=== PATIENT | male | born 1950 | race Caucasian/White ===

== ENCOUNTER 2023-02-19 19:49 | Emergency (ER) | payer MEDICARE, SELFPAY ==
[2023-02-19 19:50] VITALS: BP 147/86; PULSE 87; RESP 14; TEMP 36.9; O2SAT 94; BMI 28.5
--- NOTE | 2023-02-19 20:40 | EX.ED.DYSGE1 ---
HPI History of Present Illness Chief Complaint: Palpitations Informant: patient Narrative Narrative: Patient states he recently moved here, they were moving boxes today, and about half hour prior to arrival here, he started feeling occasional skips in his chest. He got a one-time brief discomfort in his left chest that went away quickly and has not returned. Denies any dyspnea. 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 Has been compliant with his medications although he forgot to take his metoprolol this morning, 50 mg succinate daily, so he took it around 4 to 5 hours prior to evaluation here now. [facility] Medical History (Updated 02/19/23 @ 23:[address] Sami Lu MD) AAA (abdominal aortic aneurysm) Atrial fibrillation Leaky heart valve Stroke Allergy/AdvReac Type Severity Reaction Status Date / Time Iodinated Contrast Media Allergy Anaphylaxis Verified 02/19/23 19:53 Social History Smoking Status: Former smoker ROS ROS ED Constitutional Constitutional ED: Denies chills or fever(s) Eyes Eyes: Denies change in vision or diplopia ENT ENT ED: Denies rhinorrhea or sore throat Cardiovascular Cardiovascular: Reports chest pain and palpitations; Denies lightheadedness, racing heartbeat or syncope Respiratory/Chest Respiratory/Chest: Reports dyspnea on exertion; Denies cough Gastrointestinal Gastrointestinal: Denies abdominal pain, diarrhea, nausea or vomiting Genitourinary Genitourinary ED: Denies dysuria or hematuria Musculoskeletal Musculoskeletal: Denies back pain or neck pain Integumentary Denies abscess or rash Neurologic Neurologic: Denies headache(s), paresthesias or weakness Psychiatric Psychiatric: Denies anxiety or suicidal thoughts EXAM Physical Exam Const Vital Signs: 02/19/23 19:50 02/19/23 21:19 02/19/23 21:24 Temperature 98.5 F Temperature Source Temporal Pulse Rate 87 71 Respiratory Rate 14 19 H Blood Pressure 147/86 H 116/71 Blood Pressure Mean 106 86 Pulse Ox 94 92 93 Oxygen Delivery Method Room Air Room Air 02/19/23 22:18 Temperature Temperature Source Pulse Rate 72 Respiratory Rate 14 Blood Pressure 117/81 H Blood Pressure Mean 93 Pulse Ox 94 Oxygen Delivery Method Room Air Positive well nourished and well developed General Appearance ED: well developed and NAD HEENT Reports moist mucous membranes normocephalic and atraumatic Eyes PERRL and EOMs intact bilaterally Neck full ROM and supple Resp normal respiratory effort and clear to auscultation bilaterally Cardio regular rate and regular rhythm Rhythm: abnormal rhythm ectopic beats Heart Sounds: murmur systolic III/ soft left sternal border GI non-tender and non-distended Auscultation: normoactive bowel sounds Palpation: soft Back/Spine no CVA tenderness General Back: other FROM Extremity normal to inspection General Extremety ED: Yes edema; Negative for pulses abnormal or tenderness General Extremity: edema bilateral lower extremity Details: mild; Negative for pulses abnormal Neuro oriented x3, CN's II-XII intact bilaterally and no sensory deficits noted Sensorium / Orientation: awake and alert Motor Exam: strength 5/5 throughout Psych mental status grossly normal Skin no rashes or lesions noted and no wounds MDM MDM MDM Narrative Medical decision making narrative: Labs were obtained including troponin which was within normal limits, we performed a 2-hour repeat, it is also in the normal range. In that time, I gave the patient an additional metoprolol tartrate 12.5 mg orally, his blood pressure tolerated this well, as that his heart rate was simply went from the 80s in the 70s, he was still having some occasional ectopy but was completely asymptomatic with it. Given this some comfortable discharging him home right now. I would continue his home prescriptions without changing the dose going forward for now, and he is referred to local cardiology and primary care. History & Record Review Additional record(s) reviewed:: No prior records Lab Data Attestation: I reviewed the patient's lab results. Labs: Laboratory Results - last 24 hr 02/19/23 02/19/23 19:55 22:45 WBC 6.9 RBC 4.48 L Hgb 14.0 Hct 42.7 MCV 95.3 H MCH 31.3 MCHC 32.8 RDW Std Deviation 48.3 H RDW Coeff of Brandy 13.7 Plt Count 209 MPV 10.5 Immature Gran % (Auto) 0.300 Neut % (Auto) 71.3 H Lymph % (Auto) 14.0 L [place] % (Auto) 11.5 H Eos % (Auto) 2.5 Baso % (Auto) 0.4 Absolute Neuts (auto) 4.9 Absolute Lymphs (auto) 0.96 Nucleated RBC % 0 Sodium 144 Potassium 3.5 Chloride 112 H Carbon Dioxide 27.0 Anion Gap 5 BUN 29 H Creatinine 0.92 Estim Creat Clear Calc 72.74 Est GFR (MDRD) Af Amer 103 Est GFR (MDRD) Non-Af 85 BUN/Creatinine Ratio 31.5 H Glucose 118 H Calcium 8.9 Troponin I High Sens 19 18 Rhythm Strip Rhythm Strip: Sinus Rhythm Rate: 85 Ectopy: None EKG Initial EKG: Attestation: I personally reviewed and interpreted this EKG as follows: Interpretation: Sinus Rhythm, No Acute Injury Pattern and - (PVC) Prior: No Prior Discharge Plan Triage Chief Complaint: Palpitations ED Provider: Sami Lu Dx/Rx/DC Orders Clinical Impression: Symptomatic PVCs, Non-cardiac chest pain Instructions: PVCs, ED Chest Pain, Noncardiac Primary Care Provider: Care Physician,No Primary Referrals: Eyal Briceno MD [Med Staff - Active Staff] - (primary care) Allison Londono MD [Med Staff - Active Staff] - (cardiology) Activity Restrictions/Additional Instructions: Continue on your current prescriptions, take your next metoprolol in the morning as prescribed. Disposition Disposition: Home, Self Care
[2023-02-19 20:51] LABS: Absolute Lymphocyte Count 0.96 X10^3/uL (0.83-4.51); Absolute Neutrophil Count 4.9 X10^3/uL (2.0-7.7); Basophil# 0.03 X10^3/uL; Basophil% 0.4 % (0-1); Eosinophil# 0.17 X10^3/uL; Eosinophils% 2.5 % (0-5); Hematocrit 42.7 % (40-54); Lymphocyte # 0.96 X10^3/ul (0.83-4.51); Mean Corp Hgb Conc 32.8 g/dL (32-36); Mean Corpuscular Hgb 31.3 pg (27.0-32.0); Mean Corpuscular Volume 95.3 fL (80-94); Mean Platelet Vol. 10.5 fl (6.2-12.0); Monocyte# 0.79 X10^3/uL; Monocyte% 11.5 % (0-10); NRBC Flagged by Analyzer 0 % (0-5); Neutrophil # 4.91 X10^3/uL (2.7-7.7); Neutrophil % 71.3 % (47-70); Platelet Count 209 K/mm3 (150-450); RBC Distribution Width CV 13.7 % (11.6-14.6); RBC Distribution Width SD 48.3 fl (35.1-43.9); Red Blood Count 4.48 M/mm3 (4.6-6.2); White Blood Count 6.9 K/mm3 (4.4-11.0)
[2023-02-19 21:11] LABS: Anion Gap 5 (5-15); BUN 29 mg/dL (7-18); BUN/Creat Ratio 31.5 RATIO (10-20); Calcium,Total 8.9 mg/dL (8.5-10.1); Chloride 112 mmol/L (98-107); Creatinine, Serum 0.92 mg/dL (0.70-1.30); EST Glomerular Filtration Rate 85 mL/min (>60); Est Glom Filt Rate - Afr Amer 103 mL/min (>60); Estimated Creatinine Clearance 72.74 ml/min; Glucose 118 mg/dL (74-106); Potassium 3.5 mmol/L (3.5-5.1); Sodium Level 144 mmol/L (136-145); Troponin-I HS (w/2H Reflex) 19 pg/mL (3.0-78.0)
[2023-02-19 21:19] VITALS: O2SAT 92
[2023-02-19 21:24] VITALS: BP 116/71; PULSE 71; RESP 19; O2SAT 93
[2023-02-19] MEDS: Metoprolol Tartrate 25 MG Tablet 12.5 MG PO (21:24)
[2023-02-19 22:18] VITALS: BP 117/81; PULSE 72; RESP 14; O2SAT 94
[2023-02-19 22:49] LABS: Reflex Troponin-HS? (from REC) Y
[2023-02-19 23:40] LABS: Troponin-I HS 18 pg/mL (3.0-78.0)
[2023-02-19 23:51] VITALS: BP 117/67; PULSE 81; RESP 18; O2SAT 99
== END 2023-02-19 23:53 | disposition home or self-care (01) ==
PROVIDERS: Emergency Provider Emergency Medicine; Visit Provider Emergency Medicine
DX: R07.89 Other chest pain (principal); I50.9 Heart failure, unspecified; I49.3 Ventricular premature depolarization; Z87.891 Personal history of nicotine dependence; Z86.73 Personal history of transient ischemic attack (TIA), and cerebral infarction without residual deficits; Z79.899 Other long term (current) drug therapy
CPT/HCPCS: 80048; 84484; 85025; 93005; 99284; A4216

== ENCOUNTER → 2023-09-02 | Outpatient (CLI) | payer MEDICARE, SELFPAY ==
--- NOTE | 2023-09-02 08:54 | AAAS_ITS ---
Reason For Study: RE-EVAL AAA Aorta Measurements Aorta Doppler Measurements Proximal aorta measures2.67 X 2.32cm. in cross- Peak systolic flow velocities within the proximal sectional axis. aorta measure 95.4 cm/sec. Proximal aorta measures2.65cm. in longitudinal Peak systolic flow velocities within the mid aorta axis. measure 82.5 cm/sec. Mid aorta measures2.00 X 2.03cm. in cross- Peak systolic flow velocities within the distal sectional axis. aorta measure 93.5 cm/sec. Mid aorta measures2.1cm. in longitudinal axis. Distal aorta measures2.08 X 1.86cm. in cross- sectional axis. Distal aorta measures2.16cm. in longitudinal axis. Left Iliac Artery Left iliac artery measures 1.50 X 1.44 cm. in the cross-sectional axis. Left iliac artery measures 1.27 cm. in the longitudinal axis. Peak systolic velocity in the left iliac artery measures 89.8 cm/sec. Right Iliac Artery Right iliac artery measures 1.23 X 1.20 cm. in the cross-sectional axis. Right iliac artery measures 1.23 cm. in the longitudinal axis. Peak systolic velocity in the right iliac artery measures 88.0 cm/sec. VL/AAA Screening Interpretation Summary Aorta patent, 2.67 cm ectasia present Right iliac artery patent, 1.23 cm ectasia present Left iliac artery patent, 1.5 cm ectasia present Ordering Physician: Rene Bazan Referring Physician: OTD Performed By: Mali Melissa, MIGUEL, RVT
== END | disposition home or self-care (01) ==
LOC: CVS 08:47
PROVIDERS: Referring Provider Internal Medicine Cardiovascular Disease; Visit Provider Internal Medicine Cardiovascular Disease
DX: I71.40 Abdominal aortic aneurysm, without rupture, unspecified (principal)
CPT/HCPCS: 76706

== ENCOUNTER → 2023-09-21 | Outpatient (CLI) | payer MEDICARE, SELFPAY ==
--- NOTE | 2023-09-21 13:53 | ECHOD_ITS ---
Reason For Study: AFIB/FLUTTER, PALPS Procedure This was a 2D Doppler, Color Flow transthoracic echocardiogram. Exam performed in department. Left Ventricle Mildly dilated left ventricle. Mild concentric left ventricular hypertrophy. Mild LV generalized hypokinesis. Estimated ejection fraction 45 to 50%. Grade 2 diastolic dysfunction. Right Ventricle Mildly dilated right ventricle. Atria There is moderate biatrial dilatation. Mitral Valve Severe posteriorly directed eccentric mitral valve regurgitation. Tricuspid Valve Mild tricuspid valve insufficiency. Right ventricular systolic pressure estimated to be 44 mmHg. Aortic Valve Aortic sclerosis, no stenosis. Mild (1+) aortic valve insufficiency. Pulmonic Valve The pulmonic valve is not well visualized. Great Vessels Mildly dilated aortic root. Pericardium/Pleural No pericardial effusion. MMode/2D Measurements & Calculations LVIDd: 5.8 cm IVSd: 1.5 cm Ao root diam: 3.9 cm LVIDs: 4.4 cm LVPWd: 1.5 cm RVDd: 4.7 cm FS: 24.6 % LAV(MOD-bp): 94.8 ml LVAd ap4: 45.3 cm2 SV(MOD-sp4): 82.2 ml LAV(MOD-bp) Indexed: 46.1 ml/m2 LVLd ap4: 9.0 cm LAV(MOD-sp2): 112.5 ml EDV(MOD-sp4): 181.3 ml LAV(MOD-sp4): 73.9 ml EDV(sp4-el): 192.2 ml LVAs ap4: 31.3 cm2 LVLs ap4: 8.0 cm ESV(MOD-sp4): 99.2 ml ESV(sp4-el): 104.7 ml EF(MOD-sp4): 45.3 % EF(sp4-el): 45.5 % SV(sp4-el): 87.5 ml LA A4 area: 23.1 cm2 LA dimension(2D): 4.6 cm RA A4 area: 21.8 cm2 TAPSE: 3.5 cm Time Measurements MV dec time: 0.22 sec Doppler Measurements & Calculations MV E max jose carlos: 56.0 cm/sec Lat Peak E' Jose Carlos: 5.8 cm/sec Med Peak E' Jose Carlos: 8.7 cm/sec MV A max jose carlos: 63.8 cm/sec E/E' lat: 9.7 E/E' med: 6.4 MV E/A: 0.88 MV V2 max: 62.5 cm/sec MV P1/2t max jose carlos: 56.1 cm/sec Ao V2 max: 147.7 cm/sec MV max P.6 mmHg MV P1/2t: 65.1 msec Ao max P.9 mmHg MV V2 mean: 37.9 cm/sec Ao V2 mean: 105.0 cm/sec MV mean P.65 mmHg MV dec slope: 252.5 cm/sec2 Ao mean P.9 mmHg MV V2 VTI: 17.6 cm MVA(P1/2t): 3.4 cm2 Ao V2 VTI: 32.5 cm AV (velocity ratio): 0.72 AI max jose carlos: 406.9 cm/sec LV V1 max: 104.4 cm/sec PA V2 max: 108.2 cm/sec AI max P.3 mmHg LV V1 max P.4 mmHg PA V2 mean: 72.6 cm/sec LV V1 mean P.3 mmHg AI dec slope: 280.5 cm/sec2 LV V1 mean: 72.4 cm/sec AI P1/2t: 424.9 msec LV V1 VTI: 23.4 cm TR max jose carlos: 268.2 cm/sec TR max P.8 mmHg ECHO/Echo Complete Interpretation Summary Mildly dilated left ventricle. Mild LV generalized hypokinesis. Estimated ejection fraction 45 to 50%. Grade 2 diastolic dysfunction. Mildly dilated right ventricle. There is moderate biatrial dilatation. Severe posteriorly directed eccentric mitral valve regurgitation. Mild tricuspid valve insufficiency. Right ventricular systolic pressure estimated to be 44 mmHg. Mild (1+) aortic valve insufficiency. Mildly dilated aortic root. Ordering Physician: Rene Bazan Referring Physician: OTD Performed By: Mali Melissa, MIGUEL, RVT
== END | disposition home or self-care (01) ==
LOC: CVS 13:49
PROVIDERS: Referring Provider Internal Medicine Cardiovascular Disease; Visit Provider Internal Medicine Cardiovascular Disease
DX: I35.1 Nonrheumatic aortic (valve) insufficiency (principal); Z86.79 Personal history of other diseases of the circulatory system; I25.10 Atherosclerotic heart disease of native coronary artery without angina pectoris; R00.2 Palpitations
CPT/HCPCS: 93306

== ENCOUNTER → 2023-11-04 | Outpatient (CLI) | payer MEDICARE, SELFPAY ==
--- NOTE | 2023-11-04 10:37 | ECHOTEE_ITS ---
Reason For Study: MITRAL VALVE REGURGITATION Medication LIZA probe 6VT-D (SN [id number]) passed without difficulty. No complications were noted. Cetacaine Topical Cameron given X3 orally. Versed 2 mg given slow IVP. Fentanyl 50 mcg given slow IVP. Performed a rapid injection of agitated mix of 9 cc saline and 1cc air to assess for atrial septal defect. Left Ventricle Normal LV size. The estimated ejection fraction is 53 %. Left ventricular systolic function is lower limits of normal. There is mild global hypokinesis of the left ventricle. Right Ventricle Normal RV size. Normal systolic function. Atria Patent foramen ovale. The left atrium is mildly enlarged. No thrombus is detected in the left atrial appendage. Normal right atrium. Mitral Valve Bileaflet diffuse mitral valve thickening. Mild-Moderate (1-2+) posteriorly directed mitral valve insufficiency. Multiple jets noted. Tricuspid Valve Normal tricuspid valve. Mild tricuspid valve insufficiency. Aortic Valve Trisinus/trileaflet aortic valve. Mild-Moderate (1-2+) aortic valve insufficiency. Pulmonic Valve Normal pulmonic valve. Mild (1+) eccentric pulmonic valve insufficiency. Vessels Normal aortic root. Normal arch. The pulmonary artery is normal size. Pulmonary venous flow normal. Pericardium No pericardial effusion. Doppler Measurements & Calculations Ao V2 max: 167.0 cm/sec AI max javy: 491.0 cm/sec LV V1 max: 142.4 cm/sec Ao max P.2 mmHg AI max P.4 mmHg LV V1 max P.1 mmHg Ao V2 mean: 123.8 cm/sec LV V1 mean P.4 mmHg Ao mean P.7 mmHg AI dec slope: 297.5 cm/sec2 LV V1 mean: 95.3 cm/sec Ao V2 VTI: 37.4 cm AI P1/2t: 483.4 msec LV V1 VTI: 36.6 cm AV (velocity ratio): 0.98 ECHO/Echo Transesophageal (LIZA) Interpretation Summary Normal LV size. The estimated ejection fraction is 53 %. Left ventricular systolic function is lower limits of normal. There is mild global hypokinesis of the left ventricle. Mild-Moderate (1-2+) posteriorly directed mitral valve insufficiency. Multiple jets noted Mild-Moderate (1-2+) aortic valve insufficiency. Ordering Physician: Kerri Menjivar Referring Physician: Kerri Menjivar Performed By: Gracia Escoto RCS
== END | disposition home or self-care (01) ==
LOC: CVS 10:34
PROVIDERS: Referring Provider Nurse Practitioner Gerontology; Visit Provider Nurse Practitioner Gerontology
DX: I34.0 Nonrheumatic mitral (valve) insufficiency (principal)
CPT/HCPCS: 93312; 93320; 93325; J7040; A4216

== ENCOUNTER → 2023-12-30 | Outpatient (CLI) | payer MEDICARE, SELFPAY ==
[2023-12-30 09:46] LABS: Hematocrit 43.1 % (40-54); Mean Corp Hgb Conc 32.5 g/dL (32-36); Mean Corpuscular Hgb 30.4 pg (27.0-32.0); Mean Corpuscular Volume 93.7 fL (80-94); Mean Platelet Vol. 10.1 fl (6.2-12.0); Platelet Count 173 K/mm3 (150-450); RBC Distribution Width CV 13.4 % (11.6-14.6); RBC Distribution Width SD 45.9 fl (35.1-43.9); White Blood Count 5.8 K/mm3 (4.4-11.0)
[2023-12-30 10:23] LABS: ALB/GLOB Ratio 0.9 RATIO (0.9-2.4); AST(SGOT) 34 U/L (15-37); Alanine Aminotransfer ALT/SGPT 33 U/L (16-61); Albumin, Serum 3.6 g/dL (3.2-5.0); Alkaline Phosphatase 95 U/L (45-117); Anion Gap 4 (5-15); BUN 24 mg/dL (7-18); Calcium,Total 9.1 mg/dL (8.5-10.1); Chloride 111 mmol/L (98-107); Cholesterol 107 mg/dL (200); Creatinine, Serum 0.86 mg/dL (0.70-1.30); EST Glomerular Filtration Rate 93 mL/min (>60); Est Glom Filt Rate - Afr Amer 112 mL/min (>60); Glucose 92 mg/dL (74-106); High Density Lipoprotein 66 mg/dL; Protein, Total 7.6 g/dL (6.4-8.2); Sodium Level 142 mmol/L (136-145); Triglycerides 22 mg/dL; Very Low Density Lipoprotein 4 mg/dL (5-40)
[2023-12-30 10:40] LABS: Vitamin D,25 Hydroxy 63.1 ng/mL
== END | disposition home or self-care (01) ==
LOC: LAB 09:19
DX: K21.9 Gastro-esophageal reflux disease without esophagitis (principal); E78.2 Mixed hyperlipidemia; N40.0 Benign prostatic hyperplasia without lower urinary tract symptoms; E55.9 Vitamin D deficiency, unspecified
CPT/HCPCS: 36415; 80053; 80061; 82306; 85027

== ENCOUNTER 2024-02-06 11:25 | Emergency (ER) | payer MEDICARE, SELFPAY ==
[2024-02-06 11:26] VITALS: BP 116/79; PULSE 69; RESP 18; TEMP 36.2; O2SAT 97
[2024-02-06 12:33] VITALS: BMI 28.0
--- NOTE | 2024-02-06 12:36 | EDS_ITS ---
HPI History of Present Illness Chief Complaint: Lower Extremity Injury Detail of Chief Complaint: Injury anterior right and left leg due to fall 1 week ago Informant: patient Onset/Context/Timing Onset: Weeks Context: Sudden Onset Timing: Continuous Quality: Pain medial anterior right leg and proximal anterior left leg Location: Bruising is noted over the both areas. There is a subcutaneous hematoma on Current Severity: Mild Maximum Severity: Moderate Worsened by: Palpation Relieved by: Nothing Associated Symptoms Associated Symptoms: None other than pain Narrative Narrative: Patient is a 73-year-old male. He has history of congestive heart failure, atrial fibrillation, essential hypertension, coronary disease, abdominal aortic aneurysm and valvular heart disease who presents because of concern for clot. Patient [place] chest pain or shortness of breath. Patient has no other complaints other than the bruising and pain due to fall 1 week ago. He is on Plavix and aspirin. Is on no anticoagulant. Prior similar symptoms: No Recent Illness/Hospitalization: No [facility] Medical History History of atrial fibrillation Ventral hernia Abnormal stress test Glaucoma History of GI bleed Non-hemorrhagic cerebrovascular accident (CVA) Hemorrhagic cerebrovascular accident (CVA) (~1998) Palpitations Valvular heart disease Chest pain Essential hypertension Vertigo Sleep apnea Osteoporosis Arthritis Congestive heart failure (CHF) BPH (benign prostatic hyperplasia) Dyslipidemia GERD (gastroesophageal reflux disease) Atrial fibrillation AAA (abdominal aortic aneurysm) Leaky heart valve Home Medications ?Medication ?Instructions ?Recorded ?Last Taken ?Type alendronate 70 mg tablet 70 mg PO QWEEK 08/08/23 Unknown History aspirin 81 mg tablet,delayed 81 mg PO DAILY 08/08/23 Unknown History release atorvastatin 40 mg tablet 40 mg PO QHS 08/08/23 Unknown History brimonidine 0.1 % eye drops 1 drp ophthalmic (eye) BID 08/08/23 Unknown History coQ10 (ubiquinol) 100 mg capsule 200 mg PO DAILY 08/08/23 Unknown History (Qunol Josep CoQ10) finasteride 5 mg tablet 5 mg PO DAILY 08/08/23 Unknown History fluticasone propionate 50 2 spray intranasal DAILY 08/08/23 Unknown History mcg/actuation nasal spray,suspension latanoprost 0.005 % eye drops 1 drp ophthalmic (eye) QPM 08/08/23 Unknown History multivitamin with iron 1 tab PO DAILY 08/08/23 Unknown History pantoprazole 40 mg tablet,delayed 40 mg PO DAILY 08/08/23 Unknown History release tamsulosin 0.4 mg capsule 0.4 mg PO DAILY 08/08/23 Unknown History L.acidophilus,gasseri,rhamnosus-B.bifidum,long 1 cap PO DAILY 08/15/23 Unknown History 3 billion cell capsule (Digestive Probiotic) metoprolol succinate 50 mg 50 mg PO BID #180 tabs 10/11/23 Unknown Rx tablet,extended release 24 hr clopidogrel 75 mg tablet 75 mg PO DAILY #90 tabs 12/06/23 Unknown Rx Allergy/AdvReac Type Severity Reaction Status Date / Time Iodinated Contrast Media Allergy Anaphylaxis Verified 02/06/24 11:28 codeine AdvReac Intermediate Hives Verified 02/06/24 11:28 Family History Mother Hypertension Brother Sleep apnea Father Cancer stomach Surgical History Hx of cardiac catheterization (~06/23/20) Hx of hemorrhoidectomy Hx of nasal septoplasty History of right hip replacement Hx of tonsillectomy Hx of appendectomy History of total right knee replacement (TKR) (~2011) Hx of inguinal hernia repair (~05/13/15) Social History Smoking Status: Former smoker how long ago did patient quit smokin alcohol intake: former substance use type: does not use caffeine: Yes Type: coffee Number of servings: 1 ROS ROS ED Constitutional Constitutional ED: Denies chills, fever(s), subjective or sweats Cardiovascular Cardiovascular: Denies chest pain or palpitations Respiratory/Chest Respiratory/Chest: Denies cough, dyspnea or dyspnea on exertion Musculoskeletal Musculoskeletal: Reports other Details: Pain anterior right and left leg Integumentary Reports other Details: Bruising right [place]lee left leg Hematologic/Lymphatic Hematologic/Lymphatic: Reports easy bruising EXAM Physical Exam Const Vital Signs: 02/06/24 11:26 Temperature 97.2 F L Temperature Source Temporal Pulse Rate 69 Respiratory Rate 18 Blood Pressure 116/79 Blood Pressure Mean 91 Pulse Ox 97 Oxygen Delivery Method Room Air Positive well nourished and well developed General Appearance ED: well developed and NAD HEENT HEENT Narrative: There is atraumatic, cephalic. Ears normal. Nares patent. Resp normal respiratory effort Cardio regular rate and regular rhythm Extremity Extremity Narrative: Patient has bruising mid anterior right leg with a subcutaneous hematoma anterior medial aspect the leg. There is no asymmetry or edema. There is no leg vein distention, palpable cords since on the distribution deep venous system. The left leg has bruising proximal anterior left leg. There is no fluctuance. There is no joint line tenderness. There is no discoloration other than the bruise, leg vein distention, palp coarseness on the distribution deep venous system. DP pulses palpable bilaterally. the pulses symmetric. Neuro oriented x3 and CN's II-XII intact bilaterally Sensorium / Orientation: alert Psych mental status grossly normal Skin No no wounds Skin Narrative: Bruising as previously described MDM MDM MDM Narrative Medical decision making narrative: Patient was told he has a subcutaneous hematoma. This is not the type of blood clot that causes blood clots to your lung. Informed him these are bruises. Nothing more needs to be done. The one bruise may take 1 month if not longer to resolve. Since they relocated from [place] and have no physicians they referred to Dr. Patrice Tineo. Discharge Plan Triage Chief Complaint: Lower Extremity Injury ED Provider: Ivan Figueredo Dx/Rx/DC Orders Clinical Impression: Hematoma of right lower extremity, Congestive heart failure (CHF), Essential hypertension, Coronary artery disease, Contusion of left lower leg, initial encounter, Antiplatelet or antithrombotic long-term use Instructions: ED Contusion, Lower Extremity Prescriptions: No Action atorvastatin 40 mg tablet 40 mg PO QHS alendronate 70 mg tablet 70 mg PO QWEEK aspirin 81 mg tablet,delayed release (DR/EC) 81 mg PO DAILY finasteride 5 mg tablet 5 mg PO DAILY brimonidine 0.1 % drops 1 drp ophthalmic (eye) BID fluticasone propionate 50 mcg/actuation spray,suspension 2 spray intranasal DAILY latanoprost 0.005 % drops 1 drp ophthalmic (eye) QPM Patient Comments: Instill 1 drop into both eyes at bedtime pantoprazole 40 mg tablet,delayed release (DR/EC) 40 mg PO DAILY tamsulosin 0.4 mg capsule 0.4 mg PO DAILY multivitamin with iron Tablet 1 tab PO DAILY coQ10 (ubiquinol) [Qunol Josep CoQ10] 100 mg capsule 200 mg PO DAILY Digestive Probiotic 3 billion cell capsule 1 cap PO DAILY metoprolol succinate 50 mg tablet extended release 24 hr 50 mg PO BID Qty: 180 3RF clopidogrel 75 mg tablet 75 mg PO DAILY Qty: 90 3RF Primary Care Provider: Care Physician,No Primary Referrals: Patrice Tineo MD [Med Staff - [employer]] - 1-2 Weeks Care Physician,No Primary [Primary Care Provider] - Print Language: Tamazight Disposition Disposition: Home, Self Care
== END 2024-02-06 13:12 | disposition home or self-care (01) ==
LOC: ED 13:02
PROVIDERS: Emergency Provider Emergency Medicine; PCP Family Medicine; Visit Provider Emergency Medicine
DX: S80.11XA Contusion of right lower leg, initial encounter (principal); I11.0 Hypertensive heart disease with heart failure; I50.9 Heart failure, unspecified; I48.91 Unspecified atrial fibrillation; Z79.82 Long term (current) use of aspirin; E78.5 Hyperlipidemia, unspecified; I25.10 Atherosclerotic heart disease of native coronary artery without angina pectoris; Z79.02 Long term (current) use of antithrombotics/antiplatelets; Z87.891 Personal history of nicotine dependence; Z79.899 Other long term (current) drug therapy; N40.0 Benign prostatic hyperplasia without lower urinary tract symptoms; K21.9 Gastro-esophageal reflux disease without esophagitis; M81.0 Age-related osteoporosis without current pathological fracture; Z79.83 Long term (current) use of bisphosphonates; Z96.641 Presence of right artificial hip joint; Z90.49 Acquired absence of other specified parts of digestive tract; Z96.651 Presence of right artificial knee joint; S80.12XA Contusion of left lower leg, initial encounter; W19.XXXA Unspecified fall, initial encounter
CPT/HCPCS: 99282

== ENCOUNTER → 2024-03-22 | Outpatient (CLI) | payer MEDICARE, SELFPAY ==
--- NOTE | 2024-03-22 16:48 | RAD_ITS ---
STUDY: X-RAY - PELVIS AND LEFT HIP REASON FOR EXAM: Male, 73 years old. Left hip pain. TECHNIQUE: 3 views of the pelvis and left hip. COMPARISON: None. FINDINGS: There is a non-specific bowel gas pattern. There are multiple calcified phleboliths. Normal bilateral iliac wings, sacroiliac joints and visualized sacrum. Normal bilateral superior and inferior pubic rami. Normal pubic symphysis. Normal bilateral ischial tuberosities. There is severe degenerative arthrosis of the left hip joint with severe joint space narrowing, small marginal osteophyte formation, and subchondral sclerosis/cyst formation. There is no demonstrated acute fracture. There is a right hip arthroplasty in place, with no periprosthetic fracture. RAD/HIP, UNI W/ Pelvis 2-3 Views IMPRESSION: Severe degenerative arthrosis of the left hip joint. Right hip arthroplasty, with no periprosthetic fracture. Electronically Signed: Conor Farr MD at 15:38 EDT ,
--- NOTE | 2024-03-22 16:48 | RAD_ITS ---
STUDY: X-RAY - LEFT KNEE REASON FOR EXAM: Male, 73 years old. Left knee pain. TECHNIQUE: 3 views of the left knee. COMPARISON: None. FINDINGS: Normal visualized distal femur. Normal visualized proximal tibia and fibula. Normal proximal tibiofibular articulation. There is no demonstrated fracture. There is moderate degenerative arthrosis of the medial femorotibial compartment with moderate joint space narrowing. There is mild degenerative arthrosis of the lateral femorotibial compartment. There is moderate degenerative arthrosis of the patellofemoral articulation. There is a moderate joint effusion. The soft tissue structures are unremarkable. 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 Moderate joint effusion. Electronically Signed: Conor Farr MD at 15:26 EDT ,
== END | disposition home or self-care (01) ==
PROVIDERS: PCP Family Medicine; Referring Provider Family Medicine; Visit Provider Family Medicine
DX: M16.12 Unilateral primary osteoarthritis, left hip (principal); M17.12 Unilateral primary osteoarthritis, left knee
CPT/HCPCS: 73502; 73562

== ENCOUNTER → 2024-04-03 | Outpatient (CLI) | payer MEDICARE, SELFPAY ==
--- NOTE | 2024-04-03 12:56 | CT_ITS ---
STUDY: CT ABDOMEN AND PELVIS WITHOUT CONTRAST REASON FOR EXAM: Male, 73 years old. GROSS HEMATURIA RADIATION DOSAGE (If Supplied By Facility): CTDIvol = ( 16.15 ) mGy, DLP = ( 764.44 ) mGycm TECHNIQUE: Transaxial images were obtained from the dome of the diaphragm to the symphysis pubis without oral contrast, and without intravenous contrast. Sagittal and coronal images were reconstructed. Individualized dose optimization techniques were used for this CT. COMPARISON: None. FINDINGS: The visualized lung bases are unremarkable. The visualized portions of the heart are within normal limits. Up to 3.5 cm cysts in the liver. Normal gallbladder and extrahepatic biliary system. Normal spleen. Normal pancreas. Normal bilateral adrenal glands. Renal cysts bilaterally. Up to 3 mm calculi in the left kidney. Normal visualized stomach. Normal small intestine. Diverticulosis of the colon. The appendix is nonvisualized. Normal abdominal aorta. Normal inferior vena cava. Subcentimeter nodes in the retroperitoneum. Normal urinary bladder. The prostate is 5.9 x 7 cm. Small fatty umbilical hernia. There is a total right replacement. Levoscoliosis of the lumbar column. Degenerative vertebral changes. CT/Abdomen/Pelvis without Cont IMPRESSION: Up to 3.5 cm cysts in the liver. Renal cysts bilaterally. Up to 3 mm calculi in the left kidney. Diverticulosis of the colon. The appendix is visualized and appears normal. Subcentimeter nodes in the retroperitoneum. Electronically Signed: Juice Lawler DO at 10:44 EST ,
== END | disposition home or self-care (01) ==
LOC: CT 12:51
PROVIDERS: PCP Family Medicine; Referring Provider Urology; Visit Provider Urology
DX: R31.0 Gross hematuria (principal); N40.0 Benign prostatic hyperplasia without lower urinary tract symptoms
CPT/HCPCS: 74176

== ENCOUNTER → 2024-04-09 | Outpatient (CLI) | payer MEDICARE, SELFPAY ==
[2024-04-09 12:41] LABS: PSA,Total- Diagnostic 5.41 ng/mL (0.0-4.0)
== END | disposition home or self-care (01) ==
LOC: LAB 11:41
PROVIDERS: PCP Family Medicine; Referring Provider Urology; Visit Provider Urology
DX: N40.1 Benign prostatic hyperplasia with lower urinary tract symptoms (principal)
CPT/HCPCS: 36415; 84153

== ENCOUNTER 2024-07-11 14:00 | Outpatient (CLI) | payer MEDICARE, SELFPAY ==
[2024-07-16 12:35] LABS: Absolute Lymphocyte Count 0.78 X10^3/uL (0.83-4.51); Absolute Neutrophil Count 3.6 X10^3/uL (2.0-7.7); Basophil# 0.04 X10^3/uL; Basophil% 0.8 % (0-1); Eosinophil# 0.28 X10^3/uL; Eosinophils% 5.3 % (0-5); Hemoglobin 13.5 g/dL (13.0-16.5); Lymphocyte # 0.78 X10^3/ul (0.83-4.51); Lymphocyte % 14.7 % (19-41); Mean Corp Hgb Conc 32.1 g/dL (32-36); Mean Corpuscular Hgb 30.4 pg (27.0-32.0); Mean Corpuscular Volume 94.6 fL (80-94); Mean Platelet Vol. 9.9 fl (6.2-12.0); Monocyte# 0.56 X10^3/uL; Monocyte% 10.5 % (0-10); NRBC Flagged by Analyzer 0 % (0-5); Neutrophil # 3.64 X10^3/uL (2.7-7.7); Neutrophil % 68.5 % (47-70); Platelet Count 173 K/mm3 (150-450); RBC Distribution Width CV 13.4 % (11.6-14.6); RBC Distribution Width SD 46.8 fl (35.1-43.9); Red Blood Count 4.44 M/mm3 (4.6-6.2); White Blood Count 5.3 K/mm3 (4.4-11.0)
--- NOTE | 2024-07-16 18:33 | PAT.ANESEVAL ---
Pre-Assessment Diagnosis/Proposed Procedure Planned Operative Procedure(s): ROBOTIC ASSISTED LEFT TOTAL KNEE ARTHROPLASTY Anesthesia History Anesthesia History - physician assistant: Anesthesia History - physician assistant Hx Hospitalization No 07/11/24 14:07 Any Problems With Anesthesia No 07/11/24 14:07 Cholinesterase deficiency No 07/11/24 14:07 You/Your Family Experience No 07/11/24 14:07 fever (hyperthermia) with Relationship Recent Exposure to Contagious Disease Does patient have nerve No 07/11/24 14:07 stimulator Patient instructed to have device shut off --Does patient have Pacemaker or ICD? When Was Last Pacemaker Check QUESTION #4 FULL TEXT: You/Your Family Experience fever (hyperthermia) with Anesthesia Last Oral Intake Last Oral intake: Last Oral Intake NPO since Meds taken in AM with sips of water? Meds patient instructed to take am of surgery PONV PONV - physician assistant: PONV - physician assistant Female No 07/11/24 14:07 HX of Motion Sickness No 07/11/24 14:07 HX of N/V After Surgery No 07/11/24 14:07 Non-Smoker Yes 07/11/24 14:07 Duration of Surgery greater Yes 07/11/24 14:07 than 60 minutes Number of Risk Factors 2 07/11/24 14:07 PONV Score Moderate Risk 07/11/24 14:07 Height & Weight Height & Weight: Anesthesia: Height & Weight Height 5 ft 10 in 02/06/24 11:26 Respiratory Assessment Respiratory Assessment - physician assistant: Respiratory Tract Infection Hx - physician assistant Hx Respiratory Tract Infection No 07/11/24 14:07 STOP Sleep Apnea STOP Sleep Apnea - physician assistant: STOP Sleep Apnea - physician assistant Hx Hypertension Yes: CONTROLLED WITH MEDS 07/11/24 14:07 Hx Sleep Apnea No 07/11/24 14:07 CPAP BIPAP Do you snore loudly (louder No 07/11/24 14:07 than talking or can be heard Do you often feel tired/ Yes 07/11/24 14:07 fatigued/ sleepy during daytime? Has anyone observed you stop No 07/11/24 14:07 breathing during sleep? STOP Results Positive 07/11/24 14:07 QUESTION #5 FULL TEXT : Do you snore loudly (louder than talking or can be heard through closed doors)? Tobacco Use History Tobacco Use History - physician assistant: Tobacco Use History - physician assistant Tobacco Use Smoking Status Former smoker 07/11/24 14:07 Hx Tobacco Use No 07/11/24 14:07 Years Smoking Packs Smoked per Day Smoking Cessation Date was No - quit smoking greater 07/11/24 14:07 within the last 15 years than 15 years ago Hx Smoking Cessation Date Hx Smoking Cessation No 07/11/24 14:07 Counseling Hematologic Medial History Hematologic Hx - physician assistant: Hematologic Medical Hx - intelligence chief Hx of Blood Transfusion No 07/11/24 14:07 Hx of Transfusion in last 3 No 07/11/24 14:07 Months Date of Last Transfusion (if within last 3 months) Ever experience any problems No 07/11/24 14:07 with transfusion(s)? Specify any problems Hx of Preganancy in last 3 N/A 07/11/24 14:07 Months Nurse Filling Out Transfusion DSCHRIBER 07/11/24 14:07 & Questions: Date: 07/11/24 07/11/24 14:07 Time: 14:09 07/11/24 14:07 Patient unable to answer at this time (ie. confused, unrespo /Reproduction History /Reproductive History - physician assistant: /Reproductive Hx- physician assistant Hx Now No 07/11/24 14:07 Gestational Age (in weeks): EDC: Hx Hx Para Hx Section SAB No 07/11/24 14:07 PFSH Medical History (Updated 07/11/24 @ 14:22 by Sneha Alcaraz) Wears glasses High cholesterol Back pain Injury of back Gastric reflux Former smoker CPAP (continuous positive airway pressure) dependence History of pain when walking History of edema History of transesophageal echocardiography (LIZA) History of echocardiogram Cardiology follow-up encounter History of atrial fibrillation Ventral hernia Glaucoma History of GI bleed Non-hemorrhagic cerebrovascular accident (CVA) Palpitations Valvular heart disease Essential hypertension Vertigo Osteoporosis Arthritis BPH (benign prostatic hyperplasia) AAA (abdominal aortic aneurysm) Leaky heart valve Home Medications ?Medication ?Instructions ?Recorded ?Last Taken ?Type alendronate 70 mg tablet 70 mg PO QWEEK 08/08/23 Unknown History aspirin 81 mg tablet,delayed 81 mg PO DAILY 08/08/23 Unknown History release atorvastatin 40 mg tablet 40 mg PO QHS 08/08/23 Unknown History brimonidine 0.1 % eye drops 1 drp ophthalmic (eye) BID 08/08/23 Unknown History coQ10 (ubiquinol) 100 mg capsule 200 mg PO DAILY 08/08/23 Unknown History (Qunol Josep CoQ10) finasteride 5 mg tablet 5 mg PO DAILY 08/08/23 Unknown History fluticasone propionate 50 2 spray intranasal DAILY 08/08/23 Unknown History mcg/actuation nasal spray,suspension latanoprost 0.005 % eye drops 1 drp ophthalmic (eye) QPM 08/08/23 Unknown History multivitamin with iron 1 tab PO DAILY 08/08/23 Unknown History pantoprazole 40 mg tablet,delayed 40 mg PO DAILY 08/08/23 Unknown History release tamsulosin 0.4 mg capsule 0.4 mg PO QHS 08/08/23 Unknown History L.acidophilus,gasseri,rhamnosus-B.bifidum,long 1 cap PO DAILY 08/15/23 Unknown History 3 billion cell capsule (Digestive Probiotic) metoprolol succinate 50 mg 50 mg PO BID #180 tabs 10/11/23 Unknown Rx tablet,extended release 24 hr clopidogrel 75 mg tablet 75 mg PO DAILY #90 tabs 12/06/23 Unknown Rx Allergy/AdvReac Type Severity Reaction Status Date / Time Iodinated Contrast Media Allergy Anaphylaxis Verified 07/11/24 13:54 codeine AdvReac Intermediate Hives Verified 07/11/24 13:54 Family History Mother Hypertension Brother Sleep apnea Father Cancer stomach Surgical History (Updated 07/11/24 @ 14:22 by Sneha Alcaraz) Hx of colonoscopy Hx of total knee arthroplasty Hx of right inguinal hernia repair Hx of cardiac catheterization (~06/23/20) Hx of hemorrhoidectomy Hx of nasal septoplasty History of right hip replacement Hx of tonsillectomy Hx of appendectomy Hx of inguinal hernia repair Social History Smoking Status: Former smoker how long ago did patient quit smokin alcohol intake: former substance use type: does not use caffeine: Yes Type: coffee Number of servings: 1 Audit: Pertinent Findings HISTORY of Pertinent Findings History of Pertinent Findings: nonobstructive CAD, HTN, abdominal aortic aneurysm, moderate aortic valve regurgitation, CVA hx Pertinent Findings Echo (EF%) pertinent findings: LIZA 11/04/2023: Interpretation Summary Normal LV size. The estimated ejection fraction is 53 %. Left ventricular systolic function is lower limits of normal. There is mild global hypokinesis of the left ventricle. Mild-Moderate (1-2+) posteriorly directed mitral valve insufficiency. Multiple jets noted Mild-Moderate (1-2+) aortic valve insufficiency. Echocardiogram 09/21/2023: Interpretation Summary Mildly dilated left ventricle. Mild LV generalized hypokinesis. Estimated ejection fraction 45 to 50%. Grade 2 diastolic dysfunction. Mildly dilated right ventricle. There is moderate biatrial dilatation. Severe posteriorly directed eccentric mitral valve regurgitation. Mild tricuspid valve insufficiency. Right ventricular systolic pressure estimated to be 44 mmHg. Mild (1+) aortic valve insufficiency. Mildly dilated aortic root. ECHOCARDIOGRAM 10/20/22: CONCLUSIONS Low normal LV function with an ejection fraction of 50% and inferior wall hypokinesis Moderate AI Mild MR Negative bubble study Heart catheterization pertinent findings: CARDIAC CATHETERIZATION 06/23/20: CONCLUSION Normal LV ejection fraction of 55 to 60%. Normal LVEDP at 8 mmHg. Nonobstructive coronary artery disease. Left main aneurysmal dilatation with ostial left main less than 30% stenosis. Recommendation Anesthesia Recommendation Anesthesia recommendation: F/U recommended Follow up Details Cadiac/Pulmonary Imaging Recommendation: Yes Cadiac/Pulmonary Imaging Rec Details: patient last saw ball rolling machine operator on 02/11/2024 at which time they had recommended a cardiac MRI to follow up mitral valve findings from LIZA done on 11/04/2023. not sure if patient ever got this cardiac MRI done or saw the ball rolling machine operator again, but he will need cardiac clearance for upcoming surgery
[2024-07-16 20:27] LABS: Albumin, Serum 3.5 g/dL (3.2-5.0); Anion Gap 4 (5-15); BUN 19 mg/dL (7-18); BUN/Creat Ratio 22.1 RATIO (10-20); Chloride 109 mmol/L (98-107); Creatinine, Serum 0.86 mg/dL (0.70-1.30); EST Glomerular Filtration Rate 92 mL/min (>60); Est Glom Filt Rate - Afr Amer 111 mL/min (>60); Glucose 108 mg/dL (74-106); Sodium Level 140 mmol/L (136-145)
[2024-07-16 20:35] LABS: Magnesium 2.2 mg/dL (1.6-2.6)
--- NOTE | 2024-07-19 15:53 | PAT.ANESEVAL ---
Pre-Assessment Diagnosis/Proposed Procedure Planned Operative Procedure(s): ROBOTIC ASSISTED LEFT TOTAL KNEE ARTHROPLASTY Anesthesia History Anesthesia History - senior sales manager: Anesthesia History - senior sales manager Hx Hospitalization No 07/11/24 14:07 Any Problems With Anesthesia No 07/11/24 14:07 Cholinesterase deficiency No 07/11/24 14:07 You/Your Family Experience No 07/11/24 14:07 fever (hyperthermia) with Relationship Recent Exposure to Contagious Disease Does patient have nerve No 07/11/24 14:07 stimulator Patient instructed to have device shut off --Does patient have Pacemaker or ICD? When Was Last Pacemaker Check QUESTION #4 FULL TEXT: You/Your Family Experience fever (hyperthermia) with Anesthesia Last Oral Intake Last Oral intake: Last Oral Intake NPO since Meds taken in AM with sips of water? Meds patient instructed to take am of surgery PONV PONV - senior sales manager: PONV - senior sales manager Female No 07/11/24 14:07 HX of Motion Sickness No 07/11/24 14:07 HX of N/V After Surgery No 07/11/24 14:07 Non-Smoker Yes 07/11/24 14:07 Duration of Surgery greater Yes 07/11/24 14:07 than 60 minutes Number of Risk Factors 2 07/11/24 14:07 PONV Score Moderate Risk 07/11/24 14:07 Height & Weight Height & Weight: Anesthesia: Height & Weight Height 5 ft 10 in 02/06/24 11:26 Respiratory Assessment Respiratory Assessment - senior sales manager: Respiratory Tract Infection Hx - senior sales manager Hx Respiratory Tract Infection No 07/11/24 14:07 STOP Sleep Apnea STOP Sleep Apnea - senior sales manager: STOP Sleep Apnea - senior sales manager Hx Hypertension Yes: CONTROLLED WITH MEDS 07/11/24 14:07 Hx Sleep Apnea No 07/11/24 14:07 CPAP BIPAP Do you snore loudly (louder No 07/11/24 14:07 than talking or can be heard Do you often feel tired/ Yes 07/11/24 14:07 fatigued/ sleepy during daytime? Has anyone observed you stop No 07/11/24 14:07 breathing during sleep? STOP Results Positive 07/11/24 14:07 QUESTION #5 FULL TEXT : Do you snore loudly (louder than talking or can be heard through closed doors)? Tobacco Use History Tobacco Use History - senior sales manager: Tobacco Use History - senior sales manager Tobacco Use Smoking Status Former smoker 07/11/24 14:07 Hx Tobacco Use No 07/11/24 14:07 Years Smoking Packs Smoked per Day Smoking Cessation Date was No - quit smoking greater 07/11/24 14:07 within the last 15 years than 15 years ago Hx Smoking Cessation Date Hx Smoking Cessation No 07/11/24 14:07 Counseling Hematologic Medial History Hematologic Hx - senior sales manager: Hematologic Medical Hx - archives specialist Hx of Blood Transfusion No 07/11/24 14:07 Hx of Transfusion in last 3 No 07/11/24 14:07 Months Date of Last Transfusion (if within last 3 months) Ever experience any problems No 07/11/24 14:07 with transfusion(s)? Specify any problems Hx of Preganancy in last 3 N/A 07/11/24 14:07 Months Nurse Filling Out Transfusion DSCHRIBER 07/11/24 14:07 & Questions: Date: 07/11/24 07/11/24 14:07 Time: 14:09 07/11/24 14:07 Patient unable to answer at this time (ie. confused, unrespo /Reproduction History /Reproductive History - senior sales manager: /Reproductive Hx- senior sales manager Hx Now No 07/11/24 14:07 Gestational Age (in weeks): EDC: Hx Hx Para Hx Section SAB No 07/11/24 14:07 PFSH Medical History (Updated 07/11/24 @ 14:22 by Sneha Alcaraz) Wears glasses High cholesterol Back pain Injury of back Gastric reflux Former smoker CPAP (continuous positive airway pressure) dependence History of pain when walking History of edema History of transesophageal echocardiography (LIZA) History of echocardiogram Cardiology follow-up encounter History of atrial fibrillation Ventral hernia Glaucoma History of GI bleed Non-hemorrhagic cerebrovascular accident (CVA) Palpitations Valvular heart disease Essential hypertension Vertigo Osteoporosis Arthritis BPH (benign prostatic hyperplasia) AAA (abdominal aortic aneurysm) Leaky heart valve Home Medications ?Medication ?Instructions ?Recorded ?Last Taken ?Type alendronate 70 mg tablet 70 mg PO QWEEK 08/08/23 Unknown History aspirin 81 mg tablet,delayed 81 mg PO DAILY 08/08/23 Unknown History release atorvastatin 40 mg tablet 40 mg PO QHS 08/08/23 Unknown History brimonidine 0.1 % eye drops 1 drp ophthalmic (eye) BID 08/08/23 Unknown History coQ10 (ubiquinol) 100 mg capsule 200 mg PO DAILY 08/08/23 Unknown History (Qunol Josep CoQ10) finasteride 5 mg tablet 5 mg PO DAILY 08/08/23 Unknown History fluticasone propionate 50 2 spray intranasal DAILY 08/08/23 Unknown History mcg/actuation nasal spray,suspension latanoprost 0.005 % eye drops 1 drp ophthalmic (eye) QPM 08/08/23 Unknown History multivitamin with iron 1 tab PO DAILY 08/08/23 Unknown History pantoprazole 40 mg tablet,delayed 40 mg PO DAILY 08/08/23 Unknown History release tamsulosin 0.4 mg capsule 0.4 mg PO QHS 08/08/23 Unknown History L.acidophilus,gasseri,rhamnosus-B.bifidum,long 1 cap PO DAILY 08/15/23 Unknown History 3 billion cell capsule (Digestive Probiotic) metoprolol succinate 50 mg 50 mg PO BID #180 tabs 10/11/23 Unknown Rx tablet,extended release 24 hr clopidogrel 75 mg tablet 75 mg PO DAILY #90 tabs 12/06/23 Unknown Rx Allergy/AdvReac Type Severity Reaction Status Date / Time Iodinated Contrast Media Allergy Anaphylaxis Verified 07/11/24 13:54 codeine AdvReac Intermediate Hives Verified 07/11/24 13:54 Family History Mother Hypertension Brother Sleep apnea Father Cancer stomach Surgical History (Updated 07/11/24 @ 14:22 by Sneha Alcaraz) Hx of colonoscopy Hx of total knee arthroplasty Hx of right inguinal hernia repair Hx of cardiac catheterization (~06/23/20) Hx of hemorrhoidectomy Hx of nasal septoplasty History of right hip replacement Hx of tonsillectomy Hx of appendectomy Hx of inguinal hernia repair Social History Smoking Status: Former smoker how long ago did patient quit smokin alcohol intake: former substance use type: does not use caffeine: Yes Type: coffee Number of servings: 1 Audit: Pertinent Findings HISTORY of Pertinent Findings History of Pertinent Findings: Echo Pertinent Findings Echo (EF%) pertinent findings LIZA 11/04/2023: 07/16/24 18:36 Interpretation Summary Normal LV size. The estimated ejection fraction is 53 %. Left ventricular systolic function is lower limits of normal. There is mild global hypokinesis of the left ventricle. Mild-Moderate (1-2+) posteriorly directed mitral valve insufficiency. Multiple jets noted Mild-Moderate (1-2+) aortic valve insufficiency. Echocardiogram 09/21/2023: Interpretation Summary Mildly dilated left ventricle. Mild LV generalized hypokinesis. Estimated ejection fraction 45 to 50%. Grade 2 diastolic dysfunction. Mildly dilated right ventricle. There is moderate biatrial dilatation. Severe posteriorly directed eccentric mitral valve regurgitation. Mild tricuspid valve insufficiency. Right ventricular systolic pressure estimated to be 44 mmHg. Mild (1+) aortic valve insufficiency. Mildly dilated aortic root. ECHOCARDIOGRAM 10/20/22: CONCLUSIONS Low normal LV function with an ejection fraction of 50% and inferior wall hypokinesis Moderate AI Mild MR Negative bubble study Heart Catheterization Pertinent Findings Heart catheterization CARDIAC CATHETERIZATION / 18:36 pertinent findings 21: CONCLUSION Normal LV ejection fraction of 55 to 60%. Normal LVEDP at 8 mmHg. Nonobstructive coronary artery disease. Left main aneurysmal dilatation with ostial left main less than 30% stenosis. Pertinent Findings Additional pertinent findings: June 04, 2024. Cardiac MRI. Left ventricular ejection fraction is 45%. The right ventricular function is low normal at 49%. There is evidence of a transmural infarction involving the distal inferior and apical herrera of the left ventricle. There is also a partial thickness myocardial infarction involving the mid inferior wall of the left ventricle. Infarction occupies about 5% of the left ventricle. Aortic valve is trileaflet and aortic insufficiency is 23%. Mitral insufficiency is 20%. The ascending aorta is dilated to 4.1 cm. Mid ascending aorta measures 3.9 cm. No significant pericardial effusion seen. Constellation of findings could be suggestive ischemic cardiomyopathy. Recommendation Anesthesia Recommendation Anesthesia recommendation: F/U recommended (Cardiology needs to evaluate the cardiac MRI and give clearance.)
== END 2024-07-11 19:00 | disposition home or self-care (01) ==
LOC: SDC 04-03 15:31
PROVIDERS: Anesthesiology; PCP Family Medicine; Referring Provider Specialist; Visit Provider Specialist
DX: Z01.818 Encounter for other preprocedural examination (principal); Z79.899 Other long term (current) drug therapy
CPT/HCPCS: 36415; 80048; 82040; 83735; 85025; 87081

== ENCOUNTER → 2024-07-16 | Outpatient (CLI) | payer MEDICARE, SELFPAY ==
--- NOTE | 2024-07-16 12:14 | EKG12_ITS ---
Test Reason : PRE OP Blood Pressure : */* mmHG Vent. Rate : 68 BPM Atrial Rate : 68 BPM P-R Int : 200 ms QRS Dur : 102 ms QT Int : 388 ms P-R-T Axes : 40 46 1 degrees QTcB Int : 412 ms Normal sinus rhythm Possible Inferior infarct , age undetermined Abnormal ECG Confirmed by Jarrett Barnhart ([id number]), offline editor HECTOR SESAY ([id number]) on 07/17/2024 5:51:20 AM Referred By: Juaquin Head Confirmed By: Jarrett Barnhart
--- NOTE | 2024-07-16 12:23 | CT_ITS ---
PROCEDURE: EXTREMITY LOWER WITHOUT CONTRA REASON FOR EXAM: Right knee pain. Right knee replacement.WILLIE protocol. TECHNIQUE: Multiple axial tomographic images of the left hip, left knee and left ankle were obtained. Coronal and sagittal reconstruction was obtained as well. CT without contrast. COMPARISON: None. FINDINGS: Bones: No evidence of fracture. Joints: Imaging of the left hip joint was obtained. There is a [id number] degree of joint space narrowing with degenerative spur formation of the acetabulum. Imaging of the knee joint was obtained. There is a marked degree of joint space narrowing in the medial compartment knee joint with degenerative spur formation. Moderate degree of joint space narrowing of the patellofemoral joint. Imaging of the ankle joint was obtained. No abnormality is seen. Soft Tissues: Knee joint effusion. CT/Extremity Lower without Contra IMPRESSION: Marked degree of degenerative changes of the medial compartment of the knee mendoza nt as well as the patellofemoral joint with joint effusion. Degenerative changes of the left hip joint. One or more dose reduction techniques were used (e.g., Automated exposure contr ol, adjustment of the mA and/or kV according to patient size, use of iterative reconstruction technique). Reading Location: [facility]
== END | disposition home or self-care (01) ==
PROVIDERS: PCP Family Medicine; Referring Provider Specialist; Visit Provider Specialist
DX: M17.12 Unilateral primary osteoarthritis, left knee (principal); M21.162 Varus deformity, not elsewhere classified, left knee
CPT/HCPCS: 73700; 93005

== ENCOUNTER → 2024-08-23 | Outpatient (CLI) | payer MEDICARE, SELFPAY ==
--- NOTE | 2024-08-23 12:43 | STRESSREP_ITS ---
Stress Test Report Date: 08/23/2024 Procedure: Pharmacologic stress nuclear imaging study Indications: CHF Consent: Per the patient Procedure: The patient underwent pharmacologic (Regadenoson 0.4mg ) evaluation with a peak heart rate of 101 beats per minute (70%predicted maximal heart rate) and a peak blood pressure of 138/82 mmHg. The baseline ECG demonstrated sinus rhythm. Possible old inferior AK. The peak pharmacologic ECG did not show any diagnostic ischemic changes. Occasional PVCs noted during infusion and in recovery. There was no complaint of chest discomfort during pharmacologic infusion or recovery. The patient was injected with 14.1 millicuries of technetium 99m Cardiolite and subsequently rest SPECT Cardiolite nuclear imaging was obtained in the horizontal long, vertical long, and short axis views. The patient underwent pharmacologic (Regadenoson) evaluation. The patient was injected with 43.9 millicuries of technetium 99m Cardiolite and subsequently stress SPECT Cardiolite nuclear imaging was obtained in the horizontal long, vertical long, and short axis views. A gated Cardiolite study at peak stress was obtained. The examination was stopped secondary to completion of protocol. Rest and stress SPECT Cardiolite nuclear imaging status post realignment, normalization, and attenuation correction demonstrate a fixed perfusion defect of the inferior wall, suggestive of prior transmural infarct. Minimal pepper- infarct ischemia. Gated study showed generalized hypokinesis with marked hypokinesis of the inferior wall. The reported LVEF is 35%. Impression: 1. Pharmacologic (Regadenoson) evaluation 2. Peak pharmacologic ECG with no diagnostic ischemic changes. 3. Occasional PVCs during pharmacological infusion and in recovery. 5. Findings compatible with previous transmural inferior wall infarct with minimal pepper-infarct ischemia. 6. The gated Cardiolite study reports an LVEF of 35%. This note was generated with ConferenceEdge[employer] software. It may contain incorrect words, spelling, and punctuation that were not noted in checking the note before signing.
== END | disposition home or self-care (01) ==
LOC: CVS 06:53
PROVIDERS: PCP Family Medicine; Referring Provider Internal Medicine Cardiovascular Disease; Visit Provider Internal Medicine Cardiovascular Disease
DX: Z01.810 Encounter for preprocedural cardiovascular examination (principal); I50.9 Heart failure, unspecified; I35.1 Nonrheumatic aortic (valve) insufficiency; I34.0 Nonrheumatic mitral (valve) insufficiency
CPT/HCPCS: 78452; 93017; A9500; A4216; J2785

== ENCOUNTER → 2025-04-11 | Outpatient (CLI) | payer MEDICARE, SELFPAY ==
[2025-04-11 12:27] LABS: PSA,Total- Diagnostic 8.07 ng/mL (0.00-4.00)
== END | disposition home or self-care (01) ==
LOC: LAB 10:47
PROVIDERS: PCP Family Medicine; Referring Provider Urology; Visit Provider Urology
DX: R97.20 Elevated prostate specific antigen [PSA] (principal)
CPT/HCPCS: 36415; 84153

== ENCOUNTER → 2025-05-15 | Outpatient (CLI) | payer MEDICARE, SELFPAY ==
--- NOTE | 2025-05-15 10:48 | MRI_ITS ---
PROCEDURE: PELVIS W/WO CONTRAST, 05/15/2025 REASON FOR EXAM: ELEVATED PROSTATE. Additional history: PSA 8.07 on 04/16/2025 TECHNIQUE: Multisequence multiplanar MRI pelvis was performed with and without IV contrast. IV Contrast: 18 mL Clariscan COMPARISON: 04/03/2024 FINDINGS: Exam limited by artifact related to RIGHT hip arthroplasty hardware, variably obscuring portions of the RIGHT pelvis, including diffusion sequences which are notably toro sequences. Diffusion sequences also limited by suboptimal signal to noise ratio which may be related. Alternative PI-RADS algorithm employed where applicable. Variable overall mild motion limitation. Few sequences mild/moderately and moderately motion degraded. Prostate size: 6.9 x 5.9 x 6.7 cm, estimated volume 141.8 mL. Per the above provided PSA, PSA density is 0.057 ng/mL. Transition zone: PI-RADS 2 findings. Peripheral Zone: Thinned and difficult to evaluate due to above limitations. Minimal sequela of presumed prostatitis without high-risk lesion identified (PI-RADS 2). Neurovascular bundles: Unremarkable. Seminal vesicles: Asymmetrically atrophic on the LEFT without suspicious signal characteristics, possible infectious/inflammatory sequela. Bladder: Underdistended and suboptimally evaluated. Prostate mass-effect by the enlarged prostate. Lymph nodes: No obvious pelvic lymphadenopathy. LEFT external iliac nodes are increased in number but none clearly enlarged by PI-RADS criteria, grossly similar to CT of 04/03/2024 and better seen at that time due to limitations. Bones: Artifact related to RIGHT hip arthroplasty as above. No destructive or frankly suspicious bony lesions identified on nondedicated evaluation. Other: Diverticulosis. LEFT inguinal hernia repair with mesh.. Question RIGHT inguinal hernia repair. Bilateral varicoceles suspected. Near midline scrotal cystic structure measuring 4.3 cm seen only on a single sequence and incompletely evaluated, presumed epididymal cyst. MRI/Pelvis W/WO Contrast IMPRESSION: 1. Somewhat limited exam as above mostly due to artifact related to RIGHT hip a rthroplasty. 2. Marked prostatomegaly/BPH and sequela of minimal sequela of likely prostatit is without high risk lesion identified (PI-RADS 2). 3. Additional description as above. Reading Location: [id number]
--- OUTSIDE RECORDS SUMMARY | 2025-05-15 11:10 | XMS RPT_ITS | CCD ---
Author Organization [facility] Care Team Providers Care Forder Operator Name Role Phone Jarrett Crook Primary Care Provider Jarrett Crook Primary Care Provider Jaiden Fernando Attending Provider Grady Sanches Primary Care Provider [phone] Carlos Abad Emergency Provider Shai Huangunein Admitting Provider Unavailable Giuliano Huangin Attending Provider Unavailable Altagracia Jeff Emergency Provider On-Call Telemed Neur, Specialist Emergency Provi ingrid Unavailable Jarrett Haines Attending Unavailable Grady Sanches Primary Care Unavailab [place] Primary Care Unavailab evonne Huang Hounein Admitting Unavailable Loren Huang Attending Unavailable Altagracia Jeff Consulting Unavailable On-Call Telemed Neur, Specialist Consulting Unavailable Jarrett Haines Attending Unavailable Grady Sanches Primary Care Unavailab [place] Attending Unavailab Jarrett Torrez Attending Unavailable Jaiden Dillon V. Attending Unavailable Ezekiel Schulz Attending Unavailable Ezekiel Schulz Primary Care Unavailable Grady Sanches Attending Unavailab [place] Primary Care Unavailab Jarrett Torrez Attending Unavailable Grady Sanches Primary Care Unavailab le Mike Primary Care Provider Dr. Rene Melissa Attending Provider [facility] Doctor, Out of Primary Care Provider Wesley bond [facility] Doctor, Out of Referring Provider UnavailDr. Patrice Granda Attending Provider Otto TAG AND LABEL CUTTER, ARTEM Manning Attending Provider Unavailable Primary Care Provider Unavailabl CATHY Collier Referring Unavailable ALLIE DANIELS Referring Unavailable Iliana CHAIDEZ, Dr. Samy Dobbs Attending Provider Iliana CHAIDEZ, Dr. Samy Dobbs Referring Provider [phone] [facility] [phone] Sonido CHAIDEZ, Dr. Reza Attending Provider [phone] Sonido CHAIDEZ, Dr. Reza Referring Provider [phone] Obey CHAIDEZ, Dr. Farias Attending Provider Vicky CHAIDEZ, Chalon Primary Care Provider [phone] Sonido CHAIDEZ, Dr. Reza Attending Provider [phone] Sonido CHAIDEZ, Dr. Reza Referring Provider [phone] Obey CHAIDEZ, Dr. Farias Attending Provider Vicky CHAIDEZ, Chalchristal Referring Provider [phone] Beni CHAIDEZ, Dr. López Attending Provider Beni CHAIDEZ, Dr. López Referring Provider Beni CHAIDEZ, Dr. López Other Provider Vicky CHAIDEZ, [facility] Primary Care Physician Vicky CHAIDEZ, Lenny Referring Provider Beni CHAIDEZ, Dr. López Attending Physician Vicky, Chalon Referring Unavailable Vicky, Chalon Primary Care Unavailable Beni, Rene Attending Unavailable Juaquin Head Referring Unavailable Vicky, Chalon Primary Care Unavailable Jarrett Barnhart Attending Unavailable Beni, Rene Referring Unavailable Vicky, Chalon Primary Care Unavailable Beni, Rene Attending Unavailable Vicky, Chalon Referring Unavailable Vicky, Chalon Primary Care Unavailable Beni, Rene Attending Unavailable Vicky, Chalon Primary Care Unavailable Beni, Rene Consulting Unavailable Beni, Rene Attending Unavailable Beni, Rene Referring Unavailable Juaquin Head Attending Unavailable Juaquin Head Referring Unavailable Vicky, Chalon Primary Care Unavailable Vicky, Chalon Primary Care Unavailable Vicky, Chalon Attending Unavailable Vicky, Chalon Referring Unavailable Vicky, Chalon Primary Care Unavailable Samy Barrientos Attending Unavailable IlianaSamy Referring Unavailable Vicky, Chalon Primary Care Unavailable Samy Barrientos Attending Unavailable Samy Barrientos Referring Unavailable Juaquin Head Attending Unavailable Juaquin Head Referring Unavailable Vicky, Chalon Primary Care Unavailable Allergies Allergy Classification Reported Allergen(s) Allergy Type Date of Onset Reaction(s) Facility (18 sources) Codeine; Translations: [CODEINE] Drug Allergy 9 Intolerance [facility] (3 sources) Iodinated Contrast Media Allergy to Substance 0 Swelling [facility] (6 sources) Triiodobenzoic Acids Allergy to substance 3 Anaphylaxis [facility] (1 source) Codeine Drug Allergy 0 [facility] (1 source) Iodinated Contrast Media Drug allergy (disorder) 0 [facility] (10 sources) Iodides; Translations: [IODIDES] Drug Allergy 9 Anaphylaxis [facility] (1 source) Codeine Drug Allergy 5 [facility] (1 source) Iodinated Contrast Media Drug allergy (disorder) 5 [facility] Repository Medications Current Medications Medication Drug Class(es) Dates Sig (Normalized) Sig (Original) alendronic acid 70 mg oral tablet (19 sources) Bisphosphonate Start: 06-27-2023 take 1 tablet by mouth every week Alendronate 70 mg tablet Active 70 mg PO EVERY WEEK August 08, 2023 12:00am Complies with drug therapy Start: 12-09-2011 Alendronate So dium [Fosamax] 70 MG PO ZEPEDA December 09, 2011 Active aspirin 81 mg delayed release oral tablet (20 sources) Platelet Aggregation Inhibitor, Nonsteroidal Anti-inflammatory Drug Start: 08-08-2023 take 1 tablet by mouth once daily Aspirin 81 mg tablet,delayed release (DR/EC) Active 81 mg PO DAILY August 08, 2023 12:00am Complies with drug therapy Start: 10-19-2022 take 81 mg by mouth once daily Aspirin [Low Dose Aspirin *] 81 MG PO DAILY October 19, 2022 Active Start: 06-14-2020 End: 10-19-2022 take 81 mg by mouth once daily Aspirin [Aspir-81] 81 M G PO DAILY June 14, 2020 October 19, 2022 Discontinued Start: 01-22-2020 End: 06-14-2020 take 325 mg by mouth twice daily Aspirin [Aspirin 325 Mg *] 325 MG PO TWICE A DAY 40 January 22, 2020 June 14, 2020 Discontinued Start: 04-01-2019 End: 01-23-2020 take 81 mg by mouth at bedtime Aspirin [Aspirin 81] 81 MG PO AT BEDTIME April 01, 2019 January 23, 2020 Discontinued 7 days on hold Start: 12-09-2011 End: 05-13-2015 take 81 mg by mouth once daily Aspirin [Low Dose Aspir in *] 81 MG PO DAILY December 09, 2011 May 13, 2015 Discontinued Comment on above: Take 81 mg by mouth. atorvastatin 40 mg oral tablet (20 sources) HMG-CoA Reductase Inhibitor Start: take 1 tablet by mouth at bedtime Atorvastatin 40 mg tablet Active 40 mg PO AT BEDTIME August 08, 2023 12:00am Complies with drug therapy Start: 10-19-2022 take 40 mg by mouth once daily Atorvastatin Calcium [Lipitor] 40 MG PO DAILY October 19, 2022 Active Start: 10-07-2018 End: 10-19-2022 take 20 mg by mouth once daily Atorvastatin Calcium [L ipitor] 20 MG PO DAILY October 07, 2018 October 19, 2022 Discontinued cephalexin 500 mg oral capsule (2 sources) Cephalosporin Antibacterial Start: 03-07-2024 End: 03-14-2024 take 1 capsule by mouth twice daily cephALEXin (KEFLEX) 500 mg capsule Indications: Gross hematuria Take 1 capsule by mouth two times a day for 7 days. 14 capsule 03/07/2024 03/14/2024 Active clopidogrel 75 mg oral tablet (20 sources) [id number] Platelet Inhibitor Start: 08-08-2023 End: 12-19-2024 take 1 tablet by mouth once daily Clopidogrel 75 mg tablet Active 75 mg PO DAILY 90 December 19, 2024 12:04pm Complies with drug therapy Start: 06-14-2020 End: 10-19-2022 take 1 tablet by mouth once daily clopidogrel (PLAVIX) 75 mg tablet Take 1 tablet by mouth once daily. 09/12/2020 Active Start: 05-13-2015 End: 01-23-2020 take 75 mg by mouth once daily Clopidogrel Bisulfate [ Plavix] 75 MG PO DAILY May 13, 2015 January 23, 2020 Discontinued stopped 7 days Comment on above: Take 1 tablet by evelin once daily. finasteride 5 mg oral tablet (11 sources) 5-alpha Reductase Inhibitor Start: 08-08-2023 take 1 tablet by mouth once daily Finasteride 5 mg tablet Active 5 mg PO DAILY August 08, 2023 12:00am Complies with drug therapy Start: 10-08-2018 take 5 mg by mouth once daily Finasteride 5 MG PO DAILY October 08, 2018 Active fluticasone propionate 0.05 mg/actuat metered dose nasal spray (19 sources) Corticosteroid Start: 08-08-2023 Fluticasone Pr opionate 50 mcg/actuation spray,suspension Active 2 NMA INTRANASAL DAILY August 08, 2023 12:00am Complies with drug therapy Start: 08-08-2023 Fluticasone Pr opionate Active 2 SPRAY INTRANASAL DAILY August 08, 2023 12:00am Start: 08-05-2023 fluticasone (F LONASE) 50 mcg/actuation nasal spray 08/05/2023 Active Start: 12-09-2011 Fluticasone Pr opionate [Flonase Nasal [place] *] 2 SPRAYS EFRAIN DAILY December 09, 2011 Active Start: 12-09-2011 Fluticasone Pr opionate 2 SPRAYS EFRAIN DAILY December 09, 2011 Active Start: 12-09-2011 Fluticasone Pr opionate [Flonase Nasal [place] *] 1 SPRAYS EFRAIN DAILY December 09, 2011 Active Start: 12-09-2011 Fluticasone Pr opionate 1 SPRAYS EFRAIN DAILY December 09, 2011 Active furosemide 20 mg oral tablet (2 sources) Loop Diuretic Start: 08-20-2024 take 1 tablet by mouth once daily in the morning Furosemide (Lasix) 20 mg tablet Active 20 mg PO EVERY MORNING 21 04August 20, 2024 12:00am Complies with drug therapy L.Acid,Curt,Rham-B. Bifid,Long (Digestive Probiotic) 3 billion cell capsule (5 sources) Start: 08-15-2023 take 3 capsules by mouth once daily L.Acid,Curt,Rham-B .Bifid,Long (Digestive Probiotic) 3 billion cell capsule Active 1 NMA PO DAILY August 15, 2023 12:00am Complies with drug therapy Start: 08-15-2023 take 3 capsules by mouth once daily L.Acid,Curt,Rham-B.Bifid,Long (Digestive Probiotic) 3 billion cell capsule Active 1 NMA PO DAILY August 15, 2023 12:00am Start: 08-15-2023 take 3 capsules by mouth once daily L.Acid,Curt,Rham-B.Bifid,Long (Digestive Probiotic) 3 billion cell capsule Active 1 NMA PO DAILY August 14, 2023 11:00pm Start: 08-15-2023 take 3 capsules by mouth once daily L.Acid,Curt,Rham-B.Bifid,Long (Digestive Probiotic) 3 billion cell capsule Active 1 CAP PO DAILY August 15, 2023 12:00am latanoprost 0.05 mg/ml ophthalmic solution (15 sources) Prostaglandin Analog Start: 08-08-[address] 0.005 % drops Active 1 NMA OPHTHALMIC EVERY EVENING August 08, 2023 12:00am Complies with drug therapy Start: 10-19-2022 take 1 drop(s) into the eye(s) at bedtime Latanoprost [Xalatan 0.005% *] 1 DROP BOTH EYES AT BEDTIME October 19, 2022 Active Start: 10-08-2018 End: 10-19-2022 take 1 drop(s) into the eye(s) at bedtime Latanoprost 1 DROP BOTH EYES AT BEDTIME October 19, 2022 Active Start: 10-08-2018 take 1 drop(s) into the eye(s) once daily Latanoprost 1 DROP BOTH EYES DAILY October 08, 2018 Active lisinopril 5 mg oral tablet (2 sources) Angiotensin Converting Enzyme Inhibitor Start: 08-20-2024 take 1 tablet by mouth once daily Lisinopril 5 mg tablet Active 5 mg PO daily 21 04August 20, 2024 12:00am Complies with drug therapy 24 hr metoprolol succinate 50 mg extended release oral tablet (20 sources) beta-Adrenergic Abdoulaye Start: 08-20-2024 take 1 tablet by mouth once daily Metoprolol Succinate 50 mg tablet extended release 24 hr Active 50 mg PO daily 21 04August 20, 2024 2:36pm Complies with drug therapy Start: 09-07-2023 End: 08-20-2024 take 1 tablet by mouth twice daily Metoprolol Succinate 50 mg tablet extended release 24 hr Discontinued 50 mg PO TWICE A DAY 180 3 October 11, 2023 3:45pm August 20, 2024 2:47pm Start: 08-08-2023 End: 09-07-2023 take 1 tablet by mouth once daily Metoprolol Succinate 50 mg tablet extended release 24 hr Discontinued 50 mg PO DAILY August 08, 2023 12:00am September 07, 2023 3:38pm Start: 08-08-2023 End: 09-07-2023 take 50 mg by mouth once daily Metoprolol Succinate Di scontinued 50 MG PO DAILY August 08, 2023 12:00am September 07, 2023 3:38pm Start: 07-22-2023 metoprolol suc cinate ER (TOPROL XL) 50 mg 24 hr tablet 07/22/2023 Active Start: 04-06-2019 End: 10-19-2022 take 50 mg by mouth once daily Metoprolol Succinate Er 50 MG PO DAILY October 19, 2022 Active Multivitamin With Iron (2 sources) Start: 08-08-2023 take 1 tablet by mouth once daily Multivitamin With Iron Active 1 TABLET PO DAILY August 08, 2023 12:00am Multivitamin With Iron tablet (3 sources) Start: 08-08-2023 Multivitamin W ith Iron tablet Active 1 {tbl} PO DAILY August 08, 2023 12:00am Complies with drug therapy Start: 08-08-2023 Multivitamin W ith Iron tablet Active 1 {tbl} PO DAILY August 08, 2023 12:00am Start: 08-08-2023 Multivitamin W ith Iron tablet Active 1 {tbl} PO DAILY August 07, 2023 11:00pm pantoprazole 40 mg delayed release oral tablet (19 sources) Proton Pump Inhibitor Start: 06-27-2023 take 1 tablet by mouth once daily Pantoprazole 40 mg tablet,delayed release (DR/EC) Active 40 mg PO DAILY August 08, 2023 12:00am Complies with drug therapy Start: 12-09-2011 take 40 mg by mouth once daily Pantoprazole [Protonix *] 40 MG PO DAILY December 09, 2011 Active potassium chloride 10 meq extended release oral capsule (2 sources) Start: 08-20-2024 take 1 capsule by mouth once daily Potassium Chloride 10 mEq capsule, extended release Active 10 meq PO daily 21 04August 20, 2024 12:00am Complies with drug therapy tamsulosin hydrochloride 0.4 mg oral capsule (17 sources) alpha-Adrenergi c Abdoulaye Start: 07-22-2023 take 1 capsule by mouth at bedtime Tamsulosin 0.4 mg capsule Active 0.4 mg PO AT BEDTIME August 08, 2023 12:00am Complies with drug therapy Start: 10-19-2022 take 0.4 mg by mouth once cornell y Tamsulosin Hcl [Flomax *] 0.4 MG PO DAILY October 19, 2022 Active ubiquinol 100 mg oral capsul e (5 sources) Start: 08-08-2023 Coq10 (Ubiquin ol) (Qunol Josep Coq10) 100 mg capsule Active 200 mg PO DAILY August 08, 2023 12:00am Complies with drug therapy Completed/Discontinued Medications Medication Drug Class(es) Dates Sig (Normalized) Sig (Original) 8 hr acetaminophen 650 mg extended release oral tablet (12 sources) Start: 01-01-2020 End: 01-23-2020 take 2 tablets by mouth at bedtime Acetaminophen [Eq Arthritis Pain] 2 TAB PO AT BEDTIME January 01, 2020 January 23, 2020 Discontinued Start: 10-07-2018 End: 01-01-2020 take 500 mg by mouth at bedtime Acetaminophen [Tylenol *] 500 MG PO AT BEDTIME October 07, 2018 January 01, 2020 Discontinued stopped. acetaminophen 325 mg / HYDROcodone bitartrate 5 mg oral tablet (6 sources) Opioid Agonist Start: 01-22-2020 End: 01-29-2020 take 1 tablet by mouth every four to six hours as needed for pain Hydrocodone/Apap 5mg/325mg [Hydrocodone/Apap 5 Mg/325 Mg] 1 - 2 TAB PO EVERY 4 TO 6 HOURS NEEDED PRN For pain 40 7 January 22, 2020 January 29, 2020 Discontinued acetaminophen 325 mg / traMADol hydrochloride 37.5 mg oral tablet (6 sources) Opioid Agonist Start: 12-09-2011 End: 05-13-2015 take 1 tablet by mouth three times daily Tramadol-Acetaminophen [Ultracet] 1 TAB PO THREE TIMES A DAY December 09, 2011 May 13, 2015 Discontinued brimonidine tartrate 1 mg/ml ophthalmic solution (20 sources) alpha-Adrenerg ic Agonist Start: 08-08-2023 End: 02-21-2025 Brimonidine 0.1 % drops Discontinued 1 NMA OPHTHALMIC TWICE A DAY August 08, 2023 12:00am February 21, 2025 2:34pm Start: 06-25-2023 brimonidine (A LPHAGAN) 0.2 % ophthalmic solution 06/25/2023 Active Start: 10-19-2022 take 1 drop(s) into the eye(s) twice daily Brimonidine Tartrate 0.2% [Brimonidine Tartrate 0.2% *] 1 DROP BOTH EYES TWICE A DAY October 19, 2022 Active Start: 10-19-2022 take 1 drop(s) into the eye(s) twice daily Brimonidine Tartrate 0.2% 1 DROP BOTH EYES TWICE A DAY October 19, 2022 Active Start: 06-14-2020 End: 10-19-2022 take 1 drop(s) into the eye(s) twice daily Brimonidine Tartrate [Alphagan P] 1 DROP BOTH EYES TWICE A DAY June 14, 2020 October 19, 2022 Discontinued Start: 10-08-2018 End: 06-15-2020 take 1 drop(s) into the eye(s) twice daily Brimonidine Tartrate [[facility] 1 DROP OU TWICE A DAY January 20, 2019 April 01, 2019 Discontinued Start: 10-08-2018 End: 06-15-2020 Brimonidine Tartrate 1 DROP OU TWICE A DAY January 20, 2019 Discontinued lactobacillus acidophilus [id number] unt oral capsule (2 sources) Start: 10-19-2022 take 1 capsule by mouth once daily Lactobacillus [Probiotic] 1 CAP PO DAILY October 19, 2022 Active Latanoprost-Timolol Maleate (3 sources) Start: 10-07-2018 End: 10-08-2018 Latanoprost-Timolo l Maleate 1 DROP DAILY October 07, 2018 Discontinued Latanoprost-Timolol Maleate [Timolol/Latanopros t 0.005-0.5 %] (3 sources) Start: 10-07-2018 End: 10-08-2018 Latanoprost-Timolo l Maleate [Timolol/Latanopro st 0.005-0.5 %] 1 DROP DAILY October 07, 2018 October 08, 2018 Discontinued levoFLOXacin 750 mg oral tablet (6 sources) Quinolone Antimicrobial Start: 04-06-2019 End: 06-21-2019 take 750 mg by mouth once daily at mealtime Levofloxacin [Levaquin] 750 MG PO DAILY WITH A MEAL April 06, 2019 June 21, 2019 Discontinued meclizine hydrochloride 25 mg oral tablet (6 sources) Antiemetic Start: 02-21-2021 End: 10-19-2022 take 25 mg by mouth three times daily as needed Meclizine Hcl [Antivert] 25 MG PO THREE TIMES A DAY NEEDED PRN February 21, 2021 October 19, 2022 Discontinued meloxicam 7.5 mg oral tablet (6 sources) Nonsteroidal Anti-inflammatory Drug Start: 01-22-2020 End: 06-14-2020 take 7.5 mg by mouth twice daily Meloxicam 7.5 MG PO TWICE A DAY January 22, 2020 June 14, 2020 Discontinued metroNIDAZOLE 500 mg oral tablet (6 sources) Nitroimidazole Antimicrobial Start: 04-06-2019 End: 04-16-2019 take 500 mg by mouth three times daily Metronidazole [Flagyl] 500 MG PO THREE TIMES A DAY 21 03April 06, 2019 April 16, 2019 Discontinued Multiple Vitamins W/ Minerals (1 source) Start: 10-19-2022 Multiple Vitamins W/ Minerals 1 CHW PO DAILY October 19, 2022 Active Multiple Vitamins W/ Minerals [Centrum Adult Multigummie] (1 source) Start: 10-19-2022 Multiple Vitamins W/ Minerals [Centrum Adult Multigummie] 1 CHW PO DAILY October 19, 2022 Active Multivitamin W/Minerals (3 sources) Start: 12-09-2011 End: 10-19-2022 take 1 tablet by mouth once daily Multivitamin W/Minerals 1 TAB PO DAILY December 09, 2011 Discontinued Start: 12-09-2011 take 1 tablet by evelin once daily Multivitamin W/Minerals 1 TAB PO DAILY December 09, 2011 Active Multivitamin W/Minerals [Centrum] (3 sources) Start: 12-09-2011 End: 10-19-2022 take 1 tablet by mouth once daily Multivitamin W/Minerals [Centrum] 1 TAB PO DAILY December 09, 2011 October 19, 2022 Discontinued Start: 12-09-2011 take 1 tablet by evelin th once daily Multivitamin W/Minerals [Centrum] 1 TAB PO DAILY December 09, 2011 Active Omeprazole (6 sources) Proton Pump Inhibitor Start: 12-09-2011 End: 12-09-2011 Omeprazole Magnesium [Prilosec] 10 MG OR December 09, 2011 December 09, 2011 Discontinued Start: 12-09-2011 End: 12-09-2011 Omeprazole Magnesium 10 MG O R December 09, 2011 Discontinued penicillin v potassium 500 mg oral tablet (6 sources) Start: 02-21-2021 End: 10-19-2022 take 500 mg by mouth three times daily Penicillin,Phenoxymethyl [Pen-Vee K *] 500 MG PO THREE TIMES A DAY February 21, 2021 October 19, 2022 Discontinued ramipril 2.5 mg oral capsule (12 sources) Angiotensin Converting Enzyme Inhibitor Start: 06-14-2020 End: 10-19-2022 take 2.5 mg by mouth once daily Ramipril 2.5 MG PO DAILY June 14, 2020 October 19, 2022 Discontinued Start: 12-09-2011 End: 04-06-2019 take 1.25 mg by mouth once daily Ramipril [Altace *] 1.25 MG PO DAILY December 09, 2011 April 06, 2019 Discontinued tiZANidine 2 mg oral capsule (6 sources) Central alpha-2 Adrenergic Agonist Start: 06-22-2020 End: 10-19-2022 Tizanidine Hcl [Zanaflex] June 22, 2020 October 19, 2022 Discontinued ubidecarenone 100 mg oral capsule (10 sources) Start: 10-19-2022 Coenzyme Q10 (Ubidecarenone) [Co-Enzyme Q10] 100 MG PO DAILY October 19, 2022 Active ubidecarenone Q- 10 (CO Q-10) 10 mg cap Take by mouth two times a day. Active Comment on above: Take by mouth two ti mes a day. Problems Active Problems Problem Classification Problem Date Documented Da te Episodic/Chronic Acute cerebrovascular disease (9 sources) Cerebrovascular accident; Translations: [Cerebral infarction, unspecified] Chronic Comment on above: x3 Aortic; peripheral; and visceral artery aneurysms (14 sources) Abdominal aortic aneurysm; Translations: [Abdominal aortic aneurysm (AAA)] Onset: 08-20-2024 08-15-2023 Chronic Comment on above: YEARLY CT SCAN Cardiac dysrhythmias (11 sources) Multiple premature ventricular complexes; Translations: [Ventricular premature depolarization] 02-19-2023 Chronic Cardiac dysrhythmias (5 sources) Palpitations; Translations: [Palpitations] 08-08-2023 Episodic Conditions associated with dizziness or vertigo (3 sources) Vertigo; Translations: [Dizziness and giddiness] Episodic Congestive heart failure; nonhypertensive (7 sources) Congestive heart failure; Translations: [Heart failure, unspecified] Onset: 08-20-2024 08-08-2023 Chronic Coronary atherosclerosis and other heart disease (10 sources) Coronary arteriosclerosis; Translations: [Atherosclerotic heart disease of [place] coronary artery without angina pectoris] Onset: 08-20-2024 08-15-2023 Chronic Comment on above: Nonobstructive coron shakeel artery disease noted on coronary angiography in 2020 Deficiency and other anemia (1 source) Anemia, unspecified; Translations: [Anemia, unspecified] Onset: 01-28-2023 Episodic Disorders of lipid metabolism (10 sources) Dyslipidemia; Translations: [Hyperlipidemia, unspecified] Onset: 08-20-2024 08-15-2023 Chronic Essential hypertension (10 sources) Essential hypertension; Translations: [Essential (primary) hypertension] Onset: 08-20-2024 08-15-2023 Chronic Comment on above: CONTROLLED WITH MED Gastrointestinal hemorrhage (3 sources) Rectal hemorrhage; Translations: [Hemorrhage of anus and rectum] Episodic Heart valve disorders (19 sources) Aortic valve regurgitation; Translations: [Nonrheumatic aortic (valve) insufficiency] Onset: 08-20-2024 08-15-2023 Chronic Hyperplasia of prostate (1 source) Benign prostatic hyperplasia with lower urinary tract symptoms; Translations: [Benign prostatic hyperplasia with lower urinary tract symptoms] Onset: 2024 Chronic Noninfectious gastroenteritis (3 sources) Colitis; Translations: [Noninfective gastroenteritis and colitis, unspecified] Episodic Nonspecific chest pain (13 sources) Chest pain; Translations: [Chest pain, unspecified] Onset: 01-17-2023 02-19-2023 Episodic Osteoarthritis (2 sources) Unilateral primary osteoarthritis, left knee; Translations: [Unilateral primary osteoarthritis, left hip] Onset: 04-12-2024 Chronic Other aftercare (3 sources) Long-term current use of drug therapy; Translations: [lobsterman (current) use of antithrombotics/antip latelets] 02-14-2024 Episodic Other circulatory disease (3 sources) H/O: heart disorder; Translations: [Personal history of other diseases of the circulatory system] Episodic Other circulatory disease (3 sources) History of cerebrovascular accident; Translations: [Personal history of transient ischemic attack (TIA), and cerebral infarction without residual deficits] Episodic Other hematologic conditions (3 sources) Raised cardiac enzyme or marker; Translations: [Other specified abnormalities of plasma proteins] Episodic Other non-traumatic joint disorders (1 source) Pain in right knee; Translations: [Pain in right knee] Onset: 02-16-2023 Episodic Other screening for suspected conditions (not mental disorders or infectious disease) (5 sources) D-dimer above reference range; Translations: [Other specified abnormal findings of blood chemistry] Onset: 08-03-2022 Episodic Xiao-; endo-; and myocarditis; cardiomyopathy (except that caused by tuberculosis or sexually transmitted disease) (6 sources) Heart valve disorder; Translations: [Endocarditis, valve unspecified] Onset: 08-31-2024 08-08-2023 Chronic Superficial injury; contusion (4 sources) Contusion of right lower leg, initial encounter; Translations: [Hematoma of right lower extremity] 02-14-2024 Episodic Syncope (3 sources) Near syncope Episodic Transient cerebral ischemia (3 sources) Transient cerebral ischemia; Translations: [Transient cerebral ischemic attack, unspecified] Chronic Unclassified (1 source) Abdominal aortic aneurysm, without rupture, unspecified; Translations: [Abdominal aortic aneurysm, without rupture, unspecified] Onset: 08-20-2024 Past or Other Problems Problem Classification Problem Date Documented Da te Episodic/Chronic Genitourinary symptoms and ill-defined conditions (2 sources) Deandre hematuria; Translations: [Gross hematuria] Onset: 05-01-2024 03-07-2024 Episodic Other nervous system disorders (1 source) Dysarthria and anarthria; Translations: [Dysarthria and anarthria] Onset: 10-19-2022 Episodic Unclassified (2 sources) Contusion of left lower leg, initial encounter 02-14-2024 Results Test Name Value Interpretation Reference Range Facility Cardiology Visit Reporton Cardiology Visit Report [facility] [address] [place] [address] OFFICE VISIT Date of Service: 02/21/25 MR#: [id number] Acct: [id number] Name: HORACE JOE Rep #: [id number] : 1950 Provider: Dr. 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 Denies any complaints. No angina. Shortness of breath on strenuous exertion only. No orthopnea. No PND. He has chronic lower extremity edema and wears compression stockings for it. 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 Accompanied by: Is patient in pain?: No Allergies Iodinated Contrast Media Allergy (Verified 02/21/25 14:31) Anaphylaxis codeine Adverse Reaction (Intermediate, Verified 02/21/25 14:31) Hives Medications ???Medication ???Instructions ???Recorded ???Confirmed ???Type alendronate 70 mg tablet 70 mg PO QWEEK 08/08/23 02/21/25 H istory aspirin 81 mg tablet,delayed 81 mg PO DAILY 08/08/23 02/21/25 H istory release atorvastatin 40 mg tablet 40 mg PO QHS 08/08/23 02/21/25 His tory coQ10 (ubiquinol) 100 mg capsule 200 mg PO DAILY 08/08/23 02/21/25 History (Qunol Josep CoQ10) finasteride 5 mg tablet 5 mg PO DAILY 08/08/23 02/21/25 Hi story fluticasone propionate 50 2 spray intranasal DAILY 08/08/23 02/21/25 History mcg/actuation nasal spray,suspension latanoprost 0.005 % eye drops 1 drp ophthalmic (eye) QPM 08/07/2 4 02/21/25 History multivitamin with iron 1 tab PO DAILY 08/08/23 02/21/25 H istory pantoprazole 40 mg tablet,delayed 40 mg PO DAILY 08/08/23 02/21/25 History release tamsulosin 0.4 mg capsule 0.4 mg PO QHS 08/08/23 02/21/25 Hi story L.acidophilus,gasseri,r hamnosus-B.bifidum,long 1 cap PO DAILY 08/1402/21/25 History 3 billion cell capsule (Digestive Probiotic) furosemide 20 mg tablet (Lasix) 20 mg PO QAM #30 tabs 08/20/2407/17 Rx lisinopril 5 mg tablet 5 mg PO QDAY #30 tabs 08/20/2407/17 Rx metoprolol succinate 50 mg 50 mg PO QDAY #30 tabs 08/20/24 Rx tablet,extended release 24 hr potassium chloride 10 mEq 10 meq PO QDAY #30 caps 08/20/24 1 Rx capsule,extended release clopidogrel 75 mg tablet 75 mg PO DAILY #90 tabs 12/19/24 1 Rx Ejection fraction %: 53 Have you fallen in the past year?: No PFSH Medical History Wears glasses High cholesterol Back pain Injury of back Gastric reflux Former smoker CPAP (continuous positive airway pressure) dependence History of pain when walking History of edema History of transesophageal echocardiography (LIZA) History of echocardiogram Cardiology follow-up encounter History of atrial fibrillation Ventral hernia Glaucoma History of GI bleed Non-hemorrhagic cerebrovascular accident (CVA) Palpitations Valvular heart disease Essential hypertension Vertigo Osteoporosis Arthritis BPH (benign prostatic hyperplasia) AAA (abdominal aortic aneurysm) Leaky heart valve Surgical History Hx of colonoscopy Hx of total knee arthroplasty Hx of right inguinal hernia repair Hx of cardiac catheterization ( 06/23/20) Hx of hemorrhoidectomy Hx of nasal septoplasty History of right hip replacement Hx of tonsillectomy Hx of appendectomy Hx of inguinal hernia repair Family History Mother Hypertension Brother Sleep apnea Father Cancer stomach Social History Smoking Status: Former smoker how long ago did patient quit smokin alcohol intake: former substance use type: does not use caffeine: Yes Type: coffee Number of servings: 1 ROS Const Const: Negative for fatigue or weakness Eyes Eyes: Negative for change in vision ENT ENT: Negative for dizziness or balance problems Cardio Chest Pain: No Palpitations: No Edema: Bilateral Resp Respiratory: Positive for SOB with activity; Negative for SOB at rest or SOB orthopnea SOB lying down GI GI: Negative nausea or heartburn Musc Musc: Negative for balance problem (more content not included)... Normal [facility] Cardiovascular stress test r eportOrdered By: Rene Denis on 08-23-2024 Study report [facility] [address] [place] [address] MR#: [id number] Acct: [id number] Name: HORACE JOE Rep #: [id number] : 1950 74 From: Rene Denis MD Primary Care: Dr. Lenny Perry MD Status: REG [facility] Referring Dr: Rene Denis MD Sex: M C Stress Test Report Date: 08/23/2024 Procedure: Pharmacologic stress nuclear imaging study Indications: CHF Consent: Per the patient Procedure: The patient underwent pharmacologic (Regadenoson 0.4mg ) evaluation with a peak heart rate of 101 beats per minute (70%predicted maximal heart rate) and a peak blood pressure of 138/82 mmHg. The baseline ECG demonstrated sinus rhythm. Possible old inferior RI. The peakpharmacologic ECG did not show any diagnostic ischemic changes. Occasional PVCs noted during infusion and in recovery. There was no complaint of chest discomfort during pharmacologic infusion or recovery. The patient was injected with 14.1 millicuries of technetium 99m Cardiolite and subsequently rest SPECT Cardiolite nuclear imaging was obtained in the horizontal long, vertical long, and short axis views. The patient underwent pharmacologic (Regadenoson) evaluation. The patient was injected with 43.9 millicuries of technetium 99m Cardiolite and subsequently stress SPECT Cardiolite nuclear imaging was obtained in the horizontal long, vertical long, and short axis views. A gated Cardiolite study at peak stress was obtained. The examination was stopped secondary to completion of protocol. Rest and stress SPECT Cardiolite nuclear imaging status post realignment, normalization, and attenuation correction demonstrate a fixed perfusion defect of the inferior wall, suggestive of prior transmural infarct. Minimal xiao-infarct ischemia. Gated study showed generalized hypokinesis with marked hypokinesis of the inferior wall. The reported LVEF is 35%. Impression: 1. Pharmacologic (Regadenoson) evaluation 2. Peak pharmacologic ECG with no diagnostic ischemic changes. 3. Occasional PVCs during pharmacological infusion and in recovery. 5. Findings compatible with previous transmural inferior wall infarct with minimal xiao-infarct ischemia. 6. The gated Cardiolite study reports an LVEF of 35%. This note was generated with CHEQROOMation software. It may contain incorrectwords, spelling, and punctuation that were not noted in checking the note beforesigning. 08/23/24 1248 Date _ Rene Denis MD CC: Dr. Rene Denis MD; Dr. Lenny Perry MD ~ Date Dictated: 08/23/24 1243 Date Transcribed: 08/23/241242 Chief Writer: RADHA Rodarte [facility] Work Phone: Stress Reporton 08-23-2024 Stress Report [facility] [address] [place], [place] [id number] MR#: [id number] Acct: [id number] Name: HORACE JOE Rep #: [id number] : 1950 74 From: Rene Denis MD Primary Care: Dr. Lenny Perry MD Status: REG CLI Referring Dr: Rene Denis MD Sex: M C Stress Test Report Date: 08/23/2024 Procedure: Pharmacologic stress nuclear imaging study Indications: CHF Consent: Per the patient Procedure: The patient underwent pharmacologic (Regadenoson 0.4mg ) evaluation with a peak heart rate of 101 beats per minute (70%predicted maximal heart rate) and a peak blood pressure of 138/82 mmHg. The baseline ECG demonstrated sinus rhythm. Possible old inferior RI. The peak pharmacologic ECG did not show any diagnostic ischemic changes. Occasional PVCs noted during infusion and in recovery. There was no complaint of chest discomfort during pharmacologic infusion or recovery. The patient was injected with 14.1 millicuries of technetium 99m Cardiolite and subsequently rest SPECT Cardiolite nuclear imaging was obtained in the horizontal long, vertical long, and short axis views. The patient underwent pharmacologic (Regadenoson) evaluation. The patient was injected with 43.9 millicuries of technetium 99m Cardiolite and subsequently stress SPECT Cardiolite nuclear imaging was obtained in the horizontal long, vertical long, and short axis views. A gated Cardiolite study at peak stress was obtained. The examination was stopped secondary to completion of protocol. Rest and stress SPECT Cardiolite nuclear imaging status post realignment, normalization, and attenuation correction demonstrate a fixed perfusion defect of the inferior wall, suggestive of prior transmural infarct. Minimal xiao-infarct ischemia. Gated study showed generalized hypokinesis with marked hypokinesis of the inferior wall. The reported LVEF is 35%. Impression: 1. Pharmacologic (Regadenoson) evaluation 2. Peak pharmacologic ECG with no diagnostic ischemic changes. 3. Occasional PVCs during pharmacological infusion and in recovery. 5. Findings compatible with previous transmural inferior wall infarct with minimal xiao-infarct ischemia. 6. The gated Cardiolite study reports an LVEF of 35%. This note was generated with CHEQROOMation software. It may contain incorrect words, spelling, and punctuation that were not noted in checking the note before signing. 08/23/24 1248 Date Rene Denis MD CC: Dr. Rene Denis MD; Dr. Lenny Perry MD Date Dictated: 08/23/24 124 Date Transcribed: 08/23/241242 Chief Writer: RADHA Signed Normal [facility] Cardiology Visit Reporton Cardiology Visit Report [facility] [address] [place] [address]. [address] [place] [address] OFFICE VISIT Date of Service: 08/20/24 MR#: [id number] Acct: [id number] Name: HORACE JOE Rep #: [id number] : 1950 Provider: Dr. Rene Denis MD Age/Sex: 74/M Location: [facility] Status: Signed HPI HPI History of Present Illness Details: This gentleman with history of mitral valve regurgitation, aortic regurgitation, mild coronary artery disease, dyslipidemia and hypertension is here for follow-up visit. Patient is scheduled to undergo knee replacement surgery. We are also asked to evaluate his cardiovascular risk for the proposed procedure. Patient has had a cardiac MRI done. It showed borderline LV systolic function with EF of 49%. Findings in the inferior wall were considered compatible with previous transmural infarct affecting approximately 5% of the myocardium. Moderate aortic valve regurgitation with mild to moderate mitral valve regurgitation was reported. Patient denies any chest pains or shortness of breath. No orthopnea. No PND. No ankle edema. No palpitations. 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 Required: No Accompanied by: Is patient in pain?: No Allergies Iodinated Contrast Media Allergy (Verified 08/20/24 13:48) Anaphylaxis codeine Adverse Reaction (Intermediate, Verified 08/20/24 13:48) Hives Medications ???Medication ???Instructions ???Recorded ???Confirmed ???Type alendronate 70 mg tablet 70 mg PO QWEEK 08/08/23 08/20/24 H istory aspirin 81 mg tablet,delayed 81 mg PO DAILY 08/08/23 08/20/24 H istory release atorvastatin 40 mg tablet 40 mg PO QHS 08/08/23 08/20/24 His tory brimonidine 0.1 % eye drops 1 drp ophthalmic (eye) BID 08/07/2 4 08/20/24 History coQ10 (ubiquinol) 100 mg capsule 200 mg PO DAILY 08/08/23 08/20/24 History (Qunol Josep CoQ10) finasteride 5 mg tablet 5 mg PO DAILY 08/08/23 08/20/24 Hi story fluticasone propionate 50 2 spray intranasal DAILY 08/08/23 08/20/24 History mcg/actuation nasal spray,suspension latanoprost 0.005 % eye drops 1 drp ophthalmic (eye) QPM 4 08/20/24 History multivitamin with iron 1 tab PO DAILY 08/08/23 08/20/24 H istory pantoprazole 40 mg tablet,delayed 40 mg PO DAILY 08/08/23 08/20/24 History release tamsulosin 0.4 mg capsule 0.4 mg PO QHS 08/08/23 08/20/24 Hi story L.acidophilus,gasseri,r hamnosus-B.bifidum,long 1 cap PO DAILY 08/1408/20/24 History 3 billion cell capsule (Digestive Probiotic) metoprolol succinate 50 mg 50 mg PO BID #180 tabs 10/11/23 Rx tablet,extended release 24 hr clopidogrel 75 mg tablet 75 mg PO DAILY #90 tabs 12/06/23 0 08/20/24 Rx Have you fallen in the past year?: Yes PFSH Medical History Wears glasses High cholesterol Back pain Injury of back Gastric reflux Former smoker CPAP (continuous positive airway pressure) dependence History of pain when walking History of edema History of transesophageal echocardiography (LIZA) History of echocardiogram Cardiology follow-up encounter History of atrial fibrillation Ventral hernia Glaucoma History of GI bleed Non-hemorrhagic cerebrovascular accident (CVA) Palpitations Valvular heart disease Essential hypertension Vertigo Osteoporosis Arthritis BPH (benign prostatic hyperplasia) AAA (abdominal aortic aneurysm) Leaky heart valve Surgical History Hx of colonoscopy Hx of total knee arthroplasty Hx of right inguinal hernia repair Hx of cardiac catheterization ( 06/23/20) Hx of hemorrhoidectomy Hx of nasal septoplasty History of right hip replacement Hx of tonsillectomy Hx of appendectomy Hx of inguinal hernia repair Family History Mother Hypertension Brother Sleep apnea Father Cancer stomach Social History Smoking Status: Former smoker how long ago did patient quit smokin alcohol intake: former substance use type: does not use caffeine: Yes Type: coffee Number of servings: 1 ROS Const Const: Negative for fatigue or weakness ENT ENT: Negative for dizziness or balance problems Cardio Chest Pain: Yes Palpitations: No Edema: Bilateral Muscle aches with walking: None Resp Respiratory: Positive for SOB with activity and other (SOB whe (more content not included)... Normal [facility] MR/PAT.ANEon 07-19-2024 MR/PAT.[facility] Medical Records Department [address] [place] [address] PAT - Anesthesia 07/19/24 1553 MR#: [id number] Acct: [id number] Name: HORACE JOE Rep #: [id number] : 1950 74 From: Cedric Castillo MD PCP: Dr. 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 When Was Last Pacemaker Check QUESTION #4 FULL TEXT: You/Your Family Experience fever (hyperthermia) with Anesthesia Last Oral Intake Last Oral intake: Last Oral Intake NPO since Meds taken in AM with sips of water? Meds patient instructed to take am of surgery PONV PONV - custodial worker: PONV - custodial worker Female No 07/11/24 14:07 HX of Motion Sickness No 07/11/24 14:07 HX of N/V After Surgery No 07/11/24 14:07 Non-Smoker Yes 07/11/24 14:07 Duration of Surgery greater Yes 07/11/24 14:07 than 60 minutes Number of Risk Factors 2 07/11/24 14:07 PONV Score Moderate Risk 07/11/24 14:07 Height Weight Height Weight: Anesthesia: Height Weight Height 5 ft 10 in 02/06/24 11:26 Respiratory Assessment Respiratory Assessment - custodial worker: Respiratory Tract Infection Hx - custodial worker Hx Respiratory Tract Infection No 07/11/24 14:07 STOP Sleep Apnea STOP Sleep Apnea - custodial worker: STOP Sleep Apnea - custodial worker Hx Hypertension Yes: CONTROLLED WITH MEDS 07/11/24 14:07 Hx Sleep Apnea No 07/11/24 14:07 CPAP BIPAP Do you snore loudly (louder No 07/11/24 14:07 than talking or can be heard Do you often feel tired/ Yes 07/11/24 14:07 fatigued/ sleepy during daytime? Has anyone observed you stop No 07/11/24 14:07 breathing during sleep? STOP Results Positive 07/11/24 14:07 QUESTION #5 FULL TEXT : Do you snore loudly (louder than talking or can be heard through closed doors)? 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 Specify any problems Hx of Preganancy in last 3 N/A 07/11/24 14:07 Months Nurse Filling Out Transfusion DSCHRIBER 07/11/24 14:07 Questions: Date: 07/11/24 07/11/24 14:07 Time: 14:09 07/11/24 14:07 Patient unable to answer at this time (ie. confused, unrespo /Reproduction History /Reproductive History - custodial worker: /Reproductive Hx- custodial worker Hx Now No 07/11/24 14:07 Gestational Age (in weeks): EDC: Hx Hx Para Hx Section SAB No 07/11/24 14:07 [facility] Medical History (Updated 07/11/24 @ 14:22 by Sneha Alcaraz) Wears glasses High cholesterol Back pain Injury of back Gastric reflux Former smoker CPAP (continuous positive airway pressure) dependence History of pain when walking History of edema History of transesophageal echocardiography (LIZA) History of echocardiogram Cardiology follow-up encounter History of atrial fibrillation Ventral hernia Glaucoma History of GI bleed Non-hemorrhagic cerebrovascular accident (CVA) Palpitations Valvular heart disease Essential hypertension Vertigo Osteoporosis Arthritis BPH (benign prostatic hyperplasia) AAA (abdominal aortic aneurysm) Leaky heart valve Home Medications ???Medication ???Instructions ???Recorded ???Last Taken ???Type alendronate 70 mg tablet 70 mg PO QWEEK 08/08/23 Unknown Hi story aspirin 81 mg tablet,del (more content not included)... Normal [facility] Electrocardiogram reportOrde red By: Jarrett Barnhart on 07-17-2024 EKG study [facility] [address] [place] [address] 12 Lead EKG 07/16/24 1226 MR#: [id number] Acct: [id number] Name: HORACE JOE Rep #:[id number] : 1950 74 From: Jarrett waggoner MD Attending Dr: Dr. Juaquin Head MD Status: REG CLI Ordering Dr: Juaquin Head MD Date: 07/16/24 Location: CT Sex: M C Admitted: Test Reason : PRE OP Blood Pressure : */* mmHG Vent. Rate : 68 BPM Atrial Rate : 68 BPM P-R Int : 200 ms QRS Dur : 102 ms QT Int : 388 ms P-R-T Axes : 40 46 1 degrees QTcB Int : 412 ms Normal sinus rhythm Possible Inferior infarct , age undetermined Abnormal ECG Confirmed by Jarrett Barnhart ([id number]), assignment desk editor HECTOR SESAY ([id number]) on :51:20 AM Referred By: Juaquin Head Confirmed By: Jarrett Barnhart 07/17/24 0551 Date _ Jarrett Barnhart MD CC: Dr. Lenny Perry MD; Dr. Juaquin Head MD ~ Signed [facility] Work Phone: MRSA/SAID NASAL SCREENon MRSA+SAID SCRN Reason for Exam: PRE OP MRSA MRSA Negative S. AUREUS S. aureus Negative Normal [facility] Comment on above: Performed By: #### L 500.2500, M100.651, L501.1800, L100.0100 #### [facility] Laboratory [address] [place], [place], [address] 12 Lead EKGon 07-16-2024 12 Lead EKG [facility] [address] [place] [address] 12 Lead EKG 07/16/24 1226 MR#: [id number] Acct: [id number] Name: HORACE JOE Rep #: [id number] : 1950 74 From: Jarrett Barnhart MD Attending Dr: Dr. Juaquin Head MD Status: REG CLI Ordering Dr: Juaquin Head MD Date: 07/16/24 Location: [place] Sex: M C Admitted: Test Reason : PRE OP Blood Pressure : */* mmHG Vent. Rate : 68 BPM Atrial Rate : 68 BPM P-R Int : 200 ms QRS Dur : 102 ms QT Int : 388 ms P-R-T Axes : 40 46 1 degrees QTcB Int : 412 ms Normal sinus rhythm Possible Inferior infarct , age undetermined Abnormal ECG Confirmed by Jarrett Barnhart ([id number]), assignment desk editor HECTOR SESAY ([id number]) on 07/17/2024 5:51:20 AM Referred By: Juaquin Head Confirmed By: Jarrett Barnhart 07/17/24 0551 Date Jarrett Barnhart MD CC: Dr. Lenny Perry MD; Dr. Juaquin Head MD Signed Normal [facility] Albumin, Serumon 07-16-2024 Albumin [Mass/Vol] 3.5 g/dL Normal 3.2-5.0 [facility] Comment on above: Performed By: #### L 500.2500, M100.651, L501.1800, L100.0100 #### [facility] Laboratory [address] [place], [address] Basic Metabolic Profile (BMP )on 07-16-2024 BUN/CRE 22.1 RATIO High 10-20 [facility] Comment on above: Performed By: #### L 500.2500, M100.651, L501.1800, L100.0100 #### [facility] Laboratory [address] [place], [address] CA,Total 9.0 mg/dL Normal 8.5-10.1 [facility] Comment on above: Performed By: #### L 500.2500, M100.651, L501.1800, L100.0100 #### [facility] Laboratory [address] [place], [address] Chloride [Moles/Vol] 109 mmol/L High 98-107 [facility] Comment on above: Performed By: #### L 500.2500, M100.651, L501.1800, L100.0100 #### [facility] Laboratory [address] [place], [address] CO2 [Moles/Vol] 27.0 mmol/L Normal 21.0-32.0 [facility] Comment on above: Performed By: #### L 500.2500, M100.651, L501.1800, L100.0100 #### [facility] Laboratory [address] [place], [address] Creatinine [Mass/Vol] 0.86 mg/dL Normal 0.70-1.30 [facility] Comment on above: Result Comment: The validity of the calculated GFR GFRAA in patients over 70 years has not been determined. Clinical correlation is essential. Performed By: #### L 500.2500, M100.651, L501.1800, L100.0100 #### [facility] Laboratory [address] [place], [address] EST GFR - AA 111 mL/min Normal >60 [facility] Comment on above: Result Comment: Afri can [place] GFR Calc Performed By: #### L 500.2500, M100.651, L501.1800, L100.0100 #### [facility] Laboratory [address] [place], [place], [address] GAP 4 Low 5-15 [facility] [place] Comment on above: Performed By: #### L 500.2500, M100.651, L501.1800, L100.0100 #### [facility] [place] Laboratory [address] [place], [address] GFR/1.73 sq M.predicted among non-blacks MDRD (S/P/Bld) [Vol rate/Area] 92 mL/min/{1.73_m2} Normal >60 [facility] [place] Comment on above: Result Comment: Non- GFR Calc Performed By: #### L 500.2500, M100.651, L501.1800, L100.0100 #### [facility] [place] Laboratory [address] [place], [address] Glucose [Mass/Vol] 108 mg/dL High 74-106 [facility] Comment on above: Result Comment: Fast ing Glucose result from 100 to 125 mg/dL suggests IMPAIRED HOMEOSTASIS per A.D.A. criteria. Performed By: #### L 500.2500, M100.651, L501.1800, L100.0100 #### [facility] [place] Laboratory [address] [place], [address] Potassium [Moles/Vol] 4.0 mmol/L Normal 3.5-5.1 [facility] Comment on above: Performed By: #### L 500.2500, M100.651, L501.1800, L100.0100 #### [facility] [place] Laboratory [address] [place], [address] Sodium [Moles/Vol] 140 mmol/L Normal 136-145 [facility] Comment on above: Performed By: #### L 500.2500, M100.651, L501.1800, L100.0100 #### [facility] [place] Laboratory [address] [place], [address] Urea nitrogen [Mass/Vol] 19 mg/dL High 7-18 [facility] [place] Comment on above: Performed By: #### L 500.2500, M100.651, L501.1800, L100.0100 #### [facility] [place] Laboratory [address] [place], [address] CBC W/Diff, Automatedon 06-24 Absolute Lymph 0.78 X10 3/uL Low 0.83-4.51 [facility] [place] Comment on above: Performed By: #### L 500.2500, M100.651, L501.1800, L100.0100 #### [facility] [place] Laboratory [address] [place], [address] Absolute Neut 3.6 X10 3/uL Normal 2.0-7.7 [facility] [place] Comment on above: Performed By: #### L 500.2500, M100.651, L501.1800, L100.0100 #### [facility] [place] Laboratory [address] [place], [address] Basophils/100 WBC (Bld) 0.8 % Normal 0-1 [facility] [place] Comment on above: Performed By: #### L 500.2500, M100.651, L501.1800, L100.0100 #### [facility] [place] Laboratory [address] [place], [address] Eosinophils/100 WBC (Bld) 5.3 % High 0-5 [facility] [place] Comment on above: Performed By: #### L 500.2500, M100.651, L501.1800, L100.0100 #### [facility] [place] Laboratory [address] [place], [address] Erythrocyte distribution width (RBC) [Ratio] 13.4 % Normal 11.6-14.6 [facility] [place] Comment on above: Performed By: #### L 500.2500, M100.651, L501.1800, L100.0100 #### [facility] [place] Laboratory [address] [place], [address] Hematocrit (Bld) [Volume fraction] 42.0 % Normal 40-54 [facility] [place] Comment on above: Performed By: #### L 500.2500, M100.651, L501.1800, L100.0100 #### [facility] [place] Laboratory [address] [place], [address] Hemoglobin (Bld) [Mass/Vol] 13.5 g/dL Normal 13.0-16.5 [facility] [place] Comment on above: Performed By: #### L 500.2500, M100.651, L501.1800, L100.0100 #### [facility] [place] Laboratory [address] [place], [address] IG% 0.200 Normal 0.0-0.9 [facility] [place] Comment on above: Result Comment: IG% - Immature Granulocytes (promyelocytes, myelocytes and metamyelocytes) > 1% indicates that a LEFT SHIFT is Present. Performed By: #### L 500.2500, M100.651, L501.1800, L100.0100 #### [facility] [place] Laboratory [address] [place], [address] Lymphocytes/100 WBC (Bld) 14.7 % Low 19-41 [facility] [place] Comment on above: Performed By: #### L 500.2500, M100.651, L501.1800, L100.0100 #### [facility] [place] Laboratory [address] [place], [address] MCH (RBC) [Entitic mass] 30.4 pg Normal 27.0-32.0 [facility] [place] Comment on above: Performed By: #### L 500.2500, M100.651, L501.1800, L100.0100 #### [facility] [place] Laboratory [address] [place], [address] MCHC (RBC) [Mass/Vol] 32.1 g/dL Normal 32-36 [facility] Comment on above: Performed By: #### L 500.2500, M100.651, L501.1800, L100.0100 #### [facility] [place] Laboratory [address] [place], [address] MCV (RBC) [Entitic vol] 94.6 fL High 80-94 [facility] [place] Comment on above: Performed By: #### L 500.2500, M100.651, L501.1800, L100.0100 #### [facility] [place] Laboratory [address] [place], [address] Monocytes/100 WBC (Bld) 10.5 % High 0-10 [facility] [place] Comment on above: Performed By: #### L 500.2500, M100.651, L501.1800, L100.0100 #### [facility] [place] Laboratory [address] [place], [address] Neutrophils/100 WBC (Bld) 68.5 % Normal 47-70 [facility] [place] Comment on above: Performed By: #### L 500.2500, M100.651, L501.1800, L100.0100 #### [facility] [place] Laboratory [address] [place], [address] Nucleated RBC (Bld) [#/Vol] 0 10*3/uL Normal 0-5 [facility] [place] Comment on above: Performed By: #### L 500.2500, M100.651, L501.1800, L100.0100 #### [facility] [place] Laboratory [address] [place], [address] Platelet mean volume (Bld) [Entitic vol] 9.9 fL Normal 6.2-12.0 [facility] [place] Comment on above: Performed By: #### L 500.2500, M100.651, L501.1800, L100.0100 #### [facility] [place] Laboratory [address] [place], [address] Platelets (Bld) [#/Vol] 173 10*3/uL Normal 150-450 [facility] [place] Comment on above: Performed By: #### L 500.2500, M100.651, L501.1800, L100.0100 #### [facility] [place] Laboratory [address] [place], [address] RBC (Bld) [#/Vol] 4.44 10*6/uL Low 4.6-6.2 [facility] Comment on above: Performed By: #### L 500.2500, M100.651, L501.1800, L100.0100 #### [facility] [place] Laboratory [address] [place], [address] RDW SD 46.8 fl High 35.1-43.9 [facility] [place] Comment on above: Performed By: #### L 500.2500, M100.651, L501.1800, L100.0100 #### [facility] [place] Laboratory [address] [place], [address] WBC (Bld) [#/Vol] 5.3 10*3/uL Normal 4.4-11.0 [facility] Comment on above: Performed By: #### L 500.2500, M100.651, L501.1800, L100.0100 #### [facility] [place] Laboratory [address] [place], [address] Extremity Lower without Cont raon 07-16-2024 Extremity Lower without Contra [facility] Imaging Services [address] [place] [address] Extremity Lower without Contra MR#: [id number] Acct: [id number] Name: HORACE JOE Rep #: [id number] : 1950 M 74 From: Darrius pardo MD PCP: Dr. Lenny Perry MD Status: REG CLI Study: Extremity Lower without Contra Date of Exam: 0 07/16/24 Exam# [id number] Ordering Dr: Juaquin Head MD PROCEDURE: EXTREMITY LOWER WITHOUT CONTRA REASON FOR EXAM: Right knee pain. Right knee replacement.[facility] protocol. TECHNIQUE: Multiple axial tomographic images of the left hip, left knee and left ankle were obtained. Coronal and sagittal reconstruction was obtained as well. CT without contrast. COMPARISON: None. FINDINGS: Bones: No evidence of fracture. Joints: Imaging of the left hip joint was obtained. There is a aibudbnz-ze-fqjspw degree of joint space narrowing with degenerative spur formation of the acetabulum. Imaging of the knee joint was obtained. There is a marked degree of joint space narrowing in the medial compartment knee joint with degenerative spur formation. Moderate degree of joint space narrowing of the patellofemoral joint. Imaging of the ankle joint was obtained. No abnormality is seen. Soft Tissues: Knee joint effusion. CT/Extremity Lower without Contra IMPRESSION: Marked degree of degenerative changes of the medial compartment of the knee joint as well as the patellofemoral joint with joint effusion. Degenerative changes of the left hip joint. One or more dose reduction techniques were used (e.g., Automated exposure control, adjustment of the mA and/or kV according to patient size, use of iterative reconstruction technique). Reading Location: [id number] CC: Dr. Lenny Perry MD; Dr. Juaquin Heda MD Chief Writer: Signed Normal [facility] [place] MR/PAT.VERONICAon 07-16-2024 MR/PAT.[facility] Medical Records Department [address] [place] [address] PAT - Anesthesia 07/16/24 1833 MR#: [id number] Acct: [id number] Name: HORACE JOE Rep #: [id number] : 1950 74 From: Hiram Gutierrez MD PCP: Dr. 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 When Was Last Pacemaker Check QUESTION #4 FULL TEXT: You/Your Family Experience fever (hyperthermia) with Anesthesia Last Oral Intake Last Oral intake: Last Oral Intake NPO since Meds taken in AM with sips of water? Meds patient instructed to take am of surgery PONV PONV - custodial worker: PONV - custodial worker Female No 07/11/24 14:07 HX of Motion Sickness No 07/11/24 14:07 HX of N/V After Surgery No 07/11/24 14:07 Non-Smoker Yes 07/11/24 14:07 Duration of Surgery greater Yes 07/11/24 14:07 than 60 minutes Number of Risk Factors 2 07/11/24 14:07 PONV Score Moderate Risk 07/11/24 14:07 Height Weight Height Weight: Anesthesia: Height Weight Height 5 ft 10 in 02/06/24 11:26 Respiratory Assessment Respiratory Assessment - custodial worker: Respiratory Tract Infection Hx - custodial worker Hx Respiratory Tract Infection No 07/11/24 14:07 STOP Sleep Apnea STOP Sleep Apnea - custodial worker: STOP Sleep Apnea - custodial worker Hx Hypertension Yes: CONTROLLED WITH MEDS 07/11/24 14:07 Hx Sleep Apnea No 07/11/24 14:07 CPAP BIPAP Do you snore loudly (louder No 07/11/24 14:07 than talking or can be heard Do you often feel tired/ Yes 07/11/24 14:07 fatigued/ sleepy during daytime? Has anyone observed you stop No 07/11/24 14:07 breathing during sleep? STOP Results Positive 07/11/24 14:07 QUESTION #5 FULL TEXT : Do you snore loudly (louder than talking or can be heard through closed doors)? 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 Specify any problems Hx of Preganancy in last 3 N/A 07/11/24 14:07 Months Nurse Filling Out Transfusion DSCHRIBER 07/11/24 14:07 Questions: Date: 07/11/24 07/11/24 14:07 Time: 14:09 07/11/24 14:07 Patient unable to answer at this time (ie. confused, unrespo /Reproduction History /Reproductive History - custodial worker: /Reproductive Hx- custodial worker Hx Now No 07/11/24 14:07 Gestational Age (in weeks): EDC: Hx Hx Para Hx Section SAB No 07/11/24 14:07 PFSH Medical History (Updated 07/11/24 @ 14:22 by Sneha Alcaraz) Wears glasses High cholesterol Back pain Injury of back Gastric reflux Former smoker CPAP (continuous positive airway pressure) dependence History of pain when walking History of edema History of transesophageal echocardiography (LIZA) History of echocardiogram Cardiology follow-up encounter History of atrial fibrillation Ventral hernia Glaucoma History of GI bleed Non-hemorrhagic cerebrovascular accident (CVA) Palpitations Valvular heart disease Essential hypertension Vertigo Osteoporosis Arthritis BPH (benign prostatic hyperplasia) AAA (abdominal aortic aneurysm) Leaky heart valve Home Medications ???Medication ???Instructions ???Recorded ???Last Taken ???Type alendronate 70 mg tablet 70 mg PO QWEEK 08/08/23 Unknown Hi story aspirin 81 mg tablet,delayed (more content not included)... Normal [facility] Magnesiumon 07-16-2024 Magnesium [Mass/Vol] 2.2 mg/dL Normal 1.6-2.6 [facility] Comment on above: Performed By: #### L 501.5200 ####[facility] [id number] [place], [address] MR Heart cine for blood flow velocity mappingon 06-04-2024 Addendum by Provider , [facility] [place] on 06/04/2024 10:47 PM EST * * *Final Report* * * DATE OF EXAM: Jun 04 2024 2:08PM [facility] 0704 - MRI CARDIAC VELOCITY FLOW MAP / PROCEDURE REASON: I71.40, I10, I35.1 * * * * Physician Interpretation * * * * Cardiac MRI Report: [facility] Date of service: 06/04/2024 12:51:27 PM Linked orders:[id number] CARD MORPH FUNC WO/W IVCON;[id number] CARDIAC VELOCITY FLOW MAP. Ordering physician: RENE DENIS Technologist: HUE BRIGHT Interpreting physician: Walt Solis MD PATIENT: Name: HORACE JOE Age: 74 years Gender: M MRI Scanner: Siemens Altea 1.5T 74 year old male with suspected cardiomyopathy. Aortic regurgitation, Mitral insufficiency, Cardiomyopathy This study is performed to quantify left/right ventricular size and function, valvular function, and to perform tissue characterization for the assessment of myocardial fibrosis/viability. MRI Techniques: * Turbo spin echo and gradient echo imaging for anatomic definition. * Dynamic cine imaging (SSFP and GRE) for cardiac chamber and wall-motion analysis, and valvular analysis. * Flow quantification sequences for hemodynamics in 2 locations: aortic root and mid-ascending aorta. * Delayed gadolinium enhancement analysis after injection of gadolinium-chelate. * T2STIR/ T2 Fat Saturated Imaging. * T1 mapping. Gadolinium Agent: 14 cc of Gadavist was administered. Baseline vital signs: 80 bpm Height: 177.80 cm BSA: 2.13 m Weight: 91.60 kg BMI: 29.0 kg/m FINDINGS: Extracardiac findings: The chest wall appears normal. No significant adenopathy is identified. Limited imaging of the lungs reveals no gross abnormalities. Aorta: The thoracic aorta is abnormal in course, caliber and contour. Sinus: 4.1 cm Sinotubular junction: 3.4 cm Mid ascendin.9 cm Descending mid thoracic: 3.3 cm Pulmonary Arteries: Pulmonary Arteries: Dilated Measurements: - Main pulmonary artery diameter: 2.9 cm - Right pulmonary artery diameter: 2.6 cm - Left pulmonary artery diameter: 2.9 cm Left Atrium: The left atrium is mildly dilated. LA volume: 183 ml (normal range: 31-112 ml) LA volume index: 86 ml/m (normal range: 14-55 ml/m ) LA area (4ch): 47 cm LA area (2ch): 36 cm Right Atrium: The right atrium is mildly dilated. RA volume: 168 ml (normal range: 24-105 ml) RA volume index: 79 ml/m (normal range: 17-70 ml/m ) RA area (4ch): 37 cm Left Ventricle: The left ventricle is moderately dilated. Left ventricular systolic function is mildly decreased. value (normal range) indexed (normal range) EDV: 316 ml (83-207 ml) EDVi: 149 ml/m (47-107 ml/m ) ESV: 175 ml (19-88 ml) ESVi: 82 ml/m (11-47 ml/m ) SV: 142 ml (55-127 ml) SVi: 67 ml/m (30-66 ml/m ) JEF: 6.9 cm (4.2-6.2 cm) Colin: 3.3 cm/m (2.4-3.5 cm/m ) ESD: 6.4 cm (2.6-3.8 cm) ESDi: 3.1 cm/m (1.5-2.2 cm/m ) EF: 45 % (51-76 %) CO: 11.4 l/min (3.9-8.3 l/min) CI: 5.3 l/min/m (2.1-4.3 ml/min/m ) mass: 139 g (57-152 g) LVMi: 66 g/m (36-75 g/m ) LV segment wall thickness: basal anteroseptum: 1.0 cm basal inferolateral: 0.6 cm Wall Motion: The apical inferior segment is dyskinetic. The mid inferior segment and apex are akinetic. All remaining scored segments are normal. Delayed Enhancement: There is 75-100% delayed gadolinium enhancement of the apical inferior segment and apex.There is 50-74% delayed gadolinium enhancement of the mid inferior segment. All remaining scored segments are normal. Constellation of findings could be suggestive of ischemic cardiomyopathy. Right Ventricle: The right ventricle is normal in size. Right ventricular systolic function is low normal. value (normal range) indexed (normal range) EDV: 218 ml (87-244 ml) EDVi: 103 ml/m (53-123 ml/m ) ESV: 112 ml (29-117 ml) ESVi: 52 ml/m (17-59 ml/m ) SV: 107 ml (43-146 ml) SVi: 50 ml/m (28-75 ml/m ) EF: 49 % (42-72 %) CO: 8.6 l/min (2.8-8.3 l/min) CI: 4.0 l/min/m (1.5-4.5 l/min/m ) T1 / T2 / ECV T2 * : +------+ +--- ---+ +-----+ T1 pre (ms) +/- T1 post (ms) +/- +------+ +--- ---+ +-----+ Base 1069.18 86.44 417.78 43.25 +------+ +--- ---+ +-----+ Mid 1077.94 108.30 417.28 45.85 +------+ +--- ---+ +-----+ [place] 1021.59 88.65 353.96 66.31 +------+ +--- ---+ +-----+ Global 1060.66 97.81 402.53 57.24 +------+ +--- ---+ +-----+ Normal values based on healthy individuals: T1: 950 +/- 21 ms; ECV: 26 +/- 4% Aortic Valve: AV Flow Quantification: ST Junct (more content not included)... [facility] MRI CARD MORPH FUNC WO/W IVC ONon 06-04-2024 MRI CARD MORPH FUNC WO/W IVCON * * *Final Report* * * DATE OF EXAM: Jun 04 2024 2:08PM [facility] 0703 - MRI CARD MORPH FUNC WO/W IVCON / PROCEDURE REASON: I71.40, I10, I35.1 * * * * Physician Interpretation * * * * Cardiac MRI Report: [facility] Date of service: 06/04/2024 12:51:27 PM Linked orders:[id number] CARD MORPH FUNC WO/W IVCON;[id number] CARDIAC VELOCITY FLOW MAP. Ordering physician: RENE DENIS Technologist: HUE BRIGHT Interpreting physician: Walt Solis MD PATIENT: Name: HORACE JOE Age: 74 years Gender: M MRI Scanner: Siemens Altea 1.5T 74 year old male with suspected cardiomyopathy. Aortic regurgitation, Mitral insufficiency, Cardiomyopathy This study is performed to quantify left/right ventricular size and function, valvular function, and to perform tissue characterization for the assessment of myocardial fibrosis/viability. MRI Techniques: * Turbo spin echo and gradient echo imaging for anatomic definition. * Dynamic cine imaging (SSFP and GRE) for cardiac chamber and wall-motion analysis, and valvular analysis. * Flow quantification sequences for hemodynamics in 2 locations: aortic root and mid-ascending aorta. * Delayed gadolinium enhancement analysis after injection of gadolinium-chelate. * T2STIR/ T2 Fat Saturated Imaging. * T1 mapping. Gadolinium Agent: 14 cc of Gadavist was administered. Baseline vital signs: 80 bpm Height: 177.80 cm BSA: 2.13 m? Weight: 91.60 kg BMI: 29.0 kg/m? FINDINGS: Extracardiac findings: The chest wall appears normal. No significant adenopathy is identified. Limited imaging of the lungs reveals no gross abnormalities. Aorta: The thoracic aorta is abnormal in course, caliber and contour. Sinus: 4.1 cm Sinotubular junction: 3.4 cm Mid ascendin.9 cm Descending mid thoracic: 3.3 cm Pulmonary Arteries: Pulmonary Arteries: Dilated Measurements: - Main pulmonary artery diameter: 2.9 cm - Right pulmonary artery diameter: 2.6 cm - Left pulmonary artery diameter: 2.9 cm Left Atrium: The left atrium is mildly dilated. LA volume: 183 ml (normal range: 31-112 ml) LA volume index: 86 ml/m? (normal range: 14-55 ml/m?) LA area (4ch): 47 cm? LA area (2ch): 36 cm? Right Atrium: The right atrium is mildly dilated. RA volume: 168 ml (normal range: 24-105 ml) RA volume index: 79 ml/m? (normal range: 17-70 ml/m?) RA area (4ch): 37 cm? Left Ventricle: The left ventricle is moderately dilated. Left ventricular systolic function is mildly decreased. value (normal range) indexed (normal range) EDV: 316 ml (83-207 ml) EDVi: 149 ml/m? (47-107 ml/m?) ESV: 175 ml (19-88 ml) ESVi: 82 ml/m? (11-47 ml/m?) SV: 142 ml (55-127 ml) SVi: 67 ml/m? (30-66 ml/m?) JEF: 6.9 cm (4.2-6.2 cm) Colin: 3.3 cm/m? (2.4-3.5 cm/m?) ESD: 6.4 cm (2.6-3.8 cm) ESDi: 3.1 cm/m? (1.5-2.2 cm/m?) EF: 45 % (51-76 %) CO: 11.4 l/min (3.9-8.3 l/min) CI: 5.3 l/min/m? (2.1-4.3 ml/min/m?) mass: 139 g (57-152 g) LVMi: 66 g/m? (36-75 g/m?) LV segment wall thickness: basal anteroseptum: 1.0 cm basal inferolateral: 0.6 cm Wall Motion: The apical inferior segment is dyskinetic. The mid inferior segment and apex are akinetic. All remaining scored segments are normal. Delayed Enhancement: There is 75-100% delayed gadolinium enhancement of the apical inferior segment and apex.There is 50-74% delayed gadolinium enhancement of the mid inferior segment. All remaining scored segments are normal. Constellation of findings could be suggestive of ischemic cardiomyopathy. Right Ventricle: The right ventricle is normal in size. Right ventricular systolic function is low normal. value (normal range) indexed (normal range) EDV: 218 ml (87-244 ml) EDVi: 103 ml/m? (53-123 ml/m?) ESV: 112 ml (29-117 ml) ESVi: 52 ml/m? (17-59 ml/m?) SV: 107 ml (43-146 ml) SVi: 50 ml/m? (28-75 ml/m?) EF: 49 % (42-72 %) CO: 8.6 l/min (2.8-8.3 l/min) CI: 4.0 l/min/m? (1.5-4.5 l/min/m?) T1 / T2 / ECV T2 * : +------+ +--- ---+ +-----+ T1 pre (ms) +/- T1 post (ms) +/- +------+ +--- ---+ +-----+ Base 1069.18 86.44 417.78 43.25 +------+ +--- ---+ +-----+ Mid 1077.94 108.30 417.28 45.85 +------+ +--- ---+ +-----+ [place] 1021.59 88.65 353.96 66.31 +------+ +--- ---+ +-----+ Global 1060.66 97.81 402.53 57.24 +------+ +--- ---+ +-----+ Normal values based on healthy individuals: T1: 950 +/- 21 ms; ECV: 26 +/- 4% Aortic Valve: AV Flow Quantification: ST Junction Forward Volume: 113 ml Reverse Volume: -26 ml Net Forward Volume: 139 ml Regurgitant Fraction: 23 % Mitral Valve: Mitral Flow Quantification: Integrating LV volumetric and aortic flow quantification data (ST junction level) reveals: Regurgitant Volume: 28 ml Regurgitant Fraction: 20 % Li (more content not included)... Normal [facility] MRI CARDIAC MORPH Mil[employer]ra WO/W IVCONon 06-04-2024 Addendum by Provider , [facility] [place] on 06/04/2024 10:47 PM EST * * *Final Report* * * DATE OF EXAM: Jun 04 2024 2:08PM [facility] 0703 - MRI CARD MORPH [employer] WO/W IVCON / PROCEDURE REASON: I71.40, I10, I35.1 * * * * Physician Interpretation * * * * Cardiac MRI Report: [facility] Date of service: 06/04/2024 12:51:27 PM Linked orders:[id number] CARD MORPH [employer] WO/W IVCON;[id number] CARDIAC VELOCITY FLOW MAP. Ordering physician: RENE DENIS Technologist: HUE BRIGHT Interpreting physician: Walt Solis MD PATIENT: Name: HORACE JOE Age: 74 years Gender: M MRI Scanner: Siemens Altea 1.5T 74 year old male with suspected cardiomyopathy. Aortic regurgitation, Mitral insufficiency, Cardiomyopathy This study is performed to quantify left/right ventricular size and function, valvular function, and to perform tissue characterization for the assessment of myocardial fibrosis/viability. MRI Techniques: * Turbo spin echo and gradient echo imaging for anatomic definition. * Dynamic cine imaging (SSFP and GRE) for cardiac chamber and wall-motion analysis, and valvular analysis. * Flow quantification sequences for hemodynamics in 2 locations: aortic root and mid-ascending aorta. * Delayed gadolinium enhancement analysis after injection of gadolinium-chelate. * T2STIR/ T2 Fat Saturated Imaging. * T1 mapping. Gadolinium Agent: 14 cc of Gadavist was administered. Baseline vital signs: 80 bpm Height: 177.80 cm BSA: 2.13 m Weight: 91.60 kg BMI: 29.0 kg/m FINDINGS: Extracardiac findings: The chest wall appears normal. No significant adenopathy is identified. Limited imaging of the lungs reveals no gross abnormalities. Aorta: The thoracic aorta is abnormal in course, caliber and contour. Sinus: 4.1 cm Sinotubular junction: 3.4 cm Mid ascendin.9 cm Descending mid thoracic: 3.3 cm Pulmonary Arteries: Pulmonary Arteries: Dilated Measurements: - Main pulmonary artery diameter: 2.9 cm - Right pulmonary artery diameter: 2.6 cm - Left pulmonary artery diameter: 2.9 cm Left Atrium: The left atrium is mildly dilated. LA volume: 183 ml (normal range: 31-112 ml) LA volume index: 86 ml/m (normal range: 14-55 ml/m ) LA area (4ch): 47 cm LA area (2ch): 36 cm Right Atrium: The right atrium is mildly dilated. RA volume: 168 ml (normal range: 24-105 ml) RA volume index: 79 ml/m (normal range: 17-70 ml/m ) RA area (4ch): 37 cm Left Ventricle: The left ventricle is moderately dilated. Left ventricular systolic function is mildly decreased. value (normal range) indexed (normal range) EDV: 316 ml (83-207 ml) EDVi: 149 ml/m (47-107 ml/m ) ESV: 175 ml (19-88 ml) ESVi: 82 ml/m (11-47 ml/m ) SV: 142 ml (55-127 ml) SVi: 67 ml/m (30-66 ml/m ) JEF: 6.9 cm (4.2-6.2 cm) Colin: 3.3 cm/m (2.4-3.5 cm/m ) ESD: 6.4 cm (2.6-3.8 cm) ESDi: 3.1 cm/m (1.5-2.2 cm/m ) EF: 45 % (51-76 %) CO: 11.4 l/min (3.9-8.3 l/min) CI: 5.3 l/min/m (2.1-4.3 ml/min/m ) mass: 139 g (57-152 g) LVMi: 66 g/m (36-75 g/m ) LV segment wall thickness: basal anteroseptum: 1.0 cm basal inferolateral: 0.6 cm Wall Motion: The apical inferior segment is dyskinetic. The mid inferior segment and apex are akinetic. All remaining scored segments are normal. Delayed Enhancement: There is 75-100% delayed gadolinium enhancement of the apical inferior segment and apex.There is 50-74% delayed gadolinium enhancement of the mid inferior segment. All remaining scored segments are normal. Constellation of findings could be suggestive of ischemic cardiomyopathy. Right Ventricle: The right ventricle is normal in size. Right ventricular systolic function is low normal. value (normal range) indexed (normal range) EDV: 218 ml (87-244 ml) EDVi: 103 ml/m (53-123 ml/m ) ESV: 112 ml (29-117 ml) ESVi: 52 ml/m (17-59 ml/m ) SV: 107 ml (43-146 ml) SVi: 50 ml/m (28-75 ml/m ) EF: 49 % (42-72 %) CO: 8.6 l/min (2.8-8.3 l/min) CI: 4.0 l/min/m (1.5-4.5 l/min/m ) T1 / T2 / ECV T2 * : +------+ +--- ---+ +-----+ T1 pre (ms) +/- T1 post (ms) +/- +------+ +--- ---+ +-----+ Base 1069.18 86.44 417.78 43.25 +------+ +--- ---+ +-----+ Mid 1077.94 108.30 417.28 45.85 +------+ +--- ---+ +-----+ [place] 1021.59 88.65 353.96 66.31 +------+ +--- ---+ +-----+ Global 1060.66 97.81 402.53 57.24 +------+ +--- ---+ +-----+ Normal values based on healthy individuals: T1: 950 +/- 21 ms; ECV: 26 +/- 4% Aortic Valve: AV Flow Quantification: ST Jun (more content not included)... [facility] MRI CARDIAC VELOCITY FLOW [facility] 06-04-2024 MRI CARDIAC VELOCITY FLOW MAP * * *Final Report* * * DATE OF EXAM: Jun 04 2024 2:08PM [facility] 0704 - MRI CARDIAC VELOCITY FLOW MAP / PROCEDURE REASON: I71.40, I10, I35.1 * * * * Physician Interpretation * * * * Cardiac MRI Report: [facility] Date of service: 06/04/2024 12:51:27 PM Linked orders:[id number] CARD MORPH FUNC WO/W IVCON;[id number] CARDIAC VELOCITY FLOW MAP. Ordering physician: RENE DENIS Technologist: HUE BRIGHT Interpreting physician: Walt Solis MD PATIENT: Name: HORACE JOE Age: 74 years Gender: M MRI Scanner: Siemens Altea 1.5T 74 year old male with suspected cardiomyopathy. Aortic regurgitation, Mitral insufficiency, Cardiomyopathy This study is performed to quantify left/right ventricular size and function, valvular function, and to perform tissue characterization for the assessment of myocardial fibrosis/viability. MRI Techniques: * Turbo spin echo and gradient echo imaging for anatomic definition. * Dynamic cine imaging (SSFP and GRE) for cardiac chamber and wall-motion analysis, and valvular analysis. * Flow quantification sequences for hemodynamics in 2 locations: aortic root and mid-ascending aorta. * Delayed gadolinium enhancement analysis after injection of gadolinium-chelate. * T2STIR/ T2 Fat Saturated Imaging. * T1 mapping. Gadolinium Agent: 14 cc of Gadavist was administered. Baseline vital signs: 80 bpm Height: 177.80 cm BSA: 2.13 m? Weight: 91.60 kg BMI: 29.0 kg/m? FINDINGS: Extracardiac findings: The chest wall appears normal. No significant adenopathy is identified. Limited imaging of the lungs reveals no gross abnormalities. Aorta: The thoracic aorta is abnormal in course, caliber and contour. Sinus: 4.1 cm Sinotubular junction: 3.4 cm Mid ascendin.9 cm Descending mid thoracic: 3.3 cm Pulmonary Arteries: Pulmonary Arteries: Dilated Measurements: - Main pulmonary artery diameter: 2.9 cm - Right pulmonary artery diameter: 2.6 cm - Left pulmonary artery diameter: 2.9 cm Left Atrium: The left atrium is mildly dilated. LA volume: 183 ml (normal range: 31-112 ml) LA volume index: 86 ml/m? (normal range: 14-55 ml/m?) LA area (4ch): 47 cm? LA area (2ch): 36 cm? Right Atrium: The right atrium is mildly dilated. RA volume: 168 ml (normal range: 24-105 ml) RA volume index: 79 ml/m? (normal range: 17-70 ml/m?) RA area (4ch): 37 cm? Left Ventricle: The left ventricle is moderately dilated. Left ventricular systolic function is mildly decreased. value (normal range) indexed (normal range) EDV: 316 ml (83-207 ml) EDVi: 149 ml/m? (47-107 ml/m?) ESV: 175 ml (19-88 ml) ESVi: 82 ml/m? (11-47 ml/m?) SV: 142 ml (55-127 ml) SVi: 67 ml/m? (30-66 ml/m?) JEF: 6.9 cm (4.2-6.2 cm) Colin: 3.3 cm/m? (2.4-3.5 cm/m?) ESD: 6.4 cm (2.6-3.8 cm) ESDi: 3.1 cm/m? (1.5-2.2 cm/m?) EF: 45 % (51-76 %) CO: 11.4 l/min (3.9-8.3 l/min) CI: 5.3 l/min/m? (2.1-4.3 ml/min/m?) mass: 139 g (57-152 g) LVMi: 66 g/m? (36-75 g/m?) LV segment wall thickness: basal anteroseptum: 1.0 cm basal inferolateral: 0.6 cm Wall Motion: The apical inferior segment is dyskinetic. The mid inferior segment and apex are akinetic. All remaining scored segments are normal. Delayed Enhancement: There is 75-100% delayed gadolinium enhancement of the apical inferior segment and apex.There is 50-74% delayed gadolinium enhancement of the mid inferior segment. All remaining scored segments are normal. Constellation of findings could be suggestive of ischemic cardiomyopathy. Right Ventricle: The right ventricle is normal in size. Right ventricular systolic function is low normal. value (normal range) indexed (normal range) EDV: 218 ml (87-244 ml) EDVi: 103 ml/m? (53-123 ml/m?) ESV: 112 ml (29-117 ml) ESVi: 52 ml/m? (17-59 ml/m?) SV: 107 ml (43-146 ml) SVi: 50 ml/m? (28-75 ml/m?) EF: 49 % (42-72 %) CO: 8.6 l/min (2.8-8.3 l/min) CI: 4.0 l/min/m? (1.5-4.5 l/min/m?) T1 / T2 / ECV T2 * : +------+ +--- ---+ +-----+ T1 pre (ms) +/- T1 post (ms) +/- +------+ +--- ---+ +-----+ Base 1069.18 86.44 417.78 43.25 +------+ +--- ---+ +-----+ Mid 1077.94 108.30 417.28 45.85 +------+ +--- ---+ +-----+ [place] 1021.59 88.65 353.96 66.31 +------+ +--- ---+ +-----+ Global 1060.66 97.81 402.53 57.24 +------+ +--- ---+ +-----+ Normal values based on healthy individuals: T1: 950 +/- 21 ms; ECV: 26 +/- 4% Aortic Valve: AV Flow Quantification: ST Junction Forward Volume: 113 ml Reverse Volume: -26 ml Net Forward Volume: 139 ml Regurgitant Fraction: 23 % Mitral Valve: Mitral Flow Quantification: Integrating LV volumetric and aortic flow quantification data (ST junction level) reveals: Regurgitant Volume: 28 ml Regurgitant Fraction: 20 % Agustin (more content not included)... Normal [facility] No Panel InformationOrdered By: [facility] Provider on 06-04-2024 [facility] No Panel Informationon 06-04 Radiology Study observation (narrative) [facility] CNPTammie 05-28-2024 CNPN Telephone (AKXRMRG) HORACE JOE ([id number]) 1950 M Date Time Provider Department 05/28/24 EVELYN NATE AKXRMRG During your visit today, we recorded the following information about you: Hue Bright, (R) 05/28/2024 10:16 AM Signed Please provide a protocol for this patient scheduled 06/04/2024. The order is in scanned documents. Thank you Walt Solis MD 05/28/2024 10:32 AM Signed Aortic regurgitation protocol Hello, Get the dark, and bright bloods, regular cines, We will need quality 3 chamber, LVOT long cine. Stack of LVOT short axis. T1, T2 mapping optional. , inject contrast, get first pass, and get delayed images at 8 min. Qp, Qs is required. Pls get quality Qs (Make sure that you are perpendicular to the ascending aorta using the 3C, LVOT long); One at the level of the main PA, one at sinotubular junction and another under the valve. Also get a QS with a good pic of the SVC, and descending aorta, so we can use the SVC+desc Ao flow as a back up for QS. I would get QS at venc 150, 200, 250 until the aliasing disappears completely. . Thanks, Dr Solis Allergies As of Date: 05/28/2024 Noted Allergy Reaction CODEINE 11/29/2018 5 - Intolerance IODIDES 11/29/2018 10 - Anaphylaxis Date Reviewed: 03/07/2024 Reviewed by: Martha Valentine LPN - Fully Assessed Prescriptions as of 05/28/2024 - alendronate (FOSAMAX) 70 mg tablet - atorvastatin (LIPITOR) 40 mg tablet - brimonidine (ALPHAGAN) 0.2 % ophthalmic solution - fluticasone (FLONASE) 50 mcg/actuation nasal spray - metoprolol succinate ER (TOPROL XL) 50 mg 24 hr tablet - pantoprazole DR (PROTONIX) 40 mg tablet - tamsulosin (FLOMAX) 0.4 mg - aspirin, enteric coated (ASPIRIN, ENTERIC COATED) 81 mg EC tablet Take 81 mg by mouth. - ubidecarenone Q-10 (CO Q-10) 10 mg cap Take by mouth two times a day. - clopidogrel (PLAVIX) 75 mg tablet Take 1 tablet by mouth once daily. Problem List As Of Date: 05/28/2024 (None) Encounter Status:Closed by HUE BRIGHT on 05/28/24 [facility] Diagnostic total prostate sp ecific antigen (PSA) measurementOrdered By: Samy Barrientos on 04-09-2024 Prostate Specific Antigen Total 5.41 ng/mL High 0.0-4.0 [facility] Comment on above: This test was perfor med using the TPSA assay method for the[employer] chemistry system. Values obtained with differentassay methods cannot be used interchangably.When changing PSA assays in the course of monitoring apatient, additional sequential testing should be carriedout to confirm baseline values. PSA,Total- Diagnosticon 03-23 PSA, DIAGNOSTIC 5.41 ng/mL High 0.0-4.0 [facility] Comment on above: Result Comment: This test was performed using the TPSA assay method for the [employer] chemistry system. Values obtained with different assay methods cannot be used interchangably. When changing PSA assays in the course of monitoring a patient, additional sequential testing should be carried out to confirm baseline values. Performed By: #### L [phone] #### [facility] Laboratory [address] [place], [address] Abdomen/Pelvis without Conto n 04-03-2024 Abdomen/Pelvis without Cont [facility] Services [address] [place], [place] [id number] (462) Abdomen/Pelvis without Cont MR#: [id number] Acct: [id number] Name: HORACE JOE Rep #: [id number] : 1950 M 73 From: Juice Lawler DO PCP: Dr. Lenny Perry MD Status: REG CLI Study: Abdomen/Pelvis without Cont Date of Exam: 03/23 07/16 Exam# [id number] Ordering Dr: [place] [id number] STUDY: CT ABDOMEN AND PELVIS WITHOUT CONTRAST REASON FOR EXAM: Male, 73 years old. GROSS HEMATURIA RADIATION DOSAGE (If Supplied By Facility): CTDIvol = ( 16.15 ) mGy, DLP = ( 764.44 ) mGycm TECHNIQUE: Transaxial images were obtained from the dome of the diaphragm to the symphysis pubis without oral contrast, and without intravenous contrast. Sagittal and coronal images were reconstructed. Individualized dose optimization techniques were used for this CT. COMPARISON: None. FINDINGS: The visualized lung bases are unremarkable. The visualized portions of the heart are within normal limits. Up to 3.5 cm cysts in the liver. Normal gallbladder and extrahepatic biliary system. Normal spleen. Normal pancreas. Normal bilateral adrenal glands. Renal cysts bilaterally. Up to 3 mm calculi in the left kidney. Normal visualized stomach. Normal small intestine. Diverticulosis of the colon. The appendix is nonvisualized. Normal abdominal aorta. Normal inferior vena cava. Subcentimeter nodes in the retroperitoneum. Normal urinary bladder. The prostate is 5.9 x 7 cm. Small fatty umbilical hernia. There is a total right replacement. Levoscoliosis of the lumbar column. Degenerative vertebral changes. CT/Abdomen/Pelvis without Cont IMPRESSION: Up to 3.5 cm cysts in the liver. Renal cysts bilaterally. Up to 3 mm calculi in the left kidney. Diverticulosis of the colon. The appendix is visualized and appears normal. Subcentimeter nodes in the retroperitoneum. Electronically Signed: Juice Lawler DO at 10:44 EST Reading Location ID and State: [facility] / [place] Tel [phone], Service support , CC: Dr. Lenny Perry MD; Dr. Samy Barrientos MD Chief Writer: Signed Normal [facility] HIP, UNI W/ Pelvis 2-3 Views on 03-22-2024 HIP, UNI W/ Pelvis 2-3 Views [facility] Imaging Services [address] [place], [place] [address] HIP, UNI W/ Pelvis 2-3 Views MR#: [id number] Acct: [id number] Name: HORACE JOE Rep #: [id number] : 1950 73 From: Conor Farr MD PCP: Dr. Lenny Perry MD Status: REG CL Study: HIP, UNI W/ Pelvis 2-3 Views Date of Exam: Exam# [id number] Ordering Dr: [place] [id number] STUDY: X-RAY - PELVIS AND LEFT HIP REASON FOR EXAM: Male, 73 years old. Left hip pain. TECHNIQUE: 3 views of the pelvis and left hip. COMPARISON: None. FINDINGS: There is a non-specific bowel gas pattern. There are multiple calcified phleboliths. Normal bilateral iliac wings, sacroiliac joints and visualized sacrum. Normal bilateral superior and inferior pubic rami. Normal pubic symphysis. Normal bilateral ischial tuberosities. There is severe degenerative arthrosis of the left hip joint with severe joint space narrowing, small marginal osteophyte formation, and subchondral sclerosis/cyst formation. There is no demonstrated acute fracture. There is a right hip arthroplasty in place, with no periprosthetic fracture. RAD/HIP, UNI W/ Pelvis 2-3 Views IMPRESSION: Severe degenerative arthrosis of the left hip joint. Right hip arthroplasty, with no periprosthetic fracture. Electronically Signed: Conor Farr MD at 15:38 EDT , CC: Dr. Lenny Perry MD Chief Writer: Signed Normal [facility] Knee 3 Viewson 03-22-2024 Knee 3 Views [facility] Imaging Services [address] [place] [address] Knee 3 Views MR#: [id number] Acct: [id number] Name: HORACE JOE Rep #: [id number] : 1950 73 From: Conor Farr MD PCP: Dr. Lenny Perry MD Status: REG CLI Study: Knee 3 Views Date of Exam: 03/22/24 Exam# [id number] Ordering Dr: [place] [id number] STUDY: X-RAY - LEFT KNEE REASON FOR EXAM: Male, 73 years old. Left knee pain. TECHNIQUE: 3 views of the left knee. COMPARISON: None. FINDINGS: Normal visualized distal femur. Normal visualized proximal tibia and fibula. Normal proximal tibiofibular articulation. There is no demonstrated fracture. There is moderate degenerative arthrosis of the medial femorotibial compartment with moderate joint space narrowing. There is mild degenerative arthrosis of the lateral femorotibial compartment. There is moderate degenerative arthrosis of the patellofemoral articulation. There is a moderate joint effusion. The soft tissue structures are unremarkable. 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 Moderate joint effusion. Electronically Signed: Conor Farr MD at 15:26 EDT , CC: Dr. Lenny Perry MD Chief Writer: Signed [facility] 03-09-2024 [facility] Telephone ([facility]) HORACE JOE ([id number]) 1950 M Date Time Provider Department 03/09/24 ONEAL FULTON [facility] During your visit today, we recorded the following information about you: Oneal Fulton MD 03/09/2024 7:04 AM Signed Urine culture grew some bacteria, but not a significant amount. Finish taking Keflex. Follow-up with his urologist for blood in the urine. Justus Davis LPN 03/09/2024 8:19 AM Signed Patient given results and verbalized understanding of instructions given. States he has an appt for urologist next we. Justus Davis LPN Allergies As of Date: 03/09/2024 Noted Allergy Reaction CODEINE 11/29/2018 5 - Intolerance IODIDES 11/29/2018 10 - Anaphylaxis Date Reviewed: 03/07/2024 Reviewed by: Martha Valentine LPN - Fully Assessed Reason for Visit: Results [95] Cmt: Urine Cx Prescriptions as of 03/09/2024 - cephALEXin (KEFLEX) 500 mg capsule Take 1 capsule by mouth two times a day for 7 days. - alendronate (FOSAMAX) 70 mg tablet - atorvastatin (LIPITOR) 40 mg tablet - brimonidine (ALPHAGAN) 0.2 % ophthalmic solution - fluticasone (FLONASE) 50 mcg/actuation nasal spray - metoprolol succinate ER (TOPROL XL) 50 mg 24 hr tablet - pantoprazole DR (PROTONIX) 40 mg tablet - tamsulosin (FLOMAX) 0.4 mg - aspirin, enteric coated (ASPIRIN, ENTERIC COATED) 81 mg EC tablet Take 81 mg by mouth. - ubidecarenone Q-10 (CO Q-10) 10 mg cap Take by mouth two times a day. - clopidogrel (PLAVIX) 75 mg tablet Take 1 tablet by mouth once daily. Problem List As Of Date: 03/09/2024 (None) Encounter Status:Closed by JUSTUS DAVIS on 03/09/24 Normal [facility] Bacteria Ur Culton 4 Bacteria identified Cx Nom (U) CULTURE, URINE: Mixed microbiota: ORGANISM ID: 1 10,000 -<50,000 CFU/ml Lactose positive gram negative bacilli Insignificant colony count. No further workup. ORGANISM ID: 2 10,000 -<50,000 CFU/ml Enterococcus faecalis Insignificant colony count. No further workup. Cephalosporins, clindamycin, and TMP-SMX are not effective for the treatment of enterococcal infections. Normal [facility] Comment on above: Performed By: #### 6 30-4 #### [facility] CLIA [id number] [address] [place] [address] CNOVon 03-07-2024 CNOV Office Visit (UCWSTR ) HORACE JOE ([id number]) 1950 M Date Time Provider Department 03/07/24 5:15 PM JOCELYNE BARBOZA [facility] During your visit today, we recorded the following information about you: Temperature Pulse Respiration Blood pressure 97.3 degrees 76/minute 16/minute 128/76 Weight 92 kg Jocelyne Barboza APRN.CNP 03/07/2024 5:54 PM Signed Subjective HPI HPI Horace Torres Heath is a 73 year old male who presents today for CC of blood in urine. This started today. Has tried nothing for relief. Symptoms are worsened by nothing. Risk factors hx of urology problems, sees outside urologist. Denies renal/hepatic disease. .Patient presents with: gross hematuria: X 20 min History reviewed. No pertinent past medical history. No past surgical history on file. ALLERGIES Codeine and Iodides MEDICATIONS alendronate (FOSAMAX) 70 mg tablet atorvastatin (LIPITOR) 40 mg tablet brimonidine (ALPHAGAN) 0.2 % ophthalmic solution fluticasone (FLONASE) 50 mcg/actuation nasal spray metoprolol succinate ER (TOPROL XL) 50 mg [address] (PROTONIX) 40 mg tablet tamsulosin (FLOMAX) 0.4 mg aspirin, enteric coated (ASPIRIN, ENTERIC COATED) 81 mg EC tablet Take 81 mg by mouth. ubidecarenone Q-10 (CO Q-10) 10 mg cap Take by mouth two times a day. clopidogrel (PLAVIX) 75 mg tablet Take 1 tablet by mouth once daily. No family history on file. Social History Tobacco Use Smoking status: Never Smokeless tobacco: Never Review of Systems Constitutional: Negative for chills, fever and weight loss. Respiratory: Negative for cough, shortness of breath and wheezing. Cardiovascular: Negative for chest pain and palpitations. Gastrointestinal: Negative for abdominal pain, blood in stool, constipation, diarrhea, heartburn, melena, nausea and vomiting. Genitourinary: Positive for hematuria. Negative for dysuria, flank pain, frequency and urgency. Objective Blood pressure 128/76, pulse 76, temperature 36.3 ?C (97.3 ?F), temperature source Tympanic, resp. rate 16, weight 92 kg (202 lb 13.2 oz), SpO2 96%. Physical Exam Constitutional: General: He is not in acute distress. Appearance: Normal appearance. He is not toxic-appearing. Cardiovascular: Rate and Rhythm: Normal rate and regular rhythm. Heart sounds: Normal heart sounds. Pulmonary: Effort: Pulmonary effort is normal. Breath sounds: Normal breath sounds. Abdominal: General: Bowel sounds are normal. Palpations: Abdomen is soft. Tenderness: There is no abdominal tenderness. Skin: General: Skin is warm and dry. ASSESSMENT/PLAN: 1. Gross hematuria - ICD9: 599.71, ICD10: R31.0 Ua likely obscured by dark blood Cover with cephalexin Call if no uti or if needs atb changed Make appointment with outside urologist. - UA DIP, URINE (POC) - URINE CULTURE - CEPHALEXIN 500 MG CAPSULE ELVIS Vidal Jonathan, APRN.CNP 03/07/2024 5:48 PM Signed URINARY TRACT INFECTION GENERAL INFORMATION: A urinary tract infection (UTI) is an infection of the bladder or kidneys. A bladder infection, called cystitis, is the more common type. If the infection travels up to the kidneys, it is called pyelonephritis. This can be more serious. UTIs are a common problem in women. Having sexual relations can leave a woman more susceptible to developing a UTI, but it is not sexually transmitted like gonorrhea. Some women have a problem with recurrent UTIs. INSTRUCTIONS: 1. Your doctor prescribed an antibiotic to treat the UTI. Take exactly as directed. Be sure to take all the medication prescribed, even if your symptoms disappear. If you stop treatment early, the infection may not be fully treated and the symptoms could come back again. 2. Get plenty of rest. You may take acetaminophen for fever and aches. 3. Drink 6 to 8 glasses of fluids, especially water, every day. This helps wash out germs from your urinary tract. Cranberry juice or other sources of vitamin C are also good for you. 4. Urinate often, as soon as you feel the urge. Empty your bladder completely. Urinate before and after you have sex. 5. Always wipe from front to back after going to the bathroom. This pushes germs away from your bladder, rather than towards it. 6. Showers are better than baths, and you should wash the genital area daily. Avoid bubble bath or bath oils if you do take a bath. 7. Wear underwear and pantyhose with a cotton crotch. CONTACT YOUR DOCTOR: 1. You have a temperature over 102F (38.8C) after 48 hours on medication. 2. You notice blood in your urine. 3. Your symptoms don't improve in 2 days. 4. You develop nausea, vomiting, diarrhea, or a rash. 5. You develop new or unexplained symptoms. These may be related to the medication you are taking. 6. Your symptoms return after you finish treatment. RETURN TO THE EMERGENCY DEP (more content not included)... Normal [facility] UA DIP, URINE (POC)on 2023 BILIRUBIN UA (POCT) Small Abnormal Negative [facility] CLARITY UA (POCT) Clear [facility] COLOR UA (POCT) Red [facility] GLUCOSE UA (POCT) Negative Negative mg/dL [facility] Hemoglobin Ql (U) Large Abnormal Negative [facility] Interpretation and review of laboratory results Abnormal [facility] KETONE UA (POCT) Negative Negative mg/dL [facility] LEUKOCYTES UA (POCT) Negative Negative [facility] NITRITE UA (POCT) Negative Negative [facility] PH UA (POCT) 7.0 4.5 - 8.0 [facility] Protein Ql (U) 100 mg/dL Abnormal Negative [facility] SPECIFIC GRAVITY UA (POCT) 1.025 1.005 - 1.030 [facility] UROBILINOGEN UA (POCT) 1.0 Klarissa l E.U./dL [facility] Location:[address], [place], [place], [id number] [place] [address] POINT OF CARE [facility] CNOVon 08-30-2023 CNOV Office Visit (UCWSTR ) HORACE JOE ([id number]) 1950 M Date Time Provider Department 08/30/23 12:45 PM CATHY RAE [facility] During your visit today, we recorded the following information about you: Temperature Pulse Respiration Blood pressure 97.6 degrees 76/minute 16/minute 124/78 Weight 88.6 kg Cathy Rae APRN.CNP 08/30/2023 4:23 PM Signed This note was created using NoteWriter. Subjective Horace Melissa Heath is a 73 year old male. 73 year old male with PMH CHF, x 4 CVA, leaky valve of heart presents for right chest pain. Acute onset 3 days ago Right chest region +SOB and difficulty breathing at times he endorses Denies CP Denies cough Denies fever or chills Denies accompanying URI sx such as ear, nose or throat Denies feelings of dizziness and or near syncope. Denies trauma or injury Denies tobacco usage (quit 40 years ago ) Denies taking homeopathic or OTC medicines Denies pain is reproducible Denies pain is exacerbated with movement. 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 They think I have afib Endorses that they recently moved here. Utilizes Plavix and an ASA daily The history is provided by the patient. No assistant speech language pathologist was used. URI He complains of difficulty breathing and shortness of breath. There is no chest tightness, cough, frequent throat clearing, hemoptysis, hoarse voice, sputum production or wheezing. This is a new problem. The current episode started in the past 7 days. The problem occurs constantly. The problem has been unchanged. Pertinent negatives include no appetite change, chest pain, dyspnea on exertion, ear congestion, ear pain, fever, headaches, heartburn, malaise/fatigue, myalgias, nasal congestion, orthopnea, PND, postnasal drip, rhinorrhea, sneezing, sore throat, sweats, trouble swallowing or weight loss. His symptoms are aggravated by nothing. His symptoms are alleviated by nothing. He reports no improvement on treatment. There are no known risk factors for lung disease. There is no history of asthma, bronchiectasis, bronchitis, COPD, emphysema or pneumonia. History reviewed. No pertinent past medical history. No past surgical history on file. ALLERGIES Codeine and Iodides MEDICATIONS alendronate (FOSAMAX) 70 mg tablet atorvastatin (LIPITOR) 40 mg tablet brimonidine (ALPHAGAN) 0.2 % ophthalmic solution fluticasone (FLONASE) 50 mcg/actuation nasal spray metoprolol succinate ER (TOPROL XL) 50 mg [address] (PROTONIX) 40 mg tablet tamsulosin (FLOMAX) 0.4 mg aspirin, enteric coated (ASPIRIN, ENTERIC COATED) 81 mg EC tablet Take 81 mg by mouth. ubidecarenone Q-10 (CO Q-10) 10 mg cap Take by mouth two times a day. clopidogrel (PLAVIX) 75 mg tablet Take 1 tablet by mouth once daily. No family history on file. Social History Tobacco Use Smoking status: Never Smokeless tobacco: Never Review of Systems Constitutional: Negative for appetite change, fever, malaise/fatigue and weight loss. HENT: Negative for ear pain, hoarse voice, postnasal drip, rhinorrhea, sneezing, sore throat and trouble swallowing. Respiratory: Positive for shortness of breath. Negative for cough, hemoptysis, sputum production and wheezing. Cardiovascular: Negative for chest pain, dyspnea on exertion and PND. Gastrointestinal: Negative for heartburn. Musculoskeletal: Negative for myalgias. Allergic/Immunologic: Negative for environmental allergies, food allergies and immunocompromised state. Neurological: Negative for dizziness, facial asymmetry and headaches. Hematological: Negative for adenopathy. Does not bruise/bleed easily. Objective BP 124/78 Pulse 76 Temp 36.4 ?C (97.6 ?F) (Tympanic) Resp 16 Wt 88.6 kg (195 lb 5.2 oz) SpO2 98% Physical Exam Vitals and nursing note reviewed. Constitutional: General: He is not in acute distress. Appearance: Normal appearance. He is not ill-appearing, toxic-appearing or diaphoretic. Comments: Elderly but non toxic HENT: Head: Normocephalic and atraumatic. Right Ear: External ear normal. Left Ear: External ear normal. Nose: Nose normal. No congestion or rhinorrhea. Mouth/Throat: Mouth: Mucous membranes are moist. Pharynx: Oropharynx is clear. No oropharyngeal exudate or posterior oropharyngeal erythema. Eyes: General: Right eye: No discharge. Left eye: No discharge. Extraocular Movements: Extraocular movements intact. Conjunctiva/sclera: Conjunctivae normal. Pupils: Pupils are equal, round, and reactive to light. Cardiovascular: Rate and Rhythm: Normal rate and regular rhythm. Pulses: Normal pulses. Heart sounds: Normal heart sounds. No murmur heard. No friction rub. No gallop. Pulmonary: Effort: Pulmonary effort is normal. No respiratory distress. Breath sounds: Normal breath sounds. No stridor. No wheezing, rho (more content not included)... Normal [facility] XR CHEST 2V FRONTAL/LATon XR CHEST 2V FRONTAL/LAT * * *Final Report* * * DATE OF EXAM: Aug 30 2023 1:25PM WOX 5291 - XR CHEST 2V FRONTAL/LAT / PROCEDURE REASON: Right-sided chest pain * * * * Physician Interpretation * * * * EXAMINATION: CHEST RADIOGRAPH (2 VIEW FRONTAL and LATERAL) CLINICAL HISTORY: Right-sided chest pain MQ: XC2_6 EXAM DATE/TIME: 08/30/2023 1:25 PM COMPARISON: No relevant prior studies available. RESULT: Lines, tubes, and devices: External rn cardiac cath. Lungs and pleura: Mild reticulation of the bibasilar interstitial markings. No confluent consolidation. No lung mass. No pleural effusion. No pneumothorax. Cardiomediastinal silhouette: Normal cardiomediastinal silhouette. Bones and soft tissues: Dextroscoliosis with multilevel degenerative changes. IMPRESSION: Mild reticulation of the bibasilar interstitial markings may be related to atelectasis or mild fibrosis though underlying bronchopneumonia is not excluded in the appropriate clinical setting. Chief Writer: [facility] Transcribe Date/Time: Aug 30 2023 2:05P Dictated by : CARLOS PAULINO MD This examination was interpreted and the report reviewed and electronically signed by: CARLOS PAULINO MD on Aug 30 2023 2:06PM EST [id number] Normal [facility] XR Chest PA and Lateralon IMPRESSION: Mild reticulation of the bibasilar interstitial markings may be related to atelectasis or mild fibrosis though underlying bronchopneumonia is not excluded in the appropriate clinical setting. Chief Writer: [facility] Transcribe Date/Time: Aug 30 2023 2:05P Dictated by : CARLOS PAULINO MD This examination was interpreted and the report reviewed and electronically signed by: CARLOS PAULINO MD on Aug 30 2023 2:06PM EST DIVISION OF RADIOLOGY * * *Final Report* * * DATE OF EXAM: Aug 30 2023 1:25PM WOX [id number] - XR CHEST 2V FRONTAL/LAT / PROCEDURE REASON: Right-sided chest pain * * * * Physician Interpretation * * * * EXAMINATION: CHEST RADIOGRAPH (2 VIEW FRONTAL & LATERAL) CLINICAL HISTORY: Right-sided chest pain MQ: XC2_6 EXAM DATE/TIME: 08/30/2023 1:25 PM COMPARISON: No relevant prior studies available. RESULT: Lines, tubes, and devices: External rn cardiac cath. Lungs and pleura: Mild reticulation of the bibasilar interstitial markings. No confluent consolidation. No lung mass. No pleural effusion. No pneumothorax. Cardiomediastinal silhouette: Normal cardiomediastinal silhouette. Bones and soft tissues: Dextroscoliosis with multilevel degenerative changes. DIVISION OF RADIOLOGY Provider, Messi Tello - 08/30/2023 * * *Final Report* * * DATE OF EXAM: Aug 30 2023 1:25PM WOX 5291 - XR CHEST 2V FRONTAL/LAT / PROCEDURE REASON: Right-sided chest pain * * * * Physician Interpretation * * * * EXAMINATION: CHEST RADIOGRAPH (2 VIEW FRONTAL & LATERAL) CLINICAL HISTORY: Right-sided chest pain MQ: XC2_6 EXAM DATE/TIME: 08/30/2023 1:25 PM COMPARISON: No relevant prior studies available. RESULT: Lines, tubes, and devices: External rn cardiac cath. Lungs and pleura: Mild reticulation of the bibasilar interstitial markings. No confluent consolidation. No lung mass. No pleural effusion. No pneumothorax. Cardiomediastinal silhouette: Normal cardiomediastinal silhouette. Bones and soft tissues: Dextroscoliosis with multilevel degenerative changes. IMPRESSION IMPRESSION: Mild reticulation of the bibasilar interstitial markings may be related to atelectasis or mild fibrosis though underlying bronchopneumonia is not excluded in the appropriate clinical setting. Chief Writer: STEPHEN Transcribe Date/Time: Aug 30 2023 2:05P Dictated by : CARLOS PAULINO MD This examination was interpreted and the report reviewed and electronically signed by: CARLOS PAULINO MD on Aug 30 2023 2:06PM EST [facility] Radiology Study observation (narrative) [facility] XR Chest PA and LateralOrder ed By: [facility] Provider on 08-30-2023 [facility] Absolute lymphocyte countOrd ered By: Sami Lu on 02-19-2023 Lymphocytes Auto (Unsp spec) [#/Vol] 0.96 10*3/uL 0.83-4.51 [facility] Basophil percentageOrdered B y: Sami Lu on 02-19-2023 Basophils/100 WBC (Bld) 0.4 % 0-1 [facility] Chloride [Moles/Vol] 112 mmol/L 98-107 [facility] Eosinophils/100 WBC (Bld) 2.5 % 0-5 [facility] Glucose [Mass/Vol] 118 mg/dL 74-106 [facility] Comment on above: Fasting Glucose resu lt from 100 to 125 mg/dL suggests IMPAIRED HOMEOSTASIS per A.D.A. criteria. Neutrophils (Bld) [#/Vol] 4.9 10*3/uL 2.0-7.7 [facility] Neutrophils/100 WBC (Bld) 71.3 % 47-70 [facility] Potassium [Moles/Vol] 3.5 mmol/L 3.5-5.1 [facility] Sodium [Moles/Vol] 144 mmol/L 136-145 [facility] WBC (Bld) [#/Vol] 6.9 10*3/uL 4.4-11.0 [facility] Blood erythrocytes count (nu mber/volume)Ordered By: Sami Lu on 02-19-2023 RBC (Bld) [#/Vol] 4.48 10*6/uL 4.6-6.2 [facility] Blood hemoglobin measurement (mass/volume)Ordered By: Sami Lu on 02-19-2023 Hemoglobin (Bld) [Mass/Vol] 14.0 g/dL 13.0-16.5 [facility] Blood lymphocytes/100 leukoc ytesOrdered By: Sami Lu on 02-19-2023 Lymphocytes/100 WBC (Bld) 14.0 % 19-41 [facility] Blood monocytes/100 leukocyt esOrdered By: Sami Lu on 02-19-2023 Monocytes/100 WBC (Bld) 11.5 % 0-10 [facility] Blood platelet mean volumeOr dered By: Sami Lu on 02-19-2023 Platelet mean volume (Bld) [Entitic vol] 10.5 fL 6.2-12.0 [facility] Determination of erythrocyte mean corpuscular volume (MCV)Ordered By: Sami Lu on 02-19-2023 MCV (RBC) [Entitic vol] 95.3 fL 80-94 [facility] Hematocrit Auto (Bld) [Volum e fraction]Ordered By: Sami Lu on 02-19-2023 Hematocrit (Bld) [Volume fraction] 42.7 % 40-54 [facility] Laboratory - Chemistry and C hemistry - challengeOrdered By: Sami Lu on 02-19-2023 CO2 [Moles/Vol] 27.0 mmol/L 21.0-32.0 [facility] Urea nitrogen/Creatinine [Mass ratio] 31.5 mg/mg 10-20 [facility] Laboratory - Hematology and Cell countsOrdered By: Sami Lu on 02-19-2023 Erythrocyte distribution width (RBC) [Entitic vol] 48.3 fL 35.1-43.9 [facility] Erythrocyte distribution width (RBC) [Ratio] 13.7 % 11.6-14.6 [facility] Immature granulocytes/100 WBC (Bld) 0.300 % 0.0-0.9 [facility] Comment on above: IG% - Immature Granu locytes (promyelocytes, myelocytes and metamyelocytes) > 1% indicates that a LEFT SHIFT is Present. MCH (RBC) [Entitic mass] 31.3 pg 27.0-32.0 [facility] Nucleated RBC/100 WBC (Bld) [Ratio] 0 % 0-5 [facility] MCHC Auto (RBC) [Mass/Vol]Or dered By: Sami Lu on 02-19-2023 MCHC (RBC) [Mass/Vol] 32.8 g/dL 32-36 [facility] No Panel InformationOrdered By: Sami Lu on 02-19-2023 Troponin I High Sensitivity 18 pg/mL 3.0-78.0 [facility] Comment on above: Please Note: New Dyan t Units and Gender Specific Reference Ranges. For more information see Policy Stat Procedure Oscar High Sensitivity Troponin (TNIH) and attachments. Estimated Creatinine Clearance Calc 72.74 ml/min [facility] Estimated GFR (MDRD) Amer 103 mL/min >60 [facility] Comment on above: GFR Calc Estimated GFR (MDRD) Non-Af Amer 85 mL/min >60 [facility] Comment on above: Non- GFR Calc Platelets bldOrdered By: Destiny Lu on 02-19-2023 Platelets (Bld) [#/Vol] 209 10*3/uL 150-450 [facility] Serum or plasma calcium eddie urement (mass/volume)Ordered By: Sami Lu on 02-19-2023 Calcium [Mass/Vol] 8.9 mg/dL 8.5-10.1 [facility] Serum or plasma creatinine m easurement (mass/volume)Ordered By: Sami Lu on 02-19-2023 Creatinine [Mass/Vol] 0.92 mg/dL 0.70-1.30 [facility] Comment on above: The validity of the calculated GFR & GFRAA in patients over 70 years has not been determined. Clinical correlation is essential. Serum or plasma urea nitroge n measurement (mass/volume)Ordered By: Sami Lu on 02-19-2023 Urea nitrogen [Mass/Vol] 29 mg/dL 7-18 [facility] Thin prep Papanicolaou smear with manual screeningOrdered By: Sami Lu on 02-19-2023 Thin prep Papanicolaou smear with manual screening 5 5-15 [facility] SYN FLUID CRYSTALSon 023 SYN FLUID CRYSTALS Normal [facility] Comment on above: Result Comment: No c rystals identified. Electronically signed by:Mich Cruz 02.17.2023 15:56 EDT Performing Lab: [facility],[address] [place] [address] Pathology phone [phone] Performed By: #### T IBC, MK #### [facility] [address] [place] [address] SYN CC/DIFFon 02-16-2023 FLD LYMPH 64 % [facility] Comment on above: Performed By: #### P SA #### [facility] [address] [place] [address] FLD MONO 26 % [facility] Comment on above: Performed By: #### P SA #### [facility] [address] [place] [address] FLD POLY 10 % [facility] Comment on above: Performed By: #### P SA #### [facility] [address] [place] [address] FLD TOTAL CELLS COUNTED 100 [facility] Comment on above: Performed By: #### P SA #### [facility] [address] [place] [address] FLD RBC EVIDENT MICROSCOP Normal [facility] Comment on above: Performed By: #### P SA #### [facility] [address] [facility] [place] [address] FLUID REFERENCE RANGE COMMENT SYNOVIAL FLUID [facility] Comment on above: Result Comment: 0-20 0 NUCLEATED CELLS/uL Performed By: #### P SA #### [facility] [address] [facility] [place] [address] SYN FLD SOURCE RIGHT KNEE [facility] Comment on above: Performed By: #### P SA #### [facility] [address] [facility] [place] [address] SYNOVIAL FLD APPEARANCE BLOODY, CLOTTED [facility] Comment on above: Performed By: #### P SA #### [facility] [address] [facility] [place] [address] SYNOVIAL FLD VOLUME 60 ML Normal [facility] Comment on above: Performed By: #### P SA #### [facility] [address] [facility] [place] [address] WBC (Bld) [#/Vol] 0.734 10*3/uL High 0-200 [facility] Comment on above: Performed By: #### P SA #### [facility] [address] [place] [address] FERRITINon 01-28-2023 Ferritin [Mass/Vol] 26.0 ng/mL Normal 26-388 [facility] Comment on above: Performed By: #### T IBC, MK #### [facility] [address] [facility] [place] [address] TIBCon 01-28-2023 % IRON SATURATION 34.6 % Normal 20-55 [facility] Comment on above: Performed By: #### T IBC, MK #### [facility] [address] [facility] [place] [address] Iron [Mass/Vol] 102 ug/dL Normal 65-175 [facility] Comment on above: Performed By: #### T IBC, MK #### [facility] [address] [place] [address] TOTAL IRON BINDING CAPACITY 295 ug/dL Normal 250-450 [facility] Comment on above: Performed By: #### T IBC, MK #### [facility] [address] [facility] [place] [address] CBC with AUTO DIFFon 023 BAS0 % 0.80 % Normal 0-2 [facility] Comment on above: Performed By: #### P SA #### [facility] [address] [facility] [place] [address] Basophils (Bld) [#/Vol] 0.0 10*3/uL Normal 0-0.1 [facility] Comment on above: Performed By: #### P SA #### [facility] [address] [facility] [place] [address] Eosinophils (Bld) [#/Vol] 0.3 10*3/uL Normal 0.0-1.80 [facility] Comment on above: Performed By: #### P SA #### [facility] [address] [facility] [place] [address] Eosinophils/100 WBC (Bld) 6.9 % Normal 0-8 [facility] Comment on above: Performed By: #### P SA #### [address] [place] [address] GRAN # 3.0 K/uL Normal 2.2-9.1 [facility] Comment on above: Performed By: #### P SA #### [address] [place] [address] GRAN % 62.5 % Normal 42-80 [facility] Comment on above: Performed By: #### P SA #### [address] [place] [address] Hematocrit (Bld) [Volume fraction] 40.1 % Low 41.0-53.0 [facility] Comment on above: Performed By: #### P SA #### [address] [place] [address] Hemoglobin (Bld) [Mass/Vol] 13.7 g/dL Low 14.0-18.0 [facility] Comment on above: Performed By: #### P SA #### [address] [place] [address] Lymphocytes (Bld) [#/Vol] 0.8 10*3/uL Low 1.0-4.0 [facility] Comment on above: Performed By: #### P SA #### [facility] [address] [facility] [place] [address] Lymphocytes/100 WBC (Bld) 17.6 % Normal 16-48 [facility] Comment on above: Performed By: #### P SA #### [address] [place] [address] MCV (RBC) [Entitic vol] 91.4 fL Normal 80-97 [facility] Comment on above: Performed By: #### P SA #### [facility] [address] [facility] [place] [address] MEAN CORPUSCULAR HGB 31.3 pg Normal 26.0-32.0 [facility] Comment on above: Performed By: #### P SA #### [facility] [address] [facility] [place] [address] MEAN CORPUSCULAR HGB CONC 34.2 g/dL Normal 31.0-36.0 [facility] Comment on above: Performed By: #### P SA #### [facility] [address] [facility] [place] [address] MONO DISTRIB WIDTH Not performed Normal 0-20 [facility] Comment on above: Performed By: #### P SA #### [facility] [address] [facility] [place] [address] Monocytes (Bld) [#/Vol] 0.6 10*3/uL Normal 0.1-1.7 [facility] Comment on above: Performed By: #### P SA #### [facility] [address] [facility] [place] [address] Monocytes/100 WBC (Bld) 12.2 % High 3-9 [facility] Comment on above: Performed By: #### P SA #### [facility] [address] [facility] [place] [address] Platelet mean volume (Bld) [Entitic vol] 8.2 fL Normal 6.4-10.5 [facility] Comment on above: Performed By: #### P SA #### [facility] [address] [facility] [place] [address] Platelets (Bld) [#/Vol] 187 10*3/uL Normal 140-450 [facility] Comment on above: Performed By: #### P SA #### [facility] [address] [facility] [place] [address] RBC (Bld) [#/Vol] 4.39 10*6/uL Low 4.40-6.30 [facility] Comment on above: Performed By: #### P SA #### [facility] [address] [facility] [place] [address] RED CELL DISTRI WIDTH 14.5 % Normal 11.0-15.5 [facility] Comment on above: Performed By: #### P SA #### [facility] [facility] [address] [facility] [place] [address] WBC (Bld) [#/Vol] 4.8 10*3/uL Normal 4.0-11.0 [facility] Comment on above: Performed By: #### P SA #### [facility] [address] [facility] [place] [address] COMPREHENSIVE METABOLIC PANE Louis 01-17-2023 Albumin [Mass/Vol] 3.7 g/dL Normal 3.4-5.0 [facility] Comment on above: Performed By: #### M N, TSH, LIPID #### [facility] [address] [facility] [place] [address] Albumin/Globulin [Mass ratio] 1.0 {ratio} Low 1.1-1.8 [facility] Comment on above: Performed By: #### M N, TSH, LIPID #### [facility] [address] [facility] [place] [address] ALP [Catalytic activity/Vol] 82 U/L Normal 45-117 [facility] Comment on above: Performed By: #### M N, TSH, LIPID #### [facility] [address] [facility] [place] [address] ALT [Catalytic activity/Vol] 35 U/L Normal 12-78 [facility] Comment on above: Performed By: #### M N, TSH, LIPID #### [facility] [address] [facility] [place] [address] Anion gap [Moles/Vol] 7.2 mmol/L Low 11-23 [facility] Comment on above: Performed By: #### M N, TSH, LIPID #### [facility] [address] [facility] [place] [address] AST [Catalytic activity/Vol] 23 U/L Normal 15-37 [facility] Comment on above: Performed By: #### M N, TSH, LIPID #### [facility] [address] [facility] [place] [address] Bilirubin [Mass/Vol] 0.6 mg/dL Normal 0.2-1.0 [facility] Comment on above: Performed By: #### M N, TSH, LIPID #### [facility] [address] [facility] [place] [address] Calcium [Mass/Vol] 9.2 mg/dL Normal 8.5-10.1 [facility] Comment on above: Performed By: #### M N, TSH, LIPID #### [facility] [address] [facility] [place] [address] Chloride [Moles/Vol] 110 mmol/L High 98-107 [facility] Comment on above: Performed By: #### M N, TSH, LIPID #### [facility] [address] [facility] [place] [address] CO2 [Moles/Vol] 29.0 mmol/L Normal 21-32 [facility] Comment on above: Performed By: #### M N, TSH, LIPID #### [facility] [address] [facility] [place] [address] Creatinine [Mass/Vol] 1.00 mg/dL Normal 0.7-1.3 [facility] Comment on above: Performed By: #### M N, TSH, LIPID #### [facility] [address] [facility] [place] [address] GFR > 60.0 [facility] Comment on above: Performed By: #### M N, TSH, LIPID #### [address] [place] [address] GFR AM > 60.0 [facility] Comment on above: Result Comment: THE NORMAL LEVEL OF GFR VARIES ACCORDING TO AGE, SEX, AND BODY SIZE. A GFR LEVEL OF LESS THAN 60 ML/MIN REPRESENTS LOSS OF THE ADULT LEVEL OF NORMAL KIDNEY FUNCTION. Performed By: #### M N, TSH, LIPID #### [facility] [address] [facility] [place] [address] Globulin (S) [Mass/Vol] 3.8 g/dL Normal 2.5-4.6 [facility] Comment on above: Performed By: #### M N, TSH, LIPID #### [address] [place] [address] Glucose [Mass/Vol] 88 mg/dL Normal 70-100 [facility] Comment on above: Performed By: #### M N, TSH, LIPID #### [facility] [address] [facility] [place] [address] Potassium [Moles/Vol] 4.0 mmol/L Normal 3.5-5.1 [facility] Comment on above: Performed By: #### M N, TSH, LIPID #### [address] [place] [address] Protein [Mass/Vol] 7.5 g/dL Normal 6.0-8.3 [facility] Comment on above: Performed By: #### M N, TSH, LIPID #### [facility] [address] [facility] [place] [address] Sodium [Moles/Vol] 142 mmol/L Normal 136-145 [facility] Comment on above: Performed By: #### M N, TSH, LIPID #### [facility] [address] [facility] [place] [address] Urea nitrogen [Mass/Vol] 19.0 mg/dL High 7-18 [facility] Comment on above: Performed By: #### M N, TSH, LIPID #### [facility] [address] [facility] [place] [address] HEPATITIS C ABon 01-17-2023 HEPATITIS C AB Non-Reactive Normal [facility] Comment on above: Result Comment: NONR EACTIVE - <0.80 INDEX IS CONSIDERED NEGATIVE FOR IGG ANTIBODIES TO HCV. Performed By: #### T IBC, MK #### [facility] [address] [facility] [place] [address] LIPID PROFILE (FASTING)on CHOL/HDL RATIO 2.1 mg/dl Normal 4.0-6.7 [facility] Comment on above: Performed By: #### M N, TSH, LIPID #### [facility] [address] [facility] [place] [address] Cholesterol [Mass/Vol] 107 mg/dL Normal 0-200 [facility] Comment on above: Performed By: #### M N, TSH, LIPID #### [facility] [address] [facility] [place] [address] Cholesterol in HDL [Mass/Vol] 51 mg/dL Normal 40-60 [facility] Comment on above: Performed By: #### M N, TSH, LIPID #### [facility] [address] [facility] [place] [address] Cholesterol in LDL [Mass/Vol] 50 mg/dL Normal 0-130 [facility] Comment on above: Performed By: #### M N, TSH, LIPID #### [facility] [address] [facility] [place] [address] Triglyceride [Mass/Vol] 33 mg/dL Normal 0-150 [facility] Comment on above: Performed By: #### M N, TSH, LIPID #### [facility] [address] [facility] [place] [address] VLDL CALCULATION 7 mg/dl Normal 5-40 [facility] Comment on above: Performed By: #### M N, TSH, LIPID #### [facility] [address] [place] [address] THYROID STIM HORMONEon 01-17 THYROID STIM HORMONE 1.020 uIU/mL Normal 0.358-3.74 [facility] Comment on above: Performed By: #### M N, TSH, LIPID #### [facility] [address] [place] [address] PROSTATE SPECIFIC AG, FREEon 01-14-2023 PROSTATE SPECIFIC AG, FREE 0.911 ng/mL Normal [facility] Comment on above: Result Comment: TEST MANUFACTURED BY [facility] USING CHEMILUMINESCENT IMMUNOASSAY METHODOLOGY. PATIENT RESULTS DETERMINED BY [employer]YS USING DIFFERENT MANUFACTURERS FOR METHODS MAY NOT BE COMPARABLE. Performed By: #### P SAF #### [facility] [address] [place] [address] PSA PERCENT FREE 22 % [facility] Comment on above: Result Comment: The following table lists the probability of prostate cancer for men with nonsuspicius MONICA results and total PSA between 4 and 10 ng/mL by patient age. % Free PSA 50-64 years 65-75 years 0.00-10.0 56% 55% 10.01-15.0 24% 35% 15.01-20.00 17% 23% 20.01-25.00 10% 20% >25 5% 9% Performed By: #### P SAF #### [address] [address] 2D M MODE ECHO COMPLETEon 2D M MODE ECHO COMPLETE JOEHORACE Torres Male [id number] Ordering physician: Loren Huang LOC:PCUA [id number] Attending physician: Loren Huang 1950 72 DOS: 10/20/22 [facility]#: [id number] Exam/Proc: 2D M MODE ECHO COMPLETE Dept: ECHOCARDIOGRAM HORACE JOE Exam Date: 10/20/2022 07:52 Ordering Physician: Loren Huang : 1950 Age: 72 Gender: M Referring Physician: Loren Huang Ht (cm): 177 Wt (kg): 87 Technologist: Rema Lora RT, RDMS, RDCS Exam #: [id number] Indications: CVA BP: / HR: BSA: 2.09 Rhythm: Contrast: Agitated [place] Technical Quality: MEASUREMENTS (Male / Female) Normal Values 2D ECHO LV Diastolic Diameter PLAX 5.6 cm 4.2 - 5.9 / 3.9 - 5.3 cm LV Systolic Diameter PLAX 4.3 cm LV Fractional Shortening PLAX 0.23 % IVS Diastolic Thickness 1.8 cm 0.6 - 1.0 / 0.6 - 0.9 cm IVS Systolic Thickness 2 cm LVPW Diastolic Thickness 1.5 cm 0.6 - 1.0 / 0.6 - 0.9 cm LVPW Systolic Thickness 0.66 cm LV Relative Wall Thickness 0.59 LVOT Diameter 2.1 cm LA Systolic Diameter LX 3.3 cm 3.0 - 4.0 / 2.7 - 3.8 cm LA Ao Ratio 1.2 LV Diastolic Volume MOD BP 195 ml 67 - 155 / 56 - 104 ml LV Systolic Volume MOD BP 76.2 ml 22 - 58 / 19 - 49 ml LV Ejection Fraction MOD BP 0.61 % >= 55 % LV Stroke Volume MOD BP 119 ml LV Diastolic Volume MOD 4C 205 ml LV Systolic Volume MOD 4C 86.3 ml LV Ejection Fraction MOD 4C 0.58 % LV Stroke Volume MOD 4C 119 ml LV Cardiac Output MOD 4C 9252 ml/min LV Diastolic Volume MOD 2C 178 ml LV Systolic Volume MOD 2C 65.9 ml LV Ejection Fraction MOD 2C 0.63 % LV Stroke Volume MOD 2C 112 ml LV Cardiac Output MOD 2C 8529 ml/min LV Diastolic Length 4C 8.9 cm LV Systolic Length 4C 7.6 cm LV Diastolic Area 4C 47.5 cm? LV Diastolic Volume 4C AL 217 ml LV Systolic Area 4C 28.6 cm? LV Systolic Volume 4C AL 91.3 ml LV Ejection Fraction 4C AL 0.58 % LV Stroke Volume 4C AL 126 ml LV Diastolic Area 2C 45.2 cm? LV Diastolic Length 2C 9.3 cm LV Diastolic Volume 2C AL 186 ml LV Systolic Area 2C 24.9 cm? LV Systolic Length 2C 7.8 cm LV Systolic Volume 2C AL 67.9 ml LV Ejection Fraction 2C AL 0.64 % LV Stroke Volume 2C AL 118 ml M-MODE Body Surface Area 2.1 m? DOPPLER AV Peak Velocity 164 cm/s AV Peak Gradient 10.7 mmHg AV Mean Velocity 110 cm/s AV Mean Gradient 5.7 mmHg AV Ejection Time 257 ms AI Deceleration [place] 309 cm/s? AI Pressure Half Time 396 ms LVOT Peak Velocity 115 cm/s LVOT Peak Gradient 5.3 mmHg LVOT Mean Velocity 82.9 cm/s LVOT Mean Gradient 3.1 mmHg LVOT Area 3.6 cm? LVOT Stroke Volume 87.4 ml LVOT Cardiac Output 6862 ml/min AV Area Cont Eq vti 3.1 cm? AV Area Cont Eq pk 2.5 cm? Mitral E Point Velocity 37.6 cm/s Mitral A Point Velocity 80.7 cm/s Mitral E to A Ratio 0.47 MV Deceleration [place] 95.6 cm/s? MV Pressure Half Time 114 ms MV Area PHT 1.9 cm? MV Deceleration Time 394 ms MR Peak Velocity 552 cm/s MR Peak Gradient 122 mmHg MR Mean Gradient 78.3 mmHg TR Peak Velocity 267 cm/s TR Peak Gradient 28.6 mmHg LV E' Lateral Velocity 7.7 cm/s Mitral E to LV E' Lateral Ratio 4.9 LV E' Septal Velocity 6.3 cm/s Mitral E to LV E' Septal Ratio 6 FINDINGS Left Ventricle Normal left ventricular size, wall thickness, low normal systolic function with hypokinesis of the inferior wall. Normal left ventricular diastolic filling pattern for age. The ejection fraction is visually estimated at 50%. Right Ventricle The right ventricle is normal in size and function. Right Atrium The right atrium is normal in size. Left Atrium The left atrium is normal in size. No shunt noted from right to left via bubble contrast Mitral Valve Structurally normal mitral valve without significant stenosis or prolapse. There is mild mitral regurgitation. Aortic Valve Structurally normal aortic valve without significant sclerosis or stenosis. There is moderate aortic regurgitation. Tricuspid Valve Structurally normal tricuspid valve without significant stenosis or regurgitation. There is trace tricuspid regurgitation. Pulmonary artery systolic pressure is normal. Pulmonic Valve Structurally normal pulmonic valve without significant stenosis. There is no pulmonic regurgitation. Pericardium Normal pericardium without effusion. Aorta Normal aortic root dimension. CONCLUSIONS Low normal LV function with an ejection fraction of 50% and inferior wall hypokinesis Moderate AI Mild MR Negative bubble study [place] Control: Do not remove! Santino Carvalho MD (Electronically Signed) Final Date: 20 Oct 2022 10:27 PLEASE SEE PROSOLV FOR REPORT HISTORY REPORT SIGNATURE ON FILE Electronically Signed Date/Time: 10/20/22 1027 Dictated Date/time: 10/20/22 0752 CC: [facility] [place] 10-20-2022 HORACE CANAS Ma [id number] Attending provider: KEY CHRISTINA [id number] Loren Huang 1950 72 Discharge - DISCHARGE Condition: Stable Disposition: HOME/SELF CARE Instructions: DI for Transient Ischemic Attack Activity Restrictions: Activity As Tolerated Diet Restrictions: Regular Diet Referrals: Grady Sanches [Primary Care Provider] - Home Referral: Visiting Nurse Assoc. 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 - Previous Diagnoses Previous Diagnosis: history for strokes the first 1 was in 1998 and it was hemorrhagic with the rest of the strokes were not hemorrhagic. History of benign prostate hypertrophy Hypertension Hyperlipidemia Patient denies any history of coronary artery disease - Discharge Medications Discharge Medications: Home Orders Alendronate Sodium [Fosamax] 70 mg PO ZEPEDA 12/09/11 [History] Fluticasone Propionate [Flonase Nasal [place] *] 2 sprays EFRAIN DAILY 12/09/11 [History] Pantoprazole [Protonix *] 40 mg PO DAILY 12/09/11 [History] Finasteride 5 mg PO DAILY 10/08/18 [History] ATORVASTATIN Calcium [Lipitor] 40 mg PO DAILY 10/19/22 [History] Aspirin [Low Dose Aspirin *] 81 mg PO DAILY 10/19/22 [History] Brimonidine Tartrate 0.2% [Brimonidine Tartrate 0.2% *] 1 drop BOTH EYES BID 10/19/22 [History] Clopidogrel Bisulfate [Plavix] 75 mg PO DAILY 10/19/22 [History] Coenzyme Q10 (Ubidecarenone) [Co-Enzyme Q10] 100 mg PO DAILY 10/19/22 [History] Lactobacillus [Probiotic] 1 cap PO DAILY 10/19/22 [History] Latanoprost [Xalatan 0.005% *] 1 drop BOTH EYES HS 10/19/22 [History] Metoprolol Succinate ER [Toprol Xl] 50 mg PO DAILY 10/19/22 [History] Multiple Vitamins W/ Minerals [Centrum Adult Multigummie] 1 chw PO DAILY 10/19/22 [History] Tamsulosin HCl [Flomax *] 0.4 mg PO DAILY 10/19/22 [History] - Laboratory Data Laboratory Results: CBC BMP 10/19/22 12:05 10/19/22 12:05 - Physical Examination Vital Signs: Vital Signs (Last Documented) Temperature (celsius) 36.4 C Temperature Source Oral Pulse Rate [Apical] 77 Pulse Rate 86 Respiratory Rate 18 O2 Sat by Pulse Oximetry 94 Oxygen Flow Rate RA Blood Pressure [Right] 160/91 Blood Pressure [Left Arm] 128/73 Blood Pressure 139/80 General Appearance: awake, alert, no apparent distress Eyes: PERRL, EOMI, conjunctivae clear, no discharge, no foreign body, no scleral icterus Neck: supple Respiratory: no wheezes, rhonchi, or rales, no respiratory distress, no accessory muscle use, decreased breath sounds Cardiovascular: regular rate, regular rhythm, S1/S2 Abdomen/GI: non tender, soft, nondistended, normal bowel sounds Pulses: Dorsalis Pedis: 2+ Extremities: normal range of motion, non-tender, no pedal edema Neurologic: slurred speech Skin: warm/dry, normal color - Hospital Course Hospital Course: 72 years old male came in with dysarthria. Brain MRI showed small acute nontender nonhemorrhagic infarct in the right precentral gyrus. The patient had a brain MRA and neck MRA that was insignificant. Echocardiogram with bubble study was also insignificant. Case was discussed with neurology. The patient is already on aspirin and Plavix and statin. Per neurology there is no further medication recommendation at this time. Patient is recommended to follow-up with his primary care physician physician and to get speech therapy as an outpatient if needed. Right before discharge he started complaining of right foot pain. In fact he did have foot pain but he forgot to reported to us. I did obtain an x-ray which came back negative for any acute issues and patient is discharged home Dictated By: Loren Huang MD Dictated Date/Time:10/20/221826 Electronically Signed Date/Time: 10/20/22 183 [facility] FOOT-RIGHT MIN 3 VIEWSon FOOT-RIGHT MIN 3 VIEWS HORACE JOE Male [id number] Ordering physician: Loren Huang LOC:PCUA [id number] Attending physician: Loren Huang 1950 72 DOS: 10/20/22 Acc#: [id number] Exam/Proc: FOOT-RIGHT MIN 3 VIEWS Dept: RADIOLOGY EXAMINATION: THREE XRAY VIEWS OF THE RIGHT FOOT 10/20/2022 2:53 pm COMPARISON: Radiograph right foot April 03, 2019 HISTORY: ORDERING SYSTEM PROVIDED HISTORY: TECHNOLOGIST PROVIDED HISTORY: Reason for Exam: pain FINDINGS: No acute fracture or dislocation. There are scattered remote changes. Additional scattered degenerative changes greatest at the 1st MTP joint space, progressed from 2019. There is calcaneal enthesopathy. No acute osseous abnormality. IMPRESSION: No acute fracture or dislocation. Calcaneal enthesopathy. Electronically signed By Susanna Serna MD 10/20/2022 5:33:26 PM EST Workstation ID : [id number] REPORT SIGNATURE ON FILE Electronically Signed Date/Time: 10/20/22 173 Dictated Date/time: 10/20/22 1725 CC: [facility] MRA BRAIN W/O CONTRASTon MRA BRAIN W/O CONTRAST HORACE JOE Male [id number] Ordering physician: Loren Huang LOC:PCUA [id number] Attending physician: Loren Huang 1950 72 DOS: 10/19/22 Acc#: [id number] Exam/Proc: MRA BRAIN W/O CONTRAST Dept: [facility] EXAMINATION: MRA OF THE HEAD WITHOUT CONTRAST 10/19/2022 8:53 pm TECHNIQUE: MRA of the head was performed utilizing [id number] imaging with MIP images. No intravenous contrast was administered. COMPARISON: MRI brain on 10/19/2022. MR angiography of the brain on 10/07/2018 HISTORY: ORDERING SYSTEM PROVIDED HISTORY: TECHNOLOGIST PROVIDED HISTORY: Reason for Exam: CVA FINDINGS: ANTERIOR CIRCULATION: No significant stenosis of the intracranial internal carotid, anterior cerebral, or middle cerebral arteries. POSTERIOR CIRCULATION: No significant stenosis of the vertebral, basilar, or posterior cerebral arteries. IMPRESSION: No evidence of intracranial large vessel occlusion. Electronically signed By Cesar Ya MD 10/20/2022 2:51:55 AM EST Workstation ID : [id number] REPORT SIGNATURE ON FILE Electronically Signed Date/Time: 10/20/22250 Dictated Date/time: 10/20/22247 CC: [facility] MRA NECK W/O CONTRASTon 09-22 MRA NECK W/O CONTRAST HORACE JOE Male [id number] Ordering physician: Loren Huang LOC:PCUA [id number] Attending physician: Loren Huang 1950 72 DOS: 10/19/22 Acc#: [id number] Exam/Proc: MRA NECK W/O CONTRAST Dept: [facility] EXAMINATION: MRA OF THE NECK WITHOUT CONTRAST 10/19/2022 8:53 pm TECHNIQUE: Multiplanar multisequence MRA of the neck was performed without the administration of intravenous contrast. Stenosis of the internal carotid arteries measured using NASCET criteria. COMPARISON: MR angiography of the neck on 10/07/2018 HISTORY: ORDERING SYSTEM PROVIDED HISTORY: TECHNOLOGIST PROVIDED HISTORY: Reason for Exam: CVA FINDINGS: CAROTID ARTERIES: No dissection, arterial injury, or hemodynamically significant stenosis by NASCET criteria. VERTEBRAL ARTERIES: No dissection, arterial injury, or significant stenosis. IMPRESSION: No evidence of carotid or vertebral artery stenosis or occlusion in the neck. Electronically signed By Cesar Ya MD 10/20/2022 2:42:31 AM EST Workstation ID : [id number] REPORT SIGNATURE ON FILE Electronically Signed Date/Time: 10/20/22241 Dictated Date/time: 10/20/22239 CC: [facility] MRI BRAIN W/O CONTRASTon MRI BRAIN W/O CONTRAST JOE,HORACE Melissa Male [id number] Ordering physician: Loren Huang LOC:PCUA [id number] Attending physician: Loren Huang 1950 72 DOS: 10/19/22 Acc#: [id number] Exam/Proc: MRI BRAIN W/O CONTRAST Dept: [facility] EXAMINATION: MRI OF THE BRAIN WITHOUT CONTRAST 10/19/2022 8:53 pm TECHNIQUE: Multiplanar multisequence MRI of the brain was performed without the administration of intravenous contrast. COMPARISON: CT head on 10/19/2022. MRI of the brain on 10/07/2018 HISTORY: ORDERING SYSTEM PROVIDED HISTORY: TECHNOLOGIST PROVIDED HISTORY: Reason for Exam: CVA FINDINGS: INTRACRANIAL STRUCTURES/VENTRICLES: Small focal site of restricted diffusion consistent with an acute infarct is seen in the right frontal lobe in precentral gyrus. Chronic infarcts are seen in the inferior cerebellum, larger on the left than on the right. These are unchanged since 2019. Mild scattered areas of increased signal on FLAIR sequence in the white matter consistent with mild chronic microvascular angiopathy. No mass effect or midline shift. No evidence of an acute intracranial hemorrhage. The ventricles and sulci are normal in size and configuration. The sellar/suprasellar regions appear unremarkable. The normal signal voids within the major intracranial vessels appear maintained. ORBITS: The visualized portion of the orbits demonstrate no acute abnormality. SINUSES: Patient has had bilateral maxillary antrostomy. There is partial opacification of ethmoid air cells and a small amount of fluid in right frontal sinus. BONES/SOFT TISSUES: The bone marrow signal intensity appears normal. The soft tissues demonstrate no acute abnormality. IMPRESSION: Small acute nonhemorrhagic infarct in right precentral gyrus. Chronic bilateral inferior cerebellar infarcts. Mild chronic microvascular angiopathy. Paranasal sinusitis. Electronically signed By Cesar Ya MD 10/20/2022 2:36:11 AM EST Workstation ID : [id number] REPORT SIGNATURE ON FILE Electronically Signed Date/Time: 10/20/22235 Dictated Date/time: 10/20/22227 CC: [facility] PLTV CNSLTon 10-20-2022 PLTV CNSLT HORACE JOE Ma [id number] Attending provider: KEY CHRISTINA [id number] Loren Huang 1950 72 DOS: 10/19/22 Palliative Care Consultation - Date of Service Date of Service: 10/20/22 - History of Present Illness Reason for Visit: Goals of care Consult Requested by: Dr. Huang History of Present Illness: Horace is a 72 year old male with a PMH of hemorrhagic stroke (1) (1998), and (2) other non hemorrhagic strokes, TIAs HTN, HLD,CAD, BPH CHF, GERD. He presented to the ED with slurred speech. He is already on Plavix, and aspirin. He did not have any receptive or cognitie deicit and was able to answer all questions appropriately. He did not have any extremity weakness. A stroke alert was called he did have CT Head, and EKG. A consult with teleneurology suggest MRI. He is unable to have CTA due to allergy to contrast. He was admitted for further work up for stroke. Today Horace is alert and oriented he does have periods of some slurred speech, and is slow to answer some questions. He tells me he is feeling much better today. Denies any headache, or blurred vision. He denies any weakness in extremities. Palliative care was consulted goals of care. - Review of Systems Neurological: Change in Speech Other Review of Systems: All systems are negative and except listed above. - Palliative Performance Scale Palliative Performance Scale Score: 70 - Past Medical/Surgical History General History: Yes: Congestive Heart Failure, CVA (4 total-STM loss) Denies: Hypertension, Diabetes, CAD, Myocardial Infarction, Asthma, COPD, Seies, Anxiety, D epression Cardiovascular: Yes: CHF, Angina ('09), Hypercholesterolemia No: CAD, Hypertension, RI, Coronary Stent, Deep Vein Thrombosis Central Nervous System: Yes: CVA (4 total-STM loss) No: Peripheral Neuropathy, Seizures, TIA, Vertigo, Headaches Gastrointestinal: Yes: GERD No: Constipation, GI Bleed, Gastritis, Irritable bowel syndrome, Crohn's disease Hematology/Oncology: No: Anemia, Iron deficiency anemia, Leukemia Hepatobiliary: No: Cirrhosis, Hepatitis B, Hepatitis C Psychological: No: Anxiety, Depression, Dementia Pulmonary: No: Asthma, COPD, Pulmonary Embolism, Pneumonia, Tuberculosis, Exposure to Reratory Irritants, Hemoptysis, Home Oxygen Use Rheumatologic: No: Fibromyalgia, Gout, Rheumatoid Arthritis Renal/Genitourinary: No: Chronic renal insufficiency, Benign prostatic enlargement, Hematuria, Frent/Recurring UTI, Dialysis Endocrine: Yes: Osteoporosis No: Diabetes (N), Hyperthyroidism, Hypothyroidism Dermatology: No: MRSA Surgical History: Yes: Appendectomy, Hernia Repair (bilat), Total Hip Replacement (RIGHT), Total Knee Replacement (partial rt) - Family History Family History: Non contributory to present HPI - Psychosocial History Smoking Status: Former Smoker 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 Hx Alcohol Use: No Living Conditions: Family - Advance Directives Resuscitation Status: CPR, Palliative Care - Medications Home Medications: Home Orders Alendronate Sodium [Fosamax] 70 mg PO ZEPEDA 12/09/11 [History] Fluticasone Propionate [Flonase Nasal [place] *] 2 sprays EFRAIN DAILY 12/09/11 [History] Pantoprazole [Protonix *] 40 mg PO DAILY 12/09/11 [History] Finasteride 5 mg PO DAILY 10/08/18 [History] ATORVASTATIN Calcium [Lipitor] 40 mg PO DAILY 10/19/22 [History] Aspirin [Low Dose Aspirin *] 81 mg PO DAILY 10/19/22 [History] Brimonidine Tartrate 0.2% [Brimonidine Tartrate 0.2% *] 1 drop BOTH EYES BID 10/19/22 [History] Clopidogrel Bisulfate [Plavix] 75 mg PO DAILY 10/19/22 [History] Coenzyme Q10 (Ubidecarenone) [Co-Enzyme Q10] 100 mg PO DAILY 10/19/22 [History] Lactobacillus [Probiotic] 1 cap PO DAILY 10/19/22 [History] Latanoprost [Xalatan 0.005% *] 1 drop BOTH EYES HS 10/19/22 [History] Metoprolol Succinate ER [Toprol Xl] 50 mg PO DAILY 10/19/22 [History] Multiple Vitamins W/ Minerals [Centrum Adult Multigummie] 1 chw PO DAILY 10/19/22 [History] Tamsulosin HCl [Flomax *] 0.4 mg PO DAILY 10/19/22 [History] - Allergies Allergies/Adverse Reactions: Allergy/AdvReac Type Severity Reaction Status Date / Time Iodinated Contrast Media Allergy Severe Swelling Verified 01/01/20 15:40 Codeine Allergy Intermediate Other Verified 01/01/20 15:40 - Physical Exam Vital Signs: Vital Signs (Last Documented) Temperature (celsius) 36.7 C Temperature Source Oral Pulse Rate [Apical] 66 Pulse Rate 69 Respiratory Rate 17 O2 Sat by Pulse Oximetry 94 Oxygen Flow Rate 2 Blood Pressure [Right] 160/91 Blood Pressure [Left Arm] 122/77 Blood Pressure 139/80 General Appearance: awake, alert, no apparent distress Eyes: PERRL, no scleral icterus Head, Ears, Nose, and Throat: mucous membranes moist Neck: supple, non-tender Respiratory: lungs clear, no wheezes, rhonchi, or rales Cardiovascular: regular rate, regular rhythm, S1/S2 Abdomen/GI: non tender, soft, no (more content not included)... Normal [facility] APTTon 10-19-2022 aPTT Coag (Bld) [Time] 33.8 s High 22.8-30.9 [facility] Comment on above: Result Comment: NEW APTT THERAPEUTIC RANGE 44.3-62.4 SECONDS. EFFECTIVE 08/23/22 Performed By: #### T IBC, MK #### [facility] [address] [facility] [place] [address] CBC with AUTO DIFFon 05-30-2 023 BAS0 % 0.80 % Normal 0-2 [facility] Comment on above: Performed By: #### C BC #### [facility] [address] [facility] [place] [address] Basophils (Bld) [#/Vol] 0.0 10*3/uL Normal 0-0.1 [facility] Comment on above: Performed By: #### C BC #### [address] [place] [address] Eosinophils (Bld) [#/Vol] 0.3 10*3/uL Normal 0.0-1.80 [facility] Comment on above: Performed By: #### C BC #### [address] [place] [address] Eosinophils/100 WBC (Bld) 6.6 % Normal 0-8 [facility] Comment on above: Performed By: #### C BC #### [address] [place] [address] GRAN # 3.3 K/uL Normal 2.2-9.1 [facility] Comment on above: Performed By: #### C BC #### [address] [place] [address] GRAN % 63.4 % Normal 42-80 [facility] Comment on above: Performed By: #### C BC #### [address] [place] [address] Hematocrit (Bld) [Volume fraction] 43.9 % Normal 41.0-53.0 [facility] Comment on above: Performed By: #### C BC #### [facility] [address] [facility] [place] [address] Hemoglobin (Bld) [Mass/Vol] 14.8 g/dL Normal 14.0-18.0 [facility] Comment on above: Performed By: #### C BC #### [address] [place] [address] Lymphocytes (Bld) [#/Vol] 1.0 10*3/uL Normal 1.0-4.0 [facility] Comment on above: Performed By: #### C BC #### [facility] [address] [facility] [place] [address] Lymphocytes/100 WBC (Bld) 18.6 % Normal 16-48 [facility] Comment on above: Performed By: #### C BC #### [facility] [address] [facility] [place] [address] MCV (RBC) [Entitic vol] 90.5 fL Normal 80-97 [facility] Comment on above: Performed By: #### C BC #### [facility] [address] [facility] [place] [address] MEAN CORPUSCULAR HGB 30.6 pg Normal 26.0-32.0 [facility] Comment on above: Performed By: #### C BC #### [facility] [address] [facility] [place] [address] MEAN CORPUSCULAR HGB CONC 33.8 g/dL Normal 31.0-36.0 [facility] Comment on above: Performed By: #### C BC #### [address] [place] [address] MONO DISTRIB WIDTH 15.92 Normal 0-20 [facility] Comment on above: Result Comment: For ED adult patients suspected of sepsis, MDW<=20.0 does not rule out sepsis or risk of sepsis Performed By: #### C BC #### [facility] [address] [facility] [place] [address] Monocytes (Bld) [#/Vol] 0.5 10*3/uL Normal 0.1-1.7 [facility] Comment on above: Performed By: #### C BC #### [facility] [address] [facility] [place] [address] Monocytes/100 WBC (Bld) 10.6 % High 3-9 [facility] Comment on above: Performed By: #### C BC #### [facility] [address] [facility] [place] [address] Platelet mean volume (Bld) [Entitic vol] 8.1 fL Normal 6.4-10.5 [facility] Comment on above: Performed By: #### C BC #### [facility] [address] [facility] [place] [address] Platelets (Bld) [#/Vol] 186 10*3/uL Normal 140-450 [facility] Comment on above: Performed By: #### C BC #### [facility] [address] [facility] [place] [address] RBC (Bld) [#/Vol] 4.85 10*6/uL Normal 4.40-6.30 [facility] Comment on above: Performed By: #### C BC #### [facility] [address] [place] [address] RED CELL DISTRI WIDTH 14.8 % Normal 11.0-15.5 [facility] Comment on above: Performed By: #### C BC #### [facility] [address] [place] [address] WBC (Bld) [#/Vol] 5.2 10*3/uL Normal 4.0-11.0 [facility] Comment on above: Performed By: #### C BC #### [facility] [address] [place] [address] CKMBon 10-19-2022 CK.MB [Mass/Vol] 2.8 ng/mL Normal 0.5-3.6 [facility] Comment on above: Performed By: #### T IBC, MK #### [facility] [address] [place] [address] COMPREHENSIVE METABOLIC PANE [place] 10-19-2022 Albumin [Mass/Vol] 4.0 g/dL Normal 3.4-5.0 [facility] Comment on above: Performed By: #### T IBC, MK #### [facility] [address] [place] [address] Albumin/Globulin [Mass ratio] 0.9 {ratio} Low 1.1-1.8 [facility] Comment on above: Performed By: #### T IBC, MK #### [facility] [address] [place] [address] ALP [Catalytic activity/Vol] 93 U/L Normal 45-117 [facility] Comment on above: Performed By: #### T IBC, MK #### [facility] [address] [place] [address] ALT [Catalytic activity/Vol] 35 U/L Normal 12-78 [facility] Comment on above: Performed By: #### T IBC, MK #### [facility] [address] [place] [address] Anion gap [Moles/Vol] 6.3 mmol/L Low 11-23 [facility] Comment on above: Performed By: #### T IBC, MK #### [facility] [address] [facility] [place] [address] AST [Catalytic activity/Vol] 29 U/L Normal 15-37 [facility] Comment on above: Performed By: #### T IBC, MK #### [facility] [address] [facility] [place] [address] Bilirubin [Mass/Vol] 0.6 mg/dL Normal 0.2-1.0 [facility] Comment on above: Performed By: #### T IBC, MK #### [facility] [address] [facility] [place] [address] Calcium [Mass/Vol] 9.6 mg/dL Normal 8.5-10.1 [facility] Comment on above: Performed By: #### T IBC, MK #### [facility] [address] [facility] [place] [address] Chloride [Moles/Vol] 110 mmol/L High 98-107 [facility] Comment on above: Performed By: #### T IBC, MK #### [address] [place] [address] CO2 [Moles/Vol] 28.0 mmol/L Normal 21-32 [facility] Comment on above: Performed By: #### T IBC, MK #### [facility] [address] [facility] [place] [address] Creatinine [Mass/Vol] 1.00 mg/dL Normal 0.7-1.3 [facility] Comment on above: Performed By: #### T IBC, MK #### [address] [place] [address] GFR > 60.0 [facility] Comment on above: Performed By: #### T IBC, MK #### [facility] [address] [facility] [place] [address] GFR AM > 60.0 [facility] Comment on above: Result Comment: THE NORMAL LEVEL OF GFR VARIES ACCORDING TO AGE, SEX, AND BODY SIZE. A GFR LEVEL OF LESS THAN 60 ML/MIN REPRESENTS LOSS OF THE ADULT LEVEL OF NORMAL KIDNEY FUNCTION. Performed By: #### T IBC, MK #### [facility] [address] [facility] [place] [address] Globulin (S) [Mass/Vol] 4.4 g/dL Normal 2.5-4.6 [facility] Comment on above: Performed By: #### T IBC, MK #### [facility] [address] [facility] [place] [address] Glucose [Mass/Vol] 97 mg/dL Normal 70-100 [facility] Comment on above: Performed By: #### T IBC, MK #### [facility] [address] [facility] [place] [address] Potassium [Moles/Vol] 3.9 mmol/L Normal 3.5-5.1 [facility] Comment on above: Performed By: #### T IBC, MK #### [facility] [address] [facility] [place] [address] Protein [Mass/Vol] 8.4 g/dL High 6.0-8.3 [facility] Comment on above: Performed By: #### T IBC, MK #### [facility] [address] [facility] [place] [address] Sodium [Moles/Vol] 141 mmol/L Normal 136-145 [facility] Comment on above: Performed By: #### T IBC, MK #### [facility] [address] [facility] [place] [address] Urea nitrogen [Mass/Vol] 27.0 mg/dL High 7-18 [facility] Comment on above: Performed By: #### T IBC, MK #### [facility] [address] [facility] [place] [address] CPKon 10-19-2022 CPK 158 U/L Normal 39-308 [facility] Comment on above: Performed By: #### T IBC, MK #### [facility] [address] [facility] [place] [address] ED.PDOCon 10-19-2022 ED.PDOC HORACE JOE Ma [id number] Attending provider: [facility] [id number] Carlos Abad 1950 72 DOS: 10/19/22 Hx/Exam - History of Present Illness Chief Complaint: SLURRED SPEECH Symptom Duration: 30 minutes prior to arrival Intensity: moderate Episode Frequency: constant Symptoms Worse with: Patient developed sudden dysarthria or speech issues 30 minutes prior to ar Assoc Sxs/Pertinent Hx: Patient drove himself here no peripheral weakness or ataxia no injury Patient/Family Denies: No headache no chest pain shortness of breath no new medication - Review of Systems All Other Systems: Pertinent Positives in HPI, All Other Systems Negative Constitutional: Denies: Fever Respiratory: Denies: Cough, Shortness of Breath Cardiovascular: Denies: Chest Pain - Past Medical History ED PMH: No Anemia, Yes Angina ('09), No Anxiety, Yes Arthritis (OSTEOPOROSIS), No Asthma, No CAD, No Cancer, Yes CHF, No COPD, Yes CVA (x 4), No TIA, No Depression, No Diabetes, No Dialysis, Yes GERD, Yes GI Bleed, No HTN, No Hypothyroidism, No AMI, No PE, No Seizures, No Vertigo - Past Surgical History Surgical History: Yes Appendectomy, No Hx Coronary Stent, Yes Hernia Repair (bilat), Yes Tonsillectomy (adnoids), Yes Total Hip Replacement (RIGHT), Yes Total Knee Replacement (partial rt), Comment Only Other (heart cath) - Social History Smoking Status: Never Smoker Hx Alcohol Use: No - Physical Exam General Appearance: awake, alert, no apparent distress Eyes: conjunctivae clear Head, Ears, Nose, and Throat: mucous membranes moist Neck: full ROM Respiratory: no accessory muscle use Cardiovascular: regular rate, rhythm Abdomen/GI: non tender, soft Back: normal ROM Extremity: normal range of motion, normal inspection Neurologic: normal strength, normal sensation, expressive aphasia Psychiatric: oriented x3, calm, not clinically intoxicated Skin Exam: warm/dry - Source of History Source of History: Nursing Notes/Vital Signs/Triage Reviewed and Agree Note(s) - Physician Notes Additional Notes, See Orders for Details: 10/19/22 15:24 22-year-old male 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 He subsequently had TIAs. He is currently on Plavix and aspirin. He developed a sudden speech dysarthria while driving to an appointment for his . They avoided that appointment and came here instead. So he arrived less than 30 minutes from onset of symptoms. He has expressive aphasia although he has no receptive or cognitive deficit he is able to answer my questions but has slow deliberate speech. He has no peripheral weakness no incoordination and drove himself here. He denies headache. He denies any new medication or injury. Stroke alert was triggered and he went for immediate CAT scan. Reports the CAT scan showed no evidence of intracranial hemorrhage and no obvious stroke. The recommendation from neurology consult is that the patient be admitted for MRI/MRA. He he has normal blood pressure did not take his aspirin which we will give him here and has no other significant electrolyte abnormalities normal CBC and normal sinus rhythm EKG. Patient has persistent dysarthria and after discussion with Dr. Vazquez and alcohol neurologist will admit him for MRI MRI. He is unable to get CT angiography due to severe reactions to IV contrast dye in the past. EKG - EKG EKG Interpretation: Preliminary ED Interpretation (nsr) Discharge Screen - Discharge Discharge Problem: CVA (cerebral vascular accident) Disposition: ADMIT TO HOSPITAL Condition: Fair Referrals: Grady Sanches [Primary Care Provider] - Dictated By: Carlos Abad DO Dictated Date/Time:10/19/22 1159 Electronically Signed Date/Time: 10/19/22 1528 [facility] GLYCOHEMOGLOBIN (A1C)on 09-22 EST AVG GLUCOSE 111 [facility] Comment on above: Performed By: #### T IB, MK #### [facility] [address] [place] [address] HbA1c (Bld) [Mass fraction] 5.5 % [facility] Comment on above: Result Comment: Inte rpretation of Hgb A1C results: <5.7% Normal 5.7% - 6.4% Prediabetes >6.4% Diabetes SAMPLES FROM PATIENTS WITH HEMOLYTIC ANEMIAS OR THE PRESENCE OF UNSTABLE HEMOGLOBINS LIKE HbSS OR HbSC WILL EXHIBIT DECREASED GLYCATED HGB DUE TO THE SHORTENED LIFE SPAN OF THE RED CELLS.RESULTS ARE NOT RELIABLE IN PATIENTS WITH CHRONIC BLOOD LOSS. Performed By: #### T IBC, MK #### [facility] [address] [place] [address] HEAD W/O CONTRASTon 10-20-19 23 HEAD W/O CONTRAST HORACE JOE Ma [id number] Ordering physician: Carlos Abad LOC:ER [id number] Attending physician: 1950 72 DO S: 10/19/22 [facility]#: [id number] Exam/Proc: HEAD W/O CONTRAST Dept: COMPUTED TOMOGRAPHY EXAMINATION: CT OF THE HEAD WITHOUT CONTRAST 10/19/2022 12:08 pm TECHNIQUE: CT of the head was performed without the administration of intravenous contrast. Automated exposure control, iterative reconstruction, and/or weight based adjustment of the mA/kV was utilized to reduce the radiation dose to as low as reasonably achievable. COMPARISON: 02/21/2021, earlier HISTORY: ORDERING SYSTEM PROVIDED HISTORY: TECHNOLOGIST PROVIDED HISTORY: Reason for Exam: R/O BLEED FINDINGS: BRAIN/VENTRICLES: No evidence of acute intracranial hemorrhage, mass effect, midline shift, hydrocephalus, or acute large territorial infarction is identified. Chronic encephalomalacia foci of the left cerebellar hemisphere, right postcentral gyrus, and right superior parietal lobule. Stable ventricles. ORBITS: The visualized portion of the orbits demonstrate no acute abnormality. SINUSES: Prior sinus surgery. Moderate ethmoid and mild right frontal sinus mucosal thickening. Clear imaged mastoid air cells. Soft tissue in left greater than right external auditory canals could relate to cerumen; however consider otoscopic evaluation. SOFT TISSUES/SKULL: No acute abnormality of the visualized skull or soft tissues. IMPRESSION: No acute intracranial hemorrhage. Findings were discussed with Dr. Carlos Abad at 12:21 pm on 10/19/2022. RECOMMENDATIONS: Unavailable Electronically signed By Law Ruby DO 10/19/2022 12:22:56 PM EST Workstation ID : [id number] REPORT SIGNATURE ON FILE Electronically Signed Date/Time: 10/19/22 1222 Dictated Date/time: 10/19/22 1215 CC: [facility] Ethan 10-19-2022 HORACE HERNANDEZ Ma [id number] Attending provider: KEY CHRISTINA [id number] Loren Huang 1950 72 DOS: 10/19/22 Dr Huang History and Physical - Date of Service Date of Service: 10/19/22 - History of Present Illness History of Present Illness: 72 years old male presented with the chief complaint of slurred speech. Stroke alert was called in the emergency department. CT head was negative. Patient was evaluated by teleneurology and admitted for further evaluation. By the time I saw the patient his symptoms significantly improved but has not completely resolved. He continues to have dysarthria. He is admitted for stroke work- up. He denies any chest pain, no nausea vomiting or diarrhea. Past medical history for strokes the first 1 was in 1998 and it was hemorrhagic with the rest of the strokes were not hemorrhagic. History of benign prostate hypertrophy Hypertension Hyperlipidemia Patient denies any history of coronary artery disease Social history no smoking no alcohol no drugs Family history noncontributory - Review of Systems Review of Systems: A twelve point review of systems was performed, is negative, except as stated above. - Past Medical/Surgical History General History: Congestive Heart Failure, CVA (4 total-STM loss) Denies: Hypertension, Diabetes (N), CAD, Myocardial Infarction, Asthma, COPD,izures, Anxiety, Depression Cardiovascular: Yes: CHF, Angina ('09), Hypercholesterolemia No: CAD, Hypertension, RI, Coronary Stent, Deep Vein Thrombosis Central Nervous System: Yes: CVA (4 total-STM loss) No: Peripheral Neuropathy, Seizures, TIA, Vertigo, Headaches Gastrointestinal: Yes: GERD No: Constipation, GI Bleed, Gastritis, Irritable bowel syndrome, Crohn's disease Hematology/Oncology: No: Anemia, Iron deficiency anemia, Leukemia Hepatobiliary: No: Cirrhosis, Hepatitis B, Hepatitis C Psychological: No: Anxiety, Depression, Dementia Pulmonary: No: Asthma, COPD, Pulmonary Embolism, Pneumonia, Tuberculosis, Exposure to Reratory Irritants, Hemoptysis, Home Oxygen Use Rheumatologic: No: Fibromyalgia, Gout, Rheumatoid Arthritis Renal/Genitourinary: No: Chronic renal insufficiency, Benign prostatic enlargement, Hematuria, Frent/Recurring UTI, Dialysis Endocrine: Yes: Osteoporosis No: Diabetes (N), Hyperthyroidism, Hypothyroidism Dermatology: No: MRSA Surgical History: Yes: Appendectomy, Hernia Repair (bilat), Total Hip Replacement (RIGHT), Total Knee Replacement (partial rt) - Psychosocial History Smoking Status: Former Smoker Hx Alcohol Use: No Living Conditions: Family - Medications Home Medications: Home Orders Alendronate Sodium [Fosamax] 70 mg PO Q7D 12/09/11 [History] Fluticasone Propionate [Flonase Nasal [place] *] 2 sprays EFRAIN DAILY 12/09/11 [History] Pantoprazole [Protonix *] 40 mg PO DAILY 12/09/11 [History] Finasteride 5 mg PO DAILY 10/08/18 [History] ATORVASTATIN Calcium [Lipitor] 40 mg PO DAILY 10/19/22 [History] Aspirin [Low Dose Aspirin] 81 mg PO DAILY 10/19/22 [History] Brimonidine Tartrate 0.2% [Brimonidine Tartrate 0.2% *] 1 drop BOTH EYES BID 10/19/22 [History] Clopidogrel Bisulfate [Plavix] 75 mg PO DAILY 10/19/22 [History] Coenzyme Q10 (Ubidecarenone) [Co-Enzyme Q10] 100 mg PO DAILY 10/19/22 [History] Lactobacillus [Probiotic] 1 cap PO DAILY 10/19/22 [History] Latanoprost [Xalatan] 1 drop BOTH EYES HS 10/19/22 [History] Metoprolol Succinate ER [Toprol Xl] 50 mg PO DAILY 10/19/22 [History] Multiple Vitamins W/ Minerals [Centrum Adult Multigummie] 1 chw PO DAILY 10/19/22 [History] Tamsulosin HCl [Flomax *] 0.4 mg PO DAILY 10/19/22 [History] - Allergies Allergies/Adverse Reactions: Allergy/AdvReac Type Severity Reaction Status Date / Time Iodinated Contrast Media Allergy Severe Swelling Verified 01/01/20 15:40 Codeine Allergy Intermediate Other Verified 01/01/20 15:40 - Physical Exam Vital Signs: Vital Signs (Last Documented) Temperature (celsius) 36.5 C Pulse Rate [Apical] 79 Pulse Rate 71 Respiratory Rate 18 O2 Sat by Pulse Oximetry 97 Oxygen Flow Rate 2 Blood Pressure [Right] 160/91 Blood Pressure [Left Arm] 130/84 Blood Pressure 139/80 General Appearance: awake, alert, no apparent distress Eyes: PERRL, EOMI, conjunctivae clear, no discharge, no foreign body, no scleral icterus Neck: supple Respiratory: no wheezes, rhonchi, or rales, no respiratory distress, no accessory muscle use, decreased breath sounds Cardiovascular: regular rate, regular rhythm, S1/S2 Abdomen/GI: non tender, soft, nondistended, normal bowel sounds Extremities: normal range of motion, non-tender, no pedal edema Neurologic: slurred speech Skin: warm/dry, normal color - Laboratories Diagnostics Laboratory Results: CBC BMP 10/19/22 12:05 10/19/22 12:05 - Assessment Plan Patient Problems: Problem Status Onset Code CVA (cerebral vascular accident) Acute I63.9 Assessment P (more content not included)... Normal [facility] Laboratory studies (set)on 0 10-19-2022 Albumin [Mass/Vol] 4.0 g/dL 3.4-5.0 [facility] Work Phone: Albumin/Globulin [Mass ratio] 0.9 {ratio} Low 1.1-1.8 [facility] Work Phone: ALP [Catalytic activity/Vol] 93 U/L 45-117 [facility] Work Phone: ALT [Catalytic activity/Vol] 35 U/L 12- [facility] Work Phone: Anion gap [Moles/Vol] 6.3 mmol/L Low 11-23 [facility] Work Phone: aPTT Coag (Bld) [Time] 33.8 s High 22.8-30.9 [facility] Work Phone: Comment on above: NEW APTT THERAPEUTIC RANGE 44.3-62.4 SECONDS. EFFECTIVE 08/23/22 AST [Catalytic activity/Vol] 29 U/L 15-37 [facility] Work Phone: Basophils (Bld) [#/Vol] 0.0 10*3/uL 0-0.1 [facility] Work Phone: Basophils/100 WBC (Bld) 0.80 % 0-2 [facility] Work Phone: Bilirubin [Mass/Vol] 0.6 mg/dL 0.2-1.0 [facility] Work Phone: Calcium [Mass/Vol] 9.6 mg/dL 8.5-10.1 [facility] Work Phone: Chloride [Moles/Vol] 110 mmol/L High 98-107 [facility] Work Phone: CK [Catalytic activity/Vol] 158 U/L 39-308 [facility] Work Phone: CK.MB [Mass/Vol] 2.8 ng/mL 0.5-3.6 [facility] Work Phone: CO2 [Moles/Vol] 28.0 mmol/L 21-32 [facility] Work Phone: Creatinine [Mass/Vol] 1.00 mg/dL 0.7-1.3 [facility] [facility] Work Phone: Eosinophils (Bld) [#/Vol] 0.3 10*3/uL 0.0-1.80 [facility] Work Phone: Eosinophils/100 WBC (Bld) 6.6 % 0-8 [facility] Work Phone: Erythrocyte distribution width (RBC) [Ratio] 14.8 % 11.0-15.5 [facility] Work Phone: Estimated Average Glucose 111 [facility] Work Phone: Estimated GFR () [facility] Work Phone: Comment on above: THE NORMAL LEVEL OF GFR VARIES ACCORDING TO AGE, SEX, AND BODY SIZE. A GFR LEVEL OF LESS THAN 60 ML/MIN REPRESENTS LOSS OF THE ADULT LEVEL OF NORMAL KIDNEY FUNCTION. GFR/1.73 sq M.predicted among non-blacks MDRD (S/P/Bld) [Vol rate/Area] [facility] Work Phone: Globulin (S) [Mass/Vol] 4.4 g/dL 2.5-4.6 [facility] Work Phone: Glucose [Mass/Vol] 97 mg/dL 70-100 [facility] Work Phone: Granulocytes (Bld) [#/Vol] 3.3 10*3/uL 2.2-9.1 [facility] Work Phone: Granulocytes/100 WBC (Bld) 63.4 % 42-80 [facility] Work Phone: HbA1c (Bld) [Mass fraction] 5.5 % [facility] Work Phone: Comment on above: Interpretation of Hg b A1C results: <5.7% Normal 5.7% - 6.4% Prediabetes >6.4% Diabetes SAMPLES FROM PATIENTS WITH HEMOLYTIC ANEMIAS OR THE PRESENCE OF UNSTABLE HEMOGLOBINS LIKE HbSS OR HbSC WILL EXHIBIT DECREASED GLYCATED HGB DUE TO THE SHORTENED LIFE SPAN OF THE RED CELLS.RESULTS ARE NOT RELIABLE IN PATIENTS WITH CHRONIC BLOOD LOSS. Hematocrit (Bld) [Volume fraction] 43.9 % 41.0-53.0 [facility] Work Phone: Hemoglobin (Bld) [Mass/Vol] 14.8 g/dL 14.0-18.0 [facility] Work Phone: Comment on above: Delta: 13.8 on 02/21-045 INR International Normalized Ratio 1.1 0.8-1.1 [facility] Work Phone: Comment on above: RECOMMENDED THERAPEU TIC INR RANGE THROMBOEMBOLIC DISORDERS 2.0-3.0 MECHANICAL PROSTHETIC VALVES 2.5-3.5 Lymphocytes (Bld) [#/Vol] 1.0 10*3/uL 1.0-4.0 [facility] Work Phone: Lymphocytes/100 WBC (Bld) 18.6 % 16-48 [facility] Work Phone: MCH (RBC) [Entitic mass] 30.6 pg 26.0-32.0 [facility] Work Phone: MCHC (RBC) [Mass/Vol] 33.8 g/dL 31.0-36.0 [facility] Work Phone: MCV (RBC) [Entitic vol] 90.5 fL 80-97 [facility] Work Phone: Monocyte distribution width Auto (Bld) [Entitic vol] 15.92 0-20 [facility] Work Phone: Comment on above: For ED adult patient s suspected of sepsis, MDW<=20.0 does not rule out sepsis or risk of sepsis Monocytes (Bld) [#/Vol] 0.5 10*3/uL 0.1-1.7 [facility] Work Phone: [phone] Monocytes/100 WBC (Bld) 10.6 % High 3-9 [facility] Work Phone: [phone] Myoglobin [Mass/Vol] 110.2 ng/mL 16-116 [facility] Work Phone: [phone] Platelet mean volume (Bld) [Entitic vol] 8.1 fL 6.4-10.5 [facility] Work Phone: Platelets (Bld) [#/Vol] 186 10*3/uL 140-450 [facility] Work Phone: [phone] Potassium [Moles/Vol] 3.9 mmol/L 3.5-5.1 [facility] Work Phone: [phone] Protein [Mass/Vol] 8.4 g/dL High 6.0-8.3 [facility] Work Phone: [phone] PT Coag (PPP) [Time] 11.3 s High 9.2-11.2 [facility] Work Phone: [phone] RBC (Bld) [#/Vol] 4.85 10*6/uL 4.40-6.30 [facility] Work Phone: [phone] Sodium [Moles/Vol] 141 mmol/L 136-145 [facility] Work Phone: [phone] Troponin 13.1 pg/mL 0-78.5 [facility] Work Phone: [phone] Comment on above: Troponin Reference R scott: Male: 0-78.5 pg/mL (ng/L) Female: 0-53.7 pg/mL (ng/L) Note: The new high sensitivity Troponin units are in pg/mL (ng/L) Urea nitrogen [Mass/Vol] 27.0 mg/dL High 7-18 [facility] Work Phone: WBC (Bld) [#/Vol] 5.2 10*3/uL 4.0-11.0 [facility] Work Phone: [phone] MYOGLOBINon 05-30-2023 Myoglobin [Mass/Vol] 110.2 ng/mL Normal 16-116 [facility] Comment on above: Performed By: #### P SA #### [facility] [address] [place] [address] PROTIME/INRon 10-19-2022 INR Coag (Bld) [Relative time] 1.1 {INR} Normal 0.8-1.1 [facility] Comment on above: Result Comment: SUBHA MMENDED THERAPEUTIC INR RANGE THROMBOEMBOLIC DISORDERS 2.0-3.0 MECHANICAL PROSTHETIC VALVES 2.5-3.5 Performed By: #### P T, APTT #### [facility] [address] [place] [address] PT Coag (PPP) [Time] 11.3 s High 9.2-11.2 [facility] Comment on above: Performed By: #### P T, APTT #### [address] [address] TROPONINon 10-19-2022 TROPONIN 13.1 pg/mL Normal 0-78.5 [facility] Comment on above: Result Comment: Trop onin Reference Range: Male: 0-78.5 pg/mL (ng/L) Female: 0-53.7 pg/mL (ng/L) Note: The new high sensitivity Troponin units are in pg/mL (ng/L) Performed By: #### P SA #### [address] [address] Laboratory studies (set)on 0 08-09-2022 Prostate Specific Antigen 4.19 ng/mL High 0-4.0 [facility] Work Phone: SCREENING FOR AAAon 08-07-19 SCREENING FOR AAA HORACE JOE Ma [id number] Ordering physician: Grady Sanches LOC:ULTR [id number] Attending physician: Grady Sanches [id number] DOS: 08/03/22 [facility]#: [id number] Exam/Proc: SCREENING FOR AAA Dept: ULTRASOUND EXAMINATION: RETROPERITONEAL ULTRASOUND OF THE AORTA 08/03/2022 TECHNIQUE: Duplex ultrasound using B-mode/do scaled imaging, Doppler spectral analysis and color flow Doppler was obtained of the aorta. COMPARISON: None HISTORY: ORDERING SYSTEM PROVIDED HISTORY: TECHNOLOGIST PROVIDED HISTORY: Reason for Exam: aaa screening FINDINGS: Aorta: Maximum dimension of the aorta is 3.1 cm diameter. Iliacs: Iliac arteries are patent and normal in caliber. IMPRESSION: 3.1 cm abdominal aortic aneurysm. Recommend follow-up every 3 years. Reference: J Am Sarah Beth Radiol 2013;10:789-794. Electronically signed By Jaiden Joiner MD 08/05/2022 11:45:16 PM EST Workstation ID : [id number] REPORT SIGNATURE ON FILE Electronically Signed Date/Time: 08/05/222344 Dictated Date/time: 08/05/222342 CC: Normal [facility] Laboratory studies (set)on 0 01-11-2022 25-Hydroxy Vitamin D Total 56.4 ng/mL 30-100 [facility] Work Phone: Comment on above: Interpretation of Vi tD results: Adult: <20 ng/mL Deficient 20 - <30 ng/mL Insufficiency 30 - 100 ng/mL Sufficiency Pediatric: <15 ng/mL Deficient 15 - <20 ng/mL Insufficiency 20 - 100 ng/mL Sufficiency C-Reactive Protein 0.37 mg/dL High 0.0-0.3 [facility] Work Phone: Cholesterol [Mass/Vol] 107 mg/dL 0-200 [facility] Work Phone: Cholesterol in HDL [Mass/Vol] 52 mg/dL 40-60 [facility] Work Phone: Cholesterol in LDL [Mass/Vol] 48 mg/dL 0-130 [facility] Work Phone: Cholesterol in VLDL [Mass/Vol] 7 mg/dL 5-40 [facility] Work Phone: Cholesterol/HDL Ratio 2.1 mg/dl 4.0-6.7 [facility] Work Phone: Estimated Average Glucose 111 [facility] Work Phone: HbA1c (Bld) [Mass fraction] 5.5 % [facility] Work Phone: Comment on above: Interpretation of Hg b A1C results: <5.7% Normal 5.7% - 6.4% Prediabetes >6.4% Diabetes SAMPLES FROM PATIENTS WITH HEMOLYTIC ANEMIAS OR THE PRESENCE OF UNSTABLE HEMOGLOBINS LIKE HbSS OR HbSC WILL EXHIBIT DECREASED GLYCATED HGB DUE TO THE SHORTENED LIFE SPAN OF THE RED CELLS.RESULTS ARE NOT RELIABLE IN PATIENTS WITH CHRONIC BLOOD LOSS. Triglyceride [Mass/Vol] 36 mg/dL 0-150 [facility] Work Phone: Laboratory studies (set)on 0 4--2021 Prostate Specific Antigen 3.17 ng/mL 0-4.0 [facility] Work Phone: Laboratory studies (set)on 0 3- Albumin [Mass/Vol] 3.7 g/dL 3.4-5.0 [facility] Work Phone: Albumin/Globulin [Mass ratio] 1.0 {ratio} Low 1.1-1.8 [facility] Work Phone: ALP [Catalytic activity/Vol] 74 U/L 45-117 [facility] Work Phone: ALT [Catalytic activity/Vol] 35 U/L 12-78 [facility] Work Phone: Anion gap [Moles/Vol] 6.9 mmol/L Low 11-23 [facility] Work Phone: AST [Catalytic activity/Vol] 31 U/L 15-37 [facility] Work Phone: Bilirubin [Mass/Vol] 0.5 mg/dL 0.2-1.0 [facility] Work Phone: C-Reactive Protein 0.0-0.3 [facility] Work Phone: Calcium [Mass/Vol] 8.9 mg/dL 8.5-10.1 [facility] Work Phone: Chloride [Moles/Vol] 110 mmol/L High 98-107 [facility] Work Phone: Cholesterol [Mass/Vol] 119 mg/dL 0-200 [facility] Work Phone: Cholesterol in HDL [Mass/Vol] 57 mg/dL 40-60 [facility] Work Phone: Cholesterol in VLDL [Mass/Vol] 9 mg/dL 5-40 [facility] Work Phone: Cholesterol/HDL Ratio 2.1 mg/dl 4.0-6.7 [facility] Work Phone: CO2 [Moles/Vol] 28.0 mmol/L 21-32 [facility] Work Phone: Creatinine [Mass/Vol] 0.90 mg/dL 0.7-1.3 [facility] Work Phone: Estimated GFR () [facility] Work Phone: Comment on above: THE NORMAL LEVEL OF GFR VARIES ACCORDING TO AGE, SEX, AND BODY SIZE. A GFR LEVEL OF LESS THAN 60 ML/MIN REPRESENTS LOSS OF THE ADULT LEVEL OF NORMAL KIDNEY FUNCTION. GFR/1.73 sq M.predicted among non-blacks MDRD (S/P/Bld) [Vol rate/Area] [facility] Work Phone: Globulin (S) [Mass/Vol] 3.6 g/dL 2.5-4.6 [facility] Work Phone: Glucose [Mass/Vol] 92 mg/dL 70-100 [facility] Work Phone: LDL Cholesterol, Calculated 53 mg/dL 0-130 [facility] Work Phone: Potassium [Moles/Vol] 4.2 mmol/L 3.5-5.1 [facility] Work Phone: Protein [Mass/Vol] 7.3 g/dL 6.0-8.3 [facility] Work Phone: Sodium [Moles/Vol] 141 mmol/L 136-145 [facility] Work Phone: [phone] Triglyceride [Mass/Vol] 44 mg/dL 0-150 [facility] Work Phone: [phone] Urea nitrogen [Mass/Vol] 23.0 mg/dL High 7-18 [facility] Work Phone: [phone] Laboratory studies (set)on Basophils (Bld) [#/Vol] 0.0 10*3/uL 0-0.1 [facility] Work Phone: [phone] Basophils/100 WBC (Unsp spec) 0.80 % 0-2 [facility] Work Phone: [phone] Eosinophils (Bld) [#/Vol] 0.4 10*3/uL 0.0-1.80 [facility] Work Phone: [phone] Eosinophils/100 WBC (Bld) 6.7 % 0-8 [facility] Work Phone: Erythrocyte distribution width (RBC) [Ratio] 15.5 % 11.0-15.5 [facility] Work Phone: [phone] Granulocytes (Bld) [#/Vol] 2.8 10*3/uL 2.2-9.1 [facility] Work Phone: [phone] Granulocytes/100 WBC (Bld) 50.6 % 42-80 [facility] Work Phone: [phone] Hematocrit (Bld) [Volume fraction] 41.6 % 41.0-53.0 [facility] Work Phone: Comment on above: Delta: 38.6 on 06/22 Hemoglobin (Bld) [Mass/Vol] 13.8 g/dL Low 14.0-18.0 [facility] Work Phone: [phone] Comment on above: Delta: 12.6 on 06/22 Lymphocytes Auto (Unsp spec) [#/Vol] 1.7 10*3/uL 1.0-4.0 [facility] Work Phone: [phone] Lymphocytes/100 WBC (Bld) 30.6 % 16-48 [facility] Work Phone: MCH (RBC) [Entitic mass] 29.2 pg 26.0-32.0 [facility] Work Phone: MCHC (RBC) [Mass/Vol] 33.2 g/dL 31.0-36.0 [facility] Work Phone: MCV (RBC) [Entitic vol] 88.0 fL 80-97 [facility] Work Phone: Monocytes (Bld) [#/Vol] 0.6 10*3/uL 0.1-1.7 [facility] Work Phone: Monocytes/100 WBC (Bld) 11.3 % High 3-9 [facility] Work Phone: Platelet mean volume (Bld) [Entitic vol] 8.2 fL 6.4-10.5 [facility] Work Phone: Platelets (Bld) [#/Vol] 214 10*3/uL 140-450 [facility] Work Phone: RBC (Bld) [#/Vol] 4.73 10*6/uL 4.40-6.30 [facility] Work Phone: Troponin 20.3 pg/mL 0-78.5 [facility] Work Phone: Comment on above: Troponin Reference R scott: Male: 0-78.5 pg/mL (ng/L) Female: 0-53.7 pg/mL (ng/L) Note: The new high sensitivity Troponin units are in pg/mL (ng/L) WBC (Bld) [#/Vol] 5.5 10*3/uL 4.0-11.0 [facility] Work Phone: Laboratory studies (set)on 0 02-04-2021 25-Hydroxy Vitamin D Total 46.1 ng/mL 30-100 [facility] Work Phone: Comment on above: Interpretation of Vi tD results: Adult: <20 ng/mL Deficient 20 - <30 ng/mL Insufficiency 30 - 100 ng/mL Sufficiency Pediatric: <15 ng/mL Deficient 15 - <20 ng/mL Insufficiency 20 - 100 ng/mL Sufficiency C-Reactive Protein High Sensitivity 6.9 mg/L High 0-3 [facility] Work Phone: Comment on above: The relative cardiov ascular disease risk categories for average hsCRP levels are: Low risk prediction less than 1mg/L Average risk prediction 1-3 mg/L High risk prediction greater than 3mg/L Estimated Average Glucose 117 [facility] Work Phone: HbA1c (Bld) [Mass/Vol] 5.7 % [facility] Work Phone: Comment on above: Interpretation of Hg b A1C results: <5.7% Normal 5.7% - 6.4% Prediabetes >6.4% Diabetes SAMPLES FROM PATIENTS WITH HEMOLYTIC ANEMIAS OR THE PRESENCE OF UNSTABLE HEMOGLOBINS LIKE HbSS OR HbSC WILL EXHIBIT DECREASED GLYCATED HGB DUE TO THE SHORTENED LIFE SPAN OF THE RED CELLS.RESULTS ARE NOT RELIABLE IN PATIENTS WITH CHRONIC BLOOD LOSS. BMPon 06-24-2020 Anion gap [Moles/Vol] 7 mmol/L Normal 5-16 [facility] Comment on above: Order Comment: Ivan s: M Minimal Draw: Y Performed By: #### L [id number] #### [facility] [place] [address] Calcium [Mass/Vol] 9.5 mg/dL Normal 8.5-10.5 [facility] Comment on above: Order Comment: Ivan frost: Micah Minimal Draw: Y Result Comment: NOTE NEW NORMAL RANGE DUE TO REAGENT CHANGE Performed By: #### L [id number] #### [facility] [address] [place] [address] Chloride [Moles/Vol] 109 mmol/L High 98-107 [facility] Comment on above: Order Comment: Ivan frost: Micah Minimal Draw: Y Performed By: #### L [id number] #### [facility] [place] [address] CO2 [Moles/Vol] 25.0 mmol/L Normal 21-32 [facility] Comment on above: Order Comment: Wilfredou s: M Minimal Draw: Y Performed By: #### L [id number] #### [facility] [address] [place] [address] Creatinine [Mass/Vol] 0.81 mg/dL Normal 0.5-1.4 [facility] Comment on above: Order Comment: Wilfredou s: M Minimal Draw: Y Result Comment: NOTE NEW NORMAL RANGE DUE TO REAGENT CHANGE Patients receiving either N-Acetylcysteine (NAC) or Metamizole prior to venipuncture, may have falsely depressed results. Performed By: #### L [id number] #### [facility] [address] [place] [address] Glucose [Mass/Vol] 104 mg/dL High 70-100 [facility] Comment on above: Order Comment: Wilfredou s: M Minimal Draw: Y Result Comment: 70-1 00- Normal Fasting; 100-125 Impaired Fasting; greater than 126 on more than one result- Diabetes. ADA guidelines. Results may be falsely elevated after the administration of Sulfapyridine. Results may be falsely depressed after the administration of Sulfasalazine. Performed By: #### L [id number] #### [facility] [address] [place] [address] Potassium [Moles/Vol] 3.6 mmol/L Normal 3.5-5.1 [facility] Comment on above: Order Comment: Wilfredou s: M Minimal Draw: Y Performed By: #### L [id number] #### [facility] [place] [address] Sodium [Moles/Vol] 141 mmol/L Normal 136-145 [facility] Comment on above: Order Comment: Wilfredou s: M Minimal Draw: Y Performed By: #### L [id number] #### [facility] [place] [address] Urea nitrogen [Mass/Vol] 25 mg/dL Normal 7-26 [facility] Comment on above: Order Comment: Campu s: M Minimal Draw: Y Performed By: #### L [id number] #### [facility] [address] [place] [address] Urea nitrogen/Creatinine [Mass ratio] 31 mg/mg High 15-24 [facility] Comment on above: Order Comment: Campu s: M Minimal Draw: Y Performed By: #### L [id number] #### [facility] [address] [place] [address] CBC W/DIFFon 06-24-2020 BASO ABS 0.00 K/CU MM Normal 0-0.2 [facility] Comment on above: Order Comment: Campu s: M Minimal Draw: Y Performed By: #### L [id number] #### [facility] [address] [place] [address] Basophils/100 WBC (Bld) 0.4 % Normal 0-2 [facility] Comment on above: Order Comment: Campu s: M Minimal Draw: Y Performed By: #### L [id number] #### [facility] [address] [place] [address] EOS ABS 0.10 K/CU MM Normal 0-0.5 [facility] Comment on above: Order Comment: Campu s: M Minimal Draw: Y Performed By: #### L [id number] #### [facility] [address] [place] [address] Eosinophils/100 WBC (Bld) 1.3 % Normal 0-5 [facility] Comment on above: Order Comment: Campu s: M Minimal Draw: Y Performed By: #### L [id number] #### [facility] [address] [place] [address] Erythrocyte distribution width (RBC) [Ratio] 15.6 % High 11-14.5 [facility] Comment on above: Order Comment: Campu s: M Minimal Draw: Y Performed By: #### L [id number] #### [facility] [address] [place] [address] Hematocrit (Bld) [Volume fraction] 37.5 % Low 41.0-53.0 [facility] Comment on above: Order Comment: Campu s: M Minimal Draw: Y Performed By: #### L [id number] #### [facility] [address] [place] [address] Hemoglobin (Bld) [Mass/Vol] 12.1 g/dL Low 13.5-17.5 [facility] Comment on above: Order Comment: Campu s: M Minimal Draw: Y Performed By: #### L [id number] #### [facility] [address] [place] [address] IMMATR GRAN ABS 0.00 K/CU MM Normal Less than 2 [facility] Comment on above: Order Comment: Campu s: M Minimal Draw: Y Performed By: #### L [id number] #### [facility] [address] [place] [address] IMMATURE GRAN % 0.3 % Normal Less than 2 [facility] Comment on above: Order Comment: Campu s: M Minimal Draw: Y Performed By: #### L [id number] #### [facility] [address] [place] [address] Lymphocytes (Bld) [#/Vol] 1.00 K/CU MM Normal 0.9-4.4 [facility] Comment on above: Order Comment: Campu s: M Minimal Draw: Y Performed By: #### L [id number] #### [facility] [address] [place] [address] Lymphocytes/100 WBC (Bld) 15.2 % Low 20-40 [facility] Comment on above: Order Comment: Campu s: M Minimal Draw: Y Performed By: #### L [id number] #### [facility] [address] [place] [address] MCHC (RBC) [Mass/Vol] 32.3 g/dL Normal 32.0-36.0 [facility] Comment on above: Order Comment: Wilfredou s: M Minimal Draw: Y Performed By: #### L [id number] #### [facility] [address] [place] [address] MCV (RBC) [Entitic vol] 85.4 fL Normal 80.0-99.0 [facility] Comment on above: Order Comment: Wilfredou s: M Minimal Draw: Y Performed By: #### L [id number] #### [facility] [address] [place] [address] MONO ABS 0.90 K/CU MM Normal 0.1-1.1 [facility] Comment on above: Order Comment: Campu s: M Minimal Draw: Y Performed By: #### L [id number] #### [facility] [address] [place] [address] Monocytes/100 WBC (Bld) 12.7 % High 2-10 [facility] Comment on above: Order Comment: Campu s: M Minimal Draw: Y Performed By: #### L [id number] #### [facility] [address] [place] [address] NEUTROPHIL ABS 4.70 K/CU MM Normal 2.0-8.3 [facility] Comment on above: Order Comment: Campu s: M Minimal Draw: Y Performed By: #### L [id number] #### [facility] [address] [place] [address] Neutrophils/100 WBC (Bld) 70.1 % Normal 45-75 [facility] Comment on above: Order Comment: Campu s: M Minimal Draw: Y Performed By: #### L [id number] #### [facility] [address] [place], [place] [address] Nucleated RBC/100 WBC (Bld) [Ratio] 0.0 % Normal Less than 1 [facility] Comment on above: Order Comment: Campu s: M Minimal Draw: Y Performed By: #### L [id number] #### [facility] [address] [place], [place] [address] Platelet mean volume (Bld) [Entitic vol] 10.1 fL Normal 9.4-12.4 [facility] Comment on above: Order Comment: Campu s: M Minimal Draw: Y Performed By: #### L [id number] #### [facility] [address] [place] [address] Platelets (Bld) [#/Vol] 199 K/CU MM Normal 150-450 [facility] Comment on above: Order Comment: Campu s: M Minimal Draw: Y Performed By: #### L [id number] #### [facility] [address] [place] [address] RBC (Bld) [#/Vol] 4.39 M/CU MM Low 4.50-6.00 [facility] Comment on above: Order Comment: Campu s: M Minimal Draw: Y Performed By: #### L [id number] #### [facility] [address] [place], [place] [address] WBC (Bld) [#/Vol] 6.8 K/CUMM Normal 4.5-11.0 [facility] Comment on above: Order Comment: Campu s: M Minimal Draw: Y Performed By: #### L [id number] #### [facility] [address] [place] [address] GFR ESTon 06-24-2020 IF AMER Greater than 60 Normal [facility] Comment on above: Order Comment: Campu s: M Minimal Draw: Y Performed By: #### L [id number] #### [facility] [address] [place] [address] IF non-AFR AMER Greater than 60 Normal [facility] Comment on above: Order Comment: Wilfredou s: M Minimal Draw: Y Performed By: #### L [id number] #### [facility] [address] [place] [address] MAGNESIUMon 06-24-2020 Magnesium [Mass/Vol] 2.1 MG/CL Normal 1.6-2.6 [facility] Comment on above: Order Comment: Wilfredou s: M Minimal Draw: Y Performed By: #### L [id number] #### [facility] [address] [place] [address] PROG.Kisha 06-24-2020 PROG.[facility] Patient Name: HORACE JOE [address] [place] [address] Date of : [address] [address] Unit Number: [id number] Progress Note-Cardiology Patient Status: DIS IN Attending Doctor: Missy Hussein DO Service Date: 06/24/20 0857 Subjective S: (2 ROS minimum) Doing well this AM. Denies any chest pain, lightheadedness, dizziness or flushing sensations today. He is ambulated up and down the hallway without any issues. Objective (ROS) Nursing Vitals Vital Signs (Last) Result Date Time Pulse Ox 98 / 0805 B/P 114/67 02 0802 B/P Mean 63 06/24 0802 Temp 98.3 06/24 0802 Pulse 77 06/24 0802 Resp 16 06/24 0802 O2 Flow Rate N 06/24 0000 Vital Signs (24hr) Date Temp Pulse Resp B/P B/P Mean Pulse Ox FiO2 02/01-06/24 97.3-98.3 60-81 14-20 98-132/53-84 63-103 64-98 Physical Exam Physical Examination Notes Gen: Pleasant, slightly overweight, no distress on room air HEENT: Neck supple. OP moist. No JVD CV: Regular rate. Systolic murmur Pulm: Normal effort. CTA Vasc: Normal pedal pulses. Right groin has dry dressing intact. No hematoma. Soft. Neuro: Alert and oriented x3 with normal speech MSK: No leg edema. Skin: Warm and dry Telemetry: Sinus rhythm 50-60's EC06/23/20 0557 Vent. Rate : 073 BPM Atrial Rate : 073 BPM P-R Int : 198 ms QRS Dur : 104 ms QT Int : 412 ms P-R-T Axes : 040 -04 -32 degrees QTc Int : 453 ms Sinus rhythm with occasional Premature ventricular complexes Inferior infarct , age undetermined Abnormal ECG No previous ECGs available Confirmed by ELTON PATEL MD ([id number]) on 06/23/2020 10:07:09 AM Referred By: Missy Hussein Confirmed By:ELTON PATEL MD Echocardiogram: 06/23/20 Interpretation Summary LVEF 55 to 60% with mild LV diastolic dysfunction. The left atrium is moderately dilated. The right ventricle is normal in size and function. No hemodynamically significant valvular aortic stenosis. Moderate aortic regurgitation. There is an eccentric jet of aortic insufficiency directed against the anterior mitral leaflet. There is moderate mitral regurgitation. There is mild tricuspid regurgitation. Mild to moderate pulmonic valvular regurgitation. There is no pericardial effusion. Left Heart Catheterization 06/23/20 Conclusion: Normal LV ejection fraction of 55 to 60%. Normal LVEDP at 8 mmHg. Nonobstructive coronary artery disease. Left main aneurysmal dilatation with ostial left main less than 30% stenosis. Recommendation: -Continue aggressive medical management and cardiac risk factors modification. Current Inpatient Medications: Medications Current Sig/Chely Start time Last Medication Dose Route Stop Time Status Admin Acetaminophen 650 MG Q4HPRN PRN 06/23 1230 AC (TYLENOL TAB) PO Alendronate Sodium 70 MG Mo@0700 06/23 0700 AC 06/23 (FOSAMAX TAB) PO 0613 Aspirin 81 MG QDAYWM 06/23 0800 AC 06/23 (ASPIRIN TAB.CHEW) PO 0945 Atorvastatin Calcium 40 MG QHS 06/23 2200 AC 06/23 (LIPITOR TAB) PO 221 Brimonidine Tartrate 1 GTT BID 06/22 2232 AC 06/23 (ALPHAGAN-P 0.2% OU 2041 OPTH DROP) Clopidogrel Bisulfate 75 MG QDAY 06/23 0900 AC 06/23 (PLAVIX TAB) PO 0945 Diphenhydramine HCl 50 MG ONCALL 06/23 0030 AC 06/23 (BENADRYL VIAL) IV 1024 Finasteride 5 MG QDAY 06/23 0900 AC 06/23 (PROSCAR TAB) PO 0946 Fluticasone 1 SPRAY BID 06/22 2232 AC 06/23 Propionate NS 2042 (FLONASE NASAL SPRAY) Hydrocortisone 200 MG ONCALL 06/23 0030 AC 06/23 Sodium Succinate IV 1043 (SOLU-CORTEF VIAL) Latanoprost 1 GTT QHS 06/22 223 AC 06/23 (XALATAN 0.005% OPTH OU 2210 DROP) Metoprolol Succinate 50 MG QDAY 06/23 0900 AC 06/23 (TOPROL TAB.SA) PO 0945 Multivitamins 1 UDTAB QDAY 06/23 0900 AC 06/23 (MULTIVITAMIN TAB) PO 0945 Nitroglycerin 0.4 MG Q5MPRN PRN 06/22 2230 AC (NITROSTAT 0.4MG SL TAB.SL) Pantoprazole Sodium 40 MG QDAYAC 06/23 0700 AC 06/24 (PROTONIX TAB) PO 0618 Ramipril 2.5 MG QDAY 06/23 0900 AC (ALTACE CAP) PO Sodium Chloride 3 ML Q8H 06/23 1400 AC 06/24 (Sodium Chloride IV 0619 0.9% FLUSH D.SYR) Sodium Chloride 1,000 ML CONT 06/23 1230 AC (Sodium Chloride IV 0.9%) Sodium Chloride 3 ML PRN PRN 06/23 1230 AC (Sodium Chloride IV 0.9% FLUSH D.SYR) Tizanidine HCl 4 MG TIDPRN PRN 06/22 2300 AC (ZANAFLEX TAB) PO Diagnostic Data: Laboratory Tests 06/24 06/23 0356 1100 Chemistry Sodium (136 - 145 MMOL/L) 141 Potassium (3.5 - 5.1 MMOL/L) 3.6 Chloride (98 - 107 MMOL/L) 109 H Carbon Dioxide (21 - 32 MMOL/L) 25.0 Anion Gap (5 - 16 MMOL/L) 7 BUN (7 - 26 MG/DL) 25 Creatinine (0.5 - 1.4 MG/DL) 0.81 Est GFR ( Amer) Greater than 60 Est GFR (Non-Af Amer) Greater than 60 BUN/Creatinine Ratio (15 - 24) 31 H Glucose (70 - 100 MG/DL) 104 H Total Calcium (8.5 - 10.5 MG/DL) 9.5 Magnesium (1.6 - 2.6 MG/CL) 2.1 Troponin I Cancelled Hematology WBC (4.5 - 11.0 K/CUMM) 6.8 RBC (4.50 - 6.00 M/CU MM) 4.39 L Hgb (13.5 - 17.5 G/DL) 12.1 L Hct (41.0 - 53.0 %) 37.5 L MCV (80.0 - 99.0 fl) 85.4 MCHC (32.0 - 36.0 GM/DL) 32.3 RDW (11 - 14.5) 15.6 H Plt Count (150 - 450 K/CU MM) 199 MPV (9.4 - 12.4) 10.1 Immature Gran % (Auto) (Less than 2 %) 0.3 Abs Immat Gran (auto) (Less than 2 K/CU MM) 0.00 Seg Neutrophils % (45 - 75 %) 70.1 Lymphocytes % (20 - 40 %) 15.2 L Monocytes % (2 - 10 %) 12.7 H Eosinophils % (0 - 5 %) 1.3 Basophils % (0 - 2 %) 0.4 Neutrophils # (2.0 - 8.3 K/CU MM) 4.70 Lymphocytes # (0.9 - 4.4 K/CU MM) 1.00 Monocytes # (0.1 - 1.1 K/CU MM) 0.90 Eosinophils # (0 - 0.5 K/CU MM) 0.10 Basophils # (0 - 0.2 K/CU MM) 0.00 Nucleated RBCs (Less than 1 %) 0.0 06/23 06/23 06/23 06/23 1100 0529 0529 0529 Chemistry Hemoglobin A1c (4.3 - 6.0 %) 6.0 Magnesium (1.6 - 2.6 MG/CL) 2.0 Creatine Kinase Cancelled CK-MB (CK-2) Cancelled CK-MB (CK-2) Rel Index Cancelled Troponin I (0 - 54 pg/mL) 80.7 *H TSH, Ultra Sensitive (0.358 - 3.740 UIU/ML) 1.278 02 0206/23 0529 0009 0009 0009 Chemistry Creatine Kinase (26 - 192 U/L) 179 201 H CK-MB (CK-2) (0.5 - 3.6 NG/ML) 1.96 2.34 CK-MB (CK-2) Rel Index (0 - 2.5) 1.0 1.1 Troponin I (0 - 54 pg/mL) 86.2 *H Triglycerides (30 - 149 MG/DL) 41 Cholesterol (0 - 199 MG/dL) 108 LDL Cholesterol (MG/DL) 55 HDL Direct (GREATER THAN 40 MG/DL) 45 Coagulation INR (0.9 - 1.1) 1.04 PT Normal Mean Secs (9.5 - 12.0 SECONDS) 11.1 APTT (22.0 - 31.5 SECONDS) 43.7 H 28.5 Hematology WBC (4.5 - 11.0 K/CUMM) 5.1 5.1 RBC (4.50 - 6.00 M/CU MM) 4.34 L 4.22 L Hgb (13.5 - 17.5 G/DL) 12.0 L 11.8 L Hct (41.0 - 53.0 %) 38.0 L 36.5 L MCV (80.0 - 99.0 fl) 87.6 86.5 MCHC (32.0 - 36.0 GM/DL) 31.6 L 32.3 RDW (11 - 14.5) 15.5 H 15.6 H Plt Count (150 - 450 K/CU MM) 194 186 MPV (9.4 - 12.4) 9.9 10.1 Nucleated RBCs (Less than 1 %) 0.0 0.0 Assessment and Plan Conclusion/Plan 1. Unstable angina On Mon 10:30a Jun 23, 2020 ELTON PATEL wrote Physician attestation I confirmed that I, Dr. Elton Patel, have personally interviewed, examined/ evaluate the patient. I have reviewed medical charts, my TAG AND LABEL CUTTER's/PAs assessment notes and diagnostic investigations including laboratory, radiological and cardiac studies, current medications , and discussed with the patient his cardiac condition and treatment plan. Elton Patel MD The patient is a 70-year-old male known to Dr. Schmid of cardiology with a past medical history of CVA x4, CHF, osteoporosis, GERD, history of GI bleed, BPH, and glaucoma who presented to the special care unit via direct admission for evaluation of chest pain and an abnormal outpatient stress test. Unstable angina: Patient presented via direct admission to [facility] after transfer from [facility] emergency department. At [place], initial troponin was mildly elevated on their scale at 0.081. EKG demonstrated normal sinus rhythm with PVCs but no ischemic changes and chest x-ray demonstrated no acute cardiopulmonary process. The patient states that he had abnormal stress testing completed June 20, [address] Schmid's office. At that time, planning was for outpatient cardiac catheterization however, the patient developed increased chest pain today. He has a history of previous cardiac catheterization and was noted at that time to have an iodine allergy. At that time, he did not require any intervention or stenting. He is currently on a heparin drip. He is maintained on a n.p.o. diet after midnight and nursing is instructed to obtain patient's consent for left heart catheterization with possible percutaneous coronary intervention. Patient has been continued on home medications including low-dose aspirin, Plavix, beta-blockers, VILMA inhibitor, and statin per hospitalist. A lipid profile, magnesium, TSH, and A1c are pending. 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 Initially, planning was for outpatient catheterization however, patient developed increased chest tightness on Tuesday. Planning as per above for cardiac catheterization this admission. Patient is currently in special care unit on a heparin drip. Repeat labs including troponin, magnesium, lipid profile, TSH, and A1c are pending. Twelve-lead EKG prior to transfer does not demonstrate any acute ischemic changes. Repeat twelve-lead EKG and echocardiogram are also pending. Patient is noted to have iodine/contrast media allergy. He has been ordered IV Benadryl 50 mg and IV Solu-Cortef 200 mg rehabilitation services aide for cardiac catheterization. History of CAD: Reported history of CAD and previous catheterization however, previous catheterization did not require intervention or stenting per patient. We will obtain records of patient's previous cardiac procedures. History of CVA x4: Patient has history of CVA x4 without residual deficits. As per patient he has some cognitive deficit before but almost resolved. Patient still has some mild facial asymmetry with right-sided weakness. He is on aspirin 81 mg daily, Plavix 75 mg daily, and atorvastatin 20 mg nightly. Echocardiogram done on 06/23/2020 reviewed: LVEF 55 to 60% with mild LV diastolic dysfunction. The left atrium is moderately dilated. The right ventricle is normal in size and function. No hemodynamically significant valvular aortic stenosis. Moderate aortic regurgitation. There is an eccentric jet of aortic insufficiency directed against the anterior mitral leaflet. There is moderate mitral regurgitation. There is mild tricuspid regurgitation. Mild to moderate pulmonic valvular regurgitation. There is no pericardial effusion. Informed consent was obtained from the patient regarding cardiac catheterization and possible revascularization. Alternatives, risks, benefits, manner of procedure, were discussed in detail. Risks of procedure includes but not limited to sudden cardiac , stroke, heart attack, damage to the femoral artery, femoral nerve, femoral vein, unknown drug allergy or anaphylactic reaction, damage to the kidney, or worsening of existing chronic kidney disease leading to kidney failure requiring temporary or permanent dialysis etc. Patient agrees to proceed further with the full understanding. All questions were answered to patient's satisfaction. 2. Abnormal stress test 3. CAD (coronary artery disease) 4. History of CVA (cerebrovascular accident) Conclusion/Plan Summary 06/24/20 - Postive outpatient stress test - [facility] (06/24/20) nonobstructive CAD - Left main aneurysmal dilation with ostial left main less than 30%. - Continue aggressive medical management and cardiac risk factor modification. - EF 55-60%, Moderate mitral regurgitation, moderate pulmonic valvular regurgitation. - Continue Plavix 75 mg, Aspirin 81 mg, Toprol 50 mg, Ramipril 2.5 mg, Atorvastatin 40 mg. - Caution using Zanaflex as this may contribute to bradycardia and hypotension - BP diary at home - Compression stockings - OK for DC to FU Dr. Schmid in 2-4 weeks Collaborating Physician Elton Patel MD Case discussed with supervising physician: Yes Disclaimer This dictation was created using voice recognition software. Phonetic and/or minor grammatical errors may exist. eSign Date and Time Shania Daniels AIRCRAFT NAVIGATOR Verified/Reviewed by 06/24/20 1521 Keny Vizcaino [facility] Progress Note-Cardiology Normal [facility] CARD.CATHon 06-23-2020 CARD.CATH [Embedded Image Not Available] [facility] Patient Name: HORACE JOE [address] Date of : [address] [place] [id number] Unit Number: [id number] Cardiac Catheterization Patient Status: ADM IN Attending Doctor: Missy Hussein DO Dictated Date: 06/23/20 1200 Cardiac Catheterization Study Date: 06/23/20 Referring Physician: Alek Schmid MD Allergies: Coded Allergies: IODINATED CONTRAST MEDIA (Severe, swelling 06/22/20) CODEINE (Intermediate, 06/22/20) Summary: Cardiac catheterization report: Reason for study: The patient is a 70-year-old male with past medical history of CVA x4, CHF, osteoporosis, GERD, history of GI bleed, BPH, and glaucoma who presented chest pain episode x2 in the last 1 week with abnormal nuclear stress test with reversible ischemia inferior wall. Troponins are borderline elevated. Cardiac catheterization is recommended. Laboratory Tests 06/23 06/23 0529 0009 Chemistry Troponin I (0 - 54 pg/mL) 80.7 86.2 Procedure done: - Left heart catheterization - Selective coronary artery angiography - Left ventricle angiography - Right Femoral artery angiography - Starclose vascular closure device application to the femoral artery puncture site. Procedure technique: Informed consent was obtained prior to any sedation regarding cardiac catheterization and possible coronary revascularization. Alternatives, risks, benefits, and manner of procedure, were discussed in detail. Risks of procedure includes but not limited to sudden cardiac , heart attack, stroke, damage to the femoral artery, vein, nerve, kidney, medication side effects or allergic reaction etc. Patient agreed to proceed further with full understanding. Patient was brought in fasting state to the cardiac catheterization lab. Both groins were prepped with ChloroPrep solution and patient was draped in sterile fashion. Moderate sedation was administered using the small dose of Versed and fentanyl in small aliquots as necessary. 2% Lidocaine without epinephrine was used for local anesthetic purposes. Right Femoral artery access was obtained by modified Selidgner's technique with anterior wall puncture only. 6 Gabonese hemostatic sheath was inserted over wire in femoral artery . Arterial sheath was aspirated and flushed repeatedly as necessary during procedure. For left heart catheterization, 6 Gabonese catheters system was used. 6 Gabonese angle pigtail catheter was advanced over wire to the ascending aorta. Aortic valve was crossed without any difficulty. Proper left heart hemodynamics was measured. Left ventriculography was performed in WOLFF view . JL4 and JR4 catheters were selectively engaged in the left main and right coronary artery, respectively without any arterial dampening. Selective coronary artery angiography was performed in various views. Cardiac catheterization cine angiographic images were reviewed at the end of the diagnostic study. At the end of case, selective right Femoral artery angiography was performed. Right Common femoral artery is large-caliber vessel without any significant disease. The arterial stick site was above the bifurcation. Vascular Closure device was used with the standard precaution and adequate hemostasis was achieved at femoral artery puncture site and proper dressings applied. Patient tolerated the procedure well in cardiac catheterization laboratory without any immediate complication. Analysis of data: Left heart hemodynamics: Left ventricular systolic pressure 107 mm of Hg and left ventricular end-diastolic pressure 8 mm of Hg. There is no any significant gradient across the aortic valve on aortic pullback. Left ventriculography: Left ventricle is normal in size with normal segmental wall motion and normal LV ejection fraction of 55 to 60%. Selective coronary artery angiography: Left main coronary artery: Large-caliber trunk with aneurysmal dilatation. Ostial left main stenosis of less than 30 %. Left and descending artery: Proximal LAD large caliber vessel, mid LAD medium caliber vessel, and distal LAD small caliber vessel without significant disease. First major septal mental health assistant: Very small caliber medium in length vessel without significant disease. Diagonal 1 and diagonal 2: Very small caliber short vessel without significant disease. Diagonal 3: Small caliber medium to long in length vessel without significant disease. Left circumflex artery: Nondominant vessel. Large-caliber vessel in proximal to mid segment and small-caliber vessel distally without significant disease. OM1: Small to medium caliber elongated vessel without significant disease. OM 2: Tiny caliber medium in length vessel without significant disease. OM 3: Small caliber medium to long in length vessel without significant disease. OM 4: Principal OM branch. Medium caliber elongated tortuous vessel without significant disease. Distal OM: Small caliber long in length vessel without significant disease. Right coronary artery: Large caliber vessel in proximal mid and distal segment without significant disease. Right PDA: Small-caliber elongated vessel without significant disease. RPL 1: Small to medium caliber long in length vessel without significant disease. RPL 2 1 very small caliber short vessel without significant disease. Conclusion: Normal LV ejection fraction of 55 to 60%. Normal LVEDP at 8 mmHg. Nonobstructive coronary artery disease. Left main aneurysmal dilatation with ostial left main less than 30% stenosis. Recommendation: -Continue aggressive medical management and cardiac risk factors modification. Disclaimer This dictation was created using voice recognition software. Phonetic and/or minor grammatical errors may exist. eSign Date and Time Elton Patel MD Verified/Reviewed by 06/23/20 1212 Normal [facility] CBCon 06-23-2020 Erythrocyte distribution width (RBC) [Ratio] 15.5 % High 11-14.5 [facility] Comment on above: Order Comment: Ivan s: M Minimal Draw: Y Performed By: #### L 550.33872, L200.54022 #### [facility] [address] [place] [address] Hematocrit (Bld) [Volume fraction] 38.0 % Low 41.0-53.0 [facility] Comment on above: Order Comment: Ivan s: M Minimal Draw: Y Performed By: #### L 550.44818, L200.60335 #### [facility] [address] [place] [address] Hemoglobin (Bld) [Mass/Vol] 12.0 g/dL Low 13.5-17.5 [facility] Comment on above: Order Comment: Ivan s: M Minimal Draw: Y Performed By: #### L 550.89386, L200.43595 #### [facility] [address] [place], [place] [address] MCHC (RBC) [Mass/Vol] 31.6 g/dL Low 32.0-36.0 [facility] Comment on above: Order Comment: Ivan s: M Minimal Draw: Y Performed By: #### L 550.60746, L200.74909 #### [facility] [address] [place] [address] MCV (RBC) [Entitic vol] 87.6 fL Normal 80.0-99.0 [facility] Comment on above: Order Comment: Campu s: M Minimal Draw: Y Performed By: #### L 550.72454, L200.96571 #### [facility] [address] [place], [place] [address] Nucleated RBC/100 WBC (Bld) [Ratio] 0.0 % Normal Less than 1 [facility] Comment on above: Order Comment: Campu s: M Minimal Draw: Y Performed By: #### L 550.91220, L200.05197 #### [facility] [address] [place] [address] Platelet mean volume (Bld) [Entitic vol] 9.9 fL Normal 9.4-12.4 [facility] Comment on above: Order Comment: Campu s: M Minimal Draw: Y Performed By: #### L 550.90791, L200.11210 #### [facility] [address] [place] [address] Platelets (Bld) [#/Vol] 194 K/CU MM Normal 150-450 [facility] Comment on above: Order Comment: Campu s: M Minimal Draw: Y Performed By: #### L 550.34727, L200.12048 #### [facility] [address] [place] [address] RBC (Bld) [#/Vol] 4.34 M/CU MM Low 4.50-6.00 [facility] Comment on above: Order Comment: Campu s: M Minimal Draw: Y Performed By: #### L 550.84962, L200.31769 #### [facility] [address] [place], [place] [address] WBC (Bld) [#/Vol] 5.1 K/CUMM Normal 4.5-11.0 [facility] Comment on above: Order Comment: Campu s: M Minimal Draw: Y Performed By: #### L 550.83139, L200.98544 #### [facility] [address] [place] [address] Erythrocyte distribution width (RBC) [Ratio] 15.6 % High 11-14.5 [facility] Comment on above: Order Comment: Wilfredou s: M Minimal Draw: Y Performed By: #### L 200.04520 #### [facility] [address] [place] [address] Hematocrit (Bld) [Volume fraction] 36.5 % Low 41.0-53.0 [facility] Comment on above: Order Comment: Wilfredou s: M Minimal Draw: Y Performed By: #### L 200.31408 #### [facility] [address] [place] [address] Hemoglobin (Bld) [Mass/Vol] 11.8 g/dL Low 13.5-17.5 [facility] Comment on above: Order Comment: Wilfredou s: M Minimal Draw: Y Performed By: #### L 200.17713 #### [facility] [address] [place] [address] MCHC (RBC) [Mass/Vol] 32.3 g/dL Normal 32.0-36.0 [facility] Comment on above: Order Comment: Wilfredou s: M Minimal Draw: Y Performed By: #### L 200.87276 #### [facility] [address] [place] [address] MCV (RBC) [Entitic vol] 86.5 fL Normal 80.0-99.0 [facility] Comment on above: Order Comment: Wilfredou s: M Minimal Draw: Y Performed By: #### L 200.45217 #### [facility] [address] [place], [place] [address] Nucleated RBC/100 WBC (Bld) [Ratio] 0.0 % Normal Less than 1 [facility] Comment on above: Order Comment: Campu s: M Minimal Draw: Y Performed By: #### L 200.26366 #### [facility] [address] [place] [address] Platelet mean volume (Bld) [Entitic vol] 10.1 fL Normal 9.4-12.4 [facility] Comment on above: Order Comment: Campu s: M Minimal Draw: Y Performed By: #### L 200.98382 #### [facility] [address] [place], [place] [address] Platelets (Bld) [#/Vol] 186 K/CU MM Normal 150-450 [facility] Comment on above: Order Comment: Campu s: M Minimal Draw: Y Performed By: #### L 200.84829 #### [facility] [address] [place], [place] [address] RBC (Bld) [#/Vol] 4.22 M/CU MM Low 4.50-6.00 [facility] Comment on above: Order Comment: Campu s: M Minimal Draw: Y Performed By: #### L 200.94785 #### [facility] [address] [place], [place] [address] WBC (Bld) [#/Vol] 5.1 K/CUMM Normal 4.5-11.0 [facility] Comment on above: Order Comment: Campu s: M Minimal Draw: Y Performed By: #### L 200.44243 #### [facility] [address] [place], [place] [address] CKMB PROFILEon 06-23-2020 CK [Catalytic activity/Vol] 179 U/L Normal 26-192 [facility] Comment on above: Order Comment: Campu s: M Result Comment: NOTE NEW NORMAL RANGE DUE TO REAGENT CHANGE Performed By: #### L 500.87621 #### [facility] [address] [place] [address] CK.MB [Mass/Vol] 1.96 ng/mL Normal 0.5-3.6 [facility] Comment on above: Order Comment: Campu s: M Performed By: #### L 500.76418 #### [facility] [address] [place] [address] RI 1.0 Normal 0-2.5 [facility] Comment on above: Order Comment: Campu s: M Performed By: #### L 500.46892 #### [facility] [address] [place] [address] CK [Catalytic activity/Vol] 201 U/L High 26-192 [facility] Comment on above: Order Comment: Campu s: M Result Comment: NOTE NEW NORMAL RANGE DUE TO REAGENT CHANGE Performed By: #### L 500.63152 #### [facility] [address] [place] [address] CK.MB [Mass/Vol] 2.34 ng/mL Normal 0.5-3.6 [facility] Comment on above: Order Comment: Campu s: M Performed By: #### L 500.83611 #### [facility] [address] [place] [address] RI 1.1 Normal 0-2.5 [facility] Comment on above: Order Comment: Campu s: M Performed By: #### L 500.23277 #### [facility] [address] [place] [address] CONS.Kisha 06-23-2020 CONS.CARD [facility] Patient Name: HORACE JOE [address] [place] [address] Date of : [address] [place] [address] Unit Number: [id number] Consultation-Cardiology Patient Status: ADM IN Attending Doctor: Missy Hussein DO Service Date: 06/22/20 2300 History of Present Illness Referring Physician Missy Hussein DO Consulted Provider Elton Patel MD Source of Information Patient/ medical record Reason for Consult Unstable angina. Positive outpatient stress testing. Living Situation Home - Independent History of Present Illness The patient is a 70-year-old male known to Dr. Schmid of cardiology with a past medical history of CVA x4, CHF, osteoporosis, GERD, history of GI bleed, BPH, and glaucoma who presented to the special care unit via direct admission for evaluation of chest pain and an abnormal outpatient stress test. The patient states that he had chest tightness which, resolved after sitting down for 1 to 2 minutes. 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 The patient was going to schedule for a outpatient catheterization however , due to his recurrent chest pain, he was transferred to [facility]. In the emergency department at [facility] [place], laboratory data demonstrated an elevated troponin on their scale of 0.081, BUN 25, creatinine 1.0. EKG demonstrated normal sinus rhythm with PVCs. Chest x-ray demonstrated no acute cardiopulmonary process. The patient was initiated on a low-dose heparin drip. Cardiology has been consulted for recommendations related to the patient's unstable angina. Upon my evaluation, the patient denies any chest pain currently, shortness of breath, dizziness, or palpitations. Past Medical/Surgical Hx Medical Records Reviewed Yes Past Medical History Summary Coronary artery disease Osteoporosis CHF History of 4 strokes, no residual deficits GERD History of GI bleed a few years ago, no malignancy BPH Glaucoma Past Surgical History Summary Appendectomy Bilateral hernia repair TandA Right total hip arthroplasty Partial right knee replacement Cardiac catheterization Family/Social History Family History FATHER, . FH: stomach cancer MOTHER, . Hypertension BROTHER CVA SISTER Social Hx Patient is and lives with his Admits to distant history of smoking- Quit 40 yrs ago Denies any alcohol or illicit drug use Advance Directives Advance Directives Full Code Allergies/Home Medications Allergies Coded Allergies: IODINATED CONTRAST MEDIA (Severe, swelling 06/22/20) CODEINE (Intermediate, 06/22/20) Home Medications Alendronate Sodium* (Fosamax 70MG Tab*) 70 MG TABLET 70 MG PO Q7DAY, Ref 0 (Reported) GIVE AT LEAST 30 MINUTES BEFORE MEALS. DO NOT GIVE WITH MINERAL WATER, COFFEE, OJ, MILK OR OTHER DAIRY PRODUCTS. IF POSSIBLE, HAVE PATIENT SET UP FOR 30 MINUTES AFTER TAKING TO AVOID HEARTBURN. Entered as Reported by RAGHAV ABAD on 06/22/202218 Last Action: Continued on 06/22/202233 by MISSY HUSSEIN Aspirin* (Aspirin 81MG Tablet Chew*) 81 MG TAB.CHEW 81 MG PO QDAYWM, Ref 0 (Reported) Entered as Reported by RAGHAV ABAD on 06/22/202222 Last Action: Continued on 06/22/202233 by MISSY HUSSEIN Atorvastatin Calcium* (Lipitor 20MG Tab*) 20 MG TABLET 20 MG PO QHS, Ref 0 (Reported) Entered as Reported by RAGHAV ABAD on 06/22/202219 Last Action: Continued on 06/22/202233 by MISSY HUSSEIN Brimonidine Tartrate (Alphagan P 0.1% Opth Drop) 10 ML DROPS 1 GTT OU BID, Ref 0 ( Reported) Entered as Reported by RAGHAV ABAD on 06/22/202221 Last Action: Continued on 06/22/202233 by MISSY HUSSEIN Clopidogrel Bisulfate* (Plavix 75MG Tab*) 75 MG TABLET 75 MG PO QDAY, Ref 0 (Reported) Entered as Reported by RAGHAV ABAD on 06/22/202222 Last Action: Continued on 06/22/202233 by MISSY HUSSEIN Finasteride* (Proscar 5MG Tab*) 5 MG TABLET 5 MG PO QDAY, Ref 0 (Reported) Entered as Reported by RAGHAV ABAD on 06/22/202220 Last Action: Continued on 06/22/202233 by MISSY HUSSEIN Fluticasone Propionate* (Flonase Nasal [place]*) 16 GM SPRAY.SUSP 1 SPRAY NS BID, Ref 0 ( Reported) Entered as Reported by RAGHAV ABAD on 06/22/202219 Last Action: Continued on 06/22/202233 by MISSY HUSSEIN Latanoprost* (Xalatan 0.005% Eye Drop*) 2.5 ML DROPS 1 GTT OU QHS, Ref 0 (Reported) Entered as Reported by RAGHAV ABAD on 06/22/202220 Last Action: Continued on 06/22/202233 by MISSY HUSSEIN metoprolol SUCCINATE* (Toprol XL 50MG Tab SA*) 50 MG TAB.ER.24H 50 MG PO QDAY, Ref 0 ( Reported) Entered as Reported by RAGHAV ABAD on 06/22/202221 Last Action: Continued on 06/22/202233 by MISSY HUSSEIN Multivitamin* (Multiple Vitamins Daily Tab*) 1 EACH TABLET 1 UDTAB PO QDAY, Ref 0 ( Reported) Entered as Reported by RAGHAV ABAD on 06/22/202219 Last Action: Continued on 06/22/202233 by MISSY HUSSEIN Pantoprazole* (Protonix 40MG Tab*) 40 MG TABLET.DR 40 MG PO QDAYAC, Ref 0 (Reported) Entered as Reported by RAGHAV ABAD on 06/22/202219 Last Action: Continued on 06/22/202233 by MISSY HUSSEIN Ramipril* (Altace 2.5MG Cap*) 2.5 MG CAPSULE 2.5 MG PO QDAY, Ref 0 (Reported) Entered as Reported by RAGHAV ABAD on 06/22/202222 Last Action: Continued on 06/22/202233 by MISSY HUSSEIN TiZANidine HCL* (Zanaflex 4MG Tab*) 4 MG TABLET 4 MG PO TIDPRN PRN BACK PAIN, Ref 0 ( Reported) Entered as Reported by RAGHAV ABAD on 06/22/202223 Last Action: Continued on 06/22/202233 by MISSY HUSSEIN Inpatient Medications Medications Current Sig/Chely Start time Last Medication Dose Route Stop Time Status Admin Alendronate Sodium 70 MG Mo@0700 06/23 0700 AC (FOSAMAX TAB) PO Aspirin 81 MG QDAYWM 06/23 0800 AC (ASPIRIN TAB.CHEW) PO Atorvastatin Calcium 20 MG QHS 06/22 2231 AC (LIPITOR TAB) PO Brimonidine Tartrate 1 GTT BID 06/22 2232 AC (ALPHAGAN-P 0.2% OU OPTH DROP) Clopidogrel Bisulfate 75 MG QDAY 06/23 0900 AC (PLAVIX TAB) PO Finasteride 5 MG QDAY 06/23 899 AC (PROSCAR TAB) PO Fluticasone 1 SPRAY BID 06/22 2231 AC Propionate NS (FLONASE NASAL SPRAY) Heparin Sodium 4,000 UNIT PRN PRN 06/22 2299 AC (Porcine) IV (HEPARIN D.SYR) Heparin Sodium/ 250 ML TITRATE(SEE FLAQUITA VFS) 06/22 2299 AC Dextrose IV (HEPARIN 57032 UNITS/ D5W 250 ML BAG) Latanoprost 1 GTT QHS 06/22 2231 AC (XALATAN 0.005% OPTH OU DROP) Metoprolol Succinate 50 MG QDAY 06/23 09 AC (TOPROL TAB.SA) PO Multivitamins 1 UDTAB QDAY 06/23 09 AC (MULTIVITAMIN TAB) PO Nitroglycerin 0.4 MG Q5MPRN PRN 06/22 2229 AC (NITROSTAT 0.4MG SL TAB.SL) Pantoprazole Sodium 40 MG QDAYAC 06/23 07 AC (PROTONIX TAB) PO Ramipril 2.5 MG QDAY 06/23 899 AC (ALTACE CAP) PO Tizanidine HCl 4 MG TIDPRN PRN 06/22 2299 AC (ZANAFLEX TAB) PO Review of Systems ROS: Other A 10 point review of systems is completed and negative unless stated above in the HPI. Physical Exam Vital Signs Vital Signs (Last) Result Date Time Pulse Ox 97 06/22 2145 B/P 139/77 06/22 2145 B/P Mean 103 06/22 2145 Temp 98.5 06/22 214 Pulse 72 06/22 2145 Resp 17 06/22 2144 Vital Signs (24hr) Date Temp Pulse Resp B/P B/P Mean Pulse Ox FiO2 06/22 98.5 72 17 139/77 103 97 Physical Examination Summary Physical Examination: General: awake, alert, oriented x 3 and cooperative, seated upright in bed in no apparent distress. Skin: normal color, turgor, no icterus, cyanosis. HEENT: AT/NC, EOMI, PERRL, MMM, no carotid bruits or JVD noted. Lungs: CTA bilaterally, moderate effort, mild decrease BL bases, no rales, ronchi or wheezing. Heart: regular rate and rhythm; no gallop, rub audible. Abdomen: soft, NTTP, ND, normal BS, no HSM. Extremities: no cyanosis, clubbing, or edema. Neurological: patient awake, alert, oriented x 3; cognitive function intact; pupils equally reactive to light; cranial nerves II-XII grossly normal, moving all 4 extremities, no focal deficits, strength preserved. Psychiatric: affect appears normal, cooperative. No acute evidence of depressive or anxiety feelings. Telemetry EKG: SR with rate of 72. Conclusion / Plan Conclusion/Plan 1. Unstable angina Physician attestation I confirmed that I, Dr. Elton Patel, have personally interviewed, examined/ evaluate the patient. I have reviewed medical charts, my TAG AND LABEL CUTTER's/PAs assessment notes and diagnostic investigations including laboratory, radiological and cardiac studies, current medications , and discussed with the patient his cardiac condition and treatment plan. Elton Patel MD The patient is a 70-year-old male known to Dr. Schmid of cardiology with a past medical history of CVA x4, CHF, osteoporosis, GERD, history of GI bleed, BPH, and glaucoma who presented to the special care unit via direct admission for evaluation of chest pain and an abnormal outpatient stress test. Unstable angina: Patient presented via direct admission to SCU after transfer from [facility] emergency department. At [place], initial troponin was mildly elevated on their scale at 0.081. EKG demonstrated normal sinus rhythm with PVCs but no ischemic changes and chest x-ray demonstrated no acute cardiopulmonary process. The patient states that he had abnormal stress testing completed June 20, [address] Schmid's office. At that time, planning was for outpatient cardiac catheterization however, the patient developed increased chest pain today. He has a history of previous cardiac catheterization and was noted at that time to have an iodine allergy. At that time, he did not require any intervention or stenting. He is currently on a heparin drip. He is maintained on a n.p.o. diet after midnight and nursing is instructed to obtain patient's consent for left heart catheterization with possible percutaneous coronary intervention. Patient has been continued on home medications including low-dose aspirin, Plavix, beta-blockers, VILMA inhibitor, and statin per hospitalist. A lipid profile, magnesium, TSH, and A1c are pending. 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 Initially, planning was for outpatient catheterization however, patient developed increased chest tightness on Teddy. Planning as per above for cardiac catheterization this admission. Patient is currently in special care unit on a heparin drip. Repeat labs including troponin, magnesium, lipid profile, TSH, and A1c are pending. Twelve-lead EKG prior to transfer does not demonstrate any acute ischemic changes. Repeat twelve-lead EKG and echocardiogram are also pending. Patient is noted to have iodine/contrast media allergy. He has been ordered IV Benadryl 50 mg and IV Solu-Cortef 200 mg rehabilitation services aide for cardiac catheterization. History of CAD: Reported history of CAD and previous catheterization however, previous catheterization did not require intervention or stenting per patient. We will obtain records of patient's previous cardiac procedures. History of CVA x4: Patient has history of CVA x4 without residual deficits. As per patient he has some cognitive deficit before but almost resolved. Patient still has some mild facial asymmetry with right-sided weakness. He is on aspirin 81 mg daily, Plavix 75 mg daily, and atorvastatin 20 mg nightly. Echocardiogram done on 06/23/2020 reviewed: LVEF 55 to 60% with mild LV diastolic dysfunction. The left atrium is moderately dilated. The right ventricle is normal in size and function. No hemodynamically significant valvular aortic stenosis. Moderate aortic regurgitation. There is an eccentric jet of aortic insufficiency directed against the anterior mitral leaflet. There is moderate mitral regurgitation. There is mild tricuspid regurgitation. Mild to moderate pulmonic valvular regurgitation. There is no pericardial effusion. Informed consent was obtained from the patient regarding cardiac catheterization and possible revascularization. Alternatives, risks, benefits, manner of procedure, were discussed in detail. Risks of procedure includes but not limited to sudden cardiac , stroke, heart attack, damage to the femoral artery, femoral nerve, femoral vein, unknown drug allergy or anaphylactic reaction, damage to the kidney, or worsening of existing chronic kidney disease leading to kidney failure requiring temporary or permanent dialysis etc. Patient agrees to proceed further with the full understanding. All questions were answered to patient's satisfaction. 2. Abnormal stress test 3. CAD (coronary artery disease) 4. History of CVA (cerebrovascular accident) Stable Problems Problems not specifically addressed in the above plan are stable and do not warrant adjustment of the current method of therapy. Disclaimer This dictation was created using voice recognition software. Phonetic and/or minor grammatical errors may exist. eSign Date and Time Elton Patel MD Verified/Reviewed by 06/23/20 1030 Santino Cordova CNP Normal [facility] Consultation-Cardiolog y Normal [facility] HGB A1C GLYCOHBon 06-23-2020 HbA1c (Bld) [Mass fraction] 6.0 % Normal 4.3-6.0 [facility] Comment on above: Order Comment: Ivan s: M Minimal Draw: Y Performed By: #### L [id number], [id number] #### [facility] [address] [place] [id number] HP.[email or web address] 06-23-2020 HP.IMS.ADM [facility] Patient Name: HORACE JOE [address] [facility] Date of : [address] [place], [place] [address] Unit Number: [id number] Admission-HandP Patient Status: ADM IN Attending Doctor: Missy Hussein DO Service Date: 06/22/202235 History of Present Illness Chief Complaint/Present Illness: Chest pain History of Present Illness 70-year-old male, 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 Rosario, past medical history of coronary artery disease, history of 4 CVAs, history of CHF presented to [facility] emergency department with chest pain. He was ambulating in his house when he had this chest pain, a sensation that the wind was knocked out of him. His chest was tight, he sat down and after 1 to 2 minutes chest pain resolved at rest. Patient of Dr. Schmid who did a stress test on the patient in his office on June 20 and this demonstrated inferior wall abnormalities. The ED physician spoke to Dr. Schmid who was going to schedule him for a cath however because of this incident tonight he recommends transfer here to [facility] for cath. Stable vitals at the [facility] emergency department, labs demonstrate troponin 0.081 which is elevated per their lab values, BUN 25, creatinine 1.0, labs otherwise unremarkable. EKG which I reviewed shows normal sinus rhythm with PVC. Chest x-ray had been without acute disease per report. He was started on a heparin drip and transferred. I saw the patient in SCU 9, he sitting comfortably in bed and has not had recurrence of chest pain. Past Medical/Surgical Hx Past Medical History Coronary artery disease Osteoporosis CHF History of 4 strokes, no residual deficits GERD History of GI bleed a few years ago, no malignancy BPH Glaucoma Past Surgical History Appendectomy Bilateral hernia repair TandA Right total hip arthroplasty Partial right knee replacement Cardiac catheterization Family/Social History Family History FATHER, . FH: stomach cancer MOTHER, . Hypertension BROTHER CVA SISTER Substances Denies use of: Alcohol, Tobacco (Quit 40 years ago), Recreational Drugs. Social Hx Lives with his Advance Directives Advance Directives Full Code Allergies/Home Medications Allergies Coded Allergies: IODINATED CONTRAST MEDIA (Severe, swelling 06/22/20) CODEINE (Intermediate, 06/22/20) Home Medications Alendronate Sodium* (Fosamax 70MG Tab*) 70 MG TABLET 70 MG PO Q7DAY, Ref 0 (Reported) GIVE AT LEAST 30 MINUTES BEFORE MEALS. DO NOT GIVE WITH MINERAL WATER, COFFEE, OJ, MILK OR OTHER DAIRY PRODUCTS. IF POSSIBLE, HAVE PATIENT SET UP FOR 30 MINUTES AFTER TAKING TO AVOID HEARTBURN. Entered as Reported by RAGHAV ABAD on 06/22/202218 Last Action: Continued on 06/22/202233 by MISSY HUSSEIN Aspirin* (Aspirin 81MG Tablet Chew*) 81 MG TAB.CHEW 81 MG PO QDAYWM, Ref 0 (Reported) Entered as Reported by RAGHAV ABAD on 06/22/202222 Last Action: Continued on 06/22/202233 by MISSY HUSSEIN Atorvastatin Calcium* (Lipitor 20MG Tab*) 20 MG TABLET 20 MG PO QHS, Ref 0 (Reported) Entered as Reported by RAGHAV ABAD on 06/22/202219 Last Action: Continued on 06/22/202233 by MISSY HUSSEIN Brimonidine Tartrate (Alphagan P 0.1% Opth Drop) 10 ML DROPS 1 GTT OU BID, Ref 0 ( Reported) Entered as Reported by RAGHAV ABAD on 06/22/202221 Last Action: Continued on 06/22/202233 by MISSY HUSSEIN Clopidogrel Bisulfate* (Plavix 75MG Tab*) 75 MG TABLET 75 MG PO QDAY, Ref 0 (Reported) Entered as Reported by RAGHAV ABAD on 06/22/202222 Last Action: Continued on 06/22/202233 by MISSY HUSSEIN Finasteride* (Proscar 5MG Tab*) 5 MG TABLET 5 MG PO QDAY, Ref 0 (Reported) Entered as Reported by RAGHAV ABAD on 06/22/202220 Last Action: Continued on 06/22/202233 by MISSY HUSSEIN Fluticasone Propionate* (Flonase Nasal [place]*) 16 GM SPRAY.SUSP 1 SPRAY NS BID, Ref 0 ( Reported) Entered as Reported by RAGHAV ABAD on 06/22/202219 Last Action: Continued on 06/22/202233 by MISSY HUSSEIN Latanoprost* (Xalatan 0.005% Eye Drop*) 2.5 ML DROPS 1 GTT OU QHS, Ref 0 (Reported) Entered as Reported by RAGHAV ABAD on 06/22/202220 Last Action: Continued on 06/22/202233 by MISSY HUSSEIN metoprolol SUCCINATE* (Toprol XL 50MG Tab SA*) 50 MG TAB.ER.24H 50 MG PO QDAY, Ref 0 ( Reported) Entered as Reported by RAGHAV ABAD on 06/22/202221 Last Action: Continued on 06/22/202233 by MISSY HUSSEIN Multivitamin* (Multiple Vitamins Daily Tab*) 1 EACH TABLET 1 UDTAB PO QDAY, Ref 0 ( Reported) Entered as Reported by RAGHAV ABAD on 06/22/202219 Last Action: Continued on 06/22/202233 by MISSY HUSSEIN Pantoprazole* (Protonix 40MG Tab*) 40 MG TABLET.DR 40 MG PO QDAYAC, Ref 0 (Reported) Entered as Reported by RAGHAV ABAD on 06/22/202219 Last Action: Continued on 06/22/202233 by MISSY HUSSEIN Ramipril* (Altace 2.5MG Cap*) 2.5 MG CAPSULE 2.5 MG PO QDAY, Ref 0 (Reported) Entered as Reported by RAGHAV ABAD on 06/22/202222 Last Action: Continued on 06/22/202233 by MISSY HUSSEIN TiZANidine HCL* (Zanaflex 4MG Tab*) 4 MG TABLET 4 MG PO TIDPRN PRN BACK PAIN, Ref 0 ( Reported) Entered as Reported by RAGHAV ABAD on 06/22/202223 Last Action: Continued on 06/22/202233 by MISSY HUSSEIN Review of Systems Constitutional Denies: Fever, Chills. EENT Denies: Vision Change, Nasal Congestion. Cardiovascular Reports: Chest Pain. Denies: Palpitations, Syncope, Leg Swelling. Pulmonary Denies: Dyspnea, Cough. Gastrointestinal Denies: Abdominal Pain, Nausea, Vomiting. Musculoskeletal Denies: Joint Pain, Back Pain. Skin Denies: Rash. Lymphatic Denies: Enlarged Lymph Nodes. Neuro Denies: Headache, Dizziness, Numbness, Tingling. Psychiatric Denies: Depression, Anxiety. Physical Exam Vital Signs Vital Signs (Last) Result Date Time Pulse Ox 97 06/22 2144 B/P 139/77 06/22 2144 B/P Mean 103 06/22 2144 Temp 98.5 06/22 2144 Pulse 72 06/22 2144 Resp 17 06/22 2144 Appearance - PE Awake, Alert, No distress Neck - PE Normal inspection, Supple, Full range of motion HEENT - PE Head atraumatic, Eyes normal inspection, PERRLA, Hearing grossly normal, No signs of dehydration, Mucosa moist Respiratory - PE Lungs sound clear, Respirations non-labored, Symmetrical expansion Cardiovascular - PE Rate WNL, Rhythm regular, Normal heart sounds Neurological - PE Alert, Oriented x 3, No motor deficit, No sensory deficit Abdomen - PE Bowel sounds present, Abdomen soft, Non-tender, No distension Extremity - PE Normal appearance, No pedal edema, Symmetrical Skin - PE Color normal, Skin warm, dry Conclusion / Plan Conclusion 1. Unstable angina 2. Abnormal stress test 3. CAD (coronary artery disease) 4. Osteoporosis 5. History of CVA (cerebrovascular accident) 70-year-old male with a past history of coronary artery disease follows with Dr. Schmid and had an abnormal stress test this past June 20, demonstrating inferior wall abnormalities. This is per report, I do not have the report. He developed some chest pain with exertion earlier this evening and presented to the outlying emergency department his troponin was elevated at 0.081., EKG demonstrating normal sinus rhythm with PVC chest x-ray negative. Start heparin ip and transferred here. Admitted to CCU per Dr. Schmid's recommendation. Unstable angina, with a history of coronary artery disease and a recent abnormal stress test. At outlying emergency department troponin was slightly elevated, repeat troponin was ordered and pending, continued on heparin drip with labs ordered as well. Cardiology consultation. Possible cath. Echocardiogram ordered. We will continue aspirin, Plavix, beta-abdoulaye, VILMA inhibitor, statin. Will get lipid profile now as well. Osteoporosis, will continue Fosamax which she does take on Mondays. History of CVA x4. BPH, continue Proscar Disclaimer This dictation was created using voice recognition software. Phonetic and/or minor grammatical errors may exist. eSign Date and Time Missy Hussein DO Verified/Reviewed by 06/22/20 9958 Normal [facility] LIPIDon 06-23-2020 Cholesterol [Mass/Vol] 108 MG/dL Normal 0-199 [facility] Comment on above: Order Comment: Ivan Obrien Performed By: #### L [id number] #### [facility] [place] [address] Cholesterol in HDL [Mass/Vol] 45 mg/dL Normal GREATER THAN 40 [facility] Comment on above: Order Comment: Ivan Obrien Result Comment: Nunu ents receiving Metamizole prior to venipuncture, may have falsely depressed results. Performed By: #### L [id number] #### [facility] [place] [address] Cholesterol in LDL [Mass/Vol] 55 mg/dL Normal [facility] Comment on above: Order Comment: Ivan Obrien Result Comment: ___C HOLESTEROL/HDL RATIO RISK___ CHD RISK = Total CHOL LDL HDL (CHOL/HDL) Recommended <200 <130 >40 <3.4 Borderline 200-239 130-159 3.4-4.99 High >240 >160 >5.0 Performed By: #### L [id number] #### [facility] [address] [place] [address] Triglyceride [Mass/Vol] 41 mg/dL Normal 30-149 [facility] Comment on above: Order Comment: Ivan s: Micah Result Comment: Nunu ents receiving either N-Acetylcysteine (NAC) or Metamizole prior to venipuncture, may have falsely depressed results. Performed By: #### L [id number] #### [facility] [address] [place] [id number] MAGNESIUMon 06-23-2020 Magnesium [Mass/Vol] 2.0 MG/CL Normal 1.6-2.6 [facility] Comment on above: Order Comment: Ivan Obrien Performed By: #### L [id number], [id number] #### [facility] [address] [place], [place] [id number] PROG IMS 06-23-2020 PROG [facility] Patient Name: HORACE JOE [address] [place] [address] Date of : [address] [place] [address] Unit Number: [id number] Progress Note-Hospitalist Patient Status: ADM IN Attending Doctor: Missy Hussein DO Service Date: 06/23/20 1411 Chief Complaint Chief Complaint CAD Subjective S: (2 ROS minimum) Patient was seen examined before heart cath, patient denied having chest pain shortness breath fever chills nausea vomiting. Post heart cath, results recommended aggressive medical management. Post heart cath patient is drowsy due to medication due to iodine allergy. Objective (ROS) Nursing Vitals Vital Signs (Last) Result Date Time Pulse Ox 97 06/23 1400 B/P 109/67 06/23 1400 Pulse 65 06/23 1400 Resp 15 06/23 1400 B/P Mean 97 06/23 1230 Temp 98.3 06/23 0920 Physical Exam: General: Patient is alert and oriented x3 and is in no acute respiratory distress. HEENT no eye congestion no ear discharge. Neck is supple no JVD. Lungs: Clear to auscultation, no wheezing, rales, or rhonchi. Cardiac: S1-S2 within normal limits Abdomen: Soft, nontender, nondistended. Extremities: No cyanosis Skin: No rashes or breakdown. Neurologic: Cranial nerves from II-XII intact grossly. Psych normal affect. Lymphatic system, no submandibular or anterior cervical lymphadenopathy. Diagnostic Data: Lab 24hr (CBC/BMP [facility]) 06/23/20 1100: Troponin I Cancelled 06/23/20 1100: Creatine Kinase Cancelled, CK-MB (CK-2) Cancelled, CK-MB (CK-2) Rel Index Cancelled 06/23/20 0529: Troponin I 80.7 *H 06/23/20 0529: Magnesium 2.0, TSH, Ultra Sensitive 1.278 06/23/20 0529: Hemoglobin A1c 6.0 06/23/20 0529: [Embedded Image Not Available] Creatine Kinase 179, CK-MB (CK-2) 1.96, CK-MB (CK-2) Rel Index 1.0, APTT 43.7 H, RBC 4.34 L, MCV 87.6, MCHC 31.6 L, RDW 15.5 H, MPV 9.9, Nucleated RBCs 0.0 06/23/20 0009: Troponin I 86.2 *H 06/23/20 0009: Creatine Kinase 201 H, CK-MB (CK-2) 2.34, CK-MB (CK-2) Rel Index 1.1 06/23/20 0009: [Embedded Image Not Available] Triglycerides 41, Cholesterol 108, LDL Cholesterol 55, HDL Direct 45, INR 1.04, PT Normal Mean Secs 11.1, APTT 28.5, RBC 4.22 L, MCV 86.5, MCHC 32.3, RDW 15.6 H, MPV 10.1, Nucleated RBCs 0.0 Assessment and Plan Conclusion 1. Unstable angina 2. Abnormal stress test 3. CAD (coronary artery disease) 4. Osteoporosis 5. History of CVA (cerebrovascular accident) 6. HTN (hypertension) 7. Hyperlipidemia *Continue antiplatelets, continue VILMA inhibitor, increase Lipitor to 40 mg, cardiology is on the case, patient will continue recovery from heart cath. *Continue clinical medications monitor vital signs Disclaimer This dictation was created using voice recognition software. Phonetic and/or minor grammatical errors may exist. eSign Date and Time Merlin Negron MD Verified/Reviewed by 06/23/20 1413 [facility] Progress Note-Hospitalist [facility] PTon 06-23-2020 INR Coag (PPP) [Relative time] 1.04 {INR} Normal 0.9-1.1 [facility] Comment on above: Order Comment: Ivan Obrien Minimal Draw: Y Result Comment: Subha mmended PT INR therapeutic range for assistant terminal manager and prophylactic therapy is 2.0 - 3.0. For heart valve and shunt patients the range is 2.5 - 3.5. Performed By: #### L [id number] #### [facility] [address] [place] [id number] PT Coag (PPP) [Time] 11.1 s Normal 9.5-12.0 [facility] Comment on above: Order Comment: Ivan Obrien Minimal Draw: Y Performed By: #### L [id number] #### [facility] [address] [place] [id number] PTTon 06-23-2020 aPTT Coag (Bld) [Time] 43.7 s High 22.0-31.5 [facility] Comment on above: Order Comment: Ivan Obrien Minimal Draw: Y Result Comment: Ther apeutic Heparin Reference Range: High Dose: 46-75 seconds (DVT/PE) Low Dose: 39-60 seconds (Acute Coronary Syndrome) For low molecular weight heparin or danaparoid, monitoring is often NOT necessary, but the heparin assay, Xa inhibition assay (send-out) may be used in certain circumstances, as the PTT is generally insensitive to the effect of these agents. Direct thrombin inhibitors are becoming more widely utilized and these drugs are often monitored using the PTT. Performed By: #### L [id number] #### [facility] [address] [place] [address] aPTT Coag (Bld) [Time] 28.5 s Normal 22.0-31.5 [facility] Comment on above: Order Comment: Ivan Obrien Minimal Draw: Y Result Comment: Ther apeutic Heparin Reference Range: High Dose: 46-75 seconds (DVT/PE) Low Dose: 39-60 seconds (Acute Coronary Syndrome) For low molecular weight heparin or danaparoid, monitoring is often NOT necessary, but the heparin assay, Xa inhibition assay (send-out) may be used in certain circumstances, as the PTT is generally insensitive to the effect of these agents. Direct thrombin inhibitors are becoming more widely utilized and these drugs are often monitored using the PTT. Performed By: #### L [id number] #### [facility] [address] [place] [address] TROPONIN Ion 06-23-2020 Troponin I.cardiac [Mass/Vol] 80.7 pg/mL Critically high 0-54 [facility] Comment on above: Order Comment: Ivan Obrien Minimal Draw: Y Result Comment: Prev ious Critical within one week. Critical Result(s) verified at: 06:05:36 on 06/23/2020 by: Geetha Fulton NOTE NEW NORMAL RANGE DUE TO REAGENT CHANGE This assay uses different antibodies than our current assay, and assays, even by the same marketing planner may recognize different regions of the antibody and cannot be used interchangeably. Expect results of this assay to run higher than the previous assay. Performed By: #### L [id number] #### [facility] [address] [place] [id number] Troponin I.cardiac [Mass/Vol] 86.2 pg/mL Critically high 0-54 [facility] Comment on above: Order Comment: Ivan s: M Minimal Draw: Y Result Comment: Crit ical Result(s) Called at: 00:44:39 on 06/23/2020 by MGM. Called to and read back by: SHA ABAD NOTE NEW NORMAL RANGE DUE TO REAGENT CHANGE This assay uses different antibodies than our current assay, and assays, even by the same marketing planner may recognize different regions of the antibody and cannot be used interchangeably. Expect results of this assay to run higher than the previous assay. Performed By: #### L [id number] #### [facility] [address] [place], [place] [id number] TSHon 06-23-2020 TSH Qn 1.278 UIU/ML Normal 0.358-3.740 [facility] Comment on above: Order Comment: Ivan s: Micah Result Comment: 3rd generation ultra sensitive TSH Performed By: #### L 500.40658, L500.23265 #### [facility] [address] [place], [place] [id number] CDLECHOon 06-22-2020 [facility] [id number] IN ECHOCARD ECHOCARDIOGRAM [place] [id number] Noninvasive Cardiac Diagnostics Adult Echocardiogram Report Name: HORACE JOE Study Date: 06/23/2020 08:00 AM BP: 120/73 mmHg Patient Location: [place] [id number]: 70 : 1950 Gender: Male Height: 70 in Age: 70 yrs Ethnicity: K Weight: 208 lb Accession No. [id number] No. [id number] Reason For Study: CHEST PAIN, PRESS/TIGHTNESS BSA: 2.1 m2 History: CHF,Chest Pain,CVA or TIA,Heart Cath,CAD Interpretation Summary LVEF 55 to 60% with mild LV diastolic dysfunction. The left atrium is moderately dilated. The right ventricle is normal in size and function. No hemodynamically significant valvular aortic stenosis. Moderate aortic regurgitation. There is an eccentric jet of aortic insufficiency directed against the anterior mitral leaflet. There is moderate mitral regurgitation. There is mild tricuspid regurgitation. Mild to moderate pulmonic valvular regurgitation. There is no pericardial effusion. Left Ventricle: The left ventricle is normal in size. There is normal left ventricular wall thickness. LVEF 55 to 60% with mild LV diastolic dysfunction. Left ventricular systolic function is normal. The left ventricular wall motion is normal. [facility] PATIENT NAME: HORACE JOE [address] [place] MEDICAL REC #: [id number] [place] [address] ADMIT DATE: 06/22/20 DISCHARGE DATE: ATTENDING PHY: Missy Hussein DO ECHOCARDIOGRAM REPORT Left Atrium/Atrial Septum: The left atrium is moderately dilated. Right Atrium: Right atrial size is normal. Right Ventricle: The right ventricle is normal in size and function. Aortic Valve: There is mild aortic sclerosis.;. The aortic valve is trileaflet. No hemodynamically significant valvular aortic stenosis. Moderate aortic regurgitation. There is an eccentric jet of aortic insufficiency directed against the anterior mitral leaflet. Mitral Valve: The mitral valve is grossly normal. There is no mitral valve stenosis. There is moderate mitral regurgitation. Tricuspid Valve: The tricuspid valve is not well visualized, but is grossly normal. There is mild tricuspid regurgitation. Right ventricular systolic pressure is elevated at 30- 35mmHg. Pulmonic Valve: Grossly normal pulmonic valve. Mild to moderate pulmonic valvular regurgitation. Arteries: The aortic root is normal size. The pulmonary artery is not well visualized, but is probably normal size. Venous: The inferior vena cava is normal in size, with a normal collapsibility index. Pericardium/Pleura: There is no pericardial effusion. MMode/2D Measurements and Calculations IVSd: 0.77 cm LVIDd: IVS/LVPW: EDV(cubed): IVSs: 0.82 cm 6.5 cm 1.1 269.5 ml LVIDs: FS: 24.2 % ESV(cubed): 4.9 cm EF(Teich): 117.2 ml LVPWd: 47.2 % EF(cubed): 0.69 cm 56.5 % LVPWs: % IVS thick: [facility] PATIENT NAME: HORACE JOE [address] [place] MEDICAL REC #: [id number] [place] [address] ADMIT DATE: 06/22/20 DISCHARGE DATE: ATTENDING PHY: Missy Hussein DO ECHOCARDIOGRAM REPORT 0.73 cm 6.9 % % LVPW thick: 7.1 % LV mass(C)d: SV(Teich): MV excursion:Ao root diam: 188.4 grams 100.5 ml 1.9 cm 3.1 cm LV mass(C)dI: SI(Teich): MV E-F slope:Ao root area: 88.8 grams/m2 47.3 ml/m2 21.0 cm/sec 7.7 cm2 LV mass(C)s: SV(cubed): ACS: 2.1 cm 126.1 grams 152.3 ml LA dimension: LV mass(C)sI: SI(cubed): 5.1 cm 59.4 grams/m2 71.8 ml/m2 LA/Ao: 1.6 EF(MOD-sp4):SI(MOD-sp4) : LA ESV Index LVOT diam: 49.5 % (A4C): 2.2 cm 49.9 ml/m2 36.8 ml/m2 Time Measurements Aortic R-R: 0.88 sec Aortic HR: 68.0 BPM Doppler Measurements and Calculations MV E max javy:MV max PG: MV P1/2t: Ao V2 max: 55.3 cm/sec 2.6 mmHg 82.4 msec 134.7 cm/sec MV A max javy:MV mean PG: MVA(P1/2t): Ao max P.0 cm/sec 1.2 mmHg 2.7 cm2 7.3 mmHg MV E/A: 0.75 MVA(VTI): MV dec time: Ao max PG 3.4 cm2 0.19 sec (full): 4.9 mmHg Ao mean P.8 mmHg Ao mean PG (full): 3.4 mmHg Ao V2 VTI: 27.4 cm HAWA(I,A): 2.2 cm2 HAWA(I,D): 2.2 cm2 HAWA(V,A): 2.3 cm2 HAWA(V,D): 2.3 cm2 [facility] PATIENT NAME: HORACE JOE [address] [place] MEDICAL REC #: [id number] [place] [address] ADMIT DATE: 06/22/20 DISCHARGE DATE: ATTENDING PHY: Missy Hussein DO ECHOCARDIOGRAM REPORT LV V1 max: MR max javy: MR PISA: CO(Ao): 77.5 cm/sec 558.2 cm/sec 2.0 cm2 14.4 l/min LV V1 mean: MR max PG: MR flow rate: CI(Ao): 57.1 cm/sec 124.6 mmHg 75.4 cm3/sec 6.8 l/min/m2 LV V1 VTI: MR mean javy: MR ERO: SV(Ao): 14.9 cm 444.6 cm/sec 211.9 ml MR mean P.14 cm2 SI(Ao): 85.2 mmHg MR volume: 99.8 ml/m2 MR VTI: 26.0 ml CO(LVOT): 192.5 cm MR PISA 4.0 l/min radius: CI(LVOT): 0.56 cm MR alias javy: 1.9 l/min/m2 38.5 cm/sec SI(LVOT): 27.9 ml/m2 PA max PG: PI end-d javy: TR max javy: RAP systole: 6.4 mmHg 77.4 cm/sec 246.4 cm/sec 10.0 mmHg TR max P.3 mmHg RVSP(TR): 34.3 mmHg MV P1/2t- Lateral E/E': Medial E/E': pr_phl: 10.1 7.1 82.4 msec Pediatric Measurements and Calculations Lat Peak E' Javy: 5.5 cm/sec Med Peak E' Javy: 7.8 cm/sec Reviewed/Verified By: Elton Patel MD 06/23/2020 09:39 AM Ordering Physician: Missy Hussein Referring Physician: NAVID ROSARIO Performed By: 18 CC: Missy Hussein [facility] [address] [facility] MEDICAL REC #: [id number] [place] [address] ADMIT DATE: 06/22/20 DISCHARGE DATE: ATTENDING PHY: Missy Hussein DO ECHOCARDIOGRAM REPORT Normal [facility] ECHOCARDIOGRAM REPORT Normal [facility] Vital Signs Date Time Vital Sign Value Performing Clinician Facility 02-21-2025 14:30-0400 Body height 177.8 cm Lenny Perry MD Work Phone: [facility] 02-21-2025 14:30-0400 Body mass index (BMI) [Ratio] 28.4 kg/m2 Lenny Perry MD Work Phone: [facility] 02-21-2025 14:30-0400 Body weight 89.81 kg Lenny Perry MD Work Phone: [facility] 02-21-2025 14:30-0400 Diastolic blood pressure 69 mm[Hg] Lenny Perry MD Work Phone: [facility] 02-21-2025 14:30-0400 Heart rate 65 /min Lenny Perry MD Work Phone: [facility] 02-21-2025 14:30-0400 Respiratory rate 18 /min Lenny Perry MD Work Phone: [facility] 02-21-2025 14:30-0400 Systolic blood pressure 112 mm[Hg] Lenny Perry MD Work Phone: [facility] 08-20-2024 13:47-0400 Body height 177.8 cm Lenny Perry MD Work Phone: [facility] 08-20-2024 13:47-0400 Body mass index (BMI) [Ratio] 28.5 kg/m2 Lenny Perry MD Work Phone: [facility] 08-20-2024 13:47-0400 Body weight 90.26 kg Lenny Perry MD Work Phone: [facility] 08-20-2024 13:47-0400 Diastolic blood pressure 65 mm[Hg] Lenny Prery MD Work Phone: [facility] 08-20-2024 13:47-0400 Heart rate 64 /min Lenny Perry MD Work Phone: [facility] 08-20-2024 13:47-0400 Respiratory rate 18 /min Lenny Perry MD Work Phone: [facility] 08-20-2024 13:47-0400 SaO2% (BldA) [Mass fraction] 94 % Lenny Perry MD Work Phone: [facility] 08-20-2024 13:47-0400 Systolic blood pressure 111 mm[Hg] Lenny Perry MD Work Phone: [facility] 03-07-2024 17:26-0400 Body temperature 97.3 [degF] Jocelyne Jabari [employer]OSPITALITY WORKERS.AIRCRAFT NAVIGATOR Work Phone: [facility] 03-07-2024 17:26-0400 Body weight 92 kg Jocelyne Jabari [employer]PITALITY WORKERS.AIRCRAFT NAVIGATOR Work Phone: [facility] 03-07-2024 17:26-0400 Diastolic blood pressure 76 mm[Hg] Jocelyne Jabari [employer]PITALITY WORKERS.AIRCRAFT NAVIGATOR Work Phone: [facility] 03-07-2024 17:26-0400 Heart rate 76 /min Jocelyne Jabari [employer]OSPITALITY WORKERS.AIRCRAFT NAVIGATOR Work Phone: [facility] 03-07-2024 17:26-0400 Respiratory rate 16 /min Jocelyne Jabari HOSPITALITY WORKERS.AIRCRAFT NAVIGATOR Work Phone: [facility] 03-07-2024 17:26-0400 SaO2% (BldA) [Mass fraction] 96 % Jocelyne Jabari [employer]PITALITY WORKERS.AIRCRAFT NAVIGATOR Work Phone: [facility] 03-07-2024 17:26-0400 Systolic blood pressure 128 mm[Hg] Jocelyne Jabari [employer]OSPITALITY WORKERS.AIRCRAFT NAVIGATOR Work Phone: [facility] 08-30-2023 12:51-0400 Body temperature 97.59 [degF] Cathy Rae HOSPITALITY WORKERS.AIRCRAFT NAVIGATOR Work Phone: [facility] 08-30-2023 12:51-0400 Body weight 88.6 kg Cathy Rae [employer]PITALITY WORKERS.AIRCRAFT NAVIGATOR Work Phone: [facility] 08-30-2023 12:51-0400 Diastolic blood pressure 78 mm[Hg] Cathy Rae H[employer]PITALITY WORKERS.AIRCRAFT NAVIGATOR Work Phone: [facility] 08-30-2023 12:51-0400 Heart rate 76 /min Cathy Rae HOSPITALITY WORKERS.AIRCRAFT NAVIGATOR Work Phone: [facility] 08-30-2023 12:51-0400 Respiratory rate 16 /min Cathy Rae [employer]PITALITY WORKERS.AIRCRAFT NAVIGATOR Work Phone: [facility] 08-30-2023 12:51-0400 SaO2% (BldA) [Mass fraction] 98 % Cathy Rae [employer]PITALITY WORKERS.AIRCRAFT NAVIGATOR Work Phone: [facility] 08-30-2023 12:51-0400 Systolic blood pressure 124 mm[Hg] Cathy Rae HOSPITALITY WORKERS.AIRCRAFT NAVIGATOR Work Phone: [facility] 08-15-2023 11:07-0400 Body height 177.8 cm Out [facility] 08-15-2023 11:07-0400 Body mass index (BMI) [Ratio] 27.6 kg/m2 [facility] 08-15-2023 11:07-0400 Body weight 87.54 kg [facility] 08-15-2023 11:07-0400 Diastolic blood pressure 79 mm[Hg] Out [facility] 08-15-2023 11:07-0400 Heart rate 73 /min Out [facility] 08-15-2023 11:07-0400 Respiratory rate 16 /min Out [facility] 08-15-2023 11:07-0400 Systolic blood pressure 117 mm[Hg] [facility] 02-19-2023 23:51-0400 Diastolic blood pressure 67 mm[Hg] [facility] 02-19-2023 23:51-0400 Heart rate 81 /min [facility] 02-19-2023 23:51-0400 Respiratory rate 18 /min [facility] 02-19-2023 23:51-0400 SaO2% (BldA) [Mass fraction] 99 % [facility] 02-19-2023 23:51-0400 Systolic blood pressure 117 mm[Hg] [facility] 02-19-2023 19:50-0400 Body height 177.8 cm [facility] 02-19-2023 19:50-0400 Body mass index (BMI) [Ratio] 28.5 kg/m2 [facility] 02-19-2023 19:50-0400 Body temperature 98.5 [degF] [facility] 02-19-2023 19:50-0400 Body weight 90.4 kg [facility] 10-20-2022 17:24-0400 Heart rate 86 /min Grady Maldonadollier [facility] 10-20-2022 13:10-0400 Body temperature 97.5 [degF] Grady Maldonadollier [facility] 10-20-2022 13:10-0400 Diastolic blood pressure 73 mm[Hg] Grady Maldonadollier [facility] 10-20-2022 13:10-0400 Respiratory rate 18 /min Grady Maldonadolljairo [facility] 10-20-2022 13:10-0400 SaO2% (BldA) [Mass fraction] 94 % Grady Maldonadollier [facility] 10-20-2022 13:10-0400 Systolic blood pressure 128 mm[Hg] Grady Maldonadollier [facility] 10-20-2022 07:33-0400 Body weight 87.8 kg Grady Maldonadollier [facility] 10-19-2022 18:48-0400 Body height 177.8 cm Grady Maldonadollier [facility] 10-19-2022 17:44-0400 Diastolic blood pressure 84 mm[Hg] Grady Maldonadollier [facility] 10-19-2022 17:44-0400 Heart rate 79 /min Grady Maldonadollier [facility] 10-19-2022 17:44-0400 Respiratory rate 16 /min Grady Sanches [facility] 10-19-2022 17:44-0400 SaO2% (BldA) [Mass fraction] 94 % [facility] 10-19-2022 17:44-0400 Systolic blood pressure 130 mm[Hg] [facility] 10-19-2022 13:58-0400 Body temperature 97.7 [degF] Grady Sanches [facility] 10-19-2022 13:53-0400 Body weight 89.35 kg Grady Sanches [facility] 02-21-2021 08:56-0400 Diastolic blood pressure 96 mm[Hg] Jarrett Crook [facility] 02-21-2021 08:56-0400 Heart rate 73 /min Jarrett Armaan [facility] 02-21-2021 08:56-0400 Systolic blood pressure 139 mm[Hg] Jarrett Payans [facility] 02-21-2021 06:44-0400 Body temperature 97.5 [degF] Jarrett Crook [facility] 02-21-2021 06:44-0400 Body weight 95.25 kg Jarrett Crook [facility] 02-21-2021 06:44-0400 Respiratory rate 14 /min Jarrett Crook [facility] 02-21-2021 06:44-0400 SaO2% (BldA) [Mass fraction] 96 % Jarrett Crook [facility] Encounters Encounter Date Encounter Type Care Provider Facility Start: 02-21-2025 End: 02-21-[address] Rene Denis MD -[facility] Work Phone: Start: 02-21-2025 End: 02-21-2025 ambulatory Lenny Perry MD Work Phone: -[facility] Start: 09-17-2024 Encounter for other preprocedural examination Juaquin Sonido [facility] Start: 08-31-2024 Encounter for preprocedural cardiovascular examination Rene Denis [facility] Start: 08-23-2024 [facility] Start: 08-23-2024 Non-patient / Non-visit [facility]. Rene nuñez MD -[facility] Start: 08-23-2024 End: 08-23-2024 ambulatory Lenny Perry MD Work Phone: [facility] Work Phone: Start: 08-23-2024 End: 08-23-[address] Rene Denis MD -Cardi[facility] Services Work Phone: Start: 08-23-2024 End: 08-23-2024 ambulatory Rene Denis Facility:[facility] Start: 08-20-2024 End: 08-20-[address] Rene Denis MD -[facility] Work Phone: Start: 08-20-2024 End: 08-20-[address] Rene Denis MD [facility] Start: 08-20-2024 End: 08-20-2024 ambulatory Lenny Perry Facility:[facility] Start: 07-16-2024 End: 07-16-2024 Non-patient / Non-visit Dr. Jarrett Barnhart MD -[facility] Work Phone: Start: 07-16-2024 End: 07-16-[address] Samy Barrientos MD Work Phone: [facility] Work Phone: Start: 07-16-2024 End: 07-16-[address] Juaquin Head MD -Cat Scan, [facility] Work Phone: Start: 07-16-2024 End: 07-16-2024 ambulatory Juaquin Head Facility:[facility] Start: 07-11-2024 ambulatory Juaquin Head Facility: [facility] Start: 06-04-2024 ambulatory ALLIE DANIELS [facility] Start: 06-04-2024 End: 06-04-2024 Subsequent hospital visit by physician Yifan Caicedo (1.5t) [facility] Comment on above: aaa mitral valve ins f. Start: 05-28-2024 End: 05-28-2024 Telephone encounter Nate Evelyn assistant press operator offset [facility] Start: 04-26-2024 End: 04-26-2024 ambulatory Estephania Phan [facility] Start: 04-26-2024 End: 04-26-2024 Patient encounter procedure Estephania Phan [facility] Comment on above: Population Health Na vigation Outreach ([place] No PCP ) Start: 04-09-2024 End: 04-09-[address] Samy Barrientos MD -Laboratory Work Phone: Start: 04-09-2024 End: 04-09-2024 ambulatory Chalon Vicky Facility:[facility] Start: 04-03-2024 End: 04-03-[address] Samy Barrientos MD -Cat Scan, [facility] Work Phone: Start: 04-03-2024 End: 04-03-2024 ambulatory Chalon Vicky Facility:[facility] Start: 03-22-2024 End: 03-22-2024 ambulatory Chalon Vicky Facility:[facility] Start: 03-09-2024 End: 03-09-2024 Telephone encounter Oneal Fulton MD Work Phone: [facility] Comment on above: Results (Urine Cx ) Start: 03-07-2024 End: 03-07-2024 ambulatory CATHY RAE Facility:[facility] Start: 03-07-2024 End: 03-07-2024 Patient encounter procedure Jocelyne Barboza APRN.AIRCRAFT NAVIGATOR Work Phone: [facility] Comment on above: Gross hematuria (Wilma ravin Dx) Start: 02-09-2024 End: 02-09-2024 ambulatory Barbara Peterson RN Work Phone: [employer] Comment on above: MARYSE COTA RN ( ER outreach) Start: 09-22-2023 Non-patient / Non-visit [facility] Work Phone: Start: 09-21-2023 Non-patient / Non-visit [facility] Start: 09-21-2023 End: 09-21-2023 ambulatory [facility] Work Phone: Start: 09-21-2023 End: 09-21-2023 Patient encounter procedure [facility] Work Phone: Start: 09-05-2023 Non-patient / Non-visit [facility] Work Phone: Start: 09-02-2023 Non-patient / Non-visit [facility] Start: 09-02-2023 End: 09-02-2023 ambulatory [facility] Work Phone: Start: 09-02-2023 End: 09-02-2023 Patient encounter procedure [facility] Work Phone: Start: 08-30-2023 End: 08-30-2023 Subsequent hospital visit by physician Xr [facility] Work Phone: Radiology Comment on above: Right-sided chest pa in [R07.9] Start: 08-30-2023 End: 08-30-2023 ambulatory CATHY RAE Facility:[facility] Start: 08-30-2023 End: 08-30-2023 Patient encounter procedure Cathy Rae HOSPITALITY WORKERS.AIRCRAFT NAVIGATOR Work Phone: [facility] Comment on above: Right-sided chest pa in (Primary Dx) Start: 08-19-2023 Registered Referred Out [facility] Work Phone: Start: 08-15-2023 End: 08-15-2023 Patient encounter procedure Out [facility] Work Phone: Start: 02-19-2023 End: 02-19-2023 Emergency department patient visit [facility]gency Department Work Phone: Start: 02-16-2023 ambulatory Jaiden Dillon Facility :[facility] Start: 01-28-2023 ambulatory Ezekiel Schulz Facilit y:[facility] Start: 01-17-2023 ambulatory Grady Robles Ericakarolina Facility:[facility] Start: 01-14-2023 ambulatory Jarrett Epps ility:[facility] Start: 12-08-2022 ambulatory Jarrett Epps ility:[facility] Start: 10-19-2022 End: 10-20-2022 ambulatory Grady Travis Ericakarolina Facility:[facility] Start: 10-19-2022 End: 10-20-2022 Evaluation and management of inpatient Grady Sanches [facility] Start: 08-09-2022 ambulatory Jarrett Epps ility:[facility] Start: 08-09-2022 Patient encounter procedure Grady Sanches [facility] Start: 08-03-2022 ambulatory Grady Sanches Facility:[facility] Start: 08-03-2022 Patient encounter procedure Grady Sanches [facility] Start: 03-09-2022 ambulatory Jarrett Haines Fac ility:[facility] Start: 03-09-2022 Patient encounter procedure Grady Sanches [facility] Start: 01-11-2022 Patient encounter procedure Grady Sanches [facility] Start: 09-23-2021 End: 09-24-2021 Discharged Recurring Jarrett Crook [facility] Start: 09-07-2021 Patient encounter procedure Jarrett Crook [facility] Start: 07-24-2021 Patient encounter procedure Jarrett Crook [facility] Start: 03-06-2021 Patient encounter procedure Jarrett Crook [facility] Start: 02-21-2021 End: 02-21-2021 Emergency department patient visit Jarrett Crook [facility] Start: 02-11-2021 Patient encounter procedure Jarrett Crook [facility] Start: 02-04-2021 Patient encounter procedure Jarrett Crook [facility] Start: 01-07-2021 Patient encounter procedure Jarrett Crook [facility] Procedures Date Procedure Procedure Detail Performing Clinician Start: 08-23-2024 Cardiovascular stres s test using pharmacologic stress agent Lenny Perry MD Work Phone: Start: 07-16-2024 MRI of lower extremity Dr. Samy Barrientos MD Work Phone: Start: 06-04-2024 Cardiac mri w/wo con trast & further seq Rene Denis MD Work Phone: Start: 04-03-2024 CT of abdomen and pe lvis without contrast Dr. Samy Barrientos MD Work Phone: Start: 03-07-2024 Urnls dip stick/tabl et rgnt auto w/o microscopy Jocelyne Barboza [employer] Work Phone: Start: 08-30-2023 Radiologic exam chest 2 views Cathy Rae [employer] Work Phone: Start: 01-14-2023 PSA screening Jarrett ryan Comment on above: Result Comment: TEST MANUFACTURED BY SIEMENS USING CHEMILUMINESCENT IMMUNOASSAY METHODOLOGY. PATIENT RESULTS DETERMINED BY ASSAYS USING DIFFERENT MANUFACTURERS FOR METHODS MAY NOT BE COMPARABLE. Performed By: #### P SAF #### [place] [address] Start: 12-08-2022 PSA screening Jarrett ryan Comment on above: Performed By: #### P SA #### [place] [address] Start: 10-20-2022 Echocardiography Grady Sanches Start: 10-19-2022 CT of head without contrast Grady Sanches Start: 10-19-2022 Magnetic resonance angiography of head without contrast Grady Sanches Start: 10-19-2022 Magnetic resonance angiography of neck without contrast Grady Maldonadolljairo Start: 10-19-2022 MRI of brain without contrast Grady Sanches Start: 08-09-2022 PSA screening Jarrett S shelby Comment on above: Performed By: #### P SA #### [place] [address] Start: 08-03-2022 SCREENING FOR AAA Martín aleksandr Sanches Start: 03-09-2022 PSA screening Jarrett Frost shelby Comment on above: Performed By: #### T IB, MK #### [place] [address] [address] Start: 02-21-2021 CT of head without contrast Jarrett Crook Start: 02-11-2021 Bone density scan Keith Crook Start: 01-07-2021 Pelvic echography Keith Crook Start: 06-23-2020 Cardiac catheterization Start: 06-23-2020 Lipid 1996 panel - S stephon or Plasma Cathy Rae [employer] Work Phone: Start: 06-22-2020 Electrocardiogram Plan of Treatment Date Care Activity Detail Author Start: 06-23-2025 Lipid panel Lipid Screening [facility] Start: 06-04-2024 End: 06-04-2024 Patient encounter procedure 06/04/2024 12:45 PM EST Appointment [facility] [address] [place] [address] aaa w/o rupture hypertension arotic valve insf. order in scanned doc [facility] Comment on above: aaa w/o rupture hype rtension arotic valve insf. order in scanned doc Start: 05-23-2024 Advance Directive Discussion Advance Directive Discussion [facility] Start: 04-12-2024 End: 04-12-2024 Patient encounter procedure 04/12/2024 8:15 AM EST Appointment [facility] [address] [place] [address] MRI W/WO IVCON W VELOCITY FLOW MAP [facility] Comment on above: MRI W/WO IVCON W JAVY OCITY FLOW MAP Start: 01-22-2024 Covid-19 Vaccine () Covid-19 Vaccine () [facility] Start: 01-22-2024 Influenza vaccination C [facility] Start: 06-24-2023 Diabetes Screening Diabetes Screenin g [facility] Start: 05-23-2023 Advance Directive Discussion Advance Directive Discussion [facility] Start: 05-23-2023 Behavioral Health Screening Behavioral Health Screening [facility] Start: 2023 RSV Vaccine (1 - 1-d ose 75+ series) RSV Vaccine (1 - 1-dose 75+ series) [facility] Start: 02-19-2023 [facility] Start: 01-21-2023 Covid-19 Vaccine ( season) Covid-19 Vaccine ( season) [facility] Start: 10-20-2022 X-ray of right foot FOOT-RIGHT MIN 3 VIEWS [facility] Start: 09-27-2013 Shingrix Vaccine (2 of 3) Shingrix Vaccine (2 of 3) [facility] Start: 2008 RSV Vaccine (1 - 1-d ose 60+ series) RSV Vaccine (1 - 1-dose 60+ series) [facility] Start: 1993 Screening for malign ant neoplasm of colon [facility] Start: 1967 Urine microalbumin profile DTaP,Tdap,Td Vaccine (1 - Tdap) [facility] Start: 1966 Anxiety Screening Anxiety Screening [facility] Start: 1966 Depression Screening Depression Scre ening [facility] Start: 1966 Hepatitis C screening Hepatitis C [facility] Bacteria identified in Urine by Culture URINE CULTURE Microbiology Routine Gross hematuria Ordered: 03/07/2024 [facility] Work Phone: Comment on above: Ordered: 03/07/2024 Basic metabolic 2008 panel with ionized calcium - Serum or Plasma [facility] Patient Education [facility] Patient referral [facility] Work Phone: [facility] Immunizations Immunization Date Immunization Notes Care Provider Karla jasso 03-12-2020 influenza virus vaccine, unspecified formulation Cathy Rae APRN.PRISCILLA Work Phone: [facility] 04-02-2019 influenza, seasonal, injectable, preservative free Jarrett Crook [facility] Payers Date Payer Category Payer Private Health Insurance [id number] 2023 Unknown ANTHEM BLUE [facility] AND BLUE [facility] ANTH MEDICARE ADVANTAGE HMO [id number] 2023-Present [phone] [address] [place] [address] HMO [id number] 2022 Medicare [id number] 2022 Self-pay Unknown [id number] [id number]. 2.630 Unknown [id number] 2.16.840.1.639283.3.579. 2.630 Unknown [id number] 2.16.840.1.611041.3.579. 2.630 Unknown [id number] 2.16.840.1.612338.3.579. 2.630 Unknown [id number] 2.16.840.1.376004.3.579. 2.630 Unknown [id number] 2.16.840.1.766463.3.579. 2.630 Unknown [id number] 2.16.840.1.076594.3.579. 2.630 Unknown [id number] 2.16.840.1.212965.3.579. 2.630 Unknown [id number] 2.16.840.1.417356.3.579. 2.630 Unknown [id number] 2.16.840.1.464683.3.579. 2.462 Unknown [id number] 2.16.840.1.159061.3.579. 2.462 Unknown [id number] 2.16.840.1.731240.3.579. 2.462 Unknown [id number] 2.16.840.1.595278.3.579. 2.462 Unknown [id number] 2.16.840.1.521597.3.579. 2.462 Unknown [id number] 2.16.840.1.445168.3.579. 2.462 Unknown [id number] 2.16.840.1.883285.3.579. 2.462 Unknown [id number] 2.16.840.1.439014.3.579. 2.462 Unknown [id number] 2.16.840.1.586852.3.579. 2.462 Unknown [id number] 2.16.840.1.755442.3.579. 2.462 Social History Date Type Detail Facility Unknown if ever smoked [facility] Start: 02-19-2023 End: 08-15-2023 Tobacco smoking status VTIS Unknown if ever smoked [facility] Start: 1950 Sex Assigned At Male [facility] Start: 08-30-2023 Tobacco smoking stat NHIS Never smoked tobacco [facility] Start: 08-30-2023 Tobacco use and exposure Smokeless tobacco non-user [facility] Start: 08-30-2023 History of Social function [facility] Start: 08-30-2023 Tobacco use panel [facility] Start: 1950 Sex Assigned At Not on file C [facility] Start: 07-11-2024 End: 07-11-2024 Tobacco smoking status VTIS Ex-smoker (finding) [facility] Start: 07-26-2024 End: 08-28-2024 Sex Male (finding) [facility] Mental Status Date Assessment Result Facility 02-19-2023 Cognitive function Level Of Cons ciousness Awake;Alert;Appropriate [facility] Work Phone: Clinical Notes 02-19-2023 to 02-21-2025 Note Date & Type Note Facility 02-21-2025 Progress note [facility] 02-21-2025 Progress note Note Date/Time February 21, 2025 2:52pm [facility] [address] [place], [place] [address] OFFICE VISIT Date of Service: 02/21/25 MR#: [id number] Acct: [id number] Name: HORACE JOE Rep #: [id number] : 1950 Provider: Dr. Freddy Denis MD Age/Sex: 74/M Location: [facility] Status: Signed HPI HPI History of Present Illness Details: This gentleman with history of mild CAD diagnosed on coronary angiography, inferior RI reported on cardiac MRI, aortic and mitral valve regurgitations and hypertension is here for follow-up visit. Denies any complaints. No angina. Shortness of breath on strenuous exertion only. No orthopnea. No PND. He has chronic lower extremity edema and wears compression stockings for it. 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: No Accompanied by: Is patient in pain?: No Allergies Iodinated Contrast Media Allergy (Verified 02/21/25 14:31) Anaphylaxis codeine Adverse Reaction (Intermediate, Verified 02/21/25 14:31) Hives Medications ?Medication ?Instructions ?Recorded ?Confirmed ?Type alendronate 70 mg tablet 70 mg PO QWEEK 08/08/23 1007/17 History aspirin 81 mg tablet,delayed 81 mg PO DAILY 08/08/23 1 History release atorvastatin 40 mg tablet 40 mg PO QHS 08/08/23 History coQ10 (ubiquinol) 100 mg capsule 200 mg PO DAILY 08/0702/21/25 History (Qunol Josep CoQ10) finasteride 5 mg tablet 5 mg PO DAILY 08/08/2302/21 History fluticasone propionate 50 2 spray intranasal DAILY 02/21/25 History mcg/actuation nasal spray,suspension latanoprost 0.005 % eye drops 1 drp ophthalmic (eye) Q PM 08/08/23 02/21/25 History multivitamin with iron 1 tab PO DAILY 08/08/2307/17 History pantoprazole 40 mg tablet,delayed 40 mg PO DAILY 08/0702/21/25 History release tamsulosin 0.4 mg capsule 0.4 mg PO QHS 08/08/2302/21 History L.acidophilus,gasseri,rhamnosus-B.bifidum,l candy 1 cap P O DAILY 08/15/23 02/21/25 History 3 billion cell capsule (Digestive Probiotic) furosemide 20 mg tablet (Lasix) 20 mg PO QAM #30 tabs 08/20/24 02/21/25 Rx lisinopril 5 mg tablet 5 mg PO QDAY #30 tabs 02/21/25 Rx metoprolol succinate 50 mg 50 mg PO QDAY #30 tabs 07/2302/21/25 Rx tablet,extended release 24 hr potassium chloride 10 mEq 10 meq PO QDAY #30 caps 07/2302/21/25 Rx capsule,extended release clopidogrel 75 mg tablet 75 mg PO DAILY #90 tabs 11/2202/21/25 Rx Ejection fraction %: 53 Have you fallen in the past year?: No PFSH Medical History Wears glasses High cholesterol Back pain Injury of back Gastric reflux Former smoker CPAP (continuous positive airway pressure) dependence History of pain when walking History of edema History of transesophageal echocardiography (LIZA) History of echocardiogram Cardiology follow-up encounter History of atrial fibrillation Ventral hernia Glaucoma History of GI bleed Non-hemorrhagic cerebrovascular accident (CVA) Palpitations Valvular heart disease Essential hypertension Vertigo Osteoporosis Arthritis BPH (benign prostatic hyperplasia) AAA (abdominal aortic aneurysm) Leaky heart valve Surgical History Hx of colonoscopy Hx of total knee arthroplasty Hx of right inguinal hernia repair Hx of cardiac catheterization (~06/23/20) Hx of hemorrhoidectomy Hx of nasal septoplasty History of right hip replacement Hx of tonsillectomy Hx of appendectomy Hx of inguinal hernia repair Family History Mother Hypertension Brother Sleep apnea Father Cancer stomach Social History Smoking Status: Former smoker how long ago did patient quit smokin alcohol intake: former substance use type: does not use caffeine: Yes Type: coffee Number of servings: 1 ROS Const Const: Negative for fatigue or weakness Eyes Eyes: Negative for change in vision ENT ENT: Negative for dizziness or balance problems Cardio Chest Pain: No Palpitations: No Edema: Bilateral Resp Respiratory: Positive for SOB with activity; Negative for SOB at rest or SOB orthopnea\SOB lying down GI GI: Negative nausea or heartburn Musc Musc: Negative for balance problems Neuro Neuro: Negative for dizziness, lightheadedness, near syncope, syncope or weakness Endo Endo: Negative for fatigue Cardiology Exam Const Appearance: comfortable and no acute distress Nutritional Appearance: well nourished Neck Neck: no JVD Carotids: Negative bruit Chest Auscultation: Bilateral: Clear to Auscultation Cardio Rate: regular rate Rhythm: regular rhythm Heart sounds: S1 normal and S2 normal Neuro General: patient alert, patient awake and patient oriented x3 Extremities Lower Extremity Edema: None: Bilateral Supplemental Info Supplemental Information Labs: LDL Cholesterol, (0-130) 37 mg/dL HDL Cholesterol, (40-) 66 mg/dL Cholesterol, (200) 107 mg/dL Triglycerides, (-199) 22 mg/dL Diagnostics: Electrocardiogram Echocardiogram Transesophageal Echocardiogram Stress Test Stress Test Nuclear Medicine Abdomen/Pelvis CT Past Visits: Cardiology Visit Today Assessment and Plan Assessment and Plan (1) Coronary artery disease: Status: Chronic Comment: Nonobstructive coronary artery disease noted on coronary angiography in 2020 Plan: Cardiac MRI suggestive of previous transmural inferior infarct affecting approximately 5% of the myocardium. Continue aspirin. Beta-blockers. (2) Aortic regurgitation: Status: Chronic Plan: Repeat echocardiogram. (3) Mitral valve insufficiency: Status: Chronic Plan: Furosemide, lisinopril. Repeat echocardiogram. (4) Essential hypertension: Status: Chronic Comment: CONTROLLED WITH MED Plan: Furosemide, lisinopril, metoprolol. (5) Dyslipidemia: Status: Chronic Plan: On atorvastatin. Continue to manage as per primary care physician. (6) AAA (abdominal aortic aneurysm): Status: Chronic Comment: YEARLY CT SCAN Plan: 2.75 cm aortic ectasia reported on ultrasound abdomen. (7) Mild ascending aorta dilatation: Status: Chronic Plan: Measured at 4.1 cm on cardiac MRI. For periodic CT surveillance. Plan Details Follow Up: 6 Months Coding Level of Care Code Off vis,est,level 4 Diagnoses Coronary artery disease I25.10 Aortic regurgitation I35.1 Mitral valve insufficiency I34.0 Essential hypertension I10 Dyslipidemia E78.5 AAA (abdominal aortic aneurysm) I71.40 Mild ascending aorta dilatation I77.810 Coding Level of Care Code Off vis,est,level 4 Diagnoses Coronary artery disease I25.10 Aortic regurgitation I35.1 Mitral valve insufficiency I34.0 Essential hypertension I10 Dyslipidemia E78.5 AAA (abdominal aortic aneurysm) I71.40 Mild ascending aorta dilatation I77.810 Clinical Quality Measures Falls Risk Screening/Assistive Devices Have you fallen in the past year?: No Cardiac Ejection fraction %: 53 02/21/25 1452 <Electronically signed by Rene eDnis MD> Date _ Rene Denis MD Cosigner Signature: Date (if applicable) CC: Dr. 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 Lenny Perry MD Status: REG CL I Study:Extremity Lower without Contra Date of Exam: 07/16/24 Exam# [id number] Ordering Dr: Uriel Head MD PROCEDURE: EXTREMITY LOWER WITHOUT CONTRA REASON FOR EXAM: Right knee pain. Right knee replacement.[facility] protocol. TECHNIQUE: Multiple axial tomographic images of the left hip, left knee and left ankle wereobtained. Coronal and sagittal reconstruction was obtained as well. CT without contrast. COMPARISON: None. FINDINGS: Bones: No evidence of fracture. Joints: Imaging of the left hip joint was obtained. There is a uvslimis-le-ozpezw degree of joint space narrowing with degenerative spur formation of the acetabulum. Imaging of the knee joint was obtained. There is a marked degree of joint spacenarrowing in the medial compartment knee joint with degenerative spur formation. Moderate degree of joint space narrowing of the patellofemoral joint. Imaging of the ankle joint was obtained. No abnormality is seen. Soft Tissues: Knee joint effusion. CT/Extremity Lower without Contra IMPRESSION: Marked degree of degenerative changes of the medial compartment of the knee joint as well as the patellofemoral joint with joint effusion. Degenerative changes of the left hip joint. One or more dose reduction techniques were used (e.g., Automated exposure control, adjustment of the mA and/or kV according to patient size, use of iterative reconstruction technique). Reading Location: [id number] CC: Dr. Lneny Perry MD; Dr. Juaquin Head MD ~ Chief Writer: Signed [facility]01-13-2025 History of Present illness Narrative* Hue Bright, RT(R) - 06/04/2024 12:45 PM EST Radiology Service Progress Note DATE OF SERVICE: June 04, 2024 TIME: 12:56 PM PATIENT IDENTITY VERIFICATION COMPLETED USING TWO (2) STANDARD IDENTIFIERS: Name and Date of confirmed by patient verbally and Name and Date of confirmed by identification band. FALL SCREENING: Has the patient had 2 falls in the last year or 1 fall with injury or currently using an Ambulatory Assistive Device (Walker, Cane, Wheelchair, Crutches, etc.)? No PATIENT GENDER DATA: Assigned male at PATIENT RELEVANT IMPLANT DATA REVIEWED: Not Applicable PATIENT PRESENTS WITH AN IMPLANTABLE OR ATTACHED VIDEOTAPE RECORDING ENGINEER: No ALLERGIES: Reviewed and unchanged CONTRAST ALLERGY: NO. EXAM: MRI - CONTRAST TYPE: GROUP II PERIPHERAL IV DATA: Ambulatory: A peripheral IV was started in the Right antecubital site with a Angio cath: 22 gauge. RADIOLOGY DEPARTMENT: MR; Exam(s) Completed: Cardiac: Cardiac SIGNATURE: RT Roberth(Malika) PATIENT NAME: Horace Joe DATE: June 04, 2024 TIME: 12:56 PM [facility] NoteHNO ID: [id number] Author: HUE BRIGHT RT(R) Service: Radiology Author Type: Technologist Type: Progress Notes Filed: 06/04/2024 13:41 Note Text: Radiology Service Progress Note DATE OF SERVICE: June 04, 2024 TIME: 12:56 PM PATIENT IDENTITY VERIFICATION COMPLETED USING TWO (2) STANDARD IDENTIFIERS: Name and Date of confirmed by patient verbally and Name and Date of confirmed by identification band. FALL SCREENING: Has the patient had 2 falls in the last year or 1 fall with injury or currently using an Ambulatory Assistive Device (Walker, Cane, Wheelchair, Crutches, etc.)? No PATIENT GENDER DATA: Assigned male at PATIENT RELEVANT IMPLANT DATA REVIEWED: Not Applicable PATIENT PRESENTS WITH AN IMPLANTABLE OR ATTACHED VIDEOTAPE RECORDING ENGINEER: No ALLERGIES: Reviewed and unchanged CONTRAST ALLERGY: NO. EXAM: MRI - CONTRAST TYPE: GROUP II PERIPHERAL IV DATA: Ambulatory: A peripheral IV was started in the Right antecubital site with a Angio cath: 22 gauge. RADIOLOGY DEPARTMENT: MR; Exam(s) Completed: Cardiac: Cardiac SIGNATURE: RT Roberth(Malika) PATIENT NAME: Horace Joe DATE: June 04, 2024 TIME: 12:56 [facility]01-06-2025 Telephone encounter Note* Telephone Encounter - Walt Solis MD - 05/28/2024 10:31 AM EST Aortic regurgitation protocol Hello, Get the dark, and bright bloods, regular cines, We will need quality 3 chamber, LVOT long cine. Stack of LVOT short axis. T1, T2 mapping optional. , inject contrast, get first pass, and get delayed images at 8 min. Qp, Qs is required. Pls get quality Qs (Make sure that you are perpendicular to the ascending aorta using the 3C, LVOT long); One at the level of the main PA, one at sinotubular junction and another under the valve. Also get a QS with a good pic of the SVC, and descending aorta, so we can use the SVC+desc Ao flow as a back up for QS. I would get QS at venc 150, 200, 250 until the aliasing disappears completely. . Thanks, Dr Solis [facility] Work Phone: 1(777) 490-430501-06-2025 Miscellaneous Notes* Telephone Encounter - Walt Solis MD - 05/28/2024 10:31 AM EST Aortic regurgitation protocol Hello, Get the dark, and bright bloods, regular cines, We will need quality 3 chamber, LVOT long cine. Stack of LVOT short axis. T1, T2 mapping optional. , inject contrast, get first pass, and get delayed images at 8 min. Qp, Qs is required. Pls get quality Qs (Make sure that you are perpendicular to the ascending aorta using the 3C, LVOT long); One at the level of the main PA, one at sinotubular junction and another under the valve. Also get a QS with a good pic of the SVC, and descending aorta, so we can use the SVC+desc Ao flow as a back up for QS. I would get QS at venc 150, 200, 250 until the aliasing disappears completely. . Thanks, Dr Solis * Telephone Encounter - Hue Bright RT(R) - 05/28/2024 10:15 AM EST Please provide a protocol for this patient scheduled 06/04/2024. The order is in scanned documents. Thank you [facility] Telephone encounter Note * Telephone Encounter - Hue Bright RT(R) - 05/28/2024 10:15 AM EST Please provide a protocol for this patient scheduled 06/04/2024. The order is in scanned documents. Thank you [facility] [facility]12-05-2024 History of Present illness Narrative* Estephania Phan - 04/26/2024 12:26 PM EST POPULATION HEALTH NAVIGATION OUTREACH Action/RENE Pérez No PCP LM; no mychart Reason for Outreach Care Gap/HCC or Scheduling Wellness Visits Care Gaps due: Establish Care Appointment Patient Contacted: Unable or unnecessary to reach patient: Left message Navigation Signature: Estephania Phan April 26, 2024 12:26 PM documented in this encounterBl[facility] Tele[facility] encounter Note * Telephone Encounter - Justus Davis LPN - 03/09/2024 8:18 AM EDT Patient given results and verbalized understanding of instructions given. States he has an appt for urologist cong kinsey. Justus Davis LPN [facility]10-18-2024 Miscellaneous Notes* Telephone Encounter - Justus Davis LPN - 03/09/2024 8:18 AM EDT Patient given results and verbalized understanding of instructions given. States he has an appt for urologist cong kinsey. Justus Davis LPN * Telephone Encounter - Oneal Fulton MD - 03/09/2024 7:03 AM EDT Urine culture grew some bacteria, but not a significant amount. Finish taking Keflex. Follow-up with his urologist for blood in the urine. documented in [facility]Bl[facility] Tele[facility] encounter Note * Telephone Encounter - Oneal Fulton MD - 03/09/2024 7:03 AM EDT Urine culture grew some bacteria, but not a significant amount. Finish taking Keflex. Follow-up with his urologist for blood in the urine. [facility] Work Phone: [phone] Instructions* Patient Instructions* Jocelyne Barboza APRN.AIRCRAFT NAVIGATOR - 03/07/2024 5:48 PM EDT URINARY TRACT INFECTION GENERAL INFORMATION: A urinary tract infection (UTI) is an infection of the bladder or kidneys. A bladder infection, called cystitis, is the more common type. If the infection travels up to the kidneys, it is called pyelonephritis. This can be more serious. UTIs are a common problem in women. Having sexual relations can leave a woman more susceptible to developing a UTI, but it is not sexually transmitted like gonorrhea. Some women have a problem with recurrent UTIs. INSTRUCTIONS: 1. Your doctor prescribed an antibiotic to treat the UTI. Take exactly as directed. Be sure to takeall the medication prescribed, even if your symptoms disappear. If you stop treatment early, the infection may not be fully treated and the symptoms could come back again. 2. Get plenty of rest. You may take acetaminophen for fever and aches. 3. Drink 6 to 8 glasses of fluids, especially water, every day. This helps wash out germs from yoururinary tract. Cranberry juice or other sources of vitamin C are also good for you. 4. Urinate often, as soon as you feel the urge. Empty your bladder completely. Urinate before and after you have sex. 5. Always wipe from front to back after going to the bathroom. This pushes germs away from your bladder, rather than towards it. 6. Showers are better than baths, and you should wash the genital area daily. Avoid bubble bath or bath oils if you do take a bath. 7. Wear underwear and pantyhose with a cotton crotch. CONTACT YOUR DOCTOR: 1. You have a temperature over 102F (38.8C) after 48 hours on medication. 2. You notice blood in your urine. 3. Your symptoms don't improve in 2 days. 4. You develop nausea, vomiting, diarrhea, or a rash. 5. You develop new or unexplained symptoms. These may be related to the medication you are taking. 6. Your symptoms return after you finish treatment. RETURN TO THE EMERGENCY DEPARTMENT IF: You develop vomiting and can't keep your medication or fluids down. documented in this encounterBlanch[facility] NoteHNO ID: [id number] Author: JOCELYNE BARBOZA APRN.CNP Service: ? Author Type: Nurse Practitioner Type: Progress Notes Filed: 03/07/2024 17:54 Note Text: Subjective HPI HPI Horace Joe is a 73 year old male who presents today for CC of blood in urine. This started today. Has tried nothing for relief. Symptoms are worsened by nothing. Risk factors hx of urology problems, sees outside urologist. Denies renal/hepatic disease. .Patient presents with: gross hematuria: X 20 min History reviewed. No pertinent past medical history. No past surgical history on file. ALLERGIES Codeine and Iodides MEDICATIONS alendronate (FOSAMAX) 70 mg tablet atorvastatin (LIPITOR) 40 mg tablet brimonidine (ALPHAGAN) 0.2 % ophthalmic solution fluticasone (FLONASE) 50 mcg/actuation nasal spray metoprolol succinate ER (TOPROL XL) 50 mg [address] (PROTONIX) 40 mg tablet tamsulosin (FLOMAX) 0.4 mg aspirin, enteric coated (ASPIRIN, ENTERIC COATED) 81 mg EC tablet Take 81 mg by mouth. ubidecarenone Q-10 (CO Q-10) 10 mg cap Take by mouth two times a day. clopidogrel (PLAVIX) 75 mg tablet Take 1 tablet by mouth once daily. No family history on file. Social History Tobacco Use Smoking status: Never Smokeless tobacco: Never Review of Systems Constitutional: Negative for chills, fever and weight loss. Respiratory: Negative for cough, shortness of breath and wheezing. Cardiovascular: Negative for chest pain and palpitations. Gastrointestinal: Negative for abdominal pain, blood in stool, constipation, diarrhea, heartburn, melena, nausea and vomiting. Genitourinary: Positive for hematuria. Negative for dysuria, flank pain, frequency and urgency. Objective Blood pressure 128/76, pulse 76, temperature 36.3 ?C (97.3 ?F), temperature source Tympanic, resp. rate 16, weight 92 kg (202 lb 13.2 oz), SpO2 96%. Physical Exam Constitutional: General: He is not in acute distress. Appearance: Normal appearance. He is not toxic-appearing. Cardiovascular: Rate and Rhythm: Normal rate and regular rhythm. Heart sounds: Normal heart sounds. Pulmonary: Effort: Pulmonary effort is normal. Breath sounds: Normal breath sounds. Abdominal: General: Bowel sounds are normal. Palpations: Abdomen is soft. Tenderness: There is no abdominal tenderness. Skin: General: Skin is warm and dry. ASSESSMENT/PLAN: 1. Gross hematuria - ICD9: 599.71, ICD10: R31.0 Ua likely obscured by dark blood Cover with cephalexin Call if no uti or if needs atb changed Make appointment with outside urologist. - UA DIP, URINE (POC) - URINE CULTURE - CEPHALEXIN 500 MG CAPSULE Jocelyne Barboza APRN.[facility]AM[facility]10-16-[facility] History of Present illness Narrative* Jocelyne Barboza APRN.PRISCILLA - 03/07/2024 5:35 PM EDT Subjective HPI HPI Horace Joe is a 73 year old male who presents today for CC of blood in urine. This started today. Has tried nothing for relief. Symptoms are worsened by nothing. Risk factors hx of urologyproblems, sees outside urologist. Denies renal/hepatic disease. .Patient presents with: gross hematuria: X 20 min History reviewed. No pertinent past medical history. No past surgical history on file. ALLERGIES Codeine and Iodides MEDICATIONS alendronate (FOSAMAX) 70 mg tablet atorvastatin (LIPITOR) 40 mg tablet brimonidine (ALPHAGAN) 0.2 % ophthalmic solution fluticasone (FLONASE) 50 mcg/actuation nasal spray metoprolol succinate ER (TOPROL XL) 50 mg [address] (PROTONIX) 40 mg tablet tamsulosin (FLOMAX) 0.4 mg aspirin, enteric coated (ASPIRIN, ENTERIC COATED) 81 mg EC tablet Take 81 mg by mouth. ubidecarenone Q-10 (CO Q-10) 10 mg cap Take by mouth two times a day. clopidogrel (PLAVIX) 75 mg tablet Take 1 tablet by mouth once daily. No family history on file. Social History Tobacco Use Smoking status: Never Smokeless tobacco: Never Review of Systems Constitutional: Negative for chills, fever and weight loss. Respiratory: Negative for cough, shortness of breath and wheezing. Cardiovascular: Negative for chest pain and palpitations. Gastrointestinal: Negative for abdominal pain, blood in stool, constipation, diarrhea, heartburn, melena, nausea and vomiting. Genitourinary: Positive for hematuria. Negative for dysuria, flank pain, frequency and urgency. Objective Blood pressure 128/76, pulse 76, temperature 36.3 C (97.3 F), temperature source Tympanic, resp. rate 16, weight 92 kg (202 lb 13.2 oz), SpO2 96%. Physical Exam Constitutional: General: He is not in acute distress. Appearance: Normal appearance. He is not toxic-appearing. Cardiovascular: Rate and Rhythm: Normal rate and regular rhythm. Heart sounds: Normal heart sounds. Pulmonary: Effort: Pulmonary effort is normal. Breath sounds: Normal breath sounds. Abdominal: General: Bowel sounds are normal. Palpations: Abdomen is soft. Tenderness: There is no abdominal tenderness. Skin: General: Skin is warm and dry. ASSESSMENT/PLAN: 1. Gross hematuria - ICD9: 599.71, ICD10: R31.0 Ua likely obscured by dark blood Cover with cephalexin Call if no uti or if needs atb changed Make appointment with outside urologist. - UA DIP, URINE (POC) - URINE CULTURE - CEPHALEXIN 500 MG CAPSULE Jocelyne Barboza APRN.CNP documented in this encounterBl[facility] NoteHNO ID: [id number] Author: BARBARA PETERSON RN Service: ? Author Type: Registered Nurse Type: Progress Notes Filed: 02/09/2024 10:47 Note Text: ED Follow-Up Note Provider Action / FYI: Spoke with pt as noted in [facility],no pcp Confirmed pt just moved to [place] area and has not yet established with a pcp While @ [place] was given name of a Dr Tineo from [place] as a pcp. Pt plans to call to schedule an appt No further follow up needed Call completed by: RN Patient seen in ED: Out of Network ED Contact made with Patient: Yes The patient was identified by Name and Date of . Discussed Care with: patient Patient was seen in the Emergency Department (ED) Location: [facility] er Date: 02/06/24 Reason for ED Visit[facility] History of Present illness Narrative* Barbara Peterson RN - 02/09/2024 10:30 AM EDT ED Follow-Up Note Provider Action / FYI: Spoke with pt as noted in [facility],no pcp Confirmed pt just moved to [facility] and has not yet established with a pcp While @ [place] was given name of a Dr Tineo from [place] as a pcp. Pt plans to call to schedule anappt No further follow up needed Call completed by: RN Patient seen in ED: Out of Network ED Contact made with Patient: Yes The patient was identified by Name and Date of . Discussed Care with: patient Patient was seen in the Emergency Department (ED) Location: [facility] er Date: 02/06/24 Reason for ED Visit: Cp and sob documented in this encounterBl[facility] NotePatient Outreach (AM[facility]) HORACE JOE ([id number]) 1950 M Date Time Provider Department 02/09/24 BARBARA PETERSON [facility] [place] During your visit today, we recorded the following information about you: Barbara Peterson RN 02/09/2024 10:47 AM Signed ED Follow-Up Note Provider Action / FYI: Spoke with pt as noted in epic,no pcp Confirmed pt just moved to [facility] and has not yet established with a pcp While @ [place] was given name of a Dr Tineo from [place] as a pcp. Pt plans to call to schedule an appt No further follow up needed Call completed by: RN Patient seen in ED: Out of Network ED Contact made with Patient: Yes The patient was identified by Name and Date of . Discussed Care with: patient Patient was seen in the Emergency Department (ED) Location: [facility] er Date: 02/06/24 Reason for ED Visit: Cp and sob Allergies As of Date: 02/09/2024 Noted Allergy Reaction CODEINE 11/29/2018 5 - Intolerance IODIDES 11/29/2018 10 - Anaphylaxis Date Reviewed: 08/30/2023 Reviewed by: Martha Valentine LPN - Fully Assessed Reason for Visit: ACM BEATA RN [[id number]] Cmt: ER outreach Prescriptions as of 02/09/2024 - alendronate (FOSAMAX) 70 mg tablet - atorvastatin (LIPITOR) 40 mg tablet - brimonidine (ALPHAGAN) 0.2 % ophthalmic solution - fluticasone (FLONASE) 50 mcg/actuation nasal spray - metoprolol succinate ER (TOPROL XL) 50 mg 24 hr tablet - pantoprazole DR (PROTONIX) 40 mg tablet - tamsulosin (FLOMAX) 0.4 mg - aspirin, enteric coated (ASPIRIN, ENTERIC COATED) 81 mg EC tablet Take 81 mg by mouth. - ubidecarenone Q-10 (CO Q-10) 10 mg cap Take by mouth two times a day. - clopidogrel (PLAVIX) 75 mg tablet Take 1 tablet by mouth once daily. Problem List As Of Date: 02/09/2024 (None) Encounter Status:Closed by BARBARA PETERSON on 02/09/24[facility] History of Present illness Narrative* Oc Day RT(R) - 08/30/2023 1:10 PM EDT Radiology Service Progress Note PATIENT NAME: Horace Joe DATE OF SERVICE: August 30, 2023 TIME: 1:18 PM PATIENT IDENTITY VERIFICATION COMPLETED USING TWO (2) IDENTIFIERS: Name and Date of confirmedby patient verbally. FALL SCREENING: Has the patient had 2 falls in the last year or 1 fall with injury or currently using an Ambulatory Assistive Device (Walker, Cane, Wheelchair, Crutches, etc.)? Yes, Patient High Riskfor Falls What interventions were put in place to prevent falls during this visit? Instructed Patient to Callfor Help if Needed, Offered Assistance with Transfers/Clothing, and Increased Observations by Caregivers PATIENT GENDER DATA: Male PATIENT RELEVANT IMPLANT DATA REVIEWED: Yes PATIENT PRESENTS WITH AN IMPLANTABLE OR ATTACHED VIDEOTAPE RECORDING ENGINEER: Yes Other Heart monitor RADIOLOGY DEPARTMENT: General X-ray: Exam(s) Completed: Chest X-Ray PERIPHERAL IV DATA: Not applicable SIGNED BY: MABEL Villegas) August 30, 2023 1:18 PM documented in this encounterBl[facility]04[facility]24 NoteHNO ID: [id number] Author: OC DAY RT(R) Service: Radiology Author Type: Technologist Type: Progress Notes Filed: 08/30/2023 13:25 Note Text: Radiology Service Progress Note PATIENT NAME: Horace Joe DATE OF SERVICE: August 30, 2023 TIME: 1:18 PM PATIENT IDENTITY VERIFICATION COMPLETED USING TWO (2) IDENTIFIERS: Name and Date of confirmed by patient verbally. FALL SCREENING: Has the patient had 2 falls in the last year or 1 fall with injury or currently using an Ambulatory Assistive Device (Walker, Cane, Wheelchair, Crutches, etc.)? Yes, Patient High Risk for Falls What interventions were put in place to prevent falls during this visit? Instructed Patient to Call for Help if Needed, Offered Assistance with Transfers/Clothing, and Increased Observations by Caregivers PATIENT GENDER DATA: Male PATIENT RELEVANT IMPLANT DATA REVIEWED: Yes PATIENT PRESENTS WITH AN IMPLANTABLE OR ATTACHED VIDEOTAPE RECORDING ENGINEER: Yes Other Heart monitor RADIOLOGY DEPARTMENT: General X-ray: Exam(s) Completed: Chest X-Ray PERIPHERAL IV DATA: Not applicable SIGNED BY: Oc Day, RT(R) August 30, 2023 1:18 [facility]04-09-2024 NoteHNO ID: [id number] Author: CATHY RAE APRN.AIRCRAFT NAVIGATOR Service: ? Author Type: Nurse Practitioner Type: Progress Notes Filed: 08/30/2023 16:23 Note Text: This note was created using Canevaflorriter. Subjective Horace Joe is a 73 year old male. 73 year old male with PMH CHF, x 4 CVA, leaky valve of heart presents for right chest pain. Acute onset 3 days ago Right chest region +SOB and difficulty breathing at times he endorses Denies CP Denies cough Denies fever or chills Denies accompanying URI sx such as ear, nose or throat Denies feelings of dizziness and or near syncope. Denies trauma or injury Denies tobacco usage (quit 40 years ago ) Denies taking homeopathic or OTC medicines Denies pain is reproducible Denies pain is exacerbated with movement. 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 They think I have afib Endorses that they recently moved here. Utilizes Plavix and an ASA daily The history is provided by the patient. No assistant speech language pathologist was used. URI He complains of difficulty breathing and shortness of breath. There is no chest tightness, cough, frequent throat clearing, hemoptysis, hoarse voice, sputum production or wheezing. This is a new problem. The current episode started in the past 7 days. The problem occurs constantly. The problem has been unchanged. Pertinent negatives include no appetite change, chest pain, dyspnea on exertion, ear congestion, ear pain, fever, headaches, heartburn, malaise/fatigue, myalgias, nasal congestion, orthopnea, PND, postnasal drip, rhinorrhea, sneezing, sore throat, sweats, trouble swallowing or weight loss. His symptoms are aggravated by nothing. His symptoms are alleviated by nothing. He reports no improvement on treatment. There are no known risk factors for lung disease. There is no history of asthma, bronchiectasis, bronchitis, COPD, emphysema or pneumonia. History reviewed. No pertinent past medical history. No past surgical history on file. ALLERGIES Codeine and Iodides MEDICATIONS alendronate (FOSAMAX) 70 mg tablet atorvastatin (LIPITOR) 40 mg tablet brimonidine (ALPHAGAN) 0.2 % ophthalmic solution fluticasone (FLONASE) 50 mcg/actuation nasal spray metoprolol succinate ER (TOPROL XL) 50 mg [address] (PROTONIX) 40 mg tablet tamsulosin (FLOMAX) 0.4 mg aspirin, enteric coated (ASPIRIN, ENTERIC COATED) 81 mg EC tablet Take 81 mg by mouth. ubidecarenone Q-10 (CO Q-10) 10 mg cap Take by mouth two times a day. clopidogrel (PLAVIX) 75 mg tablet Take 1 tablet by mouth once daily. No family history on file. Social History Tobacco Use Smoking status: Never Smokeless tobacco: Never Review of Systems Constitutional: Negative for appetite change, fever, malaise/fatigue and weight loss. HENT: Negative for ear pain, hoarse voice, postnasal drip, rhinorrhea, sneezing, sore throat and trouble swallowing. Respiratory: Positive for shortness of breath. Negative for cough, hemoptysis, sputum production and wheezing. Cardiovascular: Negative for chest pain, dyspnea on exertion and PND. Gastrointestinal: Negative for heartburn. Musculoskeletal: Negative for myalgias. Allergic/Immunologic: Negative for environmental allergies, food allergies and immunocompromised state. Neurological: Negative for dizziness, facial asymmetry and headaches. Hematological: Negative for adenopathy. Does not bruise/bleed easily. Objective BP 124/78 Pulse 76 Temp 36.4 ?C (97.6 ?F) (Tympanic) Resp 16 Wt 88.6 kg (195 lb 5.2 oz) SpO2 98% Physical Exam Vitals and nursing note reviewed. Constitutional: General: He is not in acute distress. Appearance: Normal appearance. He is not ill-appearing, toxic-appearing or diaphoretic. Comments: Elderly but non toxic HENT: Head: Normocephalic and atraumatic. Right Ear: External ear normal. Left Ear: External ear normal. Nose: Nose normal. No congestion or rhinorrhea. Mouth/Throat: Mouth: Mucous membranes are moist. Pharynx: Oropharynx is clear. No oropharyngeal exudate or posterior oropharyngeal erythema. Eyes: General: Right eye: No discharge. Left eye: No discharge. Extraocular Movements: Extraocular movements intact. Conjunctiva/sclera: Conjunctivae normal. Pupils: Pupils are equal, round, and reactive to light. Cardiovascular: Rate and Rhythm: Normal rate and regular rhythm. Pulses: Normal pulses. Heart sounds: Normal heart sounds. No murmur heard. No friction rub. No gallop. Pulmonary: Effort: Pulmonary effort is normal. No respiratory distress. Breath sounds: Normal breath sounds. No stridor. No wheezing, rhonchi or rales. Chest: Chest wall: No tenderness. Abdominal: General: Abdomen is flat. There is no distension. Palpations: Abdomen is soft. There is no mass. Tenderness: There is no abdominal tenderness. There is no guarding or rebound. Hernia: No hernia is present. Muscul (more content not included)...[facility]04-09-[facility]24 History of Present illness Narrative* Cathy Rae APRN.[facility] - 08/30/2023 12:56 PM EDT This note was created using Canevaflorriter. Subjective Horace Joe is a 73 year old male. 73 year old male with PMH CHF, x 4 CVA, leaky valve of heart presents for right chest pain. Acute onset 3 days ago Right chest region +SOB and difficulty breathing at times he endorses Denies CP Denies cough Denies fever or chills Denies accompanying URI sx such as ear, nose or throat Denies feelings of dizziness and or near syncope. Denies trauma or injury Denies tobacco usage (quit 40 years ago ) Denies taking homeopathic or OTC medicines Denies pain is reproducible Denies pain is exacerbated with movement. 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 They think I have afib Endorses that they recently moved here. Utilizes Plavix and an ASA daily The history is provided by the patient. No assistant speech language pathologist was used. URI He complains of difficulty breathing and shortness of breath. There is no chest tightness, cough, frequent throat clearing, hemoptysis, hoarse voice, sputum production or wheezing. This is a new problem. The current episode started in the past 7 days. The problem occurs constantly. The problem has been unchanged. Pertinent negatives include no appetite change, chest pain, dyspnea on exertion, earcongestion, ear pain, fever, headaches, heartburn, malaise/fatigue, myalgias, nasal congestion, orthopnea, PND, postnasal drip, rhinorrhea, sneezing, sore throat, sweats, trouble swallowing or weightloss. His symptoms are aggravated by nothing. His symptoms are alleviated by nothing. He reports no improvement on treatment. There are no known risk factors for lung disease. There is no history of asthma, bronchiectasis, bronchitis, COPD, emphysema or pneumonia. History reviewed. No pertinent past medical history. No past surgical history on file. ALLERGIES Codeine and Iodides MEDICATIONS alendronate (FOSAMAX) 70 mg tablet atorvastatin (LIPITOR) 40 mg tablet brimonidine (ALPHAGAN) 0.2 % ophthalmic solution fluticasone (FLONASE) 50 mcg/actuation nasal spray metoprolol succinate ER (TOPROL XL) 50 mg [address] (PROTONIX) 40 mg tablet tamsulosin (FLOMAX) 0.4 mg aspirin, enteric coated (ASPIRIN, ENTERIC COATED) 81 mg EC tablet Take 81 mg by mouth. ubidecarenone Q-10 (CO Q-10) 10 mg cap Take by mouth two times a day. clopidogrel (PLAVIX) 75 mg tablet Take 1 tablet by mouth once daily. No family history on file. Social History Tobacco Use Smoking status: Never Smokeless tobacco: Never Review of Systems Constitutional: Negative for appetite change, fever, malaise/fatigue and weight loss. HENT: Negative for ear pain, hoarse voice, postnasal drip, rhinorrhea, sneezing, sore throat and trouble swallowing. Respiratory: Positive for shortness of breath. Negative for cough, hemoptysis, sputum production and wheezing. Cardiovascular: Negative for chest pain, dyspnea on exertion and PND. Gastrointestinal: Negative for heartburn. Musculoskeletal: Negative for myalgias. Allergic/Immunologic: Negative for environmental allergies, food allergies and immunocompromised state. Neurological: Negative for dizziness, facial asymmetry and headaches. Hematological: Negative for adenopathy. Does not bruise/bleed easily. Objective BP 124/78 Pulse 76 Temp 36.4 C (97.6 F) (Tympanic) Resp 16 Wt 88.6 kg (195 lb 5.2 oz) SpO2 98% Physical Exam Vitals and nursing note reviewed. Constitutional: General: He is not in acute distress. Appearance: Normal appearance. He is not ill-appearing, toxic-appearing or diaphoretic. Comments: Elderly but non toxic HENT: Head: Normocephalic and atraumatic. Right Ear: External ear normal. Left Ear: External ear normal. Nose: Nose normal. No congestion or rhinorrhea. Mouth/Throat: Mouth: Mucous membranes are moist. Pharynx: Oropharynx is clear. No oropharyngeal exudate or posterior oropharyngeal erythema. Eyes: General: Right eye: No discharge. Left eye: No discharge. Extraocular Movements: Extraocular movements intact. Conjunctiva/sclera: Conjunctivae normal. Pupils: Pupils are equal, round, and reactive to light. Cardiovascular: Rate and Rhythm: Normal rate and regular rhythm. Pulses: Normal pulses. Heart sounds: Normal heart sounds. No murmur heard. No friction rub. No gallop. Pulmonary: Effort: Pulmonary effort is normal. No respiratory distress. Breath sounds: Normal breath sounds. No stridor. No wheezing, rhonchi or rales. Chest: Chest wall: No tenderness. Abdominal: General: Abdomen is flat. There is no distension. Palpations: Abdomen is soft. There is no mass. Tenderness: There is no abdominal tenderness. There is no guarding or rebound. Hernia: No hernia is present. Musculoskeletal: General: No swelling, tenderness, deformity or signs of injury. Normal range of motion. Cervical back: Normal range of motion and neck supple. No rigidity or tenderness. Right lower leg: No edema. Left lower leg: No edema. Comments: Ambulating with cane Lymphadenopathy: Cervical: No cervical adenopathy. Skin: General: Skin is warm and dry. Capillary Refill: Capillary refill takes less than 2 seconds. Coloration: Skin is not jaundiced or pale. Findings: No bruising, lesion or rash. Neurological: General: No focal deficit present. Mental Status: He is alert and oriented to person, place, and time. Cranial Nerves: No cranial nerve deficit. Sensory: No sensory deficit. Motor: No weakness. Coordination: Coordination normal. Gait: Gait normal. Deep Tendon Reflexes: Reflexes normal. Psychiatric: Mood and Affect: Mood normal. Behavior: Behavior normal. Thought Content: Thought content normal. Assessment and Plan ASSESSMENT/PLAN: 1. Right-sided chest pain - ICD9: 786.50, ICD10: R07.9 X 3 days Non reproducible Worse with inspiration Chest pain of unclear etiology, patient with significant risk factor(s) of CHF and currently being worked up by assistant general manager for afib. Patient believes it to be pneumonia - Chest X-ray today negative for acute process - Oxygen saturation 98% Discussed with patient unsure of his etiology Discussed possibility for PE, and that express care cannot rule that out Recommended ED evaluation. - XR CHEST 2V FRONTAL/LAT Cathy Rae APRN.AIRCRAFT NAVIGATOR [facility] Dis[facility] summary Author Sami Lu [facility] February 19, 2023 11:44pm Note Date/Time February 19, 2023 8:44pm [facility] Medical Records Department [address] [place] [id number] Emergency Department Summary 02/19/23 MR#: [id number] Acct: [id number] Name: HORACE JOE Rep #:[id number] 3 : 1950 72 From: Sami Lu MD PCP: Care Physician,No Primary Status :REG ER Location: ED HPI History of Present Illness Chief Complaint: Palpitations Informant: patient Narrative Narrative: Patient states he recently moved here, they were moving boxes today, and about half hour prior to arrival here, he started feeling occasional skips in his chest. He got a one-time brief discomfort in his left chest that went away quickly and has not returned. Denies any dyspnea. He does get dyspnea with exertion often, he has a history of congestive heart failure, he states his assistant general manager Dr. Collier retired today and since he moved away from [place] he needs a assistant general manager here as well. Has been compliant with his medications although he forgot to take his metoprolol this morning, 50 mg succinate daily, so he took it around 4 to 5 hours prior to evaluation here now. [facility] Medical History (Updated 02/19/23 @ 23:[address] Sami Lu MD) AAA (abdominal aortic aneurysm) Atrial fibrillation Leaky heart valve Stroke Allergy/AdvReac Type Severity Reaction Status Date / Time Iodinated Contrast Media Allergy Anaphylaxis Verified 02/19/23 19:53 Social History Smoking Status: Former smoker ROS ROS ED Constitutional Constitutional ED: Denies chills or fever(s) Eyes Eyes: Denies change in vision or diplopia ENT ENT ED: Denies rhinorrhea or sore throat Cardiovascular Cardiovascular: Reports chest pain and palpitations; Denies lightheadedness, racing heartbeat or syncope Respiratory/Chest Respiratory/Chest: Reports dyspnea on exertion; Denies cough Gastrointestinal Gastrointestinal: Denies abdominal pain, diarrhea, nausea or vomiting Genitourinary Genitourinary ED: Denies dysuria or hematuria Musculoskeletal Musculoskeletal: Denies back pain or neck pain Integumentary Denies abscess or rash Neurologic Neurologic: Denies headache(s), paresthesias or weakness Psychiatric Psychiatric: Denies anxiety or suicidal thoughts EXAM Physical Exam Const Vital Signs: 02/19/23 19:50 02/19/23 21:19 02/19/23 21:24 Temperature 98.5 F Temperature Source Temporal Pulse Rate 87 71 Respiratory Rate 14 19 H Blood Pressure 147/86 H 116/71 Blood Pressure Mean 106 86 Pulse Ox 94 92 93 Oxygen Delivery Method Room Air Room Air 02/19/23 22:18 Temperature Temperature Source Pulse Rate 72 Respiratory Rate 14 Blood Pressure 117/81 H Blood Pressure Mean 93 Pulse Ox 94 Oxygen Delivery Method Room Air Positive well nourished and well developed General Appearance ED: well developed and NAD HEENT Reports moist mucous membranes normocephalic and atraumatic Eyes PERRL and EOMs intact bilaterally Neck full ROM and supple Resp normal respiratory effort and clear to auscultation bilaterally Cardio regular rate and regular rhythm Rhythm: abnormal rhythm ectopic beats Heart Sounds: murmur systolic III/ soft left sternal border GI non-tender and non-distended Auscultation: normoactive bowel sounds Palpation: soft Back/Spine no CVA tenderness General Back: other FROM Extremity normal to inspection General Extremety ED: Yes edema; Negative for pulses abnormal or tenderness General Extremity: edema bilateral lower extremity Details: mild; Negative for pulses abnormal Neuro oriented x3, CN's II-XII intact bilaterally and no sensory deficits noted Sensorium / Orientation: awake and alert Motor Exam: strength 5/5 throughout Psych mental status grossly normal Skin no rashes or lesions noted and no wounds MDM MDM MDM Narrative Medical decision making narrative: Labs were obtained including troponin which was within normal limits, we performed a 2-hour repeat, it is also in the normal range. In that time, I gavethe patient an additional metoprolol tartrate 12.5 mg orally, his blood pressuretolerated this well, as that his heart rate was simply went from the 80s in the 70s, he was still having some occasional ectopy but was completely asymptomatic with it. Given this some comfortable discharging him home right now. I would continue his home prescriptions without changing the dose going forward for now,and he is referred to local cardiology and primary care. History & Record Review Additional record(s) reviewed:: No prior records Lab Data Attestation: I reviewed the patient's lab results. Labs: Laboratory Results - last 24 hr 02/19/23 02/19/23 19:55 22:45 WBC 6.9 RBC 4.48 L Hgb 14.0 Hct 42.7 MCV 95.3 H MCH 31.3 MCHC 32.8 RDW Std Deviation 48.3 H RDW Coeff of Brandy 13.7 Plt Count 209 MPV 10.5 Immature Gran % (Auto) 0.300 Neut % (Auto) 71.3 H Lymph % (Auto) 14.0 L [place] % (Auto) 11.5 H Eos % (Auto) 2.5 Baso % (Auto) 0.4 Absolute Neuts (auto) 4.9 Absolute Lymphs (auto) 0.96 Nucleated RBC % 0 Sodium 144 Potassium 3.5 Chloride 112 H Carbon Dioxide 27.0 Anion Gap 5 BUN 29 H Creatinine 0.92 Estim Creat Clear Calc 72.74 Est GFR (MDRD) Af Amer 103 Est GFR (MDRD) Non-Af 85 BUN/Creatinine Ratio 31.5 H Glucose 118 H Calcium 8.9 Troponin I High Sens 19 18 Rhythm Strip Rhythm Strip: Sinus Rhythm Rate: 85 Ectopy: None EKG Initial EKG: Attestation: I personally reviewed and interpreted this EKG as follows: Interpretation: Sinus Rhythm, No Acute Injury Pattern and - (PVC) Prior: No Prior Discharge Plan Triage Chief Complaint: Palpitations ED Provider: Sami Lu Dx/Rx/DC Orders Clinical Impression: Symptomatic PVCs, Non-cardiac chest pain Instructions: PVCs, ED Chest Pain, Noncardiac Primary Care Provider: Care Physician,No Primary Referrals: Eyal Briceno MD [Med Staff - Active Staff] - (primary care) Allison Londono MD [Med Staff - Active Staff] - (cardiology) Activity Restrictions/Additional Instructions: Continue on your current prescriptions, take your next metoprolol in the morningas prescribed. Disposition Disposition: Home, Self Care What to do if you have Problems For any increased pain, shortness of breath, bleeding, nausea or vomiting, chestpain, or any unexpected problems, contact your Primary Care Provider. Call [facility] ([phone]) or report to the closest Emergency Room. Call 911 if necessary. 02/19/232343 <Electronically signed by Sami Lu MD> Cosigner Signature (if applicable): CC: Dr. Eyal Briceno MD; Dr. Allison Londono MD; No Primary Care Physician ~ Signed [facility] Work Phone: Evaluation noteNo assessment information available [facility] Work Phone: Evaluation note* Diagnosis Right-sided chest pain- Primary documented in this encounter [facility] note* Diagnosis Onset Date Resolution Status AAA (abdominal aortic aneurysm) chronic Aortic regurgitation chronic Coronary artery disease client advocate ronnie Dyslipidemia chronic Essential hypertension chron ic [facility] Work Phone: Evaluation note* Diagnosis Right-sided chest pain [facility] in [facility] Diagnosis Gross hematuria- Primary documented in this [facility]* Diagnosis Onset Date Resolution Status Admit Date AAA (abdominal aortic aneurysm) client advocate ronnie February 21, 2025 2:06pm Aortic regurgitation chronic Octo 2024 2:06pm Coronary artery disease chronic O ctober 2024 2:06pm Dyslipidemia chronic February 21, 2025 2:06pm Essential hypertension chronic Oc tober 2024 2:06pm Mild ascending aorta dilatation client advocate ronnie February 21, 2025 2:06pm Mitral valve insufficiency chronic February 21, 2025 2:06pm [facility] Work Phone: Hospital Discharge instructionsNo known hospital discharge instructions.[facility] Discharge instructions* Query Response Comment Date/Time Was patient education provided Yes 10/20/2022 16:30 [facility] Discharge instructions Additional Instructions Continue on your current prescriptions, take your next metoprolol in the morning as prescribed.[facility] Work Phone: Reason for referral (narrative)No reason for referral information availableWooB[facility] Work Phone: Summary Purpose Family History No Family History Records Found Relationship Condition Age at Onset Recorded Date/T court mother Hypertension Unknown brother Sleep apnea Unknown father Malignant neoplasm Unknown Advance Directives No Advanced Directives Records Found Advance Directive Response Recorded Date/ Time Declaration for Mental Health Treatment No October 19, 2022 4:28pm Advance Directive Response Recorded Date/ Time Living Will No February 19, 2023 7:54pm Power of Wardrobe Image Consultant No January 7:54pm Advance Directive Response Recorded Date/ Time Living Will No February 06, 2024 11:32am Power of Wardrobe Image Consultant No January 11:32am Hospital Course Note [facility] Patient Name: HORACE JOE [facility] Date of : [address] [address] Unit Number: [id number] Discharge Summary Patient Status: DIS IN Attending Doctor: Merlin Negron MD Service Date: 06/24/20 1729 Discharge Summary Admit Date Admission Date Time: 06/22/202111 Anticipated Discharge Date 06/24/20 Final Dx/Problem List 1. Unstable angina 2. Abnormal stress test 3. CAD (coronary artery disease) 4. Osteoporosis 5. History of CVA (cerebrovascular accident) 6. HTN (hypertension) 7. Hyperlipidemia On Mon 2:13p Jun 23, 2020 MERLIN NEGRON wrote *Continue antiplatelets, continue VILMA inhibitor, increase Lipitor to 40 mg, cardiology is on the case, patient will continue recovery from heart cath. *Continue clinical medications monitor vital signs Patient Problems Reviewed: Yes Chief Complaint/HPI cHEST PAIN Reason for Admission Chest pain Operations/Procedures Cardiac cath Hospital Course Patient was admitted to the hospi (more content not included)... Chief Complaint and Reason for Visit Encounter Admit Date Chief Complaint Reason for V isit Discharged Recurring September 23, 2021 12:45pm M19.011 OSTEOARTHRITIS R SHOULDER Encounter Admit Date Chief Complaint Reason for V isit Admitted Inpatient October 19, 2022 3:41pm CVA CV A (cerebral vascular accident) Encounter Admit Date Chief Complaint Reason for V isit Discharged Inpatient October 19, 2022 3:41pm CVA CVA (cerebral vascular accident) Chief Complaint PALPITATIONS Chief Complaint AFIB / CHF (DEVILLIE R) hx of A fib RE-EVAL AAA Amb Documentation Reason for Visit AAA (abdominal aorti c aneurysm) Aortic regurgitation Coronary artery disease Dyslipidemia Essential hypertension Chief Complaint AFIB / CHF (DEVILLIE R) hx of A fib RE-EVAL AAA Amb Documentation A-FIB/FLUTTER Amb Documentation Reason for Visit AAA (abdominal aorti c aneurysm) Aortic regurgitation Coronary artery disease Dyslipidemia Essential hypertension Chief Complaint Admit Date N40.1 R31.0 Benign prostatic hyperplasia with lowe April 03, 2024 12:49pm LT KNEE OA *WILLIE* July 16, 2024 12:03pm PREOP July 16, 2024 12:26pm Chief Complaint Admit Date LT KNEE OA *WILLIE* July 16, 2024 12:03pm PREOP July 16, 2024 12:26pm 6 M FU AND PREOP August 20, 2024 1:4 4pm Encounter for preprocedural cardiovascul ar examina August 23, 2024 6:51am Encounter for preprocedural cardiovascul ar examina August 23, 2024 12:43pm Reason for Visit Admit Date AAA (abdominal aortic aneurysm) August 202024 1:44pm Aortic regurgitation August 20, 2024 1: 44pm Coronary artery disease August 20, 2024 1:44pm Dyslipidemia August 20, 2024 1:4 4pm Essential hypertension August 20, 2024 1:44pm Mild ascending aorta dilatation August 202024 1:44pm Mitral valve insufficiency August 20 2 025 1:44pm Preoperative cardiovascular examination August 20, 2024 1:44pm Chief Complaint Admit Date 6 M FU February 21, 2025 2: 06pm Reason for Visit Admit Date AAA (abdominal aortic aneurysm) February 21, 2025 2:06pm Aortic regurgitation February 21, 2025 2 :06pm Coronary artery disease February 21 2:06pm Dyslipidemia February 21, 2025 2: 06pm Essential hypertension February 21, 2025 2:06pm Mild ascending aorta dilatation February 21, 2025 2:06pm Mitral valve insufficiency February 21, 2025 2:06pm Additional Source Comments (unrecognized sect ion and content) No Status Records FoundNo Status Records FoundNo Status Records FoundNo Status Records FoundNo Status Records Found INFORMATION SOURCE (unrecogn ized section and content) DATE CREATED AUTHOR 07/02/2020 [facility] DATE CREATED AUTHOR AUTHOR'S ORGANIZ ATION 02/24/2023 [facility] DATE CREATED AUTHOR AUTHOR'S ORGANIZ ATION 03/10/2024 [facility] DATE CREATED AUTHOR AUTHOR'S ORGANIZ ATION 06/07/2024 [facility] DATE CREATED AUTHOR AUTHOR'S ORGANIZ ATION 02/26/2025 [facility] Care Teams (unrecognized sec tion and content) Team Status: Active Member Role Status Dates No Primary Care Physician Primary Care Provider Active Team Status: Inactive Member Role Status Dates Dr. Sami Lu MD Emergency Provider Active No Primary Care Physician Primary Care Provider Active Team Status: Inactive Member Role Status Dates Dr. Rene Denis MD Attending Provider Active Out of Town Doctor Primary Care Provider, Referring Pr ovider Active Team Status: Active Member Role Status Dates Dr. Patrice Art MD Attending Provider Active Team Status: Active Member Role Status Dates Allie Daniels TAG AND LABEL CUTTER, TAG AND LABEL CUTTER-C Attending Provider Active Team Status: Inactive Member Role Status Dates Dr. Rene Denis MD Attending Provider, Referring Pr ovider Active LOUISE TOLLIVER Primary Care Provider Active Team Status: Active Member Role Status Dates Dr. Rene Denis MD Attending Provider, Referring Pr ovider Active Team Status: Active Member Role Status Dates Dr. Rene Denis MD Attending Provider Active Team Status: Inactive Member Role Status Dates Dr. Rene Denis MD Attending Provider, Referring Pr ovider Active Team Status: Active Member Role Status Frida Perry MD Primary Care Provider Active Team Status: Inactive Member Role Status Frida Barrientos MD Attending Provider Active Start: April 03, 2024 End: April 03, 2024 Dr. Samy Barrientos MD Referring Provider Active Start: April 03, 2024 End: April 03, 2024 Lenny Perry MD Primary Care Provider Active St art: April 03, 2024 End: April 03, 2024 Team Status: Inactive Member Role Status Frida Perry MD Primary Care Provider Active St art: April 09, 2024 End: April 09, 2024 Dr. Samy Barrientos MD Attending Provider Active Start: April 09, 2024 End: April 09, 2024 Dr. Samy Barrientos MD Referring Provider Active Start: April 09, 2024 End: April 09, 2024 Team Status: Inactive Member Role Status Frida Perry MD Primary Care Provider Active St art: July 16, 2024 End: July 16, 2024 Dr. Juaquin Head MD Attending Provider Active Start: July 16, 2024 End: July 16, 2024 Dr. Juaquin Head MD Referring Provider Active Start: July 16, 2024 End: July 16, 2024 Team Status: Active Member Role Status Frida Perry MD Primary Care Provider Active St art: July 16, 2024 End: July 16, 2024 Dr. Jarrett Barnhart MD Attending Provider Active Start: July 16, 2024 End: July 16, 2024 Dr. Juaquin Head MD Referring Provider Active Start: July 16, 2024 End: July 16, 2024 Team Status: Inactive Member Role Status Frida Perry MD Primary Care Provider Active St art: August 20, 2024 End: August 20, 2024 Lenny Perry MD Referring Provider Active Start : August 20, 2024 End: August 20, 2024 Dr. Rene Denis MD Attending Provider Active Start: August 20, 2024 End: August 20, 2024 Team Status: Inactive Member Role Status Frida Perry MD Primary Care Provider Active St art: August 23, 2024 End: August 23, 2024 Dr. Rene Denis MD Attending Provider Active Start: August 23, 2024 End: August 23, 2024 Dr. Rene Deins MD Referring Provider Active Start: August 23, 2024 End: August 23, 2024 Team Status: Active Member Role Status Dates Lenny Perry MD Primary Care Provider Active St art: August 23, 2024 Dr. Rene Denis MD Attending Provider Active Start: August 23, 2024 Dr. Rene Denis MD Referring Provider Active Start: August 23, 2024 Dr. Rene Denis MD Other Provider Active Star t: August 23, 2024 Team Status: Active Member Role/Relationship Status Dates Lenny Perry MD Primary care physician Active Team Status: Inactive Member Role/Relationship Status Dates Lenny Perry MD Primary care physician Active S tart: February 21, 2025 End: February 21, 2025 Lenny Perry MD Referring Provider Active Start : February 21, 2025 End: February 21, 2025 Dr. Rene Denis MD Attending physician Active Start: February 21, 2025 End: February 21, 2025 Goals (unrecognized section and content) Goals may be documented in a n alternate sectionGoals may be documented in an alternate sectionGoals may be documented in an alternate sectionGoals may be documented in an alternate sectionGoals may be documented in an alternate sectionGoals may be documented in an alternate section Source Comments (unrecognize d section and content) In the event this informatio n is protected by the Federal Confidentiality of Alcohol and Drug Abuse Patient Records regulations: The Federal rules restrict any use of the information to criminally investigate or prosecute any alcohol or drug abuse patient.[facility] the event this information is protected by the Federal Confidentiality of Alcohol and Drug Abuse Patient Records regulations: The Federal rules restrict any use of the information to criminally investigate or prosecute any alcohol or drug abuse patient.[facility] the event this information is protected by the Federal Confidentiality of Alcohol and Drug Abuse Patient Records regulations: The Federal rules restrict any use of the information to criminally investigate or prosecute any alcohol or drug abuse patient.[facility] HospitalIn the event this information is protected by the Federal Confidentiality of Alcohol and Drug Abuse Patient Records regulations: The Federal rules restrict any use of the information to criminally investigate or prosecute any alcohol or drug abuse patient.[facility] the event this information is protected by the Federal Confidentiality of Alcohol and Drug Abuse Patient Records regulations: The Federal rules restrict any use of the information to criminally investigate or prosecute any alcohol or drug abuse patient.[facility] the event this information is protected by the Federal Confidentiality of Alcohol and Drug Abuse Patient Records regulations: The Federal rules restrict any use of the information to criminally investigate or prosecute any alcohol or drug abuse patient.[facility] Hospital[facility] the event this information is protected by the Federal Confidentiality of Alcohol and Drug Abuse Patient Records regulations: The Federal rules restrict any use of the information to criminally investigate or prosecute any alcohol or drug abuse patient.[facility] the event this information is protected by the Federal Confidentiality of Alcohol and Drug Abuse Patient Records regulations: The Federal rules restrict any use of the information to criminally investigate or prosecute any alcohol or drug abuse patient.[facility] Reason for Visit (unrecogniz ed section and content) Reason Comments right pec pain X 3 days-cannot reca ll an injury Reason Onset Date Comments ACM BEATA RN 02/09/2024 ER outreach Reason Comments gross hematuria X 20 min Reason Comments Results Urine Cx Reason Onset Date Comments Population Health Navigation Outreach 04/26/2024 [place] No PCP FOR RECORDS PERTAINING TO PATIENTS WHO ARE OR HAVE BEEN ENROLLED IN A CHEMICAL DEPENDENCY/SUBSTANCEABUSE PROGRAM, SOME INFORMATION MAY BE OMITTED. This clinical summary was aggregated from multiple sources. Caution should be exercised in using it in the provision of clinical care. This summary normalizes information from multiple sources, and as a consequence, information in this document may materially change the coding, format and clinical context of patient data. In addition, data may be omitted in some cases. CLINICAL DECISIONS SHOULD BE BASED ON THE PRIMARY CLINICAL RECORDS. [employer] [facility]. provides no warranty or guarantee of the accuracy or completeness of information in this document.
== END | disposition home or self-care (01) ==
LOC: OPMRI 10:43
PROVIDERS: PCP Family Medicine; Referring Provider Urology; Visit Provider Urology
DX: R97.20 Elevated prostate specific antigen [PSA] (principal)
CPT/HCPCS: 72197; A9575; A4216